=== PATIENT | male | born 1955 | race African-American/Black ===

== ENCOUNTER 2023-10-29 10:43 | Inpatient (IN) | payer OTHER ==
--- OUTSIDE RECORDS SUMMARY | 2023-10-29 11:10 | XMS REPORT | Continuity of Care Document ---
Author Name Unknown Address [address] [facility] [address]. [address] [place] [address] [facility] thconnect Address [address] [facility]. 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 Name Role Phone Serenity_Jason Attending Clinician Unavailable Criselda Gomez Attending Clinician [phone] MOMO Attending Clinician Unavailable Macy Storey Attending Clinician [phone] KARI VAZQUEZ Attending Clinician Mihir gonsalez Lab, Adc Fam Pob I Attending Clinician Unavailab Kari Sequeira MD Attending Clinician + [phone] Doctor Unassigned, Dierks Attending Clinician U QUINTIN Grande Attending Clinician Unavailable Quintin Chandra MD Attending Clinician 2, [facility] Attending Clinician Unavailable Lexi Martin MD Attending Clinician Mihir Stevens Admitting Clinician Unavailable MOMO Admitting Clinician Unavailable Payers Payer Name Policy Type Policy Number Effective Date Expirati on Date Source [employer] (POS) [id number] 2015 00:00:00 [employer] CHOICE POS II [id number] 2015 00:00:00 Problems Condition Name Condition Details Condition Category Status Onset Date Resolution Date Last Treatment Date Treating Clinician Comments Source Cellulitis of toe of left foot Cellulitis of Toe of Left Foot Problem Active 10-28 00:00: 00 [facility] Cataract Cataract Problem Active 3 00:00: 00 [facility] Hyperlipid emia Hyperlipid emia Problem Active 03-17 00:00: 00 [facility] History of cerebrovas cular accident History of Cerebrovas cular Accident Problem Active 3-16 00:00: 00 [facility] Fatigue Fatigue Problem Active 2-21 00:00: 00 [facility] Onychomyco sis of toenails Onychomyco sis of Toenails Problem Active 7 00:00: 00 [facility] Vitamin D deficiency Vitamin D Deficiency Problem Active 02-25 00:00: 00 [facility] Diabetes mellitus Diabetes Mellitus Problem Active 8 00:00: 00 [facility] Hypertensi ve disorder Hypertensi ve Disorder Problem Active 03-19 00:00: 00 [facility] Stage 1 chronic kidney disease Stage 1 chronic kidney disease Disease Active 08-18 00:00: 00 [facility] Neuropathy Neuropathy Disease Active 08-18 00:00: 00 [facility] Dyslipidem ia Dyslipidem ia Disease Active 08-18 00:00: 00 [facility] Type 2 diabetes mellitus with vascular disease Type 2 diabetes mellitus with vascular disease Disease Active 01-10 00:00: 00 [facility] Essential hypertensi on Essential hypertensi on Disease Active 01-10 00:00: 00 [facility] Encounter for screening colonoscop y Encounter for screening colonoscop y Disease Active 01-10 00:00: 00 [facility] Allergies, Adverse Reactions, Alerts Allergy Name Allergy Type Status Severity Reaction(s) Onset Date Inactive Date Treating Clinician Comments Source NO KNOWN ALLERGIE S Drug Class Active [facility] Social History Social Habit Start Date Stop Date Quantity Comments Source Exposure to SARS-CoV-2 (event) Not sure [facility] History of tobacco use Cigar Smoker [facility] Tobacco use and exposure 2019-02-08 00:00:00 2019-02-08 00:00:00 Never used [facility] Alcohol intake 2019-02-08 00:00:00 2019-02-08 00:00:00 Current drinker of alcohol (finding) [facility] Tobacco Comment 2016-01-11 00:00:00 2016-01-11 00:00:00 1-2 cigars daily; cigarettes: 20 years- 1 pack daily - quit 30 years ago [facility] Sex Ass[birth year] At [birth year] 00:00:00 [facility] Smoking Status Start Date Stop Date Source Light Tobacco Smoker [facility] Current some day smoker 2019-02-08 00:00:00 [facility] Medications Ordered Medication Name Filled Medication Name Start Date Stop Date Current Medication? Ordering Clinician Indication Dosage Frequency Signature (SIG) Comments Components Source carvediloL 25 mg tablet 2019-08 00:00: 00 Yes [id number] 25mg Take 1 tablet by mouth 2 (two) times daily with meals. [facility] carvediloL 25 mg tablet 2019-08 00:00: 00 Yes [id number] 25mg Take 1 tablet by mouth 2 (two) times daily with meals. [facility] carvediloL 25 mg tablet 2019-08 00:00: 00 Yes [id number] 25mg Take 1 tablet by mouth 2 (two) times daily with meals. [facility] carvediloL 25 mg tablet 2019-08 00:00: 00 Yes [id number] 25mg Take 1 tablet by mouth 2 (two) times daily with meals. [facility] carvediloL 25 mg tablet 2019-08 00:00: 00 Yes [id number] 25mg Take 1 tablet by mouth 2 (two) times daily with meals. [facility] carvediloL 25 mg tablet 2019-08 00:00: 00 Yes [id number] 25mg Take 1 tablet by mouth 2 (two) times daily with meals. [facility] carvediloL 25 mg tablet 2019-08 00:00: 00 Yes [id number] 25mg Take 1 tablet by mouth 2 (two) times daily with meals. [facility] carvediloL 25 mg tablet 2019-08 00:00: 00 Yes [id number] 25mg Take 1 tablet by mouth 2 (two) times daily with meals. [facility] carvediloL 25 mg tablet 2019- 030 00:00: 00 Yes [id number] 25mg Take 1 tablet by mouth 2 (two) times daily with meals. [facility] carvediloL 25 mg tablet 2019-08 030 00:00: 00 Yes [id number] 25mg Take 1 tablet by mouth 2 (two) times daily with meals. [facility] carvediloL 25 mg tablet 2019-08 0 00:00: 00 Yes [id number] 25mg Take 1 tablet by mouth 2 (two) times daily with meals. [facility] carvediloL 25 mg tablet 2019-08 0 00:00: 00 Yes [id number] 25mg Take 1 tablet by mouth 2 (two) times daily with meals. [facility] carvediloL 12.5 mg tablet 2019-0 9 00:00: 00 Yes [id number] 12.5mg Take 1 tablet by mouth 2 (two) times daily with meals. [facility] tadalafiL 20 mg tablet 2019-0 30 00:00: 00 Yes [id number] 20mg Take 1 tablet by mouth as needed for Erectile dysfunctio n. [facility] carvediloL 12.5 mg tablet 2019-0 05-09 00:00: 00 Yes [id number] 12.5mg Take 1 tablet by mouth 2 (two) times daily with meals. [facility] tadalafiL 20 mg tablet 2019-0 05-09 00:00: 00 Yes [id number] 9107 20mg Take 1 tablet by mouth as needed for Erectile dysfunctio n. [facility] carvediloL 12.5 mg tablet 2019-0 930 00:00: 00 Yes [id number] 12.5mg Take 1 tablet by mouth 2 (two) times daily with meals. [facility] tadalafiL 20 mg tablet 2019-0 930 00:00: 00 Yes [id number] [id number] 20mg Take 1 tablet by mouth as needed for Erectile dysfunctio n. [facility] tadalafiL 20 mg tablet 2019-0 05-09 00:00: 00 Yes [id number] 20mg Take 1 tablet by mouth as needed for Erectile dysfunctio n. [facility] tadalafiL 20 mg tablet 2019-0 05-09 00:00: 00 Yes [id number] 9107 20mg Take 1 tablet by mouth as needed for Erectile dysfunctio n. [facility] tadalafiL 20 mg tablet 2019-0 05-09 00:00: 00 Yes [id number] 9107 20mg Take 1 tablet by mouth as needed for Erectile dysfunctio n. [facility] tadalafiL 20 mg tablet 2019-0 05-09 00:00: 00 Yes [id number] 20mg Take 1 tablet by mouth as needed for Erectile dysfunctio n. [facility] tadalafiL 20 mg tablet 2019-0 05-09 00:00: 00 Yes [id number] [id number] 20mg Take 1 tablet by mouth as needed for Erectile dysfunctio n. [facility] tadalafiL 20 mg tablet 2019-0 05-09 00:00: 00 Yes [id number] 9107 20mg Take 1 tablet by mouth as needed for Erectile dysfunctio n. [facility] tadalafiL 20 mg tablet 2019-0 05-09 00:00: 00 Yes [id number] [id number] 20mg Take 1 tablet by mouth as needed for Erectile dysfunctio n. [facility] tadalafiL 20 mg tablet 2019-0 05-09 00:00: 00 Yes [id number] 9107 20mg Take 1 tablet by mouth as needed for Erectile dysfunctio n. [facility] tadalafiL 20 mg tablet 2019-0 30 00:00: 00 Yes [id number] [id number] 20mg Take 1 tablet by mouth as needed for Erectile dysfunctio n. [facility] tadalafiL 20 mg tablet 2019-0 05-09 00:00: 00 Yes [id number] 9107 20mg Take 1 tablet by mouth as needed for Erectile dysfunctio n. [facility] tadalafiL 20 mg tablet 2019-05-09 00:00: 00 Yes [id number] 9107 20mg Take 1 tablet by mouth as needed for Erectile dysfunctio n. [facility] tadalafiL 20 mg tablet 05-09 00:00: 00 Yes [id number] 20mg Take 1 tablet by mouth as needed for Erectile dysfunctio n. [facility] carvediloL 12.5 mg tablet 05-09 00:00: 06-08 00:00 :00 No [id number] 12.5mg Take 1 tablet by mouth 2 (two) times daily with meals. [facility] carvediloL 12.5 mg tablet 05-09 00:00: 06-08 00:00 :00 No [id number] 12.5mg Take 1 tablet by mouth 2 (two) times daily with meals. [facility] rosuvastati n 40 mg tablet 02-09 00:00: 00 Yes [id number] 40mg Take 1 tablet by mouth at bedtime. [facility] pregabalin (LYRICA) 75 mg capsule 02-09 00:00: 00 Yes [id number] 75mg Take 1 capsule by mouth at bedtime. [facility] pioglitazon e 30 mg tablet 02-09 00:00: 00 Yes [id number] 30mg Take 1 tablet by mouth daily. [facility] losartan-hy drochloroth iazide 100-25 mg per tablet 02-09 00:00: 00 Yes [id number] 1{tbl} Take 1 tablet by mouth daily. [facility] insulin glargine U-300 conc (TOUJEO MAX U-300 SOLOSTAR) 300 unit/mL (3 mL) InPn 02-09 00:00: 00 Yes [id number] 65U inject 65 Units under the skin every morning. [facility] empaglifloz in (JARDIANCE) 25 mg Tab 02-09 00:00: 00 Yes [id number] Take 1 TAB-CAP/M2 by mouth daily. [facility] dulaglutide (TRULICITY) 1.5 mg/0.5 mL PnIj 02-09 00:00: 00 Yes [id number] 1.5mg inject 1.5 mg under the skin weekly. [facility] amLODIPine 10 mg tablet 02-09 00:00: 00 Yes [id number] 10mg Take 1 tablet by mouth daily. [facility] rosuvastati n 40 mg tablet 02-09 00:00: 00 Yes [id number] 40mg Take 1 tablet by mouth at bedtime. [facility] pregabalin (LYRICA) 75 mg capsule 02-09 00:00: 00 Yes [id number] 75mg Take 1 capsule by mouth at bedtime. [facility] pioglitazon e 30 mg tablet 02-09 00:00: 00 Yes [id number] 30mg Take 1 tablet by mouth daily. [facility] losartan-hy drochloroth iazide 100-25 mg per tablet 02-09 00:00: 00 Yes [id number] 1{tbl} Take 1 tablet by mouth daily. [facility] insulin glargine U-300 conc (TOUJEO MAX U-300 SOLOSTAR) 300 unit/mL (3 mL) InPn 02-09 00:00: 00 Yes [id number] 65U inject 65 Units under the skin every morning. [facility] empaglifloz in (JARDIANCE) 25 mg Tab 02-09 00:00: 00 Yes [id number] Take 1 TAB-CAP/M2 by mouth daily. [facility] dulaglutide (TRULICITY) 1.5 mg/0.5 mL PnIj 02-09 00:00: 00 Yes [id number] 1.5mg inject 1.5 mg under the skin weekly. [facility] amLODIPine 10 mg tablet 02-09 00:00: 00 Yes [id number] 10mg Take 1 tablet by mouth daily. [facility] rosuvastati n 40 mg tablet 02-09 00:00: 00 Yes [id number] 40mg Take 1 tablet by mouth at bedtime. [facility] pregabalin (LYRICA) 75 mg capsule 02-09 00:00: 00 Yes [id number] 75mg Take 1 capsule by mouth at bedtime. [facility] pioglitazon e 30 mg tablet 02-09 00:00: 00 Yes [id number] 30mg Take 1 tablet by mouth daily. [facility] losartan-hy drochloroth iazide 100-25 mg per tablet 02-09 00:00: 00 Yes [id number] 1{tbl} Take 1 tablet by mouth daily. [facility] insulin glargine U-300 conc (TOUJEO MAX U-300 SOLOSTAR) 300 unit/mL (3 mL) InPn 02-09 00:00: 00 Yes [id number] 65U inject 65 Units under the skin every morning. [facility] empaglifloz in (JARDIANCE) 25 mg Tab 02-09 00:00: 00 Yes [id number] Take 1 TAB-CAP/M2 by mouth daily. [facility] dulaglutide (TRULICITY) 1.5 mg/0.5 mL PnIj 02-09 00:00: 00 Yes [id number] 1.5mg inject 1.5 mg under the skin weekly. [facility] amLODIPine 10 mg tablet 02-09 00:00: 00 Yes [id number] 10mg Take 1 tablet by mouth daily. [facility] rosuvastati n 40 mg tablet 02-09 00:00: 00 Yes [id number] 40mg Take 1 tablet by mouth at bedtime. [facility] pregabalin (LYRICA) 75 mg capsule 02-09 00:00: 00 Yes [id number] 75mg Take 1 capsule by mouth at bedtime. [facility] pioglitazon e 30 mg tablet 02-09 00:00: 00 Yes [id number] 30mg Take 1 tablet by mouth daily. [facility] losartan-hy drochloroth iazide 100-25 mg per tablet 02-09 00:00: 00 Yes [id number] 1{tbl} Take 1 tablet by mouth daily. [facility] insulin glargine U-300 conc (TOUJEO MAX U-300 SOLOSTAR) 300 unit/mL (3 mL) InPn 02-09 00:00: 00 Yes [id number] 65U inject 65 Units under the skin every morning. [facility] empaglifloz in (JARDIANCE) 25 mg Tab 02-09 00:00: 00 Yes [id number] Take 1 TAB-CAP/M2 by mouth daily. [facility] dulaglutide (TRULICITY) 1.5 mg/0.5 mL PnIj 02-09 00:00: 00 Yes [id number] 1.5mg inject 1.5 mg under the skin weekly. [facility] amLODIPine 10 mg tablet 02-09 00:00: 00 Yes [id number] 10mg Take 1 tablet by mouth daily. [facility] rosuvastati n 40 mg tablet 02-09 00:00: 00 Yes [id number] 40mg Take 1 tablet by mouth at bedtime. [facility] pregabalin (LYRICA) 75 mg capsule 02-09 00:00: 00 Yes [id number] 75mg Take 1 capsule by mouth at bedtime. [facility] pioglitazon e 30 mg tablet 02-09 00:00: 00 Yes [id number] 30mg Take 1 tablet by mouth daily. [facility] losartan-hy drochloroth iazide 100-25 mg per tablet 02-09 00:00: 00 Yes [id number] 1{tbl} Take 1 tablet by mouth daily. [facility] insulin glargine U-300 conc (TOUJEO MAX U-300 SOLOSTAR) 300 unit/mL (3 mL) InPn 02-09 00:00: 00 Yes [id number] 65U inject 65 Units under the skin every morning. [facility] empaglifloz in (JARDIANCE) 25 mg Tab 02-09 00:00: 00 Yes [id number] Take 1 TAB-CAP/M2 by mouth daily. [facility] dulaglutide (TRULICITY) 1.5 mg/0.5 mL PnIj 02-09 00:00: 00 Yes [id number] 1.5mg inject 1.5 mg under the skin weekly. [facility] amLODIPine 10 mg tablet 02-09 00:00: 00 Yes [id number] 10mg Take 1 tablet by mouth daily. [facility] rosuvastati n 40 mg tablet 02-09 00:00: 00 Yes [id number] 40mg Take 1 tablet by mouth at bedtime. [facility] pregabalin (LYRICA) 75 mg capsule 02-09 00:00: 00 Yes [id number] 75mg Take 1 capsule by mouth at bedtime. [facility] pioglitazon e 30 mg tablet 02-09 00:00: 00 Yes [id number] 30mg Take 1 tablet by mouth daily. [facility] losartan-hy drochloroth iazide 100-25 mg per tablet 02-09 00:00: 00 Yes [id number] 1{tbl} Take 1 tablet by mouth daily. [facility] insulin glargine U-300 conc (TOUJEO MAX U-300 SOLOSTAR) 300 unit/mL (3 mL) InPn 02-09 00:00: 00 Yes [id number] 65U inject 65 Units under the skin every morning. [facility] empaglifloz in (JARDIANCE) 25 mg Tab 02-09 00:00: 00 Yes [id number] Take 1 TAB-CAP/M2 by mouth daily. [facility] dulaglutide (TRULICITY) 1.5 mg/0.5 mL PnIj 02-09 00:00: 00 Yes [id number] 1.5mg inject 1.5 mg under the skin weekly. [facility] amLODIPine 10 mg tablet 02-09 00:00: 00 Yes [id number] 10mg Take 1 tablet by mouth daily. [facility] rosuvastati n 40 mg tablet 02-09 00:00: 00 Yes [id number] 40mg Take 1 tablet by mouth at bedtime. [facility] pregabalin (LYRICA) 75 mg capsule 02-09 00:00: 00 Yes [id number] 75mg Take 1 capsule by mouth at bedtime. [facility] pioglitazon e 30 mg tablet 02-09 00:00: 00 Yes [id number] 30mg Take 1 tablet by mouth daily. [facility] losartan-hy drochloroth iazide 100-25 mg per tablet 02-09 00:00: 00 Yes [id number] 1{tbl} Take 1 tablet by mouth daily. [facility] insulin glargine U-300 conc (TOUJEO MAX U-300 SOLOSTAR) 300 unit/mL (3 mL) InPn 02-09 00:00: 00 Yes [id number] 65U inject 65 Units under the skin every morning. [facility] empaglifloz in (JARDIANCE) 25 mg Tab 02-09 00:00: 00 Yes [id number] Take 1 TAB-CAP/M2 by mouth daily. [facility] dulaglutide (TRULICITY) 1.5 mg/0.5 mL PnIj 02-09 00:00: 00 Yes [id number] 1.5mg inject 1.5 mg under the skin weekly. [facility] amLODIPine 10 mg tablet 02-09 00:00: 00 Yes [id number] 10mg Take 1 tablet by mouth daily. [facility] rosuvastati n 40 mg tablet 02-09 00:00: 00 Yes [id number] 40mg Take 1 tablet by mouth at bedtime. [facility] pregabalin (LYRICA) 75 mg capsule 02-09 00:00: 00 Yes [id number] 75mg Take 1 capsule by mouth at bedtime. [facility] pioglitazon e 30 mg tablet 02-09 00:00: 00 Yes [id number] 30mg Take 1 tablet by mouth daily. [facility] losartan-hy drochloroth iazide 100-25 mg per tablet 02-09 00:00: 00 Yes [id number] 1{tbl} Take 1 tablet by mouth daily. [facility] insulin glargine U-300 conc (TOUJEO MAX U-300 SOLOSTAR) 300 unit/mL (3 mL) InPn 02-09 00:00: 00 Yes [id number] 65U inject 65 Units under the skin every morning. [facility] empaglifloz in (JARDIANCE) 25 mg Tab 02-09 00:00: 00 Yes [id number] Take 1 TAB-CAP/M2 by mouth daily. [facility] dulaglutide (TRULICITY) 1.5 mg/0.5 mL PnIj 02-09 00:00: 00 Yes [id number] 1.5mg inject 1.5 mg under the skin weekly. [facility] amLODIPine 10 mg tablet 02-09 00:00: 00 Yes [id number] 10mg Take 1 tablet by mouth daily. [facility] rosuvastati n 40 mg tablet 02-09 00:00: 00 Yes [id number] 40mg Take 1 tablet by mouth at bedtime. [facility] pregabalin (LYRICA) 75 mg capsule 02-09 00:00: 00 Yes [id number] 75mg Take 1 capsule by mouth at bedtime. [facility] pioglitazon e 30 mg tablet 02-09 00:00: 00 Yes [id number] 30mg Take 1 tablet by mouth daily. [facility] losartan-hy drochloroth iazide 100-25 mg per tablet 02-09 00:00: 00 Yes [id number] 1{tbl} Take 1 tablet by mouth daily. [facility] insulin glargine U-300 conc (TOUJEO MAX U-300 SOLOSTAR) 300 unit/mL (3 mL) InPn 02-09 00:00: 00 Yes [id number] 65U inject 65 Units under the skin every morning. [facility] empaglifloz in (JARDIANCE) 25 mg Tab 02-09 00:00: 00 Yes [id number] Take 1 TAB-CAP/M2 by mouth daily. [facility] dulaglutide (TRULICITY) 1.5 mg/0.5 mL PnIj 02-09 00:00: 00 Yes [id number] 1.5mg inject 1.5 mg under the skin weekly. [facility] amLODIPine 10 mg tablet 02-09 00:00: 00 Yes [id number] 10mg Take 1 tablet by mouth daily. [facility] rosuvastati n 40 mg tablet 02-09 00:00: 00 Yes [id number] 40mg Take 1 tablet by mouth at bedtime. [facility] pregabalin (LYRICA) 75 mg capsule 02-09 00:00: 00 Yes [id number] 75mg Take 1 capsule by mouth at bedtime. [facility] pioglitazon e 30 mg tablet 02-09 00:00: 00 Yes [id number] 30mg Take 1 tablet by mouth daily. [facility] losartan-hy drochloroth iazide 100-25 mg per tablet 02-09 00:00: 00 Yes [id number] 1{tbl} Take 1 tablet by mouth daily. [facility] insulin glargine U-300 conc (TOUJEO MAX U-300 SOLOSTAR) 300 unit/mL (3 mL) InPn 02-09 00:00: 00 Yes [id number] 65U inject 65 Units under the skin every morning. [facility] empaglifloz in (JARDIANCE) 25 mg Tab 02-09 00:00: 00 Yes [id number] Take 1 TAB-CAP/M2 by mouth daily. [facility] dulaglutide (TRULICITY) 1.5 mg/0.5 mL PnIj 02-09 00:00: 00 Yes [id number] 1.5mg inject 1.5 mg under the skin weekly. [facility] amLODIPine 10 mg tablet 02-09 00:00: 00 Yes [id number] 10mg Take 1 tablet by mouth daily. [facility] rosuvastati n 40 mg tablet 02-09 00:00: 00 Yes [id number] 40mg Take 1 tablet by mouth at bedtime. [facility] pregabalin (LYRICA) 75 mg capsule 02-09 00:00: 00 Yes [id number] 75mg Take 1 capsule by mouth at bedtime. [facility] pioglitazon e 30 mg tablet 02-09 00:00: 00 Yes [id number] 30mg Take 1 tablet by mouth daily. [facility] losartan-hy drochloroth iazide 100-25 mg per tablet 02-09 00:00: 00 Yes [id number] 1{tbl} Take 1 tablet by mouth daily. [facility] insulin glargine U-300 conc (TOUJEO MAX U-300 SOLOSTAR) 300 unit/mL (3 mL) InPn 02-09 00:00: 00 Yes [id number] 65U inject 65 Units under the skin every morning. [facility] empaglifloz in (JARDIANCE) 25 mg Tab 02-09 00:00: 00 Yes [id number] Take 1 TAB-CAP/M2 by mouth daily. [facility] dulaglutide (TRULICITY) 1.5 mg/0.5 mL PnIj 02-09 00:00: 00 Yes [id number] 1.5mg inject 1.5 mg under the skin weekly. [facility] amLODIPine 10 mg tablet 02-09 00:00: 00 Yes [id number] 10mg Take 1 tablet by mouth daily. [facility] rosuvastati n 40 mg tablet 02-09 00:00: 00 Yes [id number] 40mg Take 1 tablet by mouth at bedtime. [facility] pregabalin (LYRICA) 75 mg capsule 02-09 00:00: 00 Yes [id number] 75mg Take 1 capsule by mouth at bedtime. [facility] pioglitazon e 30 mg tablet 02-09 00:00: 00 Yes [id number] 30mg Take 1 tablet by mouth daily. [facility] losartan-hy drochloroth iazide 100-25 mg per tablet 02-09 00:00: 00 Yes [id number] 1{tbl} Take 1 tablet by mouth daily. [facility] insulin glargine U-300 conc (TOUJEO MAX U-300 SOLOSTAR) 300 unit/mL (3 mL) InPn 02-09 00:00: 00 Yes [id number] 65U inject 65 Units under the skin every morning. [facility] empaglifloz in (JARDIANCE) 25 mg Tab 02-09 00:00: 00 Yes [id number] Take 1 TAB-CAP/M2 by mouth daily. [facility] dulaglutide (TRULICITY) 1.5 mg/0.5 mL PnIj 02-09 00:00: 00 Yes [id number] 1.5mg inject 1.5 mg under the skin weekly. [facility] amLODIPine 10 mg tablet 02-09 00:00: 00 Yes [id number] 10mg Take 1 tablet by mouth daily. [facility] rosuvastati n 40 mg tablet 02-09 00:00: 00 Yes [id number] 40mg Take 1 tablet by mouth at bedtime. [facility] pregabalin (LYRICA) 75 mg capsule 02-09 00:00: 00 Yes [id number] 75mg Take 1 capsule by mouth at bedtime. [facility] pioglitazon e 30 mg tablet 02-09 00:00: 00 Yes [id number] 30mg Take 1 tablet by mouth daily. [facility] losartan-hy drochloroth iazide 100-25 mg per tablet 02-09 00:00: 00 Yes [id number] 1{tbl} Take 1 tablet by mouth daily. [facility] [facility] glargine U-300 conc (TOUJEO MAX U-300 SOLOSTAR) 300 unit/mL (3 mL) InPn 02-09 00:00: 00 Yes [id number] 65U inject 65 Units under the skin every morning. [facility] empaglifloz in (JARDIANCE) 25 mg Tab 02-09 00:00: 00 Yes [id number] Take 1 TAB-CAP/M2 by mouth daily. [facility] dulaglutide (TRULICITY) 1.5 mg/0.5 mL PnIj 02-09 00:00: 00 Yes [id number] 1.5mg inject 1.5 mg under the skin weekly. [facility] amLODIPine 10 mg tablet 02-09 00:00: 00 Yes [id number] 10mg Take 1 tablet by mouth daily. [facility] rosuvastati n 40 mg tablet 02-09 00:00: 00 Yes [id number] 40mg Take 1 tablet by mouth at bedtime. [facility] pregabalin (LYRICA) 75 mg capsule 02-09 00:00: 00 Yes [id number] 75mg Take 1 capsule by mouth at bedtime. [facility] pioglitazon e 30 mg tablet 02-09 00:00: 00 Yes [id number] 30mg Take 1 tablet by mouth daily. [facility] losartan-hy drochloroth iazide 100-25 mg per tablet 02-09 00:00: 00 Yes [id number] 1{tbl} Take 1 tablet by mouth daily. [facility] insulin glargine U-300 conc (TOUJEO MAX U-300 SOLOSTAR) 300 unit/mL (3 mL) InPn 02-09 00:00: 00 Yes [id number] 65U inject 65 Units under the skin every morning. [facility] empaglifloz in (JARDIANCE) 25 mg Tab 02-09 00:00: 00 Yes [id number] Take 1 TAB-CAP/M2 by mouth daily. [facility] dulaglutide (TRULICITY) 1.5 mg/0.5 mL PnIj 02-09 00:00: 00 Yes [id number] 1.5mg inject 1.5 mg under the skin weekly. [facility] amLODIPine 10 mg tablet 02-09 00:00: 00 Yes [id number] 10mg Take 1 tablet by mouth daily. [facility] rosuvastati n 40 mg tablet 02-09 00:00: 00 Yes [id number] 40mg Take 1 tablet by mouth at bedtime. [facility] pregabalin (LYRICA) 75 mg capsule 02-09 00:00: 00 Yes [id number] 75mg Take 1 capsule by mouth at bedtime. [facility] pioglitazon e 30 mg tablet 02-09 00:00: 00 Yes [id number] 30mg Take 1 tablet by mouth daily. [facility] losartan-hy drochloroth iazide 100-25 mg per tablet 02-09 00:00: 00 Yes [id number] 1{tbl} Take 1 tablet by mouth daily. [facility] insulin glargine U-300 conc (TOUJEO MAX U-300 SOLOSTAR) 300 unit/mL (3 mL) InPn 02-09 00:00: 00 Yes [id number] 65U inject 65 Units under the skin every morning. [facility] empaglifloz in (JARDIANCE) 25 mg Tab 02-09 00:00: 00 Yes [id number] Take 1 TAB-CAP/M2 by mouth daily. [facility] dulaglutide (TRULICITY) 1.5 mg/0.5 mL PnIj 02-09 00:00: 00 Yes [id number] 1.5mg inject 1.5 mg under the skin weekly. [facility] amLODIPine 10 mg tablet 02-09 00:00: 00 Yes [id number] 10mg Take 1 tablet by mouth daily. [facility] rosuvastati n 40 mg tablet 02-09 00:00: 00 Yes [id number] 40mg Take 1 tablet by mouth at bedtime. [facility] pregabalin (LYRICA) 75 mg capsule 02-09 00:00: 00 Yes [id number] 75mg Take 1 capsule by mouth at bedtime. [facility] pioglitazon e 30 mg tablet 02-09 00:00: 00 Yes [id number] 30mg Take 1 tablet by mouth daily. [facility] losartan-hy drochloroth iazide 100-25 mg per tablet 02-09 00:00: 00 Yes [id number] 1{tbl} Take 1 tablet by mouth daily. [facility] insulin glargine U-300 conc (TOUJEO MAX U-300 SOLOSTAR) 300 unit/mL (3 mL) InPn 02-09 00:00: 00 Yes [id number] 65U inject 65 Units under the skin every morning. [facility] empaglifloz in (JARDIANCE) 25 mg Tab 02-09 00:00: 00 Yes [id number] Take 1 TAB-CAP/M2 by mouth daily. [facility] dulaglutide (TRULICITY) 1.5 mg/0.5 mL PnIj 02-09 00:00: 00 Yes [id number] 1.5mg inject 1.5 mg under the skin weekly. [facility] amLODIPine 10 mg tablet 02-09 00:00: 00 Yes [id number] 10mg Take 1 tablet by mouth daily. [facility] rosuvastati n 40 mg tablet 02-09 00:00: 00 Yes [id number] 40mg Take 1 tablet by mouth at bedtime. [facility] pregabalin (LYRICA) 75 mg capsule 02-09 00:00: 00 Yes [id number] 75mg Take 1 capsule by mouth at bedtime. [facility] pioglitazon e 30 mg tablet 02-09 00:00: 00 Yes [id number] 30mg Take 1 tablet by mouth daily. [facility] losartan-hy drochloroth iazide 100-25 mg per tablet 02-09 00:00: 00 Yes [id number] 1{tbl} Take 1 tablet by mouth daily. [facility] insulin glargine U-300 conc (TOUJEO MAX U-300 SOLOSTAR) 300 unit/mL (3 mL) InPn 02-09 00:00: 00 Yes [id number] 65U inject 65 Units under the skin every morning. [facility] empaglifloz in (JARDIANCE) 25 mg Tab 02-09 00:00: 00 Yes [id number] Take 1 TAB-CAP/M2 by mouth daily. [facility] dulaglutide (TRULICITY) 1.5 mg/0.5 mL PnIj 02-09 00:00: 00 Yes [id number] 1.5mg inject 1.5 mg under the skin weekly. [facility] amLODIPine 10 mg tablet 02-09 00:00: 00 Yes [id number] 10mg Take 1 tablet by mouth daily. [facility] rosuvastati n 40 mg tablet 02-09 00:00: 00 Yes [id number] 40mg Take 1 tablet by mouth at bedtime. [facility] pregabalin (LYRICA) 75 mg capsule 02-09 00:00: 00 Yes [id number] 75mg Take 1 capsule by mouth at bedtime. [facility] pioglitazon e 30 mg tablet 02-09 00:00: 00 Yes [id number] 30mg Take 1 tablet by mouth daily. [facility] losartan-hy drochloroth iazide 100-25 mg per tablet 02-09 00:00: 00 Yes [id number] 1{tbl} Take 1 tablet by mouth daily. [facility] insulin glargine U-300 conc (TOUJEO MAX U-300 SOLOSTAR) 300 unit/mL (3 mL) InPn 02-09 00:00: 00 Yes [id number] 65U inject 65 Units under the skin every morning. [facility] empaglifloz in (JARDIANCE) 25 mg Tab 02-09 00:00: 00 Yes [id number] Take 1 TAB-CAP/M2 by mouth daily. [facility] dulaglutide (TRULICITY) 1.5 mg/0.5 mL PnIj 02-09 00:00: 00 Yes [id number] 1.5mg inject 1.5 mg under the skin weekly. [facility] amLODIPine 10 mg tablet 02-09 00:00: 00 Yes [id number] 10mg Take 1 tablet by mouth daily. [facility] insulin glargine U-300 conc (TOUJEO MAX U-300 SOLOSTAR) 300 unit/mL (3 mL) In 2 00:00: 00 Yes [id number] 66U inject 66-70 Units under the skin every morning. [facility] metFORMIN 1,000 mg tablet 225 00:00: 00 Yes [id number] 1000mg Take 1 tablet by mouth 2 (two) times daily with meals. [facility] insulin glargine U-300 conc (TOUJEO MAX U-300 SOLOSTAR) 300 unit/mL (3 mL) In 2 00:00: 00 Yes [id number] 66U inject 66-70 Units under the skin every morning. [facility] metFORMIN 1,000 mg tablet 10-04 00:00: 00 Yes [id number] 1000mg Take 1 tablet by mouth 2 (two) times daily with meals. [facility] insulin glargine U-300 conc (TOUJEO MAX U-300 SOLOSTAR) 300 unit/mL (3 mL) In 10-04 00:00: 00 Yes [id number] 66U inject 66-70 Units under the skin every morning. [facility] metFORMIN 1,000 mg tablet 0 2 00:00: 00 Yes [id number] 1000mg Take 1 tablet by mouth 2 (two) times daily with meals. [facility] metFORMIN 1,000 mg tablet 2 00:00: 00 Yes [id number] 1000mg Take 1 tablet by mouth 2 (two) times daily with meals. [facility] metFORMIN 1,000 mg tablet 0 225 00:00: 00 Yes [id number] 1000mg Take 1 tablet by mouth 2 (two) times daily with meals. [facility] metFORMIN 1,000 mg tablet 0 2-25 00:00: 00 Yes [id number] 1000mg Take 1 tablet by mouth 2 (two) times daily with meals. [facility] metFORMIN 1,000 mg tablet 2019-0 2-25 00:00: 00 Yes [id number] 1000mg Take 1 tablet by mouth 2 (two) times daily with meals. [facility] metFORMIN 1,000 mg tablet 2020-0 2-25 00:00: 00 Yes [id number] 1000mg Take 1 tablet by mouth 2 (two) times daily with meals. [facility] metFORMIN 1,000 mg tablet 2020-0 2-25 00:00: 00 Yes [id number] 1000mg Take 1 tablet by mouth 2 (two) times daily with meals. [facility] metFORMIN 1,000 mg tablet 2020-0 2-25 00:00: 00 Yes [id number] 1000mg Take 1 tablet by mouth 2 (two) times daily with meals. [facility] metFORMIN 1,000 mg tablet 2020-0 2-25 00:00: 00 Yes [id number] 1000mg Take 1 tablet by mouth 2 (two) times daily with meals. [facility] metFORMIN 1,000 mg tablet 2020-0 2-25 00:00: 00 Yes [id number] 1000mg Take 1 tablet by mouth 2 (two) times daily with meals. [facility] metFORMIN 1,000 mg tablet 2020-0 2-25 00:00: 00 Yes [id number] 1000mg Take 1 tablet by mouth 2 (two) times daily with meals. [facility] metFORMIN 1,000 mg tablet 2020-0 2-25 00:00: 00 Yes [id number] 1000mg Take 1 tablet by mouth 2 (two) times daily with meals. [facility] metFORMIN 1,000 mg tablet 2020-0 2-25 00:00: 00 Yes [id number] 1000mg Take 1 tablet by mouth 2 (two) times daily with meals. [facility] metFORMIN 1,000 mg tablet 2020-0 2-25 00:00: 00 Yes [id number] 1000mg Take 1 tablet by mouth 2 (two) times daily with meals. [facility] metFORMIN 1,000 mg tablet 2020-0 2-25 00:00: 00 Yes [id number] 1000mg Take 1 tablet by mouth 2 (two) times daily with meals. [facility] metFORMIN 1,000 mg tablet 2020-0 2-25 00:00: 00 Yes [id number] 1000mg Take 1 tablet by mouth 2 (two) times daily with meals. [facility] metFORMIN 1,000 mg tablet 2020-0 2-25 00:00: 00 Yes [id number] 1000mg Take 1 tablet by mouth 2 (two) times daily with meals. [facility] metFORMIN 1,000 mg tablet 10-04 00:00: 00 Yes [id number] 1000mg Take 1 tablet by mouth 2 (two) times daily with meals. [facility] metFORMIN 1,000 mg tablet 10-04 00:00: 00 Yes [id number] 1000mg Take 1 tablet by mouth 2 (two) times daily with meals. [facility] insulin glargine U-300 conc (TOUJEO MAX U-300 SOLOSTAR) 300 unit/mL (3 mL) In 10-04 00:00: 00 Yes [id number] 66U inject 66-70 Units under the skin every morning. [facility] metFORMIN 1,000 mg tablet 10-04 00:00: 00 Yes [id number] 1000mg Take 1 tablet by mouth 2 (two) times daily with meals. [facility] insulin glargine U-300 conc (TOUJEO MAX U-300 SOLOSTAR) 300 unit/mL (3 mL) In 10-04 00:00: 00 Yes [id number] 66U inject 66-70 Units under the skin every morning. [facility] metFORMIN 1,000 mg tablet 10-04 00:00: 00 Yes [id number] 1000mg Take 1 tablet by mouth 2 (two) times daily with meals. [facility] insulin glargine U-300 conc (TOUJEO MAX U-300 SOLOSTAR) 300 unit/mL (3 mL) [facility] 10-04 00:00: 00 02-09 00:00 :00 No [id number] 66U inject 66-70 Units under the skin every morning. [facility] insulin glargine U-300 conc (TOUJEO MAX U-300 SOLOSTAR) 300 unit/mL (3 mL) In 10-04 00:00: 00 02-09 00:00 :00 No [id number] 66U inject 66-70 Units under the skin every morning. [facility] METFORMIN 1,000 mg tablet 09-16 00:00: 00 Yes [id number] TAKE 1 TABLET BY MOUTH TWICE DAILY WITH MEALS [facility] METFORMIN 1,000 mg tablet 09-16 00:00: 00 10-04 00:00 :00 No [id number] TAKE 1 TABLET BY MOUTH TWICE DAILY WITH MEALS [facility] METFORMIN 1,000 mg tablet 09-16 00:00: 10-04 00:00 :00 No [id number] TAKE 1 TABLET BY MOUTH TWICE DAILY WITH MEALS [facility] rosuvastati n 40 mg tablet 2018-08 00:00: 00 Yes [id number] 40mg Take 1 tablet by mouth at bedtime. [facility] amLODIPine 10 mg tablet 2018-08 00:00: 00 Yes [id number] 10mg Take 1 tablet by mouth daily. [facility] dulaglutide (TRULICITY) 1.5 mg/0.5 mL PnIj 2018-08 00:00: 00 Yes [id number] 1.5mg inject 1.5 mg under the skin weekly. [facility] pregabalin (LYRICA) 75 mg capsule 2018-08 00:00: 00 Yes [id number] 75mg Take 1 capsule by mouth at bedtime. [facility] rosuvastati n 40 mg tablet 2018-08 00:00: 00 Yes [id number] 40mg Take 1 tablet by mouth at bedtime. [facility] amLODIPine 10 mg tablet 2018-08 00:00: 00 Yes [id number] 10mg Take 1 tablet by mouth daily. [facility] dulaglutide (TRULICITY) 1.5 mg/0.5 mL PnIj 2018-08 00:00: 00 Yes [id number] 1.5mg inject 1.5 mg under the skin weekly. [facility] pregabalin (LYRICA) 75 mg capsule 2018-08 00:00: 00 Yes [id number] 75mg Take 1 capsule by mouth at bedtime. [facility] rosuvastati n 40 mg tablet 2018-08 00:00: 00 Yes [id number] 40mg Take 1 tablet by mouth at bedtime. [facility] amLODIPine 10 mg tablet 2018-08 00:00: 00 Yes [id number] 10mg Take 1 tablet by mouth daily. [facility] dulaglutide (TRULICITY) 1.5 mg/0.5 mL PnIj 2018-08 00:00: 00 Yes [id number] 1.5mg inject 1.5 mg under the skin weekly. [facility] insulin glargine U-300 conc (TOUJEO MAX U-300 SOLOSTAR) 300 unit/mL (3 mL) InPn 2018-08 00:00: 00 Yes [id number] 66U inject 66-70 Units under the skin every morning. [facility] pregabalin (LYRICA) 75 mg capsule 2018-08 00:00: 00 Yes [id number] 75mg Take 1 capsule by mouth at bedtime. [facility] rosuvastati n 40 mg tablet 2018-08 00:00: 00 Yes [id number] 40mg Take 1 tablet by mouth at bedtime. [facility] amLODIPine 10 mg tablet 2018-08 00:00: 00 Yes [id number] 10mg Take 1 tablet by mouth daily. [facility] dulaglutide (TRULICITY) 1.5 mg/0.5 mL PnIj 2018-08 00:00: 00 Yes [id number] 1.5mg inject 1.5 mg under the skin weekly. [facility] pregabalin (LYRICA) 75 mg capsule 2018-08 00:00: 00 Yes [id number] 75mg Take 1 capsule by mouth at bedtime. [facility] rosuvastati n 40 mg tablet 2018-08 00:00: 00 Yes [id number] 40mg Take 1 tablet by mouth at bedtime. [facility] amLODIPine 10 mg tablet 2018-08 00:00: 00 Yes [id number] 10mg Take 1 tablet by mouth daily. [facility] dulaglutide (TRULICITY) 1.5 mg/0.5 mL PnIj 2018-08 00:00: 00 Yes [id number] 1.5mg inject 1.5 mg under the skin weekly. [facility] pregabalin (LYRICA) 75 mg capsule 2018-08 00:00: 00 Yes [id number] 75mg Take 1 capsule by mouth at bedtime. [facility] rosuvastati n 40 mg tablet 2018-08 00:00: 00 Yes [id number] 40mg Take 1 tablet by mouth at bedtime. [facility] amLODIPine 10 mg tablet 2018-08 00:00: 00 Yes [id number] 10mg Take 1 tablet by mouth daily. [facility] dulaglutide (TRULICITY) 1.5 mg/0.5 mL PnIj 2018-08 00:00: 00 Yes [id number] 1.5mg inject 1.5 mg under the skin weekly. [facility] pregabalin (LYRICA) 75 mg capsule 2018-08 00:00: 00 Yes [id number] 75mg Take 1 capsule by mouth at bedtime. [facility] pregabalin (LYRICA) 75 mg capsule 2018-08 00:00: 00 02-09 00:00 :00 No [id number] 75mg Take 1 capsule by mouth at bedtime. [facility] rosuvastati n 40 mg tablet 2018-08 00:00: 00 02-09 00:00 :00 No [id number] 40mg Take 1 tablet by mouth at bedtime. [facility] amLODIPine 10 mg tablet 2018-08 00:00: 00 02-09 00:00 :00 No [id number] 10mg Take 1 tablet by mouth daily. [facility] dulaglutide (TRULICITY) 1.5 mg/0.5 mL PnIj 2018-08 00:00: 00 02-09 00:00 :00 No [id number] 1.5mg inject 1.5 mg under the skin weekly. [facility] pregabalin (LYRICA) 75 mg capsule 2018-08 00:00: 00 02-09 00:00 :00 No [id number] 75mg Take 1 capsule by mouth at bedtime. [facility] rosuvastati n 40 mg tablet 2018-08 00:00: 00 02-09 00:00 :00 No [id number] 40mg Take 1 tablet by mouth at bedtime. [facility] amLODIPine 10 mg tablet 2018-08 00:00: 00 02-09 00:00 :00 No [id number] 10mg Take 1 tablet by mouth daily. [facility] dulaglutide (TRULICITY) 1.5 mg/0.5 mL PnIj 2018-08 00:00: 00 02-09 00:00 :00 No [id number] 1.5mg inject 1.5 mg under the skin weekly. [facility] insulin glargine U-300 conc (TOUJEO MAX U-300 SOLOSTAR) 300 unit/mL (3 mL) In 2018-08 00:00: 00 10-04 00:00 :00 No [id number] 66U inject 66-70 Units under the skin every morning. [facility] insulin glargine U-300 conc (TOUJEO MAX U-300 SOLOSTAR) 300 unit/mL (3 mL) In 2018-08 00:00: 00 10-04 00:00 :00 No [id number] 66U inject 66-70 Units under the skin every morning. [facility] empaglifloz in (JARDIANCE) 25 mg Tab 02-08 00:00: 00 Yes [id number] Take 1 TAB-CAP/M2 by mouth daily. [facility] losartan-hy drochloroth iazide 100-25 mg per tablet 02-08 00:00: 00 Yes [id number] 1{tbl} Take 1 tablet by mouth daily. [facility] pioglitazon e 30 mg tablet 02-08 00:00: 00 Yes [id number] 30mg Take 1 tablet by mouth daily. [facility] empaglifloz in (JARDIANCE) 25 mg Tab 02-08 00:00: 00 Yes [id number] Take 1 TAB-CAP/M2 by mouth daily. [facility] losartan-hy drochloroth iazide 100-25 mg per tablet 02-08 00:00: 00 Yes [id number] 1{tbl} Take 1 tablet by mouth daily. [facility] pioglitazon e 30 mg tablet 02-08 00:00: 00 Yes [id number] 30mg Take 1 tablet by mouth daily. [facility] empaglifloz in (JARDIANCE) 25 mg Tab 02-08 00:00: 00 Yes [id number] Take 1 TAB-CAP/M2 by mouth daily. [facility] losartan-hy drochloroth iazide 100-25 mg per tablet 02-08 00:00: 00 Yes [id number] 1{tbl} Take 1 tablet by mouth daily. [facility] pioglitazon e 30 mg tablet 02-08 00:00: 00 Yes [id number] 30mg Take 1 tablet by mouth daily. [facility] empaglifloz in (JARDIANCE) 25 mg Tab 02-08 00:00: 00 Yes [id number] Take 1 TAB-CAP/M2 by mouth daily. [facility] losartan-hy drochloroth iazide 100-25 mg per tablet 02-08 00:00: 00 Yes [id number] 1{tbl} Take 1 tablet by mouth daily. [facility] pioglitazon e 30 mg tablet 02-08 00:00: 00 Yes [id number] 30mg Take 1 tablet by mouth daily. [facility] empaglifloz in (JARDIANCE) 25 mg Tab 02-08 00:00: 00 Yes [id number] Take 1 TAB-CAP/M2 by mouth daily. [facility] losartan-hy drochloroth iazide 100-25 mg per tablet 02-08 00:00: 00 Yes [id number] 1{tbl} Take 1 tablet by mouth daily. [facility] pioglitazon e 30 mg tablet 02-08 00:00: 00 Yes [id number] 30mg Take 1 tablet by mouth daily. [facility] empaglifloz in (JARDIANCE) 25 mg Tab 02-08 00:00: 00 Yes [id number] Take 1 TAB-CAP/M2 by mouth daily. [facility] losartan-hy drochloroth iazide 100-25 mg per tablet 02-08 00:00: 00 Yes [id number] 1{tbl} Take 1 tablet by mouth daily. [facility] pioglitazon e 30 mg tablet 02-08 00:00: 00 Yes [id number] 30mg Take 1 tablet by mouth daily. [facility] empaglifloz in (JARDIANCE) 25 mg Tab 02-08 00:00: 00 02-09 00:00 :00 No [id number] Take 1 TAB-CAP/M2 by mouth daily. [facility] losartan-hy drochloroth iazide 100-25 mg per tablet 02-08 00:00: 00 02-09 00:00 :00 No [id number] 1{tbl} Take 1 tablet by mouth daily. [facility] pioglitazon e 30 mg tablet 02-08 00:00: 00 02-09 00:00 :00 No [id number] 30mg Take 1 tablet by mouth daily. [facility] empaglifloz in (JARDIANCE) 25 mg Tab 02-08 00:00: 00 02-09 00:00 :00 No [id number] Take 1 TAB-CAP/M2 by mouth daily. [facility] losartan-hy drochloroth iazide 100-25 mg per tablet 02-08 00:00: 00 02-09 00:00 :00 No [id number] 1{tbl} Take 1 tablet by mouth daily. [facility] pioglitazon e 30 mg tablet 02-08 00:00: 00 02-09 00:00 :00 No [id number] 30mg Take 1 tablet by mouth daily. [facility] Insulin Caldwell, Disposable, (BD ULTRA-FINE MICRO PEN NEEDLE) 32 gauge x 1/4" Ndle 08-18 00:00: 00 Yes [id number] Use as directed. 5 times daily. E 11.59 [facility] Insulin Caldwell, Disposable, (BD ULTRA-FINE MICRO PEN NEEDLE) 32 gauge x 1/4" Nd 08-18 00:00: 00 Yes [id number] Use as directed. 5 times daily. E 11.59 [facility] Insulin Caldwell, Disposable, (BD ULTRA-FINE MICRO PEN NEEDLE) 32 gauge x 1/4" [facility] 08-18 00:00: 00 Yes [id number] Use as directed. 5 times daily. E 11.59 [facility] Insulin Caldwell, Disposable, (BD ULTRA-FINE MICRO PEN NEEDLE) 32 gauge x 1/4" [facility] 08-18 00:00: 00 Yes [id number] Use as directed. 5 times daily. E 11.59 [facility] Insulin Caldwell, Disposable, (BD ULTRA-FINE MICRO PEN NEEDLE) 32 gauge x 1/4" [facility] 08-18 00:00: 00 Yes [id number] Use as directed. 5 times daily. E 11.59 [facility] Insulin Caldwell, Disposable, (BD ULTRA-FINE MICRO PEN NEEDLE) 32 gauge x 1/4" Nd 08-18 00:00: 00 Yes [id number] Use as directed. 5 times daily. E 11.59 [facility] Insulin Caldwell, Disposable, (BD ULTRA-FINE MICRO PEN NEEDLE) 32 gauge x 1/4" Nd 08-18 00:00: 00 Yes [id number] Use as directed. 5 times daily. E 11.59 [facility] Insulin Caldwell, Disposable, (BD ULTRA-FINE MICRO PEN NEEDLE) 32 gauge x 1/4" Nd 08-18 00:00: 00 Yes [id number] Use as directed. 5 times daily. E 11.59 [facility] Insulin Caldwell, Disposable, (BD ULTRA-FINE MICRO PEN NEEDLE) 32 gauge x 1/4" Nd 08-18 00:00: 00 Yes [id number] Use as directed. 5 times daily. E 11.59 [facility] Insulin Caldwell, Disposable, (BD ULTRA-FINE MICRO PEN NEEDLE) 32 gauge x 1/4" Ndle 08-18 00:00: 00 Yes [id number] Use as directed. 5 times daily. E 11.59 [facility] Insulin Caldwell, Disposable, (BD ULTRA-FINE MICRO PEN NEEDLE) 32 gauge x 1/4" Ndle 08-18 00:00: 00 Yes [id number] Use as directed. 5 times daily. E 11.59 [facility] Insulin Caldwell, Disposable, (BD ULTRA-FINE MICRO PEN NEEDLE) 32 gauge x 1/4" Nd 08-18 00:00: 00 Yes [id number] Use as directed. 5 times daily. E 11.59 [facility] Insulin Caldwell, Disposable, (BD ULTRA-FINE MICRO PEN NEEDLE) 32 gauge x 1/4" Nd 08-18 00:00: 00 Yes [id number] Use as directed. 5 times daily. E 11.59 [facility] Insulin Caldwell, Disposable, (BD ULTRA-FINE MICRO PEN NEEDLE) 32 gauge x 1/4" Nd 08-18 00:00: 00 Yes [id number] Use as directed. 5 times daily. E 11.59 [facility] Insulin Caldwell, Disposable, (BD ULTRA-FINE MICRO PEN NEEDLE) 32 gauge x 1/4" Nd 08-18 00:00: 00 Yes [id number] Use as directed. 5 times daily. E 11.59 [facility] Insulin Caldwell, Disposable, (BD ULTRA-FINE MICRO PEN NEEDLE) 32 gauge x 1/4" Nd 08-18 00:00: 00 Yes [id number] Use as directed. 5 times daily. E 11.59 [facility] Insulin Caldwell, Disposable, (BD ULTRA-FINE MICRO PEN NEEDLE) 32 gauge x 1/4" Nd 08-18 00:00: 00 Yes [id number] Use as directed. 5 times daily. E 11.59 [facility] Insulin Caldwell, Disposable, (BD ULTRA-FINE MICRO PEN NEEDLE) 32 gauge x 1/4" Ndle 08-18 00:00: 00 Yes [id number] Use as directed. 5 times daily. E 11.59 [facility] Insulin Caldwell, Disposable, (BD ULTRA-FINE MICRO PEN NEEDLE) 32 gauge x 1/4" Nd 08-18 00:00: 00 Yes [id number] Use as directed. 5 times daily. E 11.59 [facility], Disposable, (BD ULTRA-FINE MICRO PEN NEEDLE) 32 gauge x 1/4" Nd 08-18 00:00: 00 Yes [id number] Use as directed. 5 times daily. E 11.59 [facility] [place], Disposable, (BD ULTRA-FINE MICRO PEN NEEDLE) 32 gauge x 1/4" Nd 08-18 00:00: 00 Yes [id number] Use as directed. 5 times daily. E 11.59 [facility] Insulin Caldwell, Disposable, (BD ULTRA-FINE MICRO PEN NEEDLE) 32 gauge x 1/4" [facility] 08-18 00:00: 00 Yes [id number] Use as directed. 5 times daily. E 11.59 [facility] Insulin Caldwell, Disposable, (BD ULTRA-FINE MICRO PEN NEEDLE) 32 gauge x 1/4" [facility] 08-18 00:00: 00 Yes [id number] Use as directed. 5 times daily. E 11.59 [facility] Insulin Caldwell, Disposable, (BD ULTRA-FINE MICRO PEN NEEDLE) 32 gauge x 1/4" [facility] 08-18 00:00: 00 Yes [id number] Use as directed. 5 times daily. E 11.59 [facility] metFORMIN 1,000 mg tablet 08-18 00:00: 00 09-16 00:00 :00 No [id number] 1000mg Take 1 tablet by mouth 2 (two) times daily with meals. [facility] vitamin E vitamin E No vitamin E [facility] amlodipine 10 mg tablet TAKE 1 TABLET BY MOUTH EVERY DAY amlodipine 10 mg tablet TAKE 1 TABLET BY MOUTH EVERY DAY No amlodipine 10 mg tablet TAKE 1 TABLET BY MOUTH EVERY DAY [facility] aspirin aspirin No aspirin S [facility] atenolol 50 mg-chlortha lidone 25 mg tablet TAKE 1 TABLET BY MOUTH EVERY DAY atenolol 50 mg-chlortha lidone 25 mg tablet TAKE 1 TABLET BY MOUTH EVERY DAY No atenolol 50 mg-chlorth alidone 25 mg tablet TAKE 1 TABLET BY MOUTH EVERY DAY [facility] cholecalcif pietro (vitamin D3) 1,250 mcg (50,000 unit) capsule TAKE 1 CAPSULE EVERY WEEK BY ORAL ROUTE. cholecalcif pietro (vitamin D3) 1,250 mcg (50,000 unit) capsule TAKE 1 CAPSULE EVERY WEEK BY ORAL ROUTE. No cholecalci ferol (vitamin D3) 1,250 mcg (50,000 unit) capsule TAKE 1 CAPSULE EVERY WEEK BY ORAL ROUTE. [facility] fenofibrate micronized 134 mg capsule TAKE 1 CAPSULE BY MOUTH EVERY DAY FOR 90 DAYS fenofibrate micronized 134 mg capsule TAKE 1 CAPSULE BY MOUTH EVERY DAY FOR 90 DAYS No fenofibrat e micronized 134 mg capsule TAKE 1 CAPSULE BY MOUTH EVERY DAY FOR 90 DAYS [facility] Jardiance 25 mg tablet TAKE 1 TABLET BY MOUTH EVERY DAY Jardiance 25 mg tablet TAKE 1 TABLET BY MOUTH EVERY DAY No Jardiance 25 mg tablet TAKE 1 TABLET BY MOUTH EVERY DAY [facility] losartan 100 mg tablet TAKE 1 TABLET BY MOUTH EVERY DAY losartan 100 mg tablet TAKE 1 TABLET BY MOUTH EVERY DAY No losartan 100 mg tablet TAKE 1 TABLET BY MOUTH EVERY DAY [facility] One-A-Day Men's 50 Plus One-A-Day Men's 50 Plus No One-A-Day Men's 50 Plus [facility] pioglitazon e 30 mg tablet TAKE 1 TABLET BY MOUTH EVERY DAY pioglitazon e 30 mg tablet TAKE 1 TABLET BY MOUTH EVERY DAY No pioglitazo ne 30 mg tablet TAKE 1 TABLET BY MOUTH EVERY DAY [facility] spironolact one 25 mg tablet TAKE 1 TABLET BY MOUTH 1 TIME EACH DAY. spironolact one 25 mg tablet TAKE 1 TABLET BY MOUTH 1 TIME EACH DAY. No spironolac tone 25 mg tablet TAKE 1 TABLET BY MOUTH 1 TIME EACH DAY. [facility] tamsulosin 0.4 mg capsule TAKE 1 CAPSULE BY MOUTH EVERY NIGHT. tamsulosin 0.4 mg capsule TAKE 1 CAPSULE BY MOUTH EVERY NIGHT. No tamsulosin 0.4 mg capsule TAKE 1 CAPSULE BY MOUTH EVERY NIGHT. [facility] [employer] SoloStar U-300 Insulin 65 units sub Q qam [employer] SoloStar U-300 Insulin 65 units sub Q qam No [employer] SoloStar U-300 Insulin 65 units sub Q qam [facility] [employer] SoloStar U-300 Insulin 300 unit/mL (1.5 mL) subcutaneou s pen INJECT 65 UNITS EVERY DAY BY SUBCUTANEOU S ROUTE IN THE MORNING [employer]Star U-300 Insulin 300 unit/mL (1.5 mL) subcutaneou s pen INJECT 65 UNITS EVERY DAY BY SUBCUTANEOU S ROUTE IN THE MORNING No [employer] SoloStar U-300 Insulin 300 unit/mL (1.5 mL) subcutaneo us pen INJECT 65 UNITS EVERY DAY BY SUBCUTANEO US ROUTE IN THE MORNING [facility] Trulicity 1.5 mg/0.5 mL subcutaneou s pen injector INJECT 0.5 ML EVERY WEEK BY SUBCUTANEOU S ROUTE DIRECTED. Trulicity 1.5 mg/0.5 mL subcutaneou s pen injector INJECT 0.5 ML EVERY WEEK BY SUBCUTANEOU S ROUTE DIRECTED. No Trulicity 1.5 mg/0.5 mL subcutaneo us pen injector INJECT 0.5 ML EVERY WEEK BY SUBCUTANEO US ROUTE DIRECTED. [facility] vitamin E vitamin E No vitamin E [facility] amlodipine 10 mg tablet TAKE 1 TABLET BY MOUTH EVERY DAY amlodipine 10 mg tablet TAKE 1 TABLET BY MOUTH EVERY DAY No amlodipine 10 mg tablet TAKE 1 TABLET BY MOUTH EVERY DAY [facility] aspirin aspirin No aspirin S [facility] atenolol 50 mg-chlortha lidone 25 mg tablet TAKE 1 TABLET BY MOUTH EVERY DAY atenolol 50 mg-chlortha lidone 25 mg tablet TAKE 1 TABLET BY MOUTH EVERY DAY No atenolol 50 mg-chlorth alidone 25 mg tablet TAKE 1 TABLET BY MOUTH EVERY DAY [facility] fenofibrate micronized 134 mg capsule TAKE 1 CAPSULE BY MOUTH EVERY DAY FOR 90 DAYS fenofibrate micronized 134 mg capsule TAKE 1 CAPSULE BY MOUTH EVERY DAY FOR 90 DAYS No fenofibrat e micronized 134 mg capsule TAKE 1 CAPSULE BY MOUTH EVERY DAY FOR 90 DAYS [facility] Jardiance 25 mg tablet TAKE 1 TABLET BY MOUTH EVERY DAY Jardiance 25 mg tablet TAKE 1 TABLET BY MOUTH EVERY DAY No Jardiance 25 mg tablet TAKE 1 TABLET BY MOUTH EVERY DAY [facility] losartan 100 mg tablet TAKE 1 TABLET BY MOUTH EVERY DAY losartan 100 mg tablet TAKE 1 TABLET BY MOUTH EVERY DAY No losartan 100 mg tablet TAKE 1 TABLET BY MOUTH EVERY DAY [facility] One-A-Day Men's 50 Plus One-A-Day Men's 50 Plus No One-A-Day Men's 50 Plus [facility] OneTouch Delica Plus Lancet 33 gauge Test Twice per Day OneTouch Delica Plus Lancet 33 gauge Test Twice per Day No OneTouch Delica Plus Lancet 33 gauge Test Twice per Day [facility] OneTouch Ultra Test strips USE TO TEST BLOOD SUGAR TWICE DAILY OneTouch Ultra Test strips USE TO TEST BLOOD SUGAR TWICE DAILY No OneTouch Ultra Test strips USE TO TEST BLOOD SUGAR TWICE DAILY [facility] pioglitazon e 30 mg tablet TAKE 1 TABLET BY MOUTH EVERY DAY pioglitazon e 30 mg tablet TAKE 1 TABLET BY MOUTH EVERY DAY No pioglitazo ne 30 mg tablet TAKE 1 TABLET BY MOUTH EVERY DAY [facility] spironolact one 25 mg tablet TAKE 1 TABLET BY MOUTH 1 TIME EACH DAY. spironolact one 25 mg tablet TAKE 1 TABLET BY MOUTH 1 TIME EACH DAY. No spironolac tone 25 mg tablet TAKE 1 TABLET BY MOUTH 1 TIME EACH DAY. [facility] tamsulosin 0.4 mg capsule TAKE 1 CAPSULE BY MOUTH EVERY NIGHT. tamsulosin 0.4 mg capsule TAKE 1 CAPSULE BY MOUTH EVERY NIGHT. No tamsulosin 0.4 mg capsule TAKE 1 CAPSULE BY MOUTH EVERY NIGHT. [facility] [employer] SoloStar U-300 Insulin 300 unit/mL (1.5 mL) subcutaneou s pen INJECT 65 UNITS EVERY DAY BY SUBCUTANEOU S ROUTE IN THE MORNING [employer]Star U-300 Insulin 300 unit/mL (1.5 mL) subcutaneou s pen INJECT 65 UNITS EVERY DAY BY SUBCUTANEOU S ROUTE IN THE MORNING No [employer] SoloStar U-300 Insulin 300 unit/mL (1.5 mL) subcutaneo us pen INJECT 65 UNITS EVERY DAY BY SUBCUTANEO US ROUTE IN THE MORNING [facility] Trulicity 1.5 mg/0.5 mL subcutaneou s pen injector Inject 0.5 mL every week by subcutaneou s route as directed. Trulicity 1.5 mg/0.5 mL subcutaneou s pen injector Inject 0.5 mL every week by subcutaneou s route as directed. No .5mL Q1W Trulicity 1.5 mg/0.5 mL subcutaneo us pen injector Inject 0.5 mL every week by subcutaneo us route as directed. [facility] vitamin E vitamin E No vitamin E [facility] amlodipine 10 mg tablet TAKE 1 TABLET BY MOUTH EVERY DAY amlodipine 10 mg tablet TAKE 1 TABLET BY MOUTH EVERY DAY No amlodipine 10 mg tablet TAKE 1 TABLET BY MOUTH EVERY DAY [facility] aspirin aspirin No aspirin S [facility] atenolol 50 mg-chlortha lidone 25 mg tablet TAKE 1 TABLET BY MOUTH EVERY DAY atenolol 50 mg-chlortha lidone 25 mg tablet TAKE 1 TABLET BY MOUTH EVERY DAY No atenolol 50 mg-chlorth alidone 25 mg tablet TAKE 1 TABLET BY MOUTH EVERY DAY [facility] fenofibrate micronized 134 mg capsule TAKE 1 CAPSULE BY MOUTH EVERY DAY FOR 90 DAYS fenofibrate micronized 134 mg capsule TAKE 1 CAPSULE BY MOUTH EVERY DAY FOR 90 DAYS No fenofibrat e micronized 134 mg capsule TAKE 1 CAPSULE BY MOUTH EVERY DAY FOR 90 DAYS [facility] Jardiance 25 mg tablet TAKE 1 TABLET BY MOUTH EVERY DAY Jardiance 25 mg tablet TAKE 1 TABLET BY MOUTH EVERY DAY No Jardiance 25 mg tablet TAKE 1 TABLET BY MOUTH EVERY DAY [facility] losartan 100 mg tablet TAKE 1 TABLET BY MOUTH EVERY DAY losartan 100 mg tablet TAKE 1 TABLET BY MOUTH EVERY DAY No losartan 100 mg tablet TAKE 1 TABLET BY MOUTH EVERY DAY [facility] One-A-Day Men's 50 Plus One-A-Day Men's 50 Plus No One-A-Day Men's 50 Plus [facility] OneTouch Delica Plus Lancet 33 gauge Test Twice per Day OneTouch Delica Plus Lancet 33 gauge Test Twice per Day No OneTouch Delica Plus Lancet 33 gauge Test Twice per Day [facility] OneTouch Ultra Test strips USE TO TEST BLOOD SUGAR TWICE DAILY OneTouch Ultra Test strips USE TO TEST BLOOD SUGAR TWICE DAILY No OneTouch Ultra Test strips USE TO TEST BLOOD SUGAR TWICE DAILY [facility] pioglitazon e 30 mg tablet TAKE 1 TABLET BY MOUTH EVERY DAY pioglitazon e 30 mg tablet TAKE 1 TABLET BY MOUTH EVERY DAY No pioglitazo ne 30 mg tablet TAKE 1 TABLET BY MOUTH EVERY DAY [facility] spironolact one 25 mg tablet TAKE 1 TABLET BY MOUTH 1 TIME EACH DAY. spironolact one 25 mg tablet TAKE 1 TABLET BY MOUTH 1 TIME EACH DAY. No spironolac tone 25 mg tablet TAKE 1 TABLET BY MOUTH 1 TIME EACH DAY. [facility] tamsulosin 0.4 mg capsule TAKE 1 CAPSULE BY MOUTH EVERY NIGHT. tamsulosin 0.4 mg capsule TAKE 1 CAPSULE BY MOUTH EVERY NIGHT. No tamsulosin 0.4 mg capsule TAKE 1 CAPSULE BY MOUTH EVERY NIGHT. [facility] [employer] SoloStar U-300 Insulin 300 unit/mL (1.5 mL) subcutaneou s pen INJECT 65 UNITS EVERY DAY BY SUBCUTANEOU S ROUTE IN THE MORNING [employer] SoloStar U-300 Insulin 300 unit/mL (1.5 mL) subcutaneou s pen INJECT 65 UNITS EVERY DAY BY SUBCUTANEOU S ROUTE IN THE MORNING No [employer] SoloStar U-300 Insulin 300 unit/mL (1.5 mL) subcutaneo us pen INJECT 65 UNITS EVERY DAY BY SUBCUTANEO US ROUTE IN THE MORNING [facility] Trulicity 1.5 mg/0.5 mL subcutaneou s pen injector Inject 0.5 mL every week by subcutaneou s route as directed. Trulicity 1.5 mg/0.5 mL subcutaneou s pen injector Inject 0.5 mL every week by subcutaneou s route as directed. No .5mL Q1W Trulicity 1.5 mg/0.5 mL subcutaneo us pen injector Inject 0.5 mL every week by subcutaneo us route as directed. [facility] vitamin E vitamin E No vitamin E [facility] amlodipine 10 mg tablet TAKE 1 TABLET BY MOUTH EVERY DAY amlodipine 10 mg tablet TAKE 1 TABLET BY MOUTH EVERY DAY No amlodipine 10 mg tablet TAKE 1 TABLET BY MOUTH EVERY DAY [facility] aspirin aspirin No aspirin S [facility] atenolol 50 mg-chlortha lidone 25 mg tablet TAKE 1 TABLET BY MOUTH EVERY DAY atenolol 50 mg-chlortha lidone 25 mg tablet TAKE 1 TABLET BY MOUTH EVERY DAY No atenolol 50 mg-chlorth alidone 25 mg tablet TAKE 1 TABLET BY MOUTH EVERY DAY [facility] fenofibrate micronized 134 mg capsule TAKE 1 CAPSULE BY MOUTH EVERY DAY FOR 90 DAYS fenofibrate micronized 134 mg capsule TAKE 1 CAPSULE BY MOUTH EVERY DAY FOR 90 DAYS No fenofibrat e micronized 134 mg capsule TAKE 1 CAPSULE BY MOUTH EVERY DAY FOR 90 DAYS [facility] Jardiance 25 mg tablet TAKE 1 TABLET BY MOUTH EVERY DAY Jardiance 25 mg tablet TAKE 1 TABLET BY MOUTH EVERY DAY No Jardiance 25 mg tablet TAKE 1 TABLET BY MOUTH EVERY DAY [facility] losartan 100 mg tablet TAKE 1 TABLET BY MOUTH EVERY DAY losartan 100 mg tablet TAKE 1 TABLET BY MOUTH EVERY DAY No losartan 100 mg tablet TAKE 1 TABLET BY MOUTH EVERY DAY [facility] One-A-Day Men's 50 Plus One-A-Day Men's 50 Plus No One-A-Day Men's 50 Plus [facility] OneTouch Delica Plus Lancet 33 gauge Test Twice per Day OneTouch Delica Plus Lancet 33 gauge Test Twice per Day No OneTouch Delica Plus Lancet 33 gauge Test Twice per Day [facility] OneTouch Ultra Test strips Use Twice per Day OneTouch Ultra Test strips Use Twice per Day No OneTouch Ultra Test strips Use Twice per Day [facility] pioglitazon e 30 mg tablet TAKE 1 TABLET BY MOUTH EVERY DAY pioglitazon e 30 mg tablet TAKE 1 TABLET BY MOUTH EVERY DAY No pioglitazo ne 30 mg tablet TAKE 1 TABLET BY MOUTH EVERY DAY [facility] pioglitazon e 45 mg tablet Take 1 tablet every day by oral route. pioglitazon e 45 mg tablet Take 1 tablet every day by oral route. No 1 Q1D pioglitazo ne 45 mg tablet Take 1 tablet every day by oral route. [facility] rosuvastati n 40 mg tablet Take 1 tablet every day by oral route in the evening. rosuvastati n 40 mg tablet Take 1 tablet every day by oral route in the evening. No 1 Q1D rosuvastat in 40 mg tablet Take 1 tablet every day by oral route in the evening. [facility] spironolact one 25 mg tablet TAKE 1 TABLET BY MOUTH 1 TIME EACH DAY. spironolact one 25 mg tablet TAKE 1 TABLET BY MOUTH 1 TIME EACH DAY. No spironolac tone 25 mg tablet TAKE 1 TABLET BY MOUTH 1 TIME EACH DAY. [facility] tamsulosin 0.4 mg capsule TAKE 1 CAPSULE BY MOUTH EVERY NIGHT. tamsulosin 0.4 mg capsule TAKE 1 CAPSULE BY MOUTH EVERY NIGHT. No tamsulosin 0.4 mg capsule TAKE 1 CAPSULE BY MOUTH EVERY NIGHT. [facility] [employer] SoloStar U-300 Insulin 300 unit/mL (1.5 mL) subcutaneou s pen INJECT 65 UNITS EVERY DAY BY SUBCUTANEOU S ROUTE IN THE [facility]ING [facility] 300 unit/mL (1.5 mL) subcutaneou s pen INJECT 65 UNITS EVERY DAY BY SUBCUTANEOU S ROUTE IN THE MORNING No Jermaine Al U-300 Insulin 300 unit/mL (1.5 mL) subcutaneo us pen INJECT 65 UNITS EVERY DAY BY SUBCUTANEO US ROUTE IN THE MORNING [facility] Trulicity 1.5 mg/0.5 mL subcutaneou s pen injector Inject 0.5 mL every week by subcutaneou s route as directed. Trulicity 1.5 mg/0.5 mL subcutaneou s pen injector Inject 0.5 mL every week by subcutaneou s route as directed. No Trulicity 1.5 mg/0.5 mL subcutaneo us pen injector Inject 0.5 mL every week by subcutaneo us route as directed. [facility] Trulicity 3 mg/0.5 mL subcutaneou s pen injector Inject 3 mg every week by subcutaneou s route as directed for 30 days. Trulicity 3 mg/0.5 mL subcutaneou s pen injector Inject 3 mg every week by subcutaneou s route as directed for 30 days. No 3mg Q1W Trulicity 3 mg/0.5 mL subcutaneo us pen injector Inject 3 mg every week by subcutaneo us route as directed for 30 days. [facility] vitamin E vitamin E No vitamin E [facility] amlodipine 10 mg tablet TAKE 1 TABLET BY MOUTH EVERY DAY amlodipine 10 mg tablet TAKE 1 TABLET BY MOUTH EVERY DAY No amlodipine 10 mg tablet TAKE 1 TABLET BY MOUTH EVERY DAY [facility] aspirin aspirin No aspirin S [facility] atenolol 50 mg-chlortha lidone 25 mg tablet TAKE 1 TABLET BY MOUTH EVERY DAY atenolol 50 mg-chlortha lidone 25 mg tablet TAKE 1 TABLET BY MOUTH EVERY DAY No atenolol 50 mg-chlorth alidone 25 mg tablet TAKE 1 TABLET BY MOUTH EVERY DAY [facility] fenofibrate micronized 134 mg capsule TAKE 1 CAPSULE BY MOUTH EVERY DAY FOR 90 DAYS fenofibrate micronized 134 mg capsule TAKE 1 CAPSULE BY MOUTH EVERY DAY FOR 90 DAYS No fenofibrat e micronized 134 mg capsule TAKE 1 CAPSULE BY MOUTH EVERY DAY FOR 90 DAYS [facility] Jardiance 25 mg tablet TAKE 1 TABLET BY MOUTH EVERY DAY Jardiance 25 mg tablet TAKE 1 TABLET BY MOUTH EVERY DAY No Jardiance 25 mg tablet TAKE 1 TABLET BY MOUTH EVERY DAY [facility] losartan 100 mg tablet TAKE 1 TABLET BY MOUTH EVERY DAY losartan 100 mg tablet TAKE 1 TABLET BY MOUTH EVERY DAY No losartan 100 mg tablet TAKE 1 TABLET BY MOUTH EVERY DAY [facility] One-A-Day Men's 50 Plus(vit K) One-A-Day Men's 50 Plus(vit K) No One-A-Day Men's 50 Plus(vit K) [facility] OneTouch Delica Plus Lancet 33 gauge USE TO TEST BLOOD SUGAR TWICE PER DAY OneTouch Delica Plus Lancet 33 gauge USE TO TEST BLOOD SUGAR TWICE PER DAY No OneTouch Delica Plus Lancet 33 gauge USE TO TEST BLOOD SUGAR TWICE PER DAY [facility] OneTouch Ultra Test strips USE TO TEST BLOOD SUGAR TWICE A DAY OneTouch Ultra Test strips USE TO TEST BLOOD SUGAR TWICE A DAY No OneTouch Ultra Test strips USE TO TEST BLOOD SUGAR TWICE A DAY [facility] OneTouch Verio Flex Meter USE DIRECTED. OneTouch Verio Flex Meter USE DIRECTED. No OneTouch Verio Flex Meter USE DIRECTED. [facility] pioglitazon e 30 mg tablet TAKE 1 TABLET BY MOUTH EVERY DAY pioglitazon e 30 mg tablet TAKE 1 TABLET BY MOUTH EVERY DAY No pioglitazo ne 30 mg tablet TAKE 1 TABLET BY MOUTH EVERY DAY [facility] pioglitazon e 45 mg tablet TAKE 1 TABLET BY MOUTH EVERY DAY pioglitazon e 45 mg tablet TAKE 1 TABLET BY MOUTH EVERY DAY No pioglitazo ne 45 mg tablet TAKE 1 TABLET BY MOUTH EVERY DAY [facility] rosuvastati n 40 mg tablet TAKE 1 TABLET BY MOUTH EVERY DAY IN THE EVENING rosuvastati n 40 mg tablet TAKE 1 TABLET BY MOUTH EVERY DAY IN THE EVENING No rosuvastat in 40 mg tablet TAKE 1 TABLET BY MOUTH EVERY DAY IN THE EVENING [facility] spironolact one 25 mg tablet TAKE 1 TABLET BY MOUTH 1 TIME EACH DAY. spironolact one 25 mg tablet TAKE 1 TABLET BY MOUTH 1 TIME EACH DAY. No spironolac tone 25 mg tablet TAKE 1 TABLET BY MOUTH 1 TIME EACH DAY. [facility] tamsulosin 0.4 mg capsule TAKE 1 CAPSULE BY MOUTH EVERY NIGHT. tamsulosin 0.4 mg capsule TAKE 1 CAPSULE BY MOUTH EVERY NIGHT. No tamsulosin 0.4 mg capsule TAKE 1 CAPSULE BY MOUTH EVERY NIGHT. [facility] [employer]Star U-300 Insulin 300 unit/mL (1.5 mL) subcutaneou s pen INJECT 65 UNITS EVERY DAY BY SUBCUTANEOU S ROUTE IN THE MORNING [employer] U-300 Insulin 300 unit/mL (1.5 mL) subcutaneou s pen INJECT 65 UNITS EVERY DAY BY SUBCUTANEOU S ROUTE IN THE MORNING No [employer]Star U-300 Insulin 300 unit/mL (1.5 mL) subcutaneo us pen INJECT 65 UNITS EVERY DAY BY SUBCUTANEO US ROUTE IN THE MORNING [facility] Trulicity 1.5 mg/0.5 mL subcutaneou s pen injector Inject 0.5 mL every week by subcutaneou s route as directed. Trulicity 1.5 mg/0.5 mL subcutaneou s pen injector Inject 0.5 mL every week by subcutaneou s route as directed. No Trulicity 1.5 mg/0.5 mL subcutaneo us pen injector Inject 0.5 mL every week by subcutaneo us route as directed. [facility] Trulicity 3 mg/0.5 mL subcutaneou s pen injector INJECT 3 MG EVERY WEEK BY SUBCUTANEOU S ROUTE DIRECTED FOR 30 DAYS. Trulicity 3 mg/0.5 mL subcutaneou s pen injector INJECT 3 MG EVERY WEEK BY SUBCUTANEOU S ROUTE DIRECTED FOR 30 DAYS. No Trulicity 3 mg/0.5 mL subcutaneo us pen injector INJECT 3 MG EVERY WEEK BY SUBCUTANEO US ROUTE DIRECTED FOR 30 DAYS. [facility] vitamin E vitamin E No vitamin E [facility] amlodipine 10 mg tablet TAKE 1 TABLET BY MOUTH EVERY DAY amlodipine 10 mg tablet TAKE 1 TABLET BY MOUTH EVERY DAY No amlodipine 10 mg tablet TAKE 1 TABLET BY MOUTH EVERY DAY [facility] aspirin aspirin No aspirin S [facility] atenolol 50 mg-chlortha lidone 25 mg tablet TAKE 1 TABLET BY MOUTH EVERY DAY atenolol 50 mg-chlortha lidone 25 mg tablet TAKE 1 TABLET BY MOUTH EVERY DAY No atenolol 50 mg-chlorth alidone 25 mg tablet TAKE 1 TABLET BY MOUTH EVERY DAY [facility] fenofibrate micronized 134 mg capsule TAKE 1 CAPSULE BY MOUTH EVERY DAY FOR 30 DAYS fenofibrate micronized 134 mg capsule TAKE 1 CAPSULE BY MOUTH EVERY DAY FOR 30 DAYS No fenofibrat e micronized 134 mg capsule TAKE 1 CAPSULE BY MOUTH EVERY DAY FOR 30 DAYS [facility] Jardiance 25 mg tablet TAKE 1 TABLET BY MOUTH EVERY DAY Jardiance 25 mg tablet TAKE 1 TABLET BY MOUTH EVERY DAY No Jardiance 25 mg tablet TAKE 1 TABLET BY MOUTH EVERY DAY [facility] losartan 100 mg tablet TAKE 1 TABLET BY MOUTH EVERY DAY losartan 100 mg tablet TAKE 1 TABLET BY MOUTH EVERY DAY No losartan 100 mg tablet TAKE 1 TABLET BY MOUTH EVERY DAY [facility] One-A-Day Men's 50 Plus(vit K) One-A-Day Men's 50 Plus(vit K) No One-A-Day Men's 50 Plus(vit K) [facility] OneTouch Delica Plus Lancet 33 gauge USE TO TEST BLOOD SUGAR TWICE PER DAY OneTouch Delica Plus Lancet 33 gauge USE TO TEST BLOOD SUGAR TWICE PER DAY No OneTouch Delica Plus Lancet 33 gauge USE TO TEST BLOOD SUGAR TWICE PER DAY [facility] OneTouch Ultra Test strips USE TO TEST BLOOD SUGAR TWICE A DAY OneTouch Ultra Test strips USE TO TEST BLOOD SUGAR TWICE A DAY No OneTouch Ultra Test strips USE TO TEST BLOOD SUGAR TWICE A DAY [facility] OneTouch Verio Flex Meter USE DIRECTED. OneTouch Verio Flex Meter USE DIRECTED. No OneTouch Verio Flex Meter USE DIRECTED. [facility] pioglitazon e 30 mg tablet TAKE 1 TABLET BY MOUTH EVERY DAY pioglitazon e 30 mg tablet TAKE 1 TABLET BY MOUTH EVERY DAY No pioglitazo ne 30 mg tablet TAKE 1 TABLET BY MOUTH EVERY DAY [facility] pioglitazon e 45 mg tablet TAKE 1 TABLET BY MOUTH EVERY DAY pioglitazon e 45 mg tablet TAKE 1 TABLET BY MOUTH EVERY DAY No pioglitazo ne 45 mg tablet TAKE 1 TABLET BY MOUTH EVERY DAY [facility] rosuvastati n 40 mg tablet TAKE 1 TABLET BY MOUTH EVERY DAY IN THE EVENING rosuvastati n 40 mg tablet TAKE 1 TABLET BY MOUTH EVERY DAY IN THE EVENING No rosuvastat in 40 mg tablet TAKE 1 TABLET BY MOUTH EVERY DAY IN THE EVENING [facility] spironolact one 25 mg tablet TAKE 1 TABLET BY MOUTH 1 TIME EACH DAY. spironolact one 25 mg tablet TAKE 1 TABLET BY MOUTH 1 TIME EACH DAY. No spironolac tone 25 mg tablet TAKE 1 TABLET BY MOUTH 1 TIME EACH DAY. [facility] tamsulosin 0.4 mg capsule TAKE 1 CAPSULE BY MOUTH EVERY DAY AT NIGHT tamsulosin 0.4 mg capsule TAKE 1 CAPSULE BY MOUTH EVERY DAY AT NIGHT No tamsulosin 0.4 mg capsule TAKE 1 CAPSULE BY MOUTH EVERY DAY AT NIGHT [facility] Toujeo SoloStar U-300 Insulin 300 unit/mL (1.5 mL) subcutaneou s pen INJECT 65 UNITS EVERY DAY BY SUBCUTANEOU S ROUTE IN THE MORNING [employer] SoloStar U-300 Insulin 300 unit/mL (1.5 mL) subcutaneou s pen INJECT 65 UNITS EVERY DAY BY SUBCUTANEOU S ROUTE IN THE MORNING No [employer] SoloStar U-300 Insulin 300 unit/mL (1.5 mL) subcutaneo us pen INJECT 65 UNITS EVERY DAY BY SUBCUTANEO US ROUTE IN THE MORNING [facility] Trulicity 3 mg/0.5 mL subcutaneou s pen injector Inject 3 mg every week by subcutaneou s route as directed for 30 days. Trulicity 3 mg/0.5 mL subcutaneou s pen injector Inject 3 mg every week by subcutaneou s route as directed for 30 days. No 3mg Q1W Trulicity 3 mg/0.5 mL subcutaneo us pen injector Inject 3 mg every week by subcutaneo us route as directed for 30 days. [facility] vitamin E vitamin E No vitamin E [facility] amlodipine 10 mg tablet Take 1 tablet every day by oral route for 90 days. amlodipine 10 mg tablet Take 1 tablet every day by oral route for 90 days. No 1 Q1D amlodipine 10 mg tablet Take 1 tablet every day by oral route for 90 days. [facility] amlodipine 10 mg tablet Take 1 tablet every day by oral route in the evening for 90 days. amlodipine 10 mg tablet Take 1 tablet every day by oral route in the evening for 90 days. No 1 Q1D amlodipine 10 mg tablet Take 1 tablet every day by oral route in the evening for 90 days. [facility] aspirin aspirin No aspirin S [facility] atenolol 50 mg-chlortha lidone 25 mg tablet TAKE 1 TABLET BY MOUTH EVERY DAY atenolol 50 mg-chlortha lidone 25 mg tablet TAKE 1 TABLET BY MOUTH EVERY DAY No atenolol 50 mg-chlorth alidone 25 mg tablet TAKE 1 TABLET BY MOUTH EVERY DAY [facility] fenofibrate micronized 134 mg capsule Take 1 capsule every day by oral route for 90 days. fenofibrate micronized 134 mg capsule Take 1 capsule every day by oral route for 90 days. No 1capsul e(s) Q1D fenofibrat e micronized 134 mg capsule Take 1 capsule every day by oral route for 90 days. [facility] Jardiance 25 mg tablet TAKE 1 TABLET BY MOUTH EVERY DAY Jardiance 25 mg tablet TAKE 1 TABLET BY MOUTH EVERY DAY No Jardiance 25 mg tablet TAKE 1 TABLET BY MOUTH EVERY DAY [facility] losartan 100 mg tablet Take 1 tablet every day by oral route for 90 days. losartan 100 mg tablet Take 1 tablet every day by oral route for 90 days. No 1 Q1D losartan 100 mg tablet Take 1 tablet every day by oral route for 90 days. [facility] aspirin aspirin No aspirin S [facility] One-A-Day Men's 50 Plus(vit K) One-A-Day Men's 50 Plus(vit K) No One-A-Day Men's 50 Plus(vit K) [facility] OneTouch Delica Plus Lancet 33 gauge USE TO TEST BLOOD SUGAR TWICE PER DAY OneTouch Delica Plus Lancet 33 gauge USE TO TEST BLOOD SUGAR TWICE PER DAY No OneTouch Delica Plus Lancet 33 gauge USE TO TEST BLOOD SUGAR TWICE PER DAY [facility] OneTouch Ultra Test strips USE TO TEST BLOOD SUGAR TWICE A DAY OneTouch Ultra Test strips USE TO TEST BLOOD SUGAR TWICE A DAY No OneTouch Ultra Test strips USE TO TEST BLOOD SUGAR TWICE A DAY [facility] OneTouch Verio Flex Meter USE DIRECTED. OneTouch Verio Flex Meter USE DIRECTED. No OneTouch Verio Flex Meter USE DIRECTED. [facility] pioglitazon e 30 mg tablet Take 1 tablet every day by oral route in the morning. pioglitazon e 30 mg tablet Take 1 tablet every day by oral route in the morning. No 1 Q1D pioglitazo ne 30 mg tablet Take 1 tablet every day by oral route in the morning. [facility] rosuvastati n 40 mg tablet Take 1 tablet every day by oral route in the evening. rosuvastati n 40 mg tablet Take 1 tablet every day by oral route in the evening. No 1 Q1D rosuvastat in 40 mg tablet Take 1 tablet every day by oral route in the evening. [facility] spironolact one 25 mg tablet TAKE 1 TABLET BY MOUTH 1 TIME EACH DAY. spironolact one 25 mg tablet TAKE 1 TABLET BY MOUTH 1 TIME EACH DAY. No spironolac tone 25 mg tablet TAKE 1 TABLET BY MOUTH 1 TIME EACH DAY. [facility] tamsulosin 0.4 mg capsule TAKE 1 CAPSULE BY MOUTH EVERY DAY AT NIGHT tamsulosin 0.4 mg capsule TAKE 1 CAPSULE BY MOUTH EVERY DAY AT NIGHT No tamsulosin 0.4 mg capsule TAKE 1 CAPSULE BY MOUTH EVERY DAY AT NIGHT [facility] Touo SoloStar U-300 Insulin 300 unit/mL (1.5 mL) subcutaneou s pen INJECT 70 UNITS EVERY DAY BY SUBCUTANEOU S ROUTE IN THE MORNING [facility] SoloStar U-300 Insulin 300 unit/mL (1.5 mL) subcutaneou s pen INJECT 70 UNITS EVERY DAY BY SUBCUTANEOU S ROUTE IN THE MORNING No [employer] SoloStar U-300 Insulin 300 unit/mL (1.5 mL) subcutaneo us pen INJECT 70 UNITS EVERY DAY BY SUBCUTANEO US ROUTE IN THE MORNING [facility] Trulicity 4.5 mg/0.5 mL subcutaneou s pen injector Inject 4.5 mg every week by subcutaneou s route for 28 days. Trulicity 4.5 mg/0.5 mL subcutaneou s pen injector Inject 4.5 mg every week by subcutaneou s route for 28 days. No 4.5mg Q1W Trulicity 4.5 mg/0.5 mL subcutaneo us pen injector Inject 4.5 mg every week by subcutaneo us route for 28 days. [facility] carvedilol 25 mg tablet Take 1 tablet twice a day by oral route for 90 days. carvedilol 25 mg tablet Take 1 tablet twice a day by oral route for 90 days. No 1 BID carvedilol 25 mg tablet Take 1 tablet twice a day by oral route for 90 days. [facility] vitamin E vitamin E No vitamin E [facility] Jardiance 25 mg tablet Take 1 tablet every day by oral route for 90 days. Jardiance 25 mg tablet Take 1 tablet every day by oral route for 90 days. No 1 Q1D Jardiance 25 mg tablet Take 1 tablet every day by oral route for 90 days. [facility] amlodipine 10 mg tablet TAKE 1 TABLET BY MOUTH EVERY DAY amlodipine 10 mg tablet TAKE 1 TABLET BY MOUTH EVERY DAY No amlodipine 10 mg tablet TAKE 1 TABLET BY MOUTH EVERY DAY [facility] losartan 100 mg-hydrochl orothiazide 25 mg tablet Take 1 tablet every day by oral route for 90 days. losartan 100 mg-hydrochl orothiazide 25 mg tablet Take 1 tablet every day by oral route for 90 days. No 1 Q1D losartan 100 mg-hydroch lorothiazi de 25 mg tablet Take 1 tablet every day by oral route for 90 days. [facility] aspirin aspirin No aspirin S [facility] atenolol 50 mg-chlortha lidone 25 mg tablet TAKE 1 TABLET BY MOUTH EVERY DAY atenolol 50 mg-chlortha lidone 25 mg tablet TAKE 1 TABLET BY MOUTH EVERY DAY No atenolol 50 mg-chlorth alidone 25 mg tablet TAKE 1 TABLET BY MOUTH EVERY DAY [facility] fenofibrate micronized 134 mg capsule TAKE 1 CAPSULE BY MOUTH EVERY DAY FOR 90 DAYS fenofibrate micronized 134 mg capsule TAKE 1 CAPSULE BY MOUTH EVERY DAY FOR 90 DAYS No fenofibrat e micronized 134 mg capsule TAKE 1 CAPSULE BY MOUTH EVERY DAY FOR 90 DAYS [facility] Jardiance 25 mg tablet TAKE 1 TABLET BY MOUTH EVERY DAY Jardiance 25 mg tablet TAKE 1 TABLET BY MOUTH EVERY DAY No Jardiance 25 mg tablet TAKE 1 TABLET BY MOUTH EVERY DAY [facility] losartan 100 mg tablet TAKE 1 TABLET BY MOUTH EVERY DAY losartan 100 mg tablet TAKE 1 TABLET BY MOUTH EVERY DAY No losartan 100 mg tablet TAKE 1 TABLET BY MOUTH EVERY DAY [facility] One-A-Day Men's 50 Plus(vit K) One-A-Day Men's 50 Plus(vit K) No One-A-Day Men's 50 Plus(vit K) [facility] OneTouch Delica Plus Lancet 33 gauge USE TO TEST BLOOD SUGAR TWICE PER DAY OneTouch Delica Plus Lancet 33 gauge USE TO TEST BLOOD SUGAR TWICE PER DAY No OneTouch Delica Plus Lancet 33 gauge USE TO TEST BLOOD SUGAR TWICE PER DAY [facility] OneTouch Ultra Test strips USE TO TEST BLOOD SUGAR TWICE A DAY OneTouch Ultra Test strips USE TO TEST BLOOD SUGAR TWICE A DAY No OneTouch Ultra Test strips USE TO TEST BLOOD SUGAR TWICE A DAY [facility] OneTouch Verio Flex Meter USE DIRECTED. OneTouch Verio Flex Meter USE DIRECTED. No OneTouch Verio Flex Meter USE DIRECTED. [facility] pioglitazon e 30 mg tablet TAKE 1 TABLET EVERY DAY BY ORAL ROUTE IN THE MORNING. pioglitazon e 30 mg tablet TAKE 1 TABLET EVERY DAY BY ORAL ROUTE IN THE MORNING. No pioglitazo ne 30 mg tablet TAKE 1 TABLET EVERY DAY BY ORAL ROUTE IN THE MORNING. [facility] One-A-Day Men's 50 Plus One-A-Day Men's 50 Plus No One-A-Day Men's 50 Plus [facility] pioglitazon e 45 mg tablet TAKE 1 TABLET BY MOUTH EVERY DAY pioglitazon e 45 mg tablet TAKE 1 TABLET BY MOUTH EVERY DAY No pioglitazo ne 45 mg tablet TAKE 1 TABLET BY MOUTH EVERY DAY [facility] rosuvastati n 40 mg tablet TAKE 1 TABLET BY MOUTH EVERY DAY IN THE EVENING rosuvastati n 40 mg tablet TAKE 1 TABLET BY MOUTH EVERY DAY IN THE EVENING No rosuvastat in 40 mg tablet TAKE 1 TABLET BY MOUTH EVERY DAY IN THE EVENING [facility] spironolact one 25 mg tablet TAKE 1 TABLET BY MOUTH 1 TIME EACH DAY. spironolact one 25 mg tablet TAKE 1 TABLET BY MOUTH 1 TIME EACH DAY. No spironolac tone 25 mg tablet TAKE 1 TABLET BY MOUTH 1 TIME EACH DAY. [facility] tamsulosin 0.4 mg capsule TAKE 1 CAPSULE BY MOUTH EVERY DAY AT NIGHT tamsulosin 0.4 mg capsule TAKE 1 CAPSULE BY MOUTH EVERY DAY AT NIGHT No tamsulosin 0.4 mg capsule TAKE 1 CAPSULE BY MOUTH EVERY DAY AT NIGHT [facility] Jermaine Al U-300 Insulin 300 unit/mL (1.5 mL) subcutaneou s pen INJECT 70 UNITS EVERY DAY BY SUBCUTANEOU S ROUTE IN THE MORNING [employer] SoloStar U-300 Insulin 300 unit/mL (1.5 mL) subcutaneou s pen INJECT 70 UNITS EVERY DAY BY SUBCUTANEOU S ROUTE IN THE MORNING No [employer] SoloStar U-300 Insulin 300 unit/mL (1.5 mL) subcutaneo us pen INJECT 70 UNITS EVERY DAY BY SUBCUTANEO US ROUTE IN THE MORNING [facility] Trulicity 4.5 mg/0.5 mL subcutaneou s pen injector Inject 4.5 mg every week by subcutaneou s route for 28 days. Trulicity 4.5 mg/0.5 mL subcutaneou s pen injector Inject 4.5 mg every week by subcutaneou s route for 28 days. No 4.5mg Q1W Trulicity 4.5 mg/0.5 mL subcutaneo us pen injector Inject 4.5 mg every week by subcutaneo us route for 28 days. [facility] vitamin E vitamin E No vitamin E [facility] pioglitazon e 30 mg tablet Take 1 tablet every day by oral route for 90 days. pioglitazon e 30 mg tablet Take 1 tablet every day by oral route for 90 days. No 1 Q1D pioglitazo ne 30 mg tablet Take 1 tablet every day by oral route for 90 days. [facility] amlodipine 10 mg tablet TAKE 1 TABLET BY MOUTH EVERY DAY amlodipine 10 mg tablet TAKE 1 TABLET BY MOUTH EVERY DAY No amlodipine 10 mg tablet TAKE 1 TABLET BY MOUTH EVERY DAY [facility] aspirin aspirin No aspirin S [facility] atenolol 50 mg-chlortha lidone 25 mg tablet TAKE 1 TABLET BY MOUTH EVERY DAY atenolol 50 mg-chlortha lidone 25 mg tablet TAKE 1 TABLET BY MOUTH EVERY DAY No atenolol 50 mg-chlorth alidone 25 mg tablet TAKE 1 TABLET BY MOUTH EVERY DAY [facility] fenofibrate micronized 134 mg capsule TAKE 1 CAPSULE BY MOUTH EVERY DAY FOR 90 DAYS fenofibrate micronized 134 mg capsule TAKE 1 CAPSULE BY MOUTH EVERY DAY FOR 90 DAYS No fenofibrat e micronized 134 mg capsule TAKE 1 CAPSULE BY MOUTH EVERY DAY FOR 90 DAYS [facility] rosuvastati n 40 mg tablet Take 1 tablet every day by oral route in the evening for 90 days. rosuvastati n 40 mg tablet Take 1 tablet every day by oral route in the evening for 90 days. No 1 Q1D rosuvastat in 40 mg tablet Take 1 tablet every day by oral route in the evening for 90 days. [facility] Jardiance 25 mg tablet TAKE 1 TABLET BY MOUTH EVERY DAY Jardiance 25 mg tablet TAKE 1 TABLET BY MOUTH EVERY DAY No Jardiance 25 mg tablet TAKE 1 TABLET BY MOUTH EVERY DAY [facility] losartan 100 mg tablet TAKE 1 TABLET BY MOUTH EVERY DAY losartan 100 mg tablet TAKE 1 TABLET BY MOUTH EVERY DAY No losartan 100 mg tablet TAKE 1 TABLET BY MOUTH EVERY DAY [facility] One-A-Day Men's 50 Plus(vit K) One-A-Day Men's 50 Plus(vit K) No One-A-Day Men's 50 Plus(vit K) [facility] OneTouch Delica Plus Lancet 33 gauge USE TO TEST BLOOD SUGAR TWICE PER DAY OneTouch Delica Plus Lancet 33 gauge USE TO TEST BLOOD SUGAR TWICE PER DAY No OneTouch Delica Plus Lancet 33 gauge USE TO TEST BLOOD SUGAR TWICE PER DAY [facility] OneTouch Ultra Test strips USE TO TEST BLOOD SUGAR TWICE A DAY OneTouch Ultra Test strips USE TO TEST BLOOD SUGAR TWICE A DAY No OneTouch Ultra Test strips USE TO TEST BLOOD SUGAR TWICE A DAY [facility] OneTouch Verio Flex Meter USE DIRECTED. OneTouch Verio Flex Meter USE DIRECTED. No OneTouch Verio Flex Meter USE DIRECTED. [facility] pioglitazon e 30 mg tablet TAKE 1 TABLET EVERY DAY BY ORAL ROUTE IN THE MORNING. pioglitazon e 30 mg tablet TAKE 1 TABLET EVERY DAY BY ORAL ROUTE IN THE MORNING. No pioglitazo ne 30 mg tablet TAKE 1 TABLET EVERY DAY BY ORAL ROUTE IN THE MORNING. [facility] pioglitazon e 45 mg tablet TAKE 1 TABLET BY MOUTH EVERY DAY pioglitazon e 45 mg tablet TAKE 1 TABLET BY MOUTH EVERY DAY No pioglitazo ne 45 mg tablet TAKE 1 TABLET BY MOUTH EVERY DAY [facility] rosuvastati n 40 mg tablet TAKE 1 TABLET BY MOUTH EVERY DAY IN THE EVENING rosuvastati n 40 mg tablet TAKE 1 TABLET BY MOUTH EVERY DAY IN THE EVENING No rosuvastat in 40 mg tablet TAKE 1 TABLET BY MOUTH EVERY DAY IN THE EVENING [facility] spironolact one 25 mg tablet TAKE 1 TABLET BY MOUTH 1 TIME EACH DAY. spironolact one 25 mg tablet TAKE 1 TABLET BY MOUTH 1 TIME EACH DAY. No spironolac tone 25 mg tablet TAKE 1 TABLET BY MOUTH 1 TIME EACH DAY. [facility] [employer] SoloStar U-300 Insulin 65 units sub Q qam [employer] SoloStar U-300 Insulin 65 units sub Q qam No [employer] SoloStar U-300 Insulin 65 units sub Q qam [facility] tamsulosin 0.4 mg capsule TAKE 1 CAPSULE BY MOUTH EVERY DAY AT NIGHT tamsulosin 0.4 mg capsule TAKE 1 CAPSULE BY MOUTH EVERY DAY AT NIGHT No tamsulosin 0.4 mg capsule TAKE 1 CAPSULE BY MOUTH EVERY DAY AT NIGHT [facility] [employer] SoloStar U-300 Insulin 300 unit/mL (1.5 mL) subcutaneou s pen INJECT 70 UNITS EVERY DAY BY SUBCUTANEOU S ROUTE IN THE MORNING [employer] SoloStar U-300 Insulin 300 unit/mL (1.5 mL) subcutaneou s pen INJECT 70 UNITS EVERY DAY BY SUBCUTANEOU S ROUTE IN THE MORNING No [employer] SoloStar U-300 Insulin 300 unit/mL (1.5 mL) subcutaneo us pen INJECT 70 UNITS EVERY DAY BY SUBCUTANEO US ROUTE IN THE MORNING [facility] Trulicity 4.5 mg/0.5 mL subcutaneou s pen injector Inject 4.5 mg every week by subcutaneou s route for 28 days. Trulicity 4.5 mg/0.5 mL subcutaneou s pen injector Inject 4.5 mg every week by subcutaneou s route for 28 days. No 4.5mg Q1W Trulicity 4.5 mg/0.5 mL subcutaneo us pen injector Inject 4.5 mg every week by subcutaneo us route for 28 days. [facility] vitamin E vitamin E No vitamin E [facility] [employer] SoloStar U-300 Insulin 300 unit/mL (1.5 mL) subcutaneou s pen Inject 65 units every day by subcutaneou s route in the morning for 90 days. [employer] SoloStar U-300 Insulin 300 unit/mL (1.5 mL) subcutaneou s pen Inject 65 units every day by subcutaneou s route in the morning for 90 days. No 65unit( s) Q1D [employer] SoloStar U-300 Insulin 300 unit/mL (1.5 mL) subcutaneo us pen Inject 65 units every day by subcutaneo us route in the morning for 90 days. [facility] Trulicity 1.5 mg/0.5 mL subcutaneou s pen injector Inject 0.5 mL every week by subcutaneou s route as directed. Trulicity 1.5 mg/0.5 mL subcutaneou s pen injector Inject 0.5 mL every week by subcutaneou s route as directed. No .5mL Q1W Trulicity 1.5 mg/0.5 mL subcutaneo us pen injector Inject 0.5 mL every week by subcutaneo us route as directed. [facility] vitamin E vitamin E No vitamin E [facility] amlodipine 10 mg tablet TAKE 1 TABLET BY MOUTH EVERY DAY amlodipine 10 mg tablet TAKE 1 TABLET BY MOUTH EVERY DAY No amlodipine 10 mg tablet TAKE 1 TABLET BY MOUTH EVERY DAY [facility] aspirin aspirin No aspirin S [facility] atenolol 50 mg-chlortha lidone 25 mg tablet Take 1 tablet every day by oral route for 90 days. atenolol 50 mg-chlortha lidone 25 mg tablet Take 1 tablet every day by oral route for 90 days. No 1 Q1D atenolol 50 mg-chlorth alidone 25 mg tablet Take 1 tablet every day by oral route for 90 days. [facility] fenofibrate micronized 134 mg capsule Take 1 capsule every day by oral route for 90 days. fenofibrate micronized 134 mg capsule Take 1 capsule every day by oral route for 90 days. No 1capsul e(s) Q1D fenofibrat e micronized 134 mg capsule Take 1 capsule every day by oral route for 90 days. [facility] Jardiance 25 mg tablet TAKE 1 TABLET BY MOUTH EVERY DAY Jardiance 25 mg tablet TAKE 1 TABLET BY MOUTH EVERY DAY No Jardiance 25 mg tablet TAKE 1 TABLET BY MOUTH EVERY DAY [facility] losartan 100 mg tablet Take 1 tablet every day by oral route for 90 days. losartan 100 mg tablet Take 1 tablet every day by oral route for 90 days. No 1 Q1D losartan 100 mg tablet Take 1 tablet every day by oral route for 90 days. [facility] One-A-Day Men's 50 Plus One-A-Day Men's 50 Plus No One-A-Day Men's 50 Plus [facility] pioglitazon e 30 mg tablet TAKE 1 TABLET BY MOUTH EVERY DAY pioglitazon e 30 mg tablet TAKE 1 TABLET BY MOUTH EVERY DAY No pioglitazo ne 30 mg tablet TAKE 1 TABLET BY MOUTH EVERY DAY [facility] [employer] SoloStar U-300 Insulin 65 units sub Q qam [employer] SoloStar U-300 Insulin 65 units sub Q qam No [employer] SoloStar U-300 Insulin 65 units sub Q qam [facility] [employer] SoloStar U-300 Insulin 300 unit/mL (1.5 mL) subcutaneou s pen INJECT 65 UNITS EVERY DAY BY SUBCUTANEOU S ROUTE IN THE MORNING [employer] SoloStar U-300 Insulin 300 unit/mL (1.5 mL) subcutaneou s pen INJECT 65 UNITS EVERY DAY BY SUBCUTANEOU S ROUTE IN THE MORNING No [facility] U-300 Insulin 300 unit/mL (1.5 mL) subcutaneo us pen INJECT 65 UNITS EVERY DAY BY SUBCUTANEO US ROUTE IN THE MORNING [facility] vitamin E vitamin E No vitamin E [facility] amlodipine 10 mg tablet TAKE 1 TABLET BY MOUTH EVERY DAY amlodipine 10 mg tablet TAKE 1 TABLET BY MOUTH EVERY DAY No amlodipine 10 mg tablet TAKE 1 TABLET BY MOUTH EVERY DAY [facility] aspirin aspirin No aspirin S [facility] atenolol 50 mg-chlortha lidone 25 mg tablet Take 1 tablet every day by oral route for 90 days. atenolol 50 mg-chlortha lidone 25 mg tablet Take 1 tablet every day by oral route for 90 days. No 1 Q1D atenolol 50 mg-chlorth alidone 25 mg tablet Take 1 tablet every day by oral route for 90 days. [facility] fenofibrate micronized 134 mg capsule Take 1 capsule every day by oral route for 90 days. fenofibrate micronized 134 mg capsule Take 1 capsule every day by oral route for 90 days. No 1capsul e(s) Q1D fenofibrat e micronized 134 mg capsule Take 1 capsule every day by oral route for 90 days. [facility] Jardiance 25 mg tablet TAKE 1 TABLET BY MOUTH EVERY DAY Jardiance 25 mg tablet TAKE 1 TABLET BY MOUTH EVERY DAY No Jardiance 25 mg tablet TAKE 1 TABLET BY MOUTH EVERY DAY [facility] losartan 100 mg tablet Take 1 tablet every day by oral route for 90 days. losartan 100 mg tablet Take 1 tablet every day by oral route for 90 days. No 1 Q1D losartan 100 mg tablet Take 1 tablet every day by oral route for 90 days. [facility] One-A-Day Men's 50 Plus One-A-Day Men's 50 Plus No One-A-Day Men's 50 Plus [facility] pioglitazon e 30 mg tablet TAKE 1 TABLET BY MOUTH EVERY DAY pioglitazon e 30 mg tablet TAKE 1 TABLET BY MOUTH EVERY DAY No pioglitazo ne 30 mg tablet TAKE 1 TABLET BY MOUTH EVERY DAY [facility] [employer] SoloStar U-300 Insulin 65 units sub Q qam [employer] SoloStar U-300 Insulin 65 units sub Q qam No [employer] SoloStar U-300 Insulin 65 units sub Q qam [facility] [employer] SoloStar U-300 Insulin 300 unit/mL (1.5 mL) subcutaneou s pen INJECT 65 UNITS EVERY DAY BY SUBCUTANEOU S ROUTE IN THE MORNING [employer] SoloStar U-300 Insulin 300 unit/mL (1.5 mL) subcutaneou s pen INJECT 65 UNITS EVERY DAY BY SUBCUTANEOU S ROUTE IN THE MORNING No [employer] SoloStar U-300 Insulin 300 unit/mL (1.5 mL) subcutaneo us pen INJECT 65 UNITS EVERY DAY BY SUBCUTANEO US ROUTE IN THE MORNING [facility] Immunizations Ordered Immunization Name Filled Immunization Name Date Status Comments Source pneumococcal conjugate PCV 20 pneumococcal conjugate PCV 20 2022-04-20 00:00:00 [facility] pneumococcal conjugate PCV 20 pneumococcal conjugate PCV 20 2022-04-20 00:00:00 [facility] pneumococcal conjugate PCV 20 pneumococcal conjugate PCV 20 2022-04-20 00:00:00 [facility] Pneumococcal conjugate PCV20, polysaccharide [id number] conjugate, adjuvant, PF Pneumococcal conjugate PCV20, polysaccharide [id number] conjugate, adjuvant, PF 2022-04-20 00:00:00 [facility] COVID-19, mRNA, LNP-S, PF, 100 mcg/0.5 mL dose (Moderna) COVID-19, mRNA, LNP-S, PF, 100 mcg/0.5 mL dose (Moderna) 2020-12-15 00:00:00 [facility] COVID-19, mRNA, LNP-S, PF, 100 mcg/0.5 mL dose (Moderna) COVID-19, mRNA, LNP-S, PF, 100 mcg/0.5 mL dose (Moderna) 2020-12-15 00:00:00 [facility] COVID-19, mRNA, LNP-S, PF, 100 mcg/0.5 mL dose (Moderna) COVID-19, mRNA, LNP-S, PF, 100 mcg/0.5 mL dose (Moderna) 2020-12-15 00:00:00 Completed [facility] COVID-19, mRNA, LNP-S, PF, 100 mcg/0.5 mL dose (Moderna) COVID-19, mRNA, LNP-S, PF, 100 mcg/0.5 mL dose (Moderna) 2020-12-15 00:00:00 Completed [facility] COVID-19, mRNA, LNP-S, PF, 100 mcg/0.5 mL dose (Moderna) COVID-19, mRNA, LNP-S, PF, 100 mcg/0.5 mL dose (Moderna) 2020-12-15 00:00:00 Completed [facility] COVID-19, mRNA, LNP-S, PF, 100 mcg/0.5 mL dose (Moderna) COVID-19, mRNA, LNP-S, PF, 100 mcg/0.5 mL dose (Moderna) 2020-12-15 00:00:00 Completed [facility] COVID-19, mRNA, LNP-S, PF, 100 mcg/0.5 mL dose COVID-19, mRNA, LNP-S, PF, 100 mcg/0.5 mL dose 2020-12-15 00:00:00 Completed [facility] COVID-19, mRNA, LNP-S, PF, 100 mcg/0.5 mL dose (Moderna) COVID-19, mRNA, LNP-S, PF, 100 mcg/0.5 mL dose (Moderna) 2020-12-15 00:00:00 Completed [facility] SARS-COV-2 COVID-19 MODERNA VACCINE 2020-12-15 00:00:00 Completed [facility] SARS-COV-2 COVID-19 MODERNA VACCINE 2020-12-15 00:00:00 Completed [facility] SARS-COV-2 COVID-19 MODERNA VACCINE 2020-12-15 00:00:00 Completed [facility] SARS-COV-2 COVID-19 MODERNA VACCINE 2020-12-15 00:00:00 Completed [facility] SARS-COV-2 COVID-19 MODERNA VACCINE 2020-12-15 00:00:00 Completed [facility] SARS-COV-2 COVID-19 MODERNA VACCINE 2020-12-15 00:00:00 Completed [facility] COVID-19, mRNA, LNP-S, PF, 100 mcg/0.5 mL dose (Moderna) COVID-19, mRNA, LNP-S, PF, 100 mcg/0.5 mL dose (Moderna) 2020-11-17 00:00:00 Completed [facility] COVID-19, mRNA, LNP-S, PF, 100 mcg/0.5 mL dose (Moderna) COVID-19, mRNA, LNP-S, PF, 100 mcg/0.5 mL dose (Moderna) 2020-11-17 00:00:00 Completed [facility] COVID-19, mRNA, LNP-S, PF, 100 mcg/0.5 mL dose (Moderna) COVID-19, mRNA, LNP-S, PF, 100 mcg/0.5 mL dose (Moderna) 2020-11-17 00:00:00 Completed [facility] COVID-19, mRNA, LNP-S, PF, 100 mcg/0.5 mL dose (Moderna) COVID-19, mRNA, LNP-S, PF, 100 mcg/0.5 mL dose (Moderna) 2020-11-17 00:00:00 Completed [facility] COVID-19, mRNA, LNP-S, PF, 100 mcg/0.5 mL dose (Moderna) COVID-19, mRNA, LNP-S, PF, 100 mcg/0.5 mL dose (Moderna) 2020-11-17 00:00:00 Completed [facility] COVID-19, mRNA, LNP-S, PF, 100 mcg/0.5 mL dose (Moderna) COVID-19, mRNA, LNP-S, PF, 100 mcg/0.5 mL dose (Moderna) 2020-11-17 00:00:00 Completed [facility] COVID-19, mRNA, LNP-S, PF, 100 mcg/0.5 mL dose COVID-19, mRNA, LNP-S, PF, 100 mcg/0.5 mL dose 2020-11-17 00:00:00 Completed [facility] COVID-19, mRNA, LNP-S, PF, 100 mcg/0.5 mL dose (Moderna) COVID-19, mRNA, LNP-S, PF, 100 mcg/0.5 mL dose (Moderna) 2020-11-17 00:00:00 Completed [facility] SARS-COV-2 COVID-19 MODERNA VACCINE 2020-11-17 00:00:00 Completed [facility] SARS-COV-2 COVID-19 MODERNA VACCINE 2020-11-17 00:00:00 Completed [facility] SARS-COV-2 COVID-19 MODERNA VACCINE 2020-11-17 00:00:00 Completed [facility] SARS-COV-2 COVID-19 MODERNA VACCINE 2020-11-17 00:00:00 Completed [facility] SARS-COV-2 COVID-19 MODERNA VACCINE 2020-11-17 00:00:00 Completed [facility] SARS-COV-2 COVID-19 MODERNA VACCINE 2020-11-17 00:00:00 Completed [facility] SARS-COV-2 COVID-19 MODERNA VACCINE 2020-11-17 00:00:00 Completed [facility] Influenza Virus Vaccine Quad .5 mL IM 6+ MO 2019-08-11 00:00:00 Completed [facility] Influenza Virus Vaccine Quad .5 mL IM 6+ MO 2019-08-11 00:00:00 Completed [facility] Influenza Virus Vaccine Quad .5 mL IM 6+ MO 2019-08-11 00:00:00 Completed [facility] Influenza Virus Vaccine Quad .5 mL IM 6+ MO 2019-08-11 00:00:00 Completed [facility] Influenza Virus Vaccine Quad .5 mL IM 6+ MO 2019-08-11 00:00:00 Completed [facility] Influenza Virus Vaccine Quad .5 mL IM 6+ MO 2019-08-11 00:00:00 Completed [facility] Influenza Virus Vaccine Quad .5 mL IM 6+ MO 2019-08-11 00:00:00 Completed [facility] Influenza Virus Vaccine Quad .5 mL IM 6+ MO 2019-08-11 00:00:00 Completed [facility] Influenza Virus Vaccine Quad .5 mL IM 6+ MO 2019-08-11 00:00:00 Completed [facility] Influenza Virus Vaccine Quad .5 mL IM 6+ MO 2019-08-11 00:00:00 Completed [facility] Influenza Virus Vaccine Quad .5 mL IM 6+ MO 2019-08-11 00:00:00 Completed [facility] Influenza Virus Vaccine Quad .5 mL IM 6+ MO 2019-08-11 00:00:00 Completed [facility] Influenza Virus Vaccine Quad .5 mL IM 6+ MO 2019-08-11 00:00:00 Completed [facility] Influenza Virus Vaccine Quad .5 mL IM 6+ MO 2019-08-11 00:00:00 Completed [facility] Influenza Virus Vaccine Quad .5 mL IM 6+ MO 2019-08-11 00:00:00 Completed [facility] Influenza Virus Vaccine Quad .5 mL IM 6+ MO 2019-08-11 00:00:00 Completed [facility] Influenza Virus Vaccine Quad .5 mL IM 6+ MO 2019-08-11 00:00:00 Completed [facility] Influenza Virus Vaccine Quad .5 mL IM 6+ MO 2019-08-11 00:00:00 Completed [facility] Influenza Virus Vaccine Quad .5 mL IM 6+ MO 2019-08-11 00:00:00 Completed [facility] Influenza Virus Vaccine Quad .5 mL IM 6+ MO 2019-08-11 00:00:00 Completed [facility] Influenza Virus Vaccine Quad .5 mL IM 6+ MO 2019-08-11 00:00:00 Completed [facility] Influenza Virus Vaccine Quad .5 mL IM 6+ MO 2019-08-11 00:00:00 Completed [facility] Influenza Virus Vaccine Quad .5 mL IM 6+ MO 2019-08-11 00:00:00 Completed [facility] Influenza Virus Vaccine Quad .5 mL IM 6+ MO 2019-08-11 00:00:00 Completed [facility] Zoster Vaccine Recombinant 2018-04-26 00:00:00 Completed [facility] Zoster Vaccine Recombinant 2018-04-26 00:00:00 Completed [facility] Zoster Vaccine Recombinant 2018-04-26 00:00:00 Completed [facility] Zoster Vaccine Recombinant 2018-04-26 00:00:00 Completed [facility] Zoster Vaccine Recombinant 2018-04-26 00:00:00 Completed [facility] Zoster Vaccine Recombinant 2018-04-26 00:00:00 Completed [facility] Zoster Vaccine Recombinant 2018-04-26 00:00:00 Completed [facility] Zoster Vaccine Recombinant 2018-04-26 00:00:00 Completed [facility] Zoster Vaccine Recombinant 2018-04-26 00:00:00 Completed [facility] Zoster Vaccine Recombinant 2018-04-26 00:00:00 Completed [facility] Zoster Vaccine Recombinant 2018-04-26 00:00:00 Completed [facility] Zoster Vaccine Recombinant 2018-04-26 00:00:00 Completed [facility] Zoster Vaccine Recombinant 2018-04-26 00:00:00 Completed [facility] Zoster Vaccine Recombinant 2018-04-26 00:00:00 Completed [facility] Zoster Vaccine Recombinant 2018-04-26 00:00:00 Completed [facility] Zoster Vaccine Recombinant 2018-04-26 00:00:00 Completed [facility] Zoster Vaccine Recombinant 2018-04-26 00:00:00 Completed [facility] Zoster Vaccine Recombinant 2018-04-26 00:00:00 Completed [facility] Zoster Vaccine Recombinant 2018-04-26 00:00:00 Completed [facility] Zoster Vaccine Recombinant 2018-04-26 00:00:00 Completed [facility] Zoster Vaccine Recombinant 2018-04-26 00:00:00 Completed [facility] Zoster Vaccine Recombinant 2018-04-26 00:00:00 Completed [facility] Zoster Vaccine Recombinant 2018-04-26 00:00:00 Completed [facility] Zoster Vaccine Recombinant 2018-04-26 00:00:00 Completed [facility] Zoster Vaccine Recombinant 2018-03-26 00:00:00 Completed [facility] Zoster Vaccine Recombinant 2018-03-26 00:00:00 Completed [facility] Zoster Vaccine Recombinant 2018-03-26 00:00:00 Completed [facility] Zoster Vaccine Recombinant 2018-03-26 00:00:00 Completed [facility] Zoster Vaccine Recombinant 2018-03-26 00:00:00 Completed [facility] Zoster Vaccine Recombinant 2018-03-26 00:00:00 Completed [facility] Zoster Vaccine Recombinant 2018-03-26 00:00:00 Completed [facility] Zoster Vaccine Recombinant 2018-03-26 00:00:00 Completed [facility] Zoster Vaccine Recombinant 2018-03-26 00:00:00 Completed [facility] Zoster Vaccine Recombinant 2018-03-26 00:00:00 Completed [facility] Zoster Vaccine Recombinant 2018-03-26 00:00:00 Completed [facility] Zoster Vaccine Recombinant 2018-03-26 00:00:00 Completed [facility] Zoster Vaccine Recombinant 2018-03-26 00:00:00 Completed [facility] Zoster Vaccine Recombinant 2018-03-26 00:00:00 Completed [facility] Zoster Vaccine Recombinant 2018-03-26 00:00:00 Completed [facility] Zoster Vaccine Recombinant 2018-03-26 00:00:00 Completed [facility] Zoster Vaccine Recombinant 2018-03-26 00:00:00 Completed [facility] Zoster Vaccine Recombinant 2018-03-26 00:00:00 Completed [facility] Zoster Vaccine Recombinant 2018-03-26 00:00:00 Completed [facility] Zoster Vaccine Recombinant 2018-03-26 00:00:00 Completed [facility] Zoster Vaccine Recombinant 2018-03-26 00:00:00 Completed [facility] Zoster Vaccine Recombinant 2018-03-26 00:00:00 Completed [facility] Zoster Vaccine Recombinant 2018-03-26 00:00:00 Completed [facility] Zoster Vaccine Recombinant 2018-03-26 00:00:00 Completed [facility] influenza, unspecified formulation influenza, unspecified formulation Unknown Completed [facility] Pneumococcal conjugate PCV20, polysaccharide [id number] conjugate, adjuvant, PF Pneumococcal conjugate PCV20, polysaccharide [id number] conjugate, adjuvant, PF Unknown Completed [facility] COVID-19, mRNA, LNP-S, PF, 100 mcg/0.5 mL dose (Moderna) COVID-19, mRNA, LNP-S, PF, 100 mcg/0.5 mL dose (Moderna) Unknown Completed [facility] COVID-19, mRNA, LNP-S, PF, 100 mcg/0.5 mL dose (Moderna) COVID-19, mRNA, LNP-S, PF, 100 mcg/0.5 mL dose (Moderna) Unknown Completed [facility] influenza, unspecified formulation influenza, unspecified formulation Unknown Completed [facility] Pneumococcal conjugate PCV20, polysaccharide [id number] conjugate, adjuvant, PF Pneumococcal conjugate PCV20, polysaccharide [id number] conjugate, adjuvant, PF Unknown Completed [facility] COVID-19, mRNA, LNP-S, PF, 100 mcg/0.5 mL dose (Moderna) COVID-19, mRNA, LNP-S, PF, 100 mcg/0.5 mL dose (Moderna) Unknown Completed [facility] COVID-19, mRNA, LNP-S, PF, 100 mcg/0.5 mL dose (Moderna) COVID-19, mRNA, LNP-S, PF, 100 mcg/0.5 mL dose (Moderna) Unknown Completed [facility] influenza, unspecified formulation influenza, unspecified formulation Unknown Completed [facility] Pneumococcal conjugate PCV20, polysaccharide [id number] conjugate, adjuvant, PF Pneumococcal conjugate PCV20, polysaccharide [id number] conjugate, adjuvant, PF Unknown Completed [facility] COVID-19, mRNA, LNP-S, PF, 100 mcg/0.5 mL dose (Moderna) COVID-19, mRNA, LNP-S, PF, 100 mcg/0.5 mL dose (Moderna) Unknown Completed [facility] COVID-19, mRNA, LNP-S, PF, 100 mcg/0.5 mL dose (Moderna) COVID-19, mRNA, LNP-S, PF, 100 mcg/0.5 mL dose (Moderna) Unknown Completed [facility] influenza, unspecified formulation influenza, unspecified formulation Unknown Completed [facility] Pneumococcal conjugate PCV20, polysaccharide [id number] conjugate, adjuvant, PF Pneumococcal conjugate PCV20, polysaccharide [id number] conjugate, adjuvant, PF Unknown Completed [facility] COVID-19, mRNA, LNP-S, PF, 100 mcg/0.5 mL dose (Moderna) COVID-19, mRNA, LNP-S, PF, 100 mcg/0.5 mL dose (Moderna) Unknown Completed [facility] COVID-19, mRNA, LNP-S, PF, 100 mcg/0.5 mL dose (Moderna) COVID-19, mRNA, LNP-S, PF, 100 mcg/0.5 mL dose (Moderna) Unknown Completed [facility] Vital Signs Vital Name Observation Time Observation Value Comments S ource BP Systolic 2023-10-22 00:00:00 160 mm[Hg] [facility] Height 2023-10-22 00:00:00 71 [in_i] [facility] Body Weight 2023-10-22 00:00:00 4112 [oz_av] [facility] BMI (Body Mass Index) 2023-10-22 00:00:00 35.8 kg/m2 [facility] BP Diastolic 2023-10-22 00:00:00 67 mm[Hg] [facility] BP Diastolic 2023-10-15 00:00:00 70 mm[Hg] [facility] BP Systolic 2023-10-15 00:00:00 162 mm[Hg] [facility] Body Weight 2023-10-15 00:00:00 4086.4 [oz_av] [facility] BMI (Body Mass Index) 2023-10-15 00:00:00 35.6 kg/m2 [facility] Height 2023-10-15 00:00:00 71 [in_i] [facility] BP Diastolic 2022-12-17 00:00:00 78 mm[Hg] [facility] Height 2022-12-17 00:00:00 71 [in_i] [facility] BMI (Body Mass Index) 2022-12-17 00:00:00 39.1 kg/m2 [facility] BP Systolic 2022-12-17 00:00:00 147 mm[Hg] [facility] Body Weight 2022-12-17 00:00:00 4480 [oz_av] [facility] BP Diastolic 2022-10-23 00:00:00 70 mm[Hg] [facility] Height 2022-10-23 00:00:00 71 [in_i] [facility] BP Systolic 2022-10-23 00:00:00 160 mm[Hg] [facility] Body Weight 2022-10-23 00:00:00 4425.6 [oz_av] [facility] BP Diastolic 2022-10-06 00:00:00 65 mm[Hg] [facility] Height 2022-10-06 00:00:00 71 [in_i] [facility] BMI (Body Mass Index) 2022-10-06 00:00:00 37.8 kg/m2 [facility] BP Systolic 2022-10-06 00:00:00 114 mm[Hg] [facility] Body Weight 2022-10-06 00:00:00 4332.8 [oz_av] [facility] BP Diastolic 2022-09-30 00:00:00 65 mm[Hg] [facility] Height 2022-09-30 00:00:00 71 [in_i] [facility] BMI (Body Mass Index) 2022-09-30 00:00:00 37.9 kg/m2 [facility] BP Systolic 2022-09-30 00:00:00 112 mm[Hg] [facility] Body Weight 2022-09-30 00:00:00 4345.6 [oz_av] [facility] BP Diastolic 2022-02-25 00:00:00 77 mm[Hg] [facility] Height 2022-02-25 00:00:00 71 [in_i] [facility] BMI (Body Mass Index) 2022-02-25 00:00:00 39.2 kg/m2 [facility] BP Systolic 2022-02-25 00:00:00 155 mm[Hg] [facility] Body Weight 2022-02-25 00:00:00 4496 [oz_av] [facility] BP Diastolic 2021-10-09 00:00:00 78 mm[Hg] [facility] Height 2021-10-09 00:00:00 71 [in_i] [facility] BMI (Body Mass Index) 2021-10-09 00:00:00 40.4 kg/m2 [facility] BP Systolic 2021-10-09 00:00:00 174 mm[Hg] [facility] Body Weight 2021-10-09 00:00:00 4630.4 [oz_av] [facility] BP Diastolic 2021-03-19 00:00:00 88 mm[Hg] [facility] Height 2021-03-19 00:00:00 71 [in_i] [facility] BMI (Body Mass Index) 2021-03-19 00:00:00 38.8 kg/m2 [facility] BP Systolic 2021-03-19 00:00:00 199 mm[Hg] [facility] Body Weight 2021-03-19 00:00:00 4454.4 [oz_av] [facility] Systolic blood pressure 2021-01-08 18:17:00 140 mm[Hg] [facility] Diastolic blood pressure 2021-01-08 18:17:00 66 mm[Hg] [facility] Heart rate 2021-01-08 18:17:00 75 /min [facility] Body weight 2021-01-08 18:17:00 129.729 kg [facility] BMI 2021-01-08 18:17:00 39.89 kg/m2 [facility] Systolic blood pressure 2020-07-09 19:20:00 159 mm[Hg] [facility] Diastolic blood pressure 2020-07-09 19:20:00 81 mm[Hg] [facility] Heart rate 2020-07-09 19:19:00 68 /min [facility] Body weight 2020-07-09 19:19:00 123.378 kg [facility] BMI 2020-07-09 19:19:00 37.94 kg/m2 [facility] Systolic blood pressure 2020-06-08 19:15:00 161 mm[Hg] [facility] Diastolic blood pressure 2020-06-08 19:15:00 77 mm[Hg] [facility] Heart rate 2020-06-08 19:14:00 68 /min [facility] Body height 2020-06-08 19:14:00 180.3 cm [facility] Body weight 2020-06-08 19:14:00 122.925 kg [facility] BMI 2020-06-08 19:14:00 37.80 kg/m2 [facility] Systolic blood pressure 2020-05-09 18:53:00 170 mm[Hg] [facility] Diastolic blood pressure 2020-05-09 18:53:00 84 mm[Hg] [facility] Heart rate 2020-05-09 18:52:00 76 /min [facility] Body weight 2020-05-09 18:52:00 120.657 kg [facility] BMI 2020-05-09 18:52:00 37.10 kg/m2 [facility] Systolic blood pressure 2020-02-10 18:01:00 186 mm[Hg] [facility] Diastolic blood pressure 2020-02-10 18:01:00 88 mm[Hg] [facility] Heart rate 2020-02-10 18:01:00 79 /min [facility] Body height 2020-02-10 18:01:00 180.3 cm [facility] Body weight 2020-02-10 18:01:00 121.564 kg [facility] BMI 2020-02-10 18:01:00 37.38 kg/m2 [facility] Systolic blood pressure 2019-10-04 19:33:00 154 mm[Hg] Pt states bp is always elevated [facility] Diastolic blood pressure 2019-10-04 19:33:00 67 mm[Hg] Pt states bp is always elevated [facility] Heart rate 2019-10-04 19:33:00 86 /min [facility] Respiratory rate 2019-10-04 19:32:00 16 /min [facility] Body height 2019-10-04 19:32:00 180.3 cm [facility] Body weight 2019-10-04 19:32:00 122.471 kg [facility] BMI 2019-10-04 19:32:00 37.66 kg/m2 [facility] Procedures Procedure Date / Time Performed Performing Clinician Source electrocardiogram, routine ECG, 12 leads min 2023-10-16 00:00:00 [facility] ASSIGNMENT OF BENEFITS 2021-01-08 18:01:40 Paola paz Unassigned, [facility] POCT HEMOGLOBIN A1C TEST 2021-01-08 00:00:00 Kari Mora [facility] POCT HEMOGLOBIN A1C TEST 2020-02-10 00:00:00 Kari Mora [facility] AGREEMENTS AUTHORIZATIONS AND IRREVOCABLE ASSIGNMENTS (FORM 2001) 2019-10-04 06:01:00 Doctor Unassigned, [facility] Plan of Care Planned Activity Planned Date Details Comments Source Diagnostic Test Pending 2023-10-15 00:00:00 HbA1c (hemoglobin A1c), blood [code = HbA1c (hemoglobin A1c), blood] [facility] Diagnostic Test Pending 2023-10-15 00:00:00 CMP, serum or plasma [code = CMP, serum or plasma] [facility] Diagnostic Test Pending 2023-10-15 00:00:00 CBC w/ auto diff [code = CBC w/ auto diff] [facility] Diagnostic Test Pending 2023-10-15 00:00:00 lipid panel, serum [code = lipid panel, serum] [facility] Diagnostic Test Pending 2023-10-15 00:00:00 vitamin D, 25-hydroxy, total, serum [code = vitamin D, 25-hydroxy, total, serum] [facility] Diagnostic Test Pending 2023-10-15 00:00:00 PSA, serum or plasma [code = PSA, serum or plasma] [facility] Diagnostic Test Pending 2023-10-15 00:00:00 TSH + free T4, serum [code = TSH + free T4, serum] [facility] Future Appointment 2024-01-22 00:00:00 Criselda Gomez, [address] [place] [address], [address]; , [place] [address] [facility] Future Appointment 2023-11-05 00:00:00 Criselda Gomez [address] [place] [address], [address]; , [place] [address] [facility] Future Appointment 2023-11-02 14:00:00 Criselda Gomez, [address] [facility], [address]; , [place] [address] [facility] Encounters Start Date/Time End Date/Time Encounter Type Admission Type Attending [facility] Care Facility Care Department Encounter ID Source 2023-10-29 00:00:00 2023-10-29 00:00:00 Missy Middleton APRN-BAGGAGE SMASHER-B C: [address], [address], [place] [address] , Ph. [facility] [id number] [facility] 2023-10-22 00:00:00 2023-10-22 00:00:00 Outpatient [facility] [id number] [facility] 2023-10-22 00:00:00 2023-10-22 00:00:00 Criselda Gomez APRN, MSN, BAGGAGE SMASHER-BC: [address] [facility] [facility], [address], [place] [address] , Ph. [facility] [id number] [facility] 2023-10-15 00:00:00 2023-10-15 00:00:00 Outpatient [facility] [id number] [facility] 2023-10-15 00:00:00 2023-10-15 00:00:00 Criselda Gomez APRN, MSN, [employer]-BC: [address] [facility] [facility] [facility], [address], [place] [address] , Ph. [facility] [id number] [facility] 2022-12-17 00:00:00 2022-12-17 00:00:00 Outpatient [facility] [id number] [facility] 2022-12-17 00:00:00 2022-12-17 00:00:00 Criselda Gomez APRN, MSN, [facility]: [address] [place] [address], [address] [address] , Ph. [facility] [id number] [facility] 2022-10-23 00:00:00 2022-10-23 00:00:00 Outpatient [facility] [id number] [facility] 2022-10-23 00:00:00 2022-10-23 00:00:00 Criselda Gomez APRN, MSN, [facility]: [address] [place] [address], [address] [address] , Ph. [facility] [id number] [facility] 2022-10-06 00:00:00 2022-10-06 00:00:00 Criselda Gomez APRN, MSN, [facility]: [address] [place] [address], [address] [address] , Ph. [facility] [id number] [facility] 2022-10-01 00:00:00 2022-10-01 00:00:00 Outpatient [facility] [id number] [facility] 2022-10-01 00:00:00 2022-10-01 00:00:00 Outpatient [facility] [id number] [facility] 2022-10-01 00:00:00 2022-10-01 00:00:00 Outpatient [facility] [id number] [facility] 2022-09-30 00:00:00 2022-09-30 00:00:00 Outpatient [facility] [id number] [facility] 2022-09-30 00:00:00 2022-09-30 00:00:00 Criselda Gomez APRN, MSN, [facility]: [address] [place] [address], [address] [address] , Ph. [facility] [id number] [facility] 2022-04-12 00:00:00 2022-04-12 00:00:00 Outpatient [facility] [id number] [facility] 2022-02-25 11:02:00 2022-02-25 11:02:00 Outpatient [facility] [id number] [facility] 2022-02-25 00:00:00 2022-02-25 00:00:00 Criselda Gomez APRN, MSN, [facility]: [address] [place] [address], [address] [address] , Ph. [facility] [id number] [facility] 2022-02-25 00:00:00 2022-02-25 00:00:00 Outpatient [facility]a [facility] [id number] 2022-02-24 12:26:00 2022-02-24 12:26:00 Outpatient [facility] [id number] [facility] 2021-10-09 11:18:00 2021-10-09 11:18:00 Outpatient [facility] [id number] [facility] 2021-10-09 00:00:00 2021-10-09 00:00:00 Outpatient Macy Storey [facility] [id number] 2021-10-09 00:00:00 2021-10-09 00:00:00 Outpatient Macy Storey [facility] [id number] 2021-10-09 00:00:00 2021-10-09 00:00:00 Macy 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 [facility] [id number] [facility] 2021-05-08 12:43:00 2021-05-08 12:43:00 Outpatient [facility] [id number] [facility] 2021-04-20 03:04:00 2021-04-20 03:04:00 Outpatient [facility] [id number] [facility] 2021-03-20 12:21:00 2021-03-20 12:21:00 Outpatient [facility] [id number] [facility] 2021-03-19 10:36:00 2021-03-19 10:36:00 Outpatient [facility] [id number] [facility] 2021-03-19 00:00:00 2021-03-19 00:00:00 Outpatient Macy Storey [facility] [id number] 2021-03-19 00:00:00 2021-03-19 00:00:00 Macy StoreyGRACE-C: [address] [place] [address], [address] [address] , Ph. [facility] [id number] [facility] 2021-02-18 02:32:00 2021-02-18 02:32:00 Outpatient [facility] [id number] [facility] 2021-01-22 08:00:00 2021-01-22 08:00:00 Outpatient R [facility] [id number] [facility] 2021-01-21 08:40:00 2021-01-21 08:40:00 Outpatient R KARI VAZQUEZ [facility] [id number] [facility] 2021-01-21 07:59:06 2021-01-21 08:19:06 Instructor [employer] Visit Lab, [facility] Grace Vazquez [facility] [address] .114 [id number] [facility] 2021-01-08 13:40:00 2021-01-08 14:00:00 Instructor [employer] Visit Lab, [facility] Grace Vazquez [facility] [address] [id number] [facility] 2021-01-08 13:02:21 2021-01-08 13:31:45 Office Visit [facility] Office Building One .114 350.1.13.10 4.2.7.2.686 [id number] [facility] 2021-01-08 13:00:00 2021-01-08 13:00:00 Outpatient R KARI VAZQUEZ [facility] [id number] [facility] 2021-01-08 00:00:00 2021-01-08 00:00:00 Orders Only Doctor Unassigned, Dierks [facility] 1..114 350.1.13.10 4.2.7.2.686 [id number] [facility] 2020-12-11 00:00:00 2020-12-11 00:00:00 Telephone Kari Vazquez [facility] Office Building One 1.114 350.1.13.10 4.2.7.2.686 [id number] [facility] 2020-11-19 00:00:00 2020-11-19 00:00:00 Telephone Kari Vazquez [facility] Office Building One 1..114 350.1.13.10 4.2.7.2.686 [id number] [facility] 2020-07-09 13:11:15 2020-07-09 13:26:15 Office Visit Kari Vazquez [facility] Office Building One 1.114 350.1.13.10 4.2.7.2.686 [id number] [facility] 2020-07-09 13:15:00 2020-07-09 13:15:00 Outpatient KARI STOKES [facility] [id number] [facility] 2020-06-08 14:00:10 2020-06-08 14:15:10 Office Visit Kari Vazquez [facility] Office Building One 1.114 350.1.13.10 4.2.7.2.686 [id number] [facility] 2020-06-08 14:00:00 2020-06-08 14:00:00 Outpatient KARI STOKES [facility] [id number] [facility] 2020-05-15 00:00:00 2020-05-15 00:00:00 Telephone Kari Vazquez [facility] Office Building One 1.114 350.1.13.10 4.2.7.2.686 [id number] [facility] 2020-05-09 13:28:33 2020-05-09 13:43:33 Office Visit Kari Vazquez [facility] Office Building One 1.2.840.114 350.1.13.10 4.2.7.2.686 [id number] [facility] 2020-05-09 13:30:00 2020-05-09 13:30:00 Outpatient R TAYLOR KARI [facility] [id number] [facility] 2020-03-27 00:00:00 2020-03-27 00:00:00 Telephone Kari Vazquez [facility] Building 1.2.840.114 350.1.13.10 4.2.7.2.686 [id number] [facility] 2020-03-21 13:30:00 2020-03-21 13:30:00 Outpatient Dominguez [facility] [id number] [facility] 2020-02-10 12:56:44 2020-02-10 13:32:41 Office Visit Kari Vazquez [facility] Building 1.2.840.114 350.1.13.10 4.2.7.2.686 [id number] [facility] 2020-02-10 13:15:00 2020-02-10 13:15:00 Outpatient R KARI VAZQUEZ [facility] [id number] [facility] 2020-02-09 09:00:00 2020-02-09 09:00:00 Outpatient KARI STOKES [facility] [id number] [facility] 2020-02-07 13:30:00 2020-02-07 13:30:00 Outpatient Dominguez [facility] [id number] [facility] 2019-10-30 00:00:00 2019-10-30 00:00:00 Telephone Prateek [facility] 1.2.840.114 350.1.13.10 4.2.7.2.686 [id number] [facility] 2019-10-04 13:59:34 2019-10-04 14:14:34 [employer] Visit 2, Adc Lab Prateek [facility] 1.2.840.114 350.1.13.10 4.2.7.2.686 [id number] [facility] 2019-10-04 13:15:31 2019-10-04 13:54:41 Office Visit Prateek [facility] 1.2.840.114 350.1.13.10 4.2.7.2.686 [id number] [facility] 2019-10-04 13:30:00 2019-10-04 13:30:00 Outpatient R PRATEEK [facility] [id number] [facility] 2019-10-04 00:00:00 2019-10-04 00:00:00 Orders Only Doctor Unassigned, Dierks [facility] 1.2.840.114 350.1.13.10 4.2.7.2.686 [id number] [facility] 2019-09-11 00:00:00 2019-09-11 00:00:00 RefLexi Luna [facility] 1.2.840.114 350.1.13.10 4.2.7.2.686 [id number] [facility] 2019-05-31 10:00:00 2019-05-31 10:26:35 Outpatient R PRATEEK [facility] [id number] [facility] Results Test Description Test Time Test Comments Results Result Co mments [facility] [id number] 18:37:00* Test Item Value Reference Range Interpretation Comme nts POCT HBA1C (test code = 4548-4) 9.6 % 4-6 A Lab Interpretation (test cod e = 33098-3) Abnormal [facility] [id number] 18:37:00* Test Item Value Reference Range Interpretation Comme [facility] POCT HBA1C (test code = 4548-4) 9.6 % 4-6 A Lab Interpretation (test cod e = 79954-4) Abnormal [facility]
[2023-10-29 11:34] LABS: Absolute Basophils 0.1 K/uL (0-0.5); Absolute Eosinophils 0.2 K/uL (0-0.5); Absolute Lymphocytes (CBC) 1.6 K/uL (0.7-4.9); Absolute Monocytes 0.7 K/uL (0.1-1.3); Basophils % 1.1 % (0-1.3); Eosinophils % 2.2 % (0-4.4); Hematocrit 39.9 % (39.6-49.0); Hemoglobin 13.3 g/dL (13.6-17.9); Lymphocytes % 18.5 % (15.3-44.8); MCH 29.7 pg (27.0-35.0); MCHC 33.3 g/dL (32.0-36.0); MCV 89.1 fL (80-100); MPV 8.8 fL (7.6-11.3); Monocytes % 8.2 % (3.3-12.3); Platelets 306 thou/uL (152-406); RBC Red Blood Cell Count 4.47 M/uL (4.33-5.43); Red Cell Distribution Width 14.4 % (12.1-15.2)
--- NOTE | 2023-10-29 11:57 | RAD REPORT ---
EXAM DESCRIPTION: RAD - Foot Left 3 View - 10/29/2023 11:51 am CLINICAL HISTORY: diabetic toe COMPARISON: No comparisons FINDINGS/IMPRESSION: No acute fracture. No malalignment. Calcaneal spurring. Cortical loss at the fo urth and fifth metatarsal heads, more pronounced at the fourth metatarsal head. This could be seconda ry to either an erosive arthropathy or possibly osteomyelitis in the appropriate clinical setting. MR I could further evaluate..
--- NOTE | 2023-10-29 12:19 | ER ---
Nurse's Notes [facility] Name: Brandon Yap Age: 68 yrs Sex: Male : 1955 Arrival Date: 10/29/2023 Time: 10:43 Bed 20 Private MD: Diagnosis: Diabetic foot infection, osteomyelitis Presentation: 10/28 10:59 Chief complaint: Patient states: "I noticed a wound to my left toe yesterday after my mb9 nail fell off. It hurts, swollen, and has a hole in it.". Coronavirus screen: Vaccine status: Patient reports receiving the 2nd dose of the covid vaccine. Ebola Screen: No symptoms or risks identified at this time. Initial Sepsis Screen: Does the patient meet any 2 criteria? No. Patient's initial sepsis screen is negative. Does the patient have a suspected source of infection? No. Patient's initial sepsis screen is negative. Risk Assessment: Do you want to hurt yourself or someone else? Patient reports no desire to harm self or others. Onset of symptoms was October 29, 2023. 10:59 Acuity: NICANOR 2 mb9 10:59 Method Of Arrival: Ambulatory mb9 Triage Assessment: 11:01 General: Appears in no apparent distress. Behavior is calm, cooperative. Pain: mb9 Complains of pain in left foot. Derm: Wound noted left toe Wound is erythema, swelling, and purulent drainage noted. Historical: - Allergies: 11:00 No Known Allergies; mb9 - PMHx: 11:00 Hypertensive disorder; Diabetes mellitus; mb9 - PSHx: 11:00 None; mb9 - Immunization history:: Adult Immunizations up to date. - Social history:: Smoking status: Patient reports the use of cigarette tobacco products, denies chronic smoking, but will smoke occasionally. Screenin:00 [facility] ED Fall Risk Assessment (Adult) History of falling in the last 3 months, bp including since admission No falls in past 3 months (0 pts). Abuse screen: Denies threats or abuse. Denies injuries from another. Nutritional screening: No deficits noted. Tuberculosis screening: No symptoms or risk factors identified. Assessment: 11:00 General: SEE TRIAGE NOTE. bp 14:00 Reassessment: No changes from previously documented assessment. Patient is alert, bp oriented x 3, equal unlabored respirations, skin warm/dry/pink. Derm: Wound noted left foot. 15:00 Reassessment: No changes from previously documented assessment. Patient is alert, bp oriented x 3, equal unlabored respirations, skin warm/dry/pink. Vital Signs: 10:59 BP 154 / 76; Pulse 78; Resp 18; Temp 97.7; Pulse Ox 100% ; Weight 121.11 kg; Height 5 mb9 ft. 11 in. ; Pain 7/10; 12:00 BP 149 / 72; Pulse 67; Resp 16; Pulse Ox 99% ; bp 13:00 BP 124 / 70; Pulse 65; Resp 16; Pulse Ox 96% ; bp 14:00 BP 140 / 66; Pulse 60; Resp 16; Pulse Ox 96% ; bp 15:00 BP 136 / 97; Pulse 71; Resp 15; Pulse Ox 100% ; bp 10:59 Body Mass Index 37.24 (121.11 kg, 180.34 cm) mb9 10:59 Pain Scale: Adult mb9 ED Course: 10:46 Patient arrived in ED. im 10:52 Melvin Koehler MD is Attending Physician. sp3 10:55 Matthew Monterroso, THERESA is Primary Nurse. bp 11:00 Triage completed. mb9 11:00 Patient has correct armband on for positive identification. Bed in low position. Call bp light in reach. 11:01 Arm band placed on. mb9 11:14 Lactate w/ 2H reflex if indic. Sent. bp 11:14 CMP Sent. bp 11:14 CBC with Diff Sent. bp 11:14 Blood Culture Adult (2) Sent. bp 11:15 Inserted saline lock: 22 gauge in right antecubital area, using aseptic technique. bp Blood collected. 11:52 Foot Left 3 View XRAY In Process Unspecified. EDMS 12:18 Leonidas Merida is Hospitalizing Provider. sp3 Administered Medications: 12:40 Drug: vancoMYCIN IVPB 1 grams IVPB once over 2 hrs Route: IVPB; Infused Over: 2 hrs; bp Site: right antecubital; 15:45 Follow up: IV Status: Completed infusion; IV Intake: 250ml bp 12:40 Drug: Piperacillin-Tazobactam IVPB 3.375 grams IVPB once over 60 mins; (mix in NS 100 bp mL) Route: IVPB; Infused Over: 60 mins; Site: right antecubital; 15:45 Follow up: IV Status: Completed infusion; IV Intake: 100ml bp Intake: 15:45 IV: 100ml; Total: 100ml. bp 15:45 IV: 250ml; Total: 350ml. bp Outcome: 12:19 Decision to Hospitalize by Provider. sp3 16:21 Patient left the ED. ds4 Signatures: Dispatcher [employer] EDMS Jed Ledezma ds4 Matthew Monterroso RN RN bp Melvin Koehler MD MD sp3 Nakia Carlos RN RN mb9 Josefina Snyder
--- NOTE | 2023-10-29 12:19 | EDPHYS ---
Physician Documentation [facility] Name: Brandon Yap Age: 68 yrs Sex: Male : 1955 Arrival Date: 10/29/2023 Time: 10:43 Bed 20 Private MD: ED Physician Melvin Koehler HPI: 10/28 12:16 This 68 yrs old Black Male presents to ER via Ambulatory with complaints of Wound sp3 Infection - left foot. 12:16 68-year-old male with history of hypertension and diabetes presents with left second sp3 toe pain, discoloration and wound. Patient first noticed the wound 2 days ago. No prior history of similar symptoms or osteomyelitis. He denies headache, fever, URI symptoms, chest pain, shortness of breath, abdominal pain, back pain, or any other extremity symptoms. Review of systems otherwise negative.. Historical: - Allergies: 11:00 No Known Allergies; mb9 - PMHx: 11:00 Hypertensive disorder; Diabetes mellitus; mb9 - PSHx: 11:00 None; mb9 - Immunization history:: Adult Immunizations up to date. - Social history:: Smoking status: Patient reports the use of cigarette tobacco products, denies chronic smoking, but will smoke occasionally. ROS: 12:17 Constitutional: Negative for fever, chills, and weight loss, Eyes: Negative for injury, sp3 pain, redness, and discharge, ENT: Negative for injury, pain, and discharge, Neck: Negative for injury, pain, and swelling, Cardiovascular: Negative for chest pain, palpitations, and edema, Respiratory: Negative for shortness of breath, cough, wheezing, and pleuritic chest pain, Abdomen/GI: Negative for abdominal pain, nausea, vomiting, diarrhea, and constipation, Back: Negative for injury and pain, Skin: Negative for injury, rash, and discoloration, Neuro: Negative for headache, weakness, numbness, tingling, and seizure, Psych: Negative for depression, anxiety, suicide ideation, homicidal ideation, and hallucinations, 12:17 All other systems are negative, Exam: 12:17 Constitutional: This is a well developed, well nourished patient who is awake, alert, sp3 and in no acute distress. Head/Face: Normocephalic, atraumatic. Neck: Trachea midline, no thyromegaly or masses palpated, and no cervical lymphadenopathy. Supple, full range of motion without nuchal rigidity, or vertebral point tenderness. No Meningismus. Chest/axilla: Normal chest wall appearance and motion. Nontender with no deformity. No lesions are appreciated. Cardiovascular: Regular rate and rhythm with a normal S1 and S2. No gallops, murmurs, or rubs. Normal PMI, no JVD. No pulse deficits. Respiratory: Lungs have equal breath sounds bilaterally, clear to auscultation and percussion. No rales, rhonchi or wheezes noted. No increased work of breathing, no retractions or nasal flaring. Abdomen/GI: Soft, non-tender, with normal bowel sounds. No distension or tympany. No guarding or rebound. No evidence of tenderness throughout. 12:17 Skin: Left second toe significant wound with probable osteomyelitis, erythema and drainage. Vital Signs: 10:59 BP 154 / 76; Pulse 78; Resp 18; Temp 97.7; Pulse Ox 100% ; Weight 121.11 kg; Height 5 mb9 ft. 11 in. ; Pain 7/10; 12:00 BP 149 / 72; Pulse 67; Resp 16; Pulse Ox 99% ; bp 13:00 BP 124 / 70; Pulse 65; Resp 16; Pulse Ox 96% ; bp 14:00 BP 140 / 66; Pulse 60; Resp 16; Pulse Ox 96% ; bp 15:00 BP 136 / 97; Pulse 71; Resp 15; Pulse Ox 100% ; bp 10:59 Body Mass Index 37.24 (121.11 kg, 180.34 cm) mb9 10:59 Pain Scale: Adult mb9 MDM: 10:57 Patient medically screened. sp3 12:18 Data reviewed: vital signs, nurses notes, lab test result(s), radiologic studies. ED sp3 course: 68-year-old male with left foot cellulitis versus osteomyelitis and diabetic wound infection. Patient will need to be admitted to the hospital and antibiotic started. Vancomycin and Zosyn ordered. Discussed with hospitalist team for admission.. 10/28 10:59 Order name: Blood Culture Adult (2) sp3 10/28 10:59 Order name: CBC with Diff; Complete Time: 12:12 sp3 10/28 10:59 Order name: CMP; Complete Time: 12:52 sp3 10/28 10:59 Order name: Lactate w/ 2H reflex if indic.; Complete Time: 12:12 sp3 10/28 13:40 Order name: Urinalysis w/ reflexes EDMS 10/28 13:40 Order name: Vancomycin Level Trough EDMS 10/28 13:40 Order name: Basic Metabolic Panel EDMS 10/28 13:40 Order name: Basic Metabolic Panel EDMS 10/28 13:40 Order name: Basic Metabolic Panel EDMS 10/28 13:40 Order name: Basic Metabolic Panel EDMS 10/28 13:40 Order name: Basic Metabolic Panel EDMS 10/28 13:40 Order name: Basic Metabolic Panel EDMS 10/28 13:40 Order name: CBC with Automated Diff EDMS 10/28 13:40 Order name: CBC with Automated Diff EDMS 10/28 13:40 Order name: CBC with Automated Diff EDMS 10/28 13:40 Order name: CBC with Automated Diff EDMS 10/28 13:40 Order name: CBC with Automated Diff EDMS 10/28 13:40 Order name: CBC with Automated Diff EDMS 10/28 13:40 Order name: Magnesium EDMS 10/28 13:40 Order name: Magnesium EDMS 10/28 13:40 Order name: Magnesium EDMS 10/28 13:40 Order name: Magnesium EDMS 10/28 13:40 Order name: Magnesium EDMS 10/28 13:40 Order name: Magnesium EDMS 10/28 13:40 Order name: Phosphorus EDMS 10/28 13:40 Order name: Phosphorus EDMS 10/28 13:40 Order name: Phosphorus EDMS 10/28 13:40 Order name: Phosphorus EDMS 10/28 13:40 Order name: Phosphorus EDMS 10/28 13:40 Order name: Phosphorus EDMS 10/28 10:59 Order name: Foot Left 3 View XRAY; Complete Time: 12:12 sp3 10/28 13:49 Order name: Foot Left Wo Cont EDMS 10/28 13:40 Order name: CONS Physician Consult EDMS 10/28 10:59 Order name: IV Saline Lock - Large Bore; Complete Time: 11:14 sp3 10/28 10:59 Order name: Labs collected and sent; Complete Time: 11:14 sp3 10/28 10:59 Order name: Vital Signs; Complete Time: 11:14 sp3 10/28 11:43 Order name: Labs - recollect needed: green top; Complete Time: 12:32 ds4 Administered Medications: 12:40 Drug: vancoMYCIN IVPB 1 grams IVPB once over 2 hrs Route: IVPB; Infused Over: 2 hrs; bp Site: right antecubital; 15:45 Follow up: IV Status: Completed infusion; IV Intake: 250ml bp 12:40 Drug: Piperacillin-Tazobactam IVPB 3.375 grams IVPB once over 60 mins; (mix in NS 100 bp mL) Route: IVPB; Infused Over: 60 mins; Site: right antecubital; 15:45 Follow up: IV Status: Completed infusion; IV Intake: 100ml bp Disposition Summary: 10/29/23 12:19 Hospitalization Ordered Notes: Hospitalization Status: Inpatient Admission sp3 Provider: Leonidas Merida Location: Telemetry/MedSurg (Inpatient) sp3 Condition: Stable sp3 Problem: new sp3 Symptoms: have worsened sp3 Bed/Room Type: Standard sp3 Room Assignment: 214(10/29/23 14:26) aa5 Diagnosis - Diabetic foot infection, osteomyelitis sp3 Forms: - Medication Reconciliation Form sp3 - SBAR form sp3 - Leadership Thank You Letter sp3 Signatures: Dispatcher [employer] EDMinnie Harrington RN RN aa5 Jed Ledezma ds4 Matthew Monterroso RN RN bp Melvin Koehler MD MD sp3 Nakia Carlos RN RN mb9 Corrections: (The following items were deleted from the chart) 14:26 12:19 sp3 aa5
[2023-10-29] MEDS ORDERED: VANCOMYCIN 1 GM/VIAL ONE (12:34)
[2023-10-29] MEDS ORDERED: NA CHLORIDE 0.9% 250 ML ONE (12:35)
[2023-10-29] MEDS ORDERED: PIPERACIL/TAZO 3.375 GM VIAL IV ONE (12:35)
[2023-10-29] MEDS ORDERED: NA CHLORIDE 0.9% 100 ML ONE (12:35)
[2023-10-29 12:49] LABS: Albumin 2.7 g/dL (3.4-5.0); Albumin/Globulin Ratio 0.6 (1.1-1.8); Anion Gap 8.9 mEq/L (5.0-15.0); Bilirubin Total 0.3 mg/dL (0.2-1.0); Globulin 4.6 g/dL (2.3-3.5); Potassium 3.9 mEq/L (3.5-5.1); Protein, Total 7.3 g/dL (6.4-8.2)
--- NOTE | 2023-10-29 12:51 | P.HP ---
Certification for Inpatient Patient admitted to: Observation With expected LOS: >2 Midnights Practitioner: I am a practitioner with admitting privileges, knowledge of patient current condition, hospital course, and medical plan of care. Services: Services provided to patient in accordance with Admission requirements found in Title 42 Section 412.3 of the Code of Federal Regulations Patient History Date of Service: 10/29/23 Reason for admission: Left second toe infection History of Present Illness: Brandon Yap is a 68-year-old male with past medical history of diabetes-IDDM and hypertension who presents to the ED with complaints of his left second toe being painful, discoloration, and wound present. He reports not having a wound like this in the past. No other symptoms associated. He reports being treated for a nail fungus on that toe using cream. The nail has fallen off and swelling to the toe started last night. Initial vitals BP 154 / 76; Pulse 78; Resp 18; Temp 97.7; Pulse Ox 100%. Laboratory evaluation white blood cells 8.6, lactic acid 0.9, BUN/creatinine 29/1.51, GFR 51, serum glucose 243. Left foot x-ray reports "No acute fracture. No malignant. Calcaneal spurring. Cortical loss at the fourth and fifth metatarsal heads, more pronounced at the fourth metatarsal head. This could be secondary to either an erosive arthropathy or possibly osteomyelitis in the appropriate clinical setting. MRI could further evaluate. MRI reports "Abnormal signal involves the mid and distal of second middle phalanx as well as the proximal aspect of second distal phalanx compatible with osteomyelitis. Diffuse edema within dorsal subcutaneous tissues. No fracture or dislocation. IMPRESSION: Osteomyelitis second middle and distal phalanx." Brandon will be admitted to hospitalist service for further evaluation and treatment of left second toe infection, Dr. Oates consulted. Allergies No Known Allergies Allergy (Unverified 07/07/13 11:38) Home Medications: Pioglitazone HCl 30 mg PO DAILY 07/07/13 Amlodipine [Norvasc] 10 mg PO DAILY 10/29/23 Aspirin [Aspirin EC 81 MG] 81 tab PO DAILY 10/29/23 Atenolol/Chlorthalidone [Atenolol-Chlorthal 50-25 Tb] 1 each PO DAILY 10/29/23 Dulaglutide [Trulicity] 4.5 mg SQ SEECOM 10/29/23 Empagliflozin [Jardiance] 25 mg PO DAILY 10/29/23 Fenofibrate,Micronized [Fenofibrate] 134 mg PO DAILY 10/29/23 Insulin Glargine,Hum.rec.anlog [Jermaine Hintonostar] 70 unit SQ DAILY 10/29/23 Losartan Potassium 100 mg PO DAILY 10/29/23 Pioglitazone HCl 45 mg PO DAILY 10/29/23 Rosuvastatin Calcium 40 tab PO BEDTIME 10/29/23 Spironolactone 25 tab PO DAILY 10/29/23 Tamsulosin [Flomax*] 0.4 cap PO DAILY 10/29/23 - Past Medical/Surgical History Diabetic: Yes -: DM-IDDM -: HTN Past Surgical History: Reviewed- Non-Contributory - Family History Family History: Reviewed- Non-Contributory - Social History Smoking Status: Current every day smoker (2 cigars daily) Alcohol use: Yes CD- Drugs: No Caffeine use: Yes Review of Systems Musculoskeletal: Other (pain and swelling to second left toe) Physical Examination - Physical Exam General: Alert, In no apparent distress, Oriented x3 HEENT: Atraumatic, Normocephalic Neck: Supple, 2+ carotid pulse no bruit, JVD not distended Respiratory: Clear to auscultation bilaterally, Normal air movement Cardiovascular: No edema, Normal pulses, Regular rate/rhythm, Normal S1 S2 Capillary refill: <2 Seconds Gastrointestinal: Normal bowel sounds, Soft and benign, Distended (obeses) Musculoskeletal: Other (second left toe swelling, erythema, tenderness, warmth) Integumentary: Skin breakdown (second left toe) Neurological: Normal speech, Normal strength at 5/5 x4 extr, Normal tone - Studies Laboratory Data (last 24 hrs) 10/29/23 11:15 WBC 8.60 Hgb 13.3 L Hct 39.9 Plt Count 306 Assessment and Plan - Plan Assessment and plan Left second toe infection -Zosyn and vanc given in the ED, tolerated well -Left foot x-ray reports "No acute fracture. No malalignment. Calcaneal spurring. Cortical loss at the fourth and fifth metatarsal heads, more pronounced at the fourth metatarsal head. This could be secondary to either an erosive arthropathy or possibly osteomyelitis in the appropriate clinical setting. MRI could further evaluate. -MRI reports "Abnormal signal involves the mid and distal of second middle phalanx as well as the proximal aspect of second distal phalanx compatible with osteomyelitis. Diffuse edema within dorsal subcutaneous tissues. No fracture or dislocation. IMPRESSION: Osteomyelitis second middle and distal phalanx." -vancomycin daily -pain management -consult Dr. Oates- surgery in the AM -NPO at midnight DUANE -BUN/creatinine 29/1.51, GFR 51 -Gentle IVF Diabetes mellitus-IDDM -Accu-Chek with sliding scale insulin -serum glucose 243 History of hypertension -Restart home medications if appropriate DVT PPx Full code LOS 2 to 3 days Discharge Plan: Home Plan to discharge in: 48 Hours - Advance Directives Does patient have a Living Will: No Does patient have a Durable POA for Healthcare: No Time Spent Managing Pts Care (In Minutes): 50
[2023-10-29] MEDS ORDERED: ACETAMINOPHEN 500 MG TAB PO PRN (13:32)
[2023-10-29] MEDS ORDERED: MORPHINE 2 MG/ML SYR IV PRN (13:39)
[2023-10-29] MEDS ORDERED: HYDROCODONE/APAP 7.5/325 MG TAB PO PRN (13:39)
[2023-10-29 16:29] VITALS: BMI 37.2
[2023-10-29] MEDS: INSULIN REGULAR (HUMAN) 100 UNIT/ML SQ SCH (16:30)
--- NOTE | 2023-10-29 16:43 | RAD REPORT ---
EXAM DESCRIPTION: MRI - Foot Left Wo Cont - 10/29/2023 4:10 pm CLINICAL HISTORY: Foot pain and swelling. Infection second toe COMPARISON: October 29 2023 foot x-ray TECHNIQUE: Axial, sagittal and coronal magnetic resonance imaging left foot FINDINGS: Abnormal signal involves the mid and distal of second middle phalanx as well as the proxim al aspect of second distal phalanx compatible with osteomyelitis. Diffuse edema within dorsal subcutaneous tissues. No fracture or dislocation IMPRESSION: Osteomyelitis second middle and distal phalanx
[2023-10-29] MEDS: VANCOMYCIN 1 GM in NA CHLORIDE 0.9% 250 ML IVPB ONE (17:58)
[2023-10-29] MEDS: NA CHLORIDE 0.9% 1,000 ML IV SCH (17:59)
[2023-10-29 19:25] LABS: Specific Gravity 1.024 (1.005-1.030); Sqamous Epithelial <5 /HPF (None Seen); Urine Bacteria None Seen /HPF (<20); Urine Bilirubin NEGATIVE (Negative); Urine Blood Negative (Negative); Urine Clarity Clear (Clear); Urine Color Light-Yellow (Yellow); Urine Culture Reflex Order NOT NEEDED; Urine Glucose 4+ (Over) (Negative); Urine Ketones NEGATIVE (Negative); Urine Microscopic Reflex YN ORDER UMIC; Urine Nitrite NEGATIVE (Negative); Urine Protein 1+ (Negative); Urine RBC <5 /HPF (None Seen); Urine Urobilinogen Normal (Normal); Urine WBC <5 /HPF (<5); Urine pH 6.5 (5.0-7.0)
[2023-10-29] MEDS: ROSUVASTATIN 10 MG TAB PO SCH (21:19)
[2023-10-30 04:04] LABS: Absolute Basophils 0.1 K/uL (0-0.5); Absolute Eosinophils 0.3 K/uL (0-0.5); Absolute Lymphocytes (CBC) 1.8 K/uL (0.7-4.9); Absolute Monocytes 0.6 K/uL (0.1-1.3); Basophils % 0.9 % (0-1.3); Eosinophils % 5.1 % (0-4.4); Hematocrit 36.5 % (39.6-49.0); Lymphocytes % 26.6 % (15.3-44.8); MCH 29.4 pg (27.0-35.0); MPV 8.7 fL (7.6-11.3); Monocytes % 8.8 % (3.3-12.3); Neutrophils % 58.6 % (41.7-73.7); Nucleated Red Blood Cells % 0.1 % (0-0); Platelets 285 thou/uL (152-406); Red Cell Distribution Width 14.1 % (12.1-15.2)
[2023-10-30 04:26] LABS: Anion Gap 9.5 mEq/L (5.0-15.0); Magnesium 2.3 mg/dL (1.6-2.4); Phosphorus 2.6 mg/dL (2.5-4.9); Potassium 3.5 mEq/L (3.5-5.1)
--- NOTE | 2023-10-30 07:36 | P.PN ---
Date of Service: 10/30/23 Subjective Surgery this morning, Dr. Oates recommends toe amputation. Brandon will need further explanation and understanding before agreeing. ROS 10 point ROS as noted above, otherwise negative Physical Exam General: AAOx3, NAD, conversing well HEENT: Atraumatic, Normocephalic Neck: Supple, 2+ carotid pulse no bruit, JVD not distended Respiratory: Clear to auscultation bilaterally, Normal air movement Cardiovascular: R RRR, Normal S1 S2 present, no murmur noted Capillary refill: <2 Seconds Gastrointestinal: bowel sounds present, Soft and benign on palpation, Distended (obeses) Musculoskeletal: Other (second left toe swelling, erythema, tenderness, warmth) Integumentary: Skin breakdown (second left toe) Neurological: Normal speech, Normal strength at 5/5 x4 extr, Normal tone Vitals Reviewed Problem list Left second toe osteomylitis DUANE Diabetes mellitus-IDDM History of hypertension Assessment and Plan Left second toe Osteomylitis -Zosyn and vanc given in the ED, tolerated well -Left foot x-ray reports "No acute fracture. No malalignment. Calcaneal spurring. Cortical loss at the fourth and fifth metatarsal heads, more pronounced at the fourth metatarsal head. This could be secondary to either an erosive arthropathy or possibly osteomyelitis in the appropriate clinical setting. MRI could further evaluate. -MRI reports "Abnormal signal involves the mid and distal of second middle phalanx as well as the proximal aspect of second distal phalanx compatible with osteomyelitis. Diffuse edema within dorsal subcutaneous tissues. No fracture or dislocation. IMPRESSION: Osteomyelitis second middle and distal phalanx." -vancomycin and cefepime daily -pain management -consult Dr. Oates- surgery in the AM, recommends amputation but patient did not agree, performed incision and drainage. -may require six weeks of IV antibiotics, 14 days of antibiotics if toe is amputated -ID consulted- recommends Cefepime and vancomycin, midline in place DUANE -BUN/creatinine 21/1.16, GFR 69-improved -Gentle IVF Diabetes mellitus-IDDM -Accu-Chek with sliding scale insulin -serum glucose 107 History of hypertension -Restart home medications if appropriate DVT PPx Full code LOS 2 to 3 days Discharge Plan: Home Plan to discharge in: 48 Hours <Denisha Mariscal - Last Filed: 10/30/23 19:56> Chart has been reviewed. Events of the last 24 hours have been noted. Case discussed with ANNA. I performed a substantial part of the MDM during this patient's care today. I personally made or approved the documented management plan and acknowledge its risk of complications. I agree with the findings and documentation provided in the ANNA's notesPatient requesting to speak to surgery regarding amputation. Surgery consultation to be done at once again in the morning. <Amy Martin - Last Filed: 11/02/23 04:29>
[2023-10-30] MEDS ORDERED: FENOFIBRATE MICRONIZED 134 MG PO SCH (09:00)
[2023-10-30] MEDS: ASPIRIN EC 81 MG TAB PO SCH (09:00)
[2023-10-30] MEDS: CEFEPIME 2 GM in NA CHLORIDE 0.9% 100 ML IV SCH (09:10)
--- NOTE | 2023-10-30 11:29 | P.CNS ---
Date of Consult: 10/30/23 Reason for Consult: osteomyelitis Chief Complaint: Left second toe infection History of Present Illness: Patient is a 68 yo male with a medical history of insulin-dependent diabetes, hypertension, hyperlipidemia and obesity who presented to the ED with complaints of left second toe pain, swelling, erythema. MRI left foot revealing Osteomyelitis second middle and distal phalanx. Infectious disease was consulted. Allergies No Known Allergies Allergy (Unverified 07/07/13 11:38) Home medications list reviewed: Yes Home Medications: Pioglitazone HCl 30 mg PO DAILY 07/07/13 Amlodipine [Norvasc] 10 mg PO DAILY 10/29/23 Aspirin [Aspirin EC 81 MG] 81 tab PO DAILY 10/29/23 Atenolol/Chlorthalidone [Atenolol-Chlorthal 50-25 Tb] 1 each PO DAILY 10/29/23 Dulaglutide [Trulicity] 4.5 mg SQ SEECOM 10/29/23 Empagliflozin [Jardiance] 25 mg PO DAILY 10/29/23 Fenofibrate,Micronized [Fenofibrate] 134 mg PO DAILY 10/29/23 Insulin Glargine,Hum.rec.anlog [Toujeo Solostar] 70 unit SQ DAILY 10/29/23 Losartan Potassium 100 mg PO DAILY 10/29/23 Pioglitazone HCl 45 mg PO DAILY 10/29/23 Rosuvastatin Calcium 40 tab PO BEDTIME 10/29/23 Spironolactone 25 tab PO DAILY 10/29/23 Tamsulosin [Flomax*] 0.4 cap PO DAILY 10/29/23 - Past Medical/Surgical History Diabetic: Yes -: DM-IDDM -: HTN -: left knee surgery 42 yrs ago - Social History Smoking Status: Current some day smoker Alcohol use: Yes CD- Drugs: No Caffeine use: Yes Place of Residence: Home Review of Systems 10-point ROS is otherwise unremarkable Integumentary: As per HPI Physical Examination Temp Pulse Resp BP Pulse Ox 97.3 F 80 16 139/59 L 96 10/30/23 08:00 10/30/23 08:00 10/30/23 08:00 10/30/23 08:00 10/30/23 08:00 Laboratory Data - Reviewed Microbiology Data - Reviewed Imagings Data: - Reviewed Conclusions/Impression: Problem List Osteomyelitis Insulin-dependent diabetes mellitus Hyperlipidemia Hypertension Osteomyelitis left second toe - MRI left foot 10/28: "Osteomyelitis second middle and distal phalanx" - Patient reports being treated for nail fungus with a topical ointment prior to arrival. -Currently on Cefepime and Vancomycin (started 10/29) No leukocytosis Afebrile Recommendations - Continue cefepime and vancomycin for now. Patient scheduled for surgery - debridement vs amputation - if amputation and all infected bone removed, continue antibiotic therapy for 10 days. - if no amputation, recommend continuing antibiotic therapy for 6 weeks duration. - monitor for worsening s/s of infection - CBC, BMP and vanco troughs - strict blood glucose control Case discussed with Sonny Arreguin
[2023-10-30] MEDS: VANCOMYCIN 1.5 GM in NA CHLORIDE 0.9% 500 ML IVPB SCH (13:53)
[2023-10-30] MEDS: NA CHLORIDE 0.9% 1,000 ML ONE (14:08)
[2023-10-30] MEDS ORDERED: MIDAZOLAM HCL 2 MG/2 ML INJ ONE (14:28)
[2023-10-30] MEDS ORDERED: propofoL 200 MG/20 ML VIAL IV ONE (14:28)
[2023-10-30] MEDS: BUPIVACAINE 0.5% PF 10 ML VIAL ONE (15:45)
--- NOTE | 2023-10-30 15:46 | P.BOP ---
Preoperative diagnosis: infected left second toe with necrotic tissue and osteomyelitis Postoperative diagnosis: same Primary procedure: Debridement down to bone infected left second toe necrotic tissue Secondary procedure: 4x5cm Estimated blood loss: <1cc Specimen: necrotic tissue Findings: culture Anesthesia: MAC Complications: None Transferred to: Recovery Room Condition: Good
[2023-10-30] MEDS: SILVER SULFADIAZINE 1% 25 GM TOP ONE (15:47)
[2023-10-30] MEDS: DEXTROSE 10%-WATER 500 ML IV ONE (16:08)
[2023-10-30] MEDS: AMLODIPINE 10 MG TAB PO SCH (16:35)
[2023-10-30] MEDS: CHLORTHALIDONE 25 MG TAB PO SCH (16:35)
[2023-10-30] MEDS: FENOFIBRATE 160 MG TAB PO SCH (16:35)
[2023-10-30] MEDS: SPIRONOLACTONE 25 MG TABLET PO SCH (16:35)
[2023-10-30] MEDS: TAMSULOSIN 0.4 MG SR CAP PO SCH (16:35)
[2023-10-30] MEDS: atenoloL 50 MG TAB PO SCH (16:35)
[2023-10-30] MEDS: LOSARTAN POTASSIUM 50 MG TABLET PO SCH (16:36)
--- NOTE | 2023-10-30 17:37 | CON ---
Date of Consultation: 10/30/2023 Reason For Service: Cellulitis of the left foot with necrotic diabetic wound of the left second toe. History Of Present Illness: This is the case of a 68-year-old patient with history of diabetes and h istory of hypertension, comes to us with blister and necrotic tissue on the left second toe with oste omyelitis of the foot. The patient was consulted for me for debridement of that area. He denies any trauma. He does not recall, he has some sensation in that region, but he is not really paying much attention to it. Allergies: NONE. Medical Problems: As above. Surgical History: None that he remembers. Social History: He does not smoke. He does not drink alcohol. Family History: Noncontributory. Review of Systems: Just foul-smelling ulcer on the left foot. 10 points otherwise unremarkable. Physical Examination: General: The patient is awake, alert. HEENT: Pupils are equal and reactive. Anicteric. Neck: Supple. Chest: Clear. Heart: S1, S2. Abdomen: Soft and depressible. Extremities: There are neuropathies bilateral lower extremities. Over the left second toe, the mary ent has area of necrotic wound with blisters present. Erythema that involves not only that toe but a lso the one adjacent to it. There is drainage present. Cannot rule out osteomyelitis. Laboratory Data: Blood work shows WBC count of 8.6, hemoglobin of 13. Potassium 3.9. X-ray and MRI of the foot reviewed, showing osteomyelitis of the second middle and distal phalanx. Assessment: This is 68-year-old patient with necrotic left second toe. The patient is not ready to have it removed yet, so we are going to do debridement of that area with removal of the necrotic tiss ue. He understands the benefits, alternatives, and risks include, but not limited to infection, blee ding, damage to adjacent structures, anesthesia complication, recurrence, [place], even . He also un derstands if in the next few days he does not get better, he may need amputation of that toe. We rec ommend him to see vascular surgeon for evaluation even if he does not have the toe removed and follow recommendations from ID on IV antibiotics. HM/MODL Voice ID: [id number] Report ID: [id number]
--- NOTE | 2023-10-30 18:52 | OP ---
Date of Procedure: 10/30/2023 Surgeon: Sergo Oates MD Preoperative Diagnoses: Necrotic infected wound, left second toe, with osteomyelitis. Postoperative Diagnoses: Necrotic infected wound, left second toe, with osteomyelitis. Procedure: Debridement down to bone infected left second toe necrotic tissue. It is about an area o f 4 x 5 cm. Estimated Blood Loss: Less than 1 cc. Specimen: Necrotic tissue. Findings: Patient had disarticulation of the joint. There was bone sticking out consistent with ost eomyelitis, clinical and also by imaging. I believe when the patient see it, he eventually will conv ayush himself that he will need an amputation of that toe. In the meantime, we are trying to remove t he necrotic tissue, diminish and minimize the chance of sepsis. Complications: None. Indications For Procedure: This is a case of a 68-year-old patient who came to us with a toe, foul-s melling, necrotic. He does not much sensation in that area, he had some, so he did not pay attention until it became all blister out with foul-smelling necrotic tissue, admitted to the hospital, [facility] sed with osteomyelitis and a surgical consult was obtained for debridement. We explained to him that sometimes he may need amputation, he is not ready mentally toward at the amputation, so we are going to clean the area with benefits, alternatives, and risks including, but not limited to, infection, b leeding, damage to adjacent structures, anesthesia complication, [place], and even . He also underst ands this may not relieve any symptoms. He might need more than one surgical intervention. He under stood, signed a consent. Description Of Procedure: The patient was brought to the operating room, placed in supine position. Anesthesia was done without complication. A time-out was called. Left foot was prepped and draped in sterile fashion. Local anesthesia was applied followed by sharp debridement with a knife and we n oticed that the area showed all foul smelling. There was visualization of the middle to distal phala nx joint with callus exposed, bone exposed. I believe even though we did debridement and cleaned all that area until the culture, all the debridement was all the way down to bone. I believe this patie nt will need an amputation whenever he is ready for it. Area was irrigated, covered with Silvadene a nd covered with dressing changes. Patient tolerated the procedure well. Patient on his way to [facility]en in stable condition. GAB/MODL Voice ID: [id number] Report ID: [id number]
[2023-10-30] MEDS: Mupirocin NASAL 2 APPL/1 GM TUBE NAS SCH (21:00)
[2023-10-31 04:28] LABS: Absolute Basophils 0.1 K/uL (0-0.5); Absolute Eosinophils 0.4 K/uL (0-0.5); Absolute Lymphocytes (CBC) 1.6 K/uL (0.7-4.9); Absolute Monocytes 0.7 K/uL (0.1-1.3); Absolute Neutrophil 4.4 K/uL (1.8-8.0); Basophils % 1.4 % (0-1.3); Eosinophils % 4.8 % (0-4.4); Hematocrit 35.5 % (39.6-49.0); Hemoglobin 11.7 g/dL (13.6-17.9); Lymphocytes % 22.2 % (15.3-44.8); MCH 29.1 pg (27.0-35.0); MCHC 32.8 g/dL (32.0-36.0); MCV 88.7 fL (80-100); MPV 8.2 fL (7.6-11.3); Monocytes % 10.2 % (3.3-12.3); Neutrophils % 61.4 % (41.7-73.7); Nucleated Red Blood Cells % 0.1 % (0-0); Platelets 294 thou/uL (152-406); RBC Red Blood Cell Count 4.01 M/uL (4.33-5.43); Red Cell Distribution Width 13.8 % (12.1-15.2)
[2023-10-31 04:43] LABS: Anion Gap 7.8 mEq/L (5.0-15.0); Phosphorus 2.3 mg/dL (2.5-4.9); Potassium 3.8 mEq/L (3.5-5.1)
[2023-10-31] MEDS: NA CHLORIDE 0.9% 250 ML ONE (05:03)
[2023-10-31] MEDS: POTASSIUM PHOS IN 0.9 % NACL 15 MMOL/250 ML BAG IV ONE (05:08)
--- NOTE | 2023-10-31 07:25 | P.PN ---
Date of Service: 10/31/23 Subjective Doing well this morning, disappointed that he may need an amputation for that toe. Pain controlled ROS 10 point ROS as noted above, otherwise negative Physical Exam General: NAD, alert and oriented x 3, comfortable HEENT: Atraumatic, Normocephalic Neck: Supple, 2+ carotid pulse no bruit, JVD not distended Respiratory: Clear to auscultation bilaterally, Normal air movement Cardiovascular: Regular rate and rhythm present, S1 S2 present, no murmur noted Capillary refill: <2 Seconds Gastrointestinal: Soft and benign on palpation, Distended (obeses), nontender, bowel sounds active Musculoskeletal: Other (second left toe swelling, erythema, tenderness, warmth), dressing C/D/I Integumentary: Skin breakdown (second left toe) Neurological: Normal speech, Normal strength at 5/5 x4 extr, Normal tone Vitals Reviewed Problem list Left second toe osteomylitis DUANE Diabetes mellitus-IDDM History of hypertension Assessment and Plan Left second toe Osteomylitis -Zosyn and vanc given in the ED, tolerated well -Left foot x-ray reports "No acute fracture. No malalignment. Calcaneal spurring. Cortical loss at the fourth and fifth metatarsal heads, more pronounced at the fourth metatarsal head. This could be secondary to either an erosive arthropathy or possibly osteomyelitis in the appropriate clinical setting. MRI could further evaluate. -MRI reports "Abnormal signal involves the mid and distal of second middle phalanx as well as the proximal aspect of second distal phalanx compatible with osteomyelitis. Diffuse edema within dorsal subcutaneous tissues. No fracture or dislocation. IMPRESSION: Osteomyelitis second middle and distal phalanx." -continue vancomycin and cefepime daily -pain management -consult Dr. Oates- Incision and drainage (10/29), recommends amputation but patient did not agree. -may require six weeks of IV antibiotics, 14 days of antibiotics if toe is amputated -ID consulted- recommends Cefepime and vancomycin, midline in place -wound culture positive for WBC, G pos cocci in PRS and CHS -Blood culture- one bottle resulted with gram POS rods DUANE -BUN/creatinine , GFR 65-improved -Gentle IVF Diabetes mellitus-IDDM -Accu-Chek with sliding scale insulin -serum glucose 147 History of hypertension -Restart home medications if appropriate DVT PPx Full code LOS 2 to 3 days Discharge Plan: Home Plan to discharge in: 48 Hours <Denisha Mariscal - Last Filed: 10/31/23 13:40> Chart has been reviewed. Events of the last 24 hours have been noted.Case discussed with ANNA. I performed a substantial part of the MDM during this patient's care today. I personally made or approved the documented management plan and acknowledge its risk of complications. I agree with the findings and documentation provided in the ANNA's notes. Patient is a 68-year-old gentleman who is here for osteomyelitis of the second toe. Plan to proceed with amputation versus I&D pending surgery evaluation. Continue with antibiotic therapy. <Amy Martin - Last Filed: 11/02/23 04:28>
[2023-11-01 05:30] LABS: Absolute Basophils 0.1 K/uL (0-0.5); Absolute Eosinophils 0.4 K/uL (0-0.5); Absolute Lymphocytes (CBC) 1.3 K/uL (0.7-4.9); Absolute Monocytes 0.7 K/uL (0.1-1.3); Absolute Neutrophil 3.1 K/uL (1.8-8.0); Basophils % 2.6 % (0-1.3); Eosinophils % 7.8 % (0-4.4); Hematocrit 36.1 % (39.6-49.0); Lymphocytes % 22.8 % (15.3-44.8); MCH 29.5 pg (27.0-35.0); MCHC 33.3 g/dL (32.0-36.0); MCV 88.6 fL (80-100); MPV 8.1 fL (7.6-11.3); Monocytes % 11.9 % (3.3-12.3); Neutrophils % 54.9 % (41.7-73.7); Nucleated Red Blood Cells % 0.1 % (0-0); Platelets 304 thou/uL (152-406); RBC Red Blood Cell Count 4.07 M/uL (4.33-5.43)
[2023-11-01 05:39] LABS: Anion Gap 6.8 mEq/L (5.0-15.0); Magnesium 2.1 mg/dL (1.6-2.4); Phosphorus 2.1 mg/dL (2.5-4.9); Potassium 3.8 mEq/L (3.5-5.1)
[2023-11-01] MEDS: POTASSIUM PHOS IN 0.9 % NACL 15 MMOL/250 ML BAG IV ONE (09:25)
--- NOTE | 2023-11-01 13:39 | P.PN ---
Date of Service: 11/01/23 Subjective Doing well this morning, disappointed that he may need an amputation for that toe. Pain some controlled ROS 10 point ROS as noted above, otherwise negative Physical Exam General: NAD, AAOx3, comfortable HEENT: Atraumatic, Normocephalic Neck: Supple, 2+ carotid pulse no bruit, JVD not distended Respiratory: Clear to auscultation bilaterally, symmetrical chest wall movement Cardiovascular: RRR, normal S1 S2, no murmur noted Capillary refill: <2 Seconds Gastrointestinal: Soft and benign on palpation, Distended (obese), nontender Musculoskeletal: Other (second left toe swelling, erythema, tenderness, warmth), dressing C/D/I Integumentary: Skin breakdown (second left toe) Neurological: Normal speech, Normal strength at 5/5 x4 extr, Normal tone Vitals Reviewed Problem list Left second toe osteomylitis DUANE Diabetes mellitus-IDDM History of hypertension Assessment and Plan Left second toe Osteomylitis -zosyn and vanc given in the ED, tolerated well -Left foot x-ray reports "No acute fracture. No malalignment. Calcaneal spurring. Cortical loss at the fourth and fifth metatarsal heads, more pronounced at the fourth metatarsal head. This could be secondary to either an erosive arthropathy or possibly osteomyelitis in the appropriate clinical setting. MRI could further evaluate. -MRI reports "Abnormal signal involves the mid and distal of second middle phalanx as well as the proximal aspect of second distal phalanx compatible with osteomyelitis. Diffuse edema within dorsal subcutaneous tissues. No fracture or dislocation. IMPRESSION: Osteomyelitis second middle and distal phalanx." -continue vancomycin and cefepime daily -pain management -consult Dr. Oates- Incision and drainage (10/29), recommends amputation but patient will discuss with Dr. Oates Thursday -may require six weeks of IV antibiotics, 14 days of antibiotics if toe is amputated -ID consulted- recommends Cefepime and vancomycin, midline in place -wound culture positive for WBC, G pos cocci in PRS and CHS -Blood culture- one bottle resulted with gram POS rods -Mupirocin to nares BID -Silverdene to left second toe -NPO for probable surgery in the AM DUANE -BUN/creatinine 16/1.13 GFR 72-improved -Gentle IVF Diabetes mellitus-IDDM -Accu-Chek with sliding scale insulin- increased to medium protocol -serum glucose 262 History of hypertension -Restart home medications if appropriate DVT PPx Full code LOS 2 to 3 days Discharge Plan: Home Plan to discharge in: 48 Hours <Denisha Mariscal - Last Filed: 11/01/23 13:12> Chart has been reviewed. Events of the last 24 hours have been noted. Case discussed with ANNA. I performed a substantial part of the MDM during this patient's care today. I personally made or approved the documented management plan and acknowledge its risk of complications. I agree with the findings and documentation provided in the ANNA's notes.Patient is wanting complete amputation of the second toe. If there is a metatarsal involvement and patient to get closure of the second toe then maybe we can avoid IV antibiotic therapy per patient's wishes.Awaiting general surgery input in AM. <Amy Martin - Last Filed: 11/02/23 04:32>
[2023-11-01] MEDS ORDERED: GLUCAGON 1 MG/VIAL IM PRN (14:00)
[2023-11-01] MEDS ORDERED: D50W 25 GM/50 ML SYRINGE IV PRN (14:00)
--- NOTE | 2023-11-01 14:43 | P.PN ---
Date of Service: 11/01/23 Patient requesting second toe amputation as he thinks infection is pretty significant. Will speak to general surgery. As long as patient can get that toe amputated there is no extensive osteomyelitis at the metatarsal region. Patient could possibly go home without IV antibiotics if we can proceed with amputation.
[2023-11-01] MEDS: INSULIN REGULAR (HUMAN) 100 UNIT/ML SQ SCH (17:39)
[2023-11-02 05:22] LABS: Absolute Basophils 0.1 K/uL (0-0.5); Absolute Eosinophils 0.4 K/uL (0-0.5); Absolute Lymphocytes (CBC) 1.5 K/uL (0.7-4.9); Absolute Monocytes 0.6 K/uL (0.1-1.3); Absolute Neutrophil 2.9 K/uL (1.8-8.0); Basophils % 2.1 % (0-1.3); Eosinophils % 7.1 % (0-4.4); Hematocrit 36.7 % (39.6-49.0); Hemoglobin 12.2 g/dL (13.6-17.9); Lymphocytes % 26.7 % (15.3-44.8); MCH 29.6 pg (27.0-35.0); MCHC 33.2 g/dL (32.0-36.0); MPV 8.9 fL (7.6-11.3); Monocytes % 11.4 % (3.3-12.3); Neutrophils % 52.7 % (41.7-73.7); Nucleated Red Blood Cells % 0.1 % (0-0); Platelets 291 thou/uL (152-406); RBC Red Blood Cell Count 4.12 M/uL (4.33-5.43); Red Cell Distribution Width 13.5 % (12.1-15.2)
[2023-11-02 05:33] LABS: Anion Gap 7.8 mEq/L (5.0-15.0); Magnesium 1.9 mg/dL (1.6-2.4); Phosphorus 1.8 mg/dL (2.5-4.9); Potassium 3.8 mEq/L (3.5-5.1)
--- NOTE | 2023-11-02 09:02 | P.PN ---
Date of Service: 11/02/23 Chief Complaint: Left second toe infection Subjective: Patient seen and examined at bedside. No acute events overnight. In no apparent distress. Denies any new or worsening complaints. Pending surgery today for left 2nd toe amputation. Physical Examination Temp Pulse Resp BP Pulse Ox 97.2 F 62 16 151/68 H 95 11/02/23 04:00 11/02/23 04:00 11/02/23 04:00 11/02/23 04:00 11/02/23 04:00 General: In no apparent distress. Oriented x3. HEENT: Nomocephalic, atraumatic. Resp: Clear to auscultation bilaterally. Unlabored respirations on room air. CV: Regular rate/rhythm. Left foot edema. Abdomen: Normoactive bowel sounds. Abdomen soft, nontender, nondistended. Integumentary: Left foot wound dressing clean dry and intact. Laboratory Data - Reviewed Microbiology Data - Reviewed Imagings Data: - Reviewed Medications List: Reviewed Assessment and Plan Problem List Osteomyelitis Insulin-dependent diabetes mellitus Hyperlipidemia Hypertension Osteomyelitis left second toe - MRI left foot 10/28: "Osteomyelitis second middle and distal phalanx" -Currently on Cefepime and Vancomycin (started 10/29) - s/p debridement 10/[address] Oates - Wound culture: gram positive cocci No leukocytosis Afebrile Recommendations - Continue cefepime and vancomycin for now. - Patient may require amputation of left 2nd toe. If amputation/all infected bone removed, patient can be discharged on oral antibiotics pending final wound culture results. - Follow up with final wound culture results, currently growing gram positive cocci. Will adjust antibiotics as appropriate. - wound care per Dr. Oates - strict blood glucose control - CBC, BMP and vanco troughs Case discussed with Sonny Arreguin
[2023-11-02] MEDS: POTASSIUM PHOS IN 0.9 % NACL 15 MMOL/250 ML BAG IV ONE (09:32)
[2023-11-02] MEDS: NA CHLORIDE 0.9% 1,000 ML ONE (11:30)
[2023-11-02] MEDS ORDERED: MIDAZOLAM HCL 2 MG/2 ML INJ ONE (12:08)
[2023-11-02] MEDS ORDERED: propofoL 200 MG/20 ML VIAL IV ONE (12:08)
[2023-11-02] MEDS ORDERED: LIDOCAINE 1% MPF 5 ML VIAL ONE (12:08)
[2023-11-02] MEDS ORDERED: GLYCOPYRROLATE 0.2 MG/ML SYR ONE (12:34)
[2023-11-02] MEDS: MUPIROCIN 2% OINT 22GM TUBE TOP ONE (12:49)
--- NOTE | 2023-11-02 12:54 | P.PN ---
Date of Service: 11/02/23 Subjective Awake and alert SUrgical intervention today with Dr. Oates no new complaints ROS 10 point ROS as noted above, otherwise negative Physical Exam General: Alert and oriented x 3, NAD, calm HEENT: Atraumatic, Normocephalic Neck: Supple, 2+ carotid pulse no bruit, JVD not distended Respiratory: Clear to auscultation bilaterally, symmetrical chest wall movement Cardiovascular: RRR, normal S1 S2, no murmur noted Capillary refill: <2 Seconds Gastrointestinal: Soft and benign on palpation, Distended (obese), nontender Musculoskeletal: Surgical amputation to Left second toe Integumentary: Surgical amputation of left second toe, dressing in place CDI Neurological: Normal speech, Normal strength at 5/5 x4 extr, Normal tone Vitals Reviewed Problem list Left second toe osteomylitis DUANE Diabetes mellitus-IDDM History of hypertension Assessment and Plan Left second toe Osteomylitis -zosyn and vanc given in the ED, tolerated well -Left foot x-ray reports "No acute fracture. No malalignment. Calcaneal spurring. Cortical loss at the fourth and fifth metatarsal heads, more pronounced at the fourth metatarsal head. This could be secondary to either an erosive arthropathy or possibly osteomyelitis in the appropriate clinical setting. MRI could further evaluate. -MRI reports "Abnormal signal involves the mid and distal of second middle phalanx as well as the proximal aspect of second distal phalanx compatible with osteomyelitis. Diffuse edema within dorsal subcutaneous tissues. No fracture or dislocation. IMPRESSION: Osteomyelitis second middle and distal phalanx." -continue vancomycin and cefepime daily -pain management -may require six weeks of IV antibiotics, 14 days of antibiotics if toe is amputated -ID consulted- recommends Cefepime and vancomycin, midline in place -wound culture positive for WBC, G pos cocci in PRS and CHS -Blood culture- one bottle resulted with gram POS rods -Mupirocin to nares BID -Silverdene to left second toe -consult Dr. Oates- Incision and drainage (10/29), recommends amputation today -NPO for probable surgery in the AM DUANE -BUN/creatinine 19/1.13 GFR 72-improved -Gentle IVF Diabetes mellitus-IDDM -Accu-Chek with sliding scale insulin- increased to medium protocol -serum glucose 252 History of hypertension -Restart home medications if appropriate DVT PPx SCD Full code LOS 2 to 3 days Discharge Plan: Home Plan to discharge in: 48 Hours <Denisha Mariscal - Last Filed: 11/02/23 12:47> Patient was seen and examined. Events of the last 24 hours have been noted. Spoke with with ANNA regarding patient's clinical picture after evaluating and examining the patient independently. I performed a substantial part of the MDM during this patient's care today. I personally made or approved the documented management plan and acknowledge its risk of complications. I agree with the findings and documentation provided in the ANNA's notes. Plan to proceed with discharge home in a.m.. Bone infection removed. Status post amputation by General surgery. Wound has been closed. Continue with outpatient follow-up with surgery. May try to get home health to assist with patient's wound care and physical therapy so patient can offload on the foot for the time being as his wound heals up. patient will need to monitor blood sugars closely at discharge. Patient has dealt with a lot over the last year as his son and he is having a hard time dealing with this emotionally. Continue with close outpatient follow-up. <Amy Martin - Last Filed: 11/03/23 03:42>
--- NOTE | 2023-11-02 12:55 | P.BOP ---
Preoperative diagnosis: destructive osteomyelitis left second toe Postoperative diagnosis: same Primary procedure: Left second toe amputation Estimated blood loss: <1cc Specimen: toe Findings: destructive osteomyelitis left second toe Anesthesia: MAC Complications: None Transferred to: Recovery Room Condition: Good
[2023-11-02] MEDS: SILVER SULFADIAZINE 1% 25 GM TOP SCH (13:00)
[2023-11-02 13:45] VITALS: O2SAT 99
[2023-11-02] MEDS ORDERED: D10W 125 ML IV PRN (14:15)
--- NOTE | 2023-11-02 22:39 | OP ---
Date of Procedure: 11/02/2023 Surgeon: Sergo Oates MD Preoperative Diagnosis: Destructive osteomyelitis, left second toe. Postoperative Diagnosis: Destructive osteomyelitis, left second toe. Procedure: Left second toe amputation. Estimated Blood Loss: Less than 1 cc. Specimen: Toe. Finding: Destructive osteomyelitis, left second toe. Anesthesia: MAC plus local. Complications: None. Indication: This is a case of a 68-year-old patient who comes to us with infection of the left secon d toe, foul smelling area. He was taken few days ago for debridement and found to have destructive o steomyelitis. At that moment, he was not ready to make a commitment for amputation yet. Over the we ekend, we allowed him to talk to Infectious Disease and see the pros and cons of treatment for a toe that we believe is past the recovery, and I believe he needs the amputation, so today he made his dec ision he wants to amputate the second toe since he has seen the bone sticking out every time with his dressing changes. The benefits, alternatives, and risks of amputation were fully explained, which i nclude, but not limited to, infection, bleeding, damage to adjacent structures, anesthesia complicati on, nonhealing wound, MO, and even . He also understands this may not relieve symptoms. He yuridia ht need more than one surgical intervention. He understood and signed the consent. Procedure In Detail: Time-out was called. The area of concern was previously marked by me and the p atient. The patient was brought to the operating room, placed in supine position. Anesthesia was do ne without complication. The left foot was prepped and draped in sterile fashion. Local anesthesia was applied, followed by sharp incision of the skin. Once again, we have bone sticking out in multip le places and multiple joints, but we were able to take this to the base of the metatarsophalangeal j oint, amputated the toe from that region, then excoriated the head of the metatarsal head. We irriga ailyn the area profusely, approximated loosely with a nylon, and allowed the skin to heal by secondary intention. The area was irrigated. Covered with Bactroban and sterile gauze over that area. The pa tient tolerated the procedure well. The patient is on his way to recovery in stable condition. HM/MODL Voice ID: [id number] Report ID: [id number]
[2023-11-03 05:26] LABS: Absolute Basophils 0.1 K/uL (0-0.5); Absolute Eosinophils 0.4 K/uL (0-0.5); Absolute Lymphocytes (CBC) 1.3 K/uL (0.7-4.9); Absolute Monocytes 0.8 K/uL (0.1-1.3); Absolute Neutrophil 4.3 K/uL (1.8-8.0); Basophils % 1.7 % (0-1.3); Eosinophils % 5.8 % (0-4.4); Hematocrit 36.8 % (39.6-49.0); Hemoglobin 12.3 g/dL (13.6-17.9); Lymphocytes % 18.8 % (15.3-44.8); MCH 29.3 pg (27.0-35.0); MCHC 33.3 g/dL (32.0-36.0); MPV 7.8 fL (7.6-11.3); Monocytes % 10.9 % (3.3-12.3); Neutrophils % 62.8 % (41.7-73.7); Platelets 324 thou/uL (152-406); RBC Red Blood Cell Count 4.19 M/uL (4.33-5.43); Red Cell Distribution Width 13.7 % (12.1-15.2)
[2023-11-03 05:27] LABS: Anion Gap 9.7 mEq/L (5.0-15.0); Magnesium 1.8 mg/dL (1.6-2.4); Potassium 3.7 mEq/L (3.5-5.1)
[2023-11-03 05:35] LABS: Phosphorus 1.5 mg/dL (2.5-4.9)
--- NOTE | 2023-11-03 06:55 | P.DS ---
Discharge Date: 11/03/23 Disposition: ROUTINE DISCHARGE Discharge Condition: GOOD Reason for Admission: Left second toe infection Brief History of Present Illness: Brandon Yap is a 68-year-old male with past medical history of diabetes-IDDM and hypertension who presents to the ED with complaints of his left second toe being painful, discoloration, and wound present. He reports not having a wound like this in the past. No other symptoms associated. He reports being treated for a nail fungus on that toe using cream. The nail has fallen off and swelling to the toe started last night. Initial vitals BP 154 / 76; Pulse 78; Resp 18; Temp 97.7; Pulse Ox 100%. Laboratory evaluation white blood cells 8.6, lactic acid 0.9, BUN/creatinine 29/1.51, GFR 51, serum glucose 243. Left foot x-ray reports "No acute fracture. No malignant. Calcaneal spurring. Cortical loss at the fourth and fifth metatarsal heads, more pronounced at the fourth metatarsal head. This could be secondary to either an erosive arthropathy or possibly osteomyelitis in the appropriate clinical setting. MRI could further evaluate. MRI reports "Abnormal signal involves the mid and distal of second middle phalanx as well as the proximal aspect of second distal phalanx compatible with osteomyelitis. Diffuse edema within dorsal subcutaneous tissues. No fracture or dislocation. IMPRESSION: Osteomyelitis second middle and distal phalanx." Brandon will be admitted to hospitalist service for further evaluation and treatment of left second toe infection, Dr. Oates consulted. Hospital Course: Patient's treated in the hospital with amputation of the second toe. Patient continue with antibiotics. Prior to discharge we will get physical therapy to work with the patient and make sure he is ambulating without difficulty. Patient will need home health at discharge. Since the infection has been removed patient does not really need any further antibiotic therapy. Will cover him for a couple of days with Bactrim DS 1 p.o. twice daily for 3 days. At this time, patient is clinically doing well and patient is stable for discharge with home health and physical therapy. I have also adjusted patient's medications and I have DC'd the chlorthalidone from his atenolol combination. He will need to continue taking atenolol. However, I want to give him Lasix Thursday and Fridays. He is on Aldactone as well. He will need to monitor his electrolytes at discharge. Continue with nutritional support with Glucerna which have called in. I have decreased his Lantus dosing as his blood sugars have been fairly stable. At this time, patient is clinically doing well and he should be able to go home after antibiotics and physical therapy is completed. Vital Signs/Physical Exam: Temp Pulse Resp BP Pulse Ox 99.9 F 71 16 147/78 H 96 11/03/23 04:00 11/03/23 04:00 11/03/23 04:00 11/03/23 04:00 11/03/23 04:00 General: Alert, In no apparent distress, Oriented x3 Laboratory Data at Discharge: WBC 6.90 thou/uL (4.3-10.9) 11/03/23 04:29 Hgb 12.3 g/dL (13.6-17.9) L 11/03/23 04:29 Hct 36.8 % (39.6-49.0) L 11/03/23 04:29 Plt Count 324 thou/uL (152-406) 11/03/23 04:29 Sodium 138 mEq/L (136-145) 11/03/23 04:29 Potassium 3.7 mEq/L (3.5-5.1) 11/03/23 04:29 BUN 16 mg/dL (7-18) 11/03/23 04:29 Creatinine 0.90 mg/dL (0.70-1.30) 11/03/23 04:29 Glucose 193 mg/dL (74-106) H 11/03/23 04:29 Phosphorus 1.5 mg/dL (2.5-4.9) L* 11/03/23 04:29 Magnesium 1.8 mg/dL (1.6-2.4) 11/03/23 04:29 Total Bilirubin 0.3 mg/dL (0.2-1.0) 10/29/23 12:10 AST 10 U/L (15-37) L 10/29/23 12:10 ALT 13 U/L (16-61) L 10/29/23 12:10 Alkaline Phosphatase 91 U/L (45-117) 10/29/23 12:10 Home Medications: Pioglitazone HCl 30 mg PO DAILY 07/07/13 Amlodipine [Norvasc*] 10 mg PO DAILY 10/29/23 Aspirin [Aspirin EC 81 MG] 81 tab PO DAILY 10/29/23 Dulaglutide [Trulicity] 4.5 mg SQ SEECOM 10/29/23 Empagliflozin [Jardiance] 25 mg PO DAILY 10/29/23 Fenofibrate,Micronized [Fenofibrate] 134 mg PO DAILY 10/29/23 Losartan Potassium 100 mg PO DAILY 10/29/23 Rosuvastatin Calcium 40 tab PO BEDTIME 10/29/23 Spironolactone 25 tab PO DAILY 10/29/23 Tamsulosin [Flomax*] 0.4 cap PO DAILY 10/29/23 Furosemide [Lasix] 20 mg PO M,W,F #15 tab 11/03/23 Hydrocodone 7.5/APAP 325 [Rufus 7.5/325 mg*] 1 tab PO Q6H PRN #20 tab 11/03/23 Insulin Glargine,Hum.rec.anlog [Toujeo Solostar] 30 unit SQ DAILY #2 syr 11/03/23 Mupirocin Calcium [Bactroban Nasal*] 1 appl MENDOZA BID #1 tube 11/03/23 Naph,Mb-Db/K pH,Mbdb [Neutra-Phos Packet] 1 each PO BID #6 packet 11/03/23 Nut.tx.gluc Intol,Lf,Soy/Fiber [Glucerna 1.5 Mariusz Liquid] 237 ml PO BIDAC #60 can 11/03/23 Potassium Chloride 10 meq PO M,W,F #15 tab 11/03/23 Silver Sulfadiazine [Silvadene 1% Cream] 1 appl TOP DAILY #1 tube 11/03/23 atenoloL [Tenormin*] 50 mg PO DAILY #30 tab 11/03/23 New Medications: Mupirocin Calcium [Bactroban Nasal*] 1 appl MENDOZA BID #1 tube Nut.tx.gluc Intol,Lf,Soy/Fiber [Glucerna 1.5 Mariusz Liquid] 237 ml PO BIDAC #60 can Furosemide [Lasix] 20 mg PO M,W,F #15 tab Naph,Mb-Db/K pH,Mbdb [Neutra-Phos Packet] 1 each PO BID #6 packet Hydrocodone 7.5/APAP 325 [Rufus 7.5/325 mg*] 1 tab PO Q6H PRN #20 tab PRN Reason: Pain Scale 5-7 (Moderate) Potassium Chloride 10 meq PO M,W,F #15 tab Silver Sulfadiazine [Silvadene 1% Cream] 1 appl TOP DAILY #1 tube atenoloL [Tenormin*] 50 mg PO DAILY #30 tab Insulin Glargine,Hum.rec.anlog [Touvanio Solostar] 30 unit SQ DAILY #2 syr Physician Discharge Instructions: OK TO DC IV AND DC HOME once IV vancomycin completed and HH arranged-PT to a ssist in teaching patient to ambulate s/p 2nd toe amputation FOLLOW-UP WITH PRIMARY CARE PROVIDER IN 1-2 WEEKS FOLLOW-UP WITH SURGERY, Dr. Oates IN 1 WEEK RETURN TO THE ER IF symptoms worsen CALL DR. LEMUS AT [phone] IF ANY QUESTIONS REGARDING HOSPITAL STAY. PLEASE CALL THE FLOOR AT [phone] IF ANY MEDICATION OR NURSING QUESTIONS. Notify patient to decrease Lantus to 30 units subQ daily. If blood sugars are under 200 then decrease to 10 units daily. Patient will need outpatient follow-up with home health for physical therapy and nursing care. Patient will need assistance in offloading on his amputated foot as well as monitoring his blood sugars over the next few weeks. Diet: ADA Activity: Fall precautions Followup: NONE,NONE [Primary Care Provider] - Time spent managing pt's care (in minutes): 35
[2023-11-03] MEDS: INSULIN GLARGINE 100 UNIT/ML SQ SCH (08:34)
[2023-11-03] MEDS: POTASSIUM PHOS IN 0.9 % NACL 15 MMOL/250 ML BAG IV ONE (08:35)
[2023-11-03] MEDS: VANCOMYCIN 1.75 GM in NA CHLORIDE 0.9% 500 ML IVPB SCH (08:35)
[2023-11-03] MEDS: POTASS/SODIUM PHOSPHATE 1 PKT POWD.PACK PO ONE (08:36)
[2023-11-03] MEDS: MAGNESIUM SULFATE 1 gm IVPB 1 GM/100 ML BAG IV ONE (08:36)
[2023-11-03] MEDS ORDERED: POTASSIUM PHOS IN 0.9 % NACL 15 MMOL/250 ML BAG IV ONE (09:00)
--- NOTE | 2023-11-03 09:32 | P.PN ---
Date of Service: 11/03/23 Chief Complaint: Left second toe infection Subjective: s/p left second toe amputation yesterday by Dr. Oates. In no apparent distress. No acute events overnight. Denies any new or worsening complaints. Physical Examination Temp Pulse Resp BP Pulse Ox 99.9 F 71 16 147/78 H 96 11/03/23 04:00 11/03/23 04:00 11/03/23 04:00 11/03/23 04:00 11/03/23 04:00 General: In no apparent distress. Oriented x3. HEENT: Nomocephalic, atraumatic. Resp: Clear to auscultation bilaterally. Unlabored respirations on room air. CV: Regular rate/rhythm. Left foot edema. Abdomen: Normoactive bowel sounds. Abdomen soft, nontender, nondistended. Integumentary: Left toe amputation site dressing is clean dry and intact. Laboratory Data - Reviewed Microbiology Data - Reviewed Imagings Data: - Reviewed Medications List: Reviewed Assessment and Plan Problem List Osteomyelitis Insulin-dependent diabetes mellitus Hyperlipidemia Hypertension Osteomyelitis left second toe - MRI left foot 10/28: "Osteomyelitis second middle and distal phalanx" -Currently on Cefepime and Vancomycin (started 10/29) - s/p debridement 10/[address] Oates - Wound culture: coagulase positive staph and non-beta hemolytic strep - s/p amputation left 2nd toe on 11/[address] Oates. No leukocytosis Afebrile Recommendations - Continue cefepime and vancomycin for now. - s/p amputation of left 2nd toe on 11/01. Preliminary wound culture growing coagulase positive staph and non-beta hemolytic strep. Depending on final culture/sensitivity results, consider Augmentin PO and/or Bactrim PO x 7-10 days upon discharge. - wound care per Dr. Oates - strict blood glucose control - CBC, BMP and vanco troughs Case discussed with Sonny Arreguin
[2023-11-03] MEDS ORDERED: VANCOMYCIN 1.75 GM in NA CHLORIDE 0.9% 500 ML IVPB SCH (12:00)
[2023-11-03 13:03] VITALS: BP 192/89; TEMP 98
== END 2023-11-03 13:15 | disposition home health service (06) | DRG 617 ==
LOC: ER 10:43 → ERHOLD 13:32 → 2ND 14:48
PROVIDERS: ADMIT Internal Medicine; ATTEND Hospitalist
PROC: 0QBR0ZZ Excision of Left Toe Phalanx, Open Approach (ICD-10-PCS; 2023-10-30)
PROC: 02HV33Z Insertion of Infusion Device into Superior Vena Cava, Percutaneous Approach (ICD-10-PCS; 2023-10-30)
PROC: 0Y6S0Z0 Detachment at Left 2nd Toe, Complete, Open Approach (ICD-10-PCS; principal; 2023-11-02 13:15)
DX: E11.69 Type 2 diabetes mellitus with other specified complication (principal); E11.52 Type 2 diabetes mellitus with diabetic peripheral angiopathy with gangrene; M86.172 Other acute osteomyelitis, left ankle and foot; N17.9 Acute kidney failure, unspecified; E11.621 Type 2 diabetes mellitus with foot ulcer; L97.529 Non-pressure chronic ulcer of other part of left foot with unspecified severity; I10 Essential (primary) hypertension; E78.5 Hyperlipidemia, unspecified; F17.210 Nicotine dependence, cigarettes, uncomplicated; Z79.4 Long term (current) use of insulin; Z79.82 Long term (current) use of aspirin; Z79.899 Other long term (current) drug therapy
CPT/HCPCS: 36415; 80048; 80053; 80202; 81001; 82947; 83605; 83735; 84100; 85025; 87040; 87070; 87075; 87077; 87186; 87205; 88304; 88305; 88311; 96365; 96366; 96368; 97161; 99284; J0692; J1815; J2001; J2250; J2543; J2704; J3475; J7030; J7040; J7050

== ENCOUNTER 2023-12-28 15:30 | Inpatient (IN) | payer OTHER ==
[2023-12-28 17:21] LABS: Absolute Monocytes 1.3 K/uL (0.1-1.3); Absolute Neutrophil 14.7 K/uL (1.8-8.0); Basophils % 0.2 % (0-1.3); Eosinophils % 0.1 % (0-4.4); Hematocrit 30.9 % (39.6-49.0); Lymphocytes % 5.9 % (15.3-44.8); MCH 28.2 pg (27.0-35.0); MCHC 32.3 g/dL (32.0-36.0); MCV 87.2 fL (80-100); MPV 8.5 fL (7.6-11.3); Monocytes % 7.6 % (3.3-12.3); Neutrophils % 86.2 % (41.7-73.7); Platelets 433 thou/uL (152-406); RBC Red Blood Cell Count 3.55 M/uL (4.33-5.43)
--- NOTE | 2023-12-28 17:49 | RAD REPORT ---
EXAM DESCRIPTION: Tony Single View12/28/2023 5:34 pm CLINICAL HISTORY: Chest pain COMPARISON: none FINDINGS: The lungs appear clear of acute infiltrate. The heart is mildly to moderately enlarged IMPRESSION: No acute abnormalities displayed
--- NOTE | 2023-12-28 17:50 | RAD REPORT ---
EXAM DESCRIPTION: RAD - Knee Right 3 View - 12/28/2023 5:35 pm CLINICAL HISTORY: Right knee pain status post injury FINDINGS: No fracture or dislocation is seen.
--- NOTE | 2023-12-28 17:50 | RAD REPORT ---
EXAM DESCRIPTION: RAD - Knee Left 3 View - 12/28/2023 5:37 pm CLINICAL HISTORY: Left knee pain FINDINGS: No fracture or dislocation is seen. 14 millimeter lucency with septations is present within the medial tibial plateau. It most likely is benign. A followup x-ray in 3 months recommended to assess stability
--- NOTE | 2023-12-28 17:50 | RAD REPORT ---
EXAM DESCRIPTION: RAD - Pelvis - 12/28/2023 5:34 pm CLINICAL HISTORY: Pelvic pain status post injury FINDINGS: No fracture or dislocation is seen. If the patient continues to have symptoms to suggest an occult fracture then MRI would be recommended
[2023-12-28 17:54] LABS: Anion Gap 27.5 mEq/L (5.0-15.0)
[2023-12-28 17:56] LABS: Potassium 4.5 mEq/L (3.5-5.1)
[2023-12-28 17:57] LABS: Albumin 1.9 g/dL (3.4-5.0); Albumin/Globulin Ratio 0.3 (1.1-1.8); Bilirubin Total 0.8 mg/dL (0.2-1.0); Globulin 5.9 g/dL (2.3-3.5); Protein, Total 7.8 g/dL (6.4-8.2)
[2023-12-28] MEDS ORDERED: PIPERACIL/TAZO 3.375 GM VIAL IV ONE (18:17)
[2023-12-28] MEDS ORDERED: NA CHLORIDE 0.9% 2,000 ML ONE (18:17)
[2023-12-28] MEDS ORDERED: NA CHLORIDE 0.9% 100 ML ONE (18:17)
[2023-12-28 18:54] LABS: Arterial Blood Carboxyhemoglob 1.8 % (0-1.5); Blood Gas Oxyhemoglobin 52.5 % (94-97); Blood Gas THB 10.2 g/dl (12-18); Blood O2 Saturation 54.6 % (92-98.5)
[2023-12-28] MEDS ORDERED: D10W 250 ML BAG IV PRN (19:07)
[2023-12-28] MEDS ORDERED: GLUCAGON 1 MG/VIAL IM PRN ×2 (19:07→22:41)
--- NOTE | 2023-12-28 19:14 | EDPHYS ---
Physician Documentation [facility] Name: Brandon Yap Age: 68 yrs Sex: Male : 1955 Arrival Date: 12/28/2023 Time: 15:30 Bed 15 Private MD: ED Physician Josh Rubio HPI: 12/27 17:00 This 68 yrs old Black Male presents to ER via Wheelchair with complaints of Weakness, ec2 Fall Injury. 17:00 Patient arrives today for evaluation of generalized weakness as well as of recent fall ec2 2 days ago. Patient plaint of bilateral knee pain as well as right hip pain. Patient reports no LOC, reports he is having pain with ambulation. Patient is chronically ill, has a wound VAC on the left foot, denies any fevers or chills.. Historical: - Allergies: 15:52 No Known Allergies; aa5 - PMHx: 15:51 diabetes mellitus; Hypertensive disorder; aa5 15:52 CVA; Poor circulation to legs; aa5 - PSHx: 15:54 Left toe amputation; aa5 - Immunization history:: Adult Immunizations unknown. - Infectious Disease History:: Denies. - Social history:: Smoking status: Patient reports the use of cigarette tobacco products, cigars. ROS: 17:00 Constitutional: as per hpi ec2 Exam: 17:00 Constitutional: GEN: NAD Head: atraumatic Eyes: EOMI Ears: External ears are ec2 normal. CV: regular rate LUNGS: no respiratory distress ABD: non-distended, soft, nontender, no guarding, not rigid MSK: no evidence of trauma, no C/T/L-spine TTP or deformities appreciated. Bilateral knees without significant deformity or trauma evident. NEURO: moves all extremities equally Vital Signs: 15:50 BP 118 / 70; Pulse 70; Resp 19 S; Temp 97.8(TE); Pulse Ox 100% on R/A; Weight 115.67 kg aa5 (R); Height 5 ft. 11 in. (R); 18:40 BP 138 / 65; Pulse 98; Resp 18; Pulse Ox 100% on R/A; mb9 20:50 BP 156 / 68; Pulse 72; Resp 17; Temp 97.8; Pulse Ox 100% on R/A; Pain 0/10; bm8 15:50 Body Mass Index 35.56 (115.67 kg, 180.34 cm) aa5 20:50 Pain Scale: Adult bm8 Eduar Coma Score: 20:50 Eye Response: spontaneous(4). Motor Response: obeys commands(6). Verbal Response: bm8 oriented(5). Total: 15. MDM: 16:18 Patient medically screened. ec2 17:00 ED course: EKG independently reviewed and interpreted by me, shows normal sinus rhythm, ec2 rate of 75, no acute ST segment elevations, intervals are nonconcerning.. 17:00 Data reviewed: vital signs. ED course: Patient arrives today for evaluation of weakness ec2 and bilateral knee pain. Examination remarkable for well-appearing nontoxic and appears otherwise in no acute distress with reassuring vital signs. Will obtain lab work, radiographs. Differential diagnosis considered include bony fractures, electrolyte disturbances, anemia, dehydration.. 18:13 ED course: CBC shows leukocytosis at 17. Metabolic profile shows slight hyponatremia at ec2 127, hyperglycemia at 525, I suspect patient's hyponatremia is pseudohyponatremia given the potassium after correction is 134. Patient with renal dysfunction with a creatinine of 2.08 and GFR 34. Patient with lesion noted in the left tibial plateau, right knee negative for bony pathology, chest x-ray shows no acute thoracic pathology, pelvis x-ray shows no acute traumatic pathology. Patient does have white blood cell count at 17, likely secondary to the patient's diabetic foot wound which has a wound VAC placed on it. Patient otherwise does not meet any other sirs criteria. 19:00 ED course: Venous blood gas shows slight acidosis at 7.33. Patient with hyperglycemia ec2 and anion gap, suspect patient with diabetic wound causing DKA. Will start the patient on insulin drip. Additionally patient otherwise shows good evidence of organ perfusion with reassuring vital signs, blood pressure, heart rate.. 20:09 ED course: Urine shows ketones urea as well as glucose, consistent with patient DKA.. ec2 12/27 16:39 Order name: CBC with Diff; Complete Time: 18:08 ec2 12/27 16:39 Order name: CMP; Complete Time: 18:08 ec2 12/27 18:12 Order name: ABG: VBG okay; Complete Time: 18:58 ec2 12/27 18:12 Order name: BHB; Complete Time: 19:24 ec2 12/27 18:12 Order name: UAM; Complete Time: 20:09 ec2 12/27 18:12 Order name: Magnesium; Complete Time: 19:24 ec2 12/27 18:13 Order name: Blood Culture Adult (2) ec2 12/27 19:13 Order name: Lactate w/ 2H reflex if indic. ec2 12/27 22:14 Order name: Glucose, Ancillary Testing EDMS 12/27 23:56 Order name: Glucose, Ancillary Testing EDMS 12/28 00:09 Order name: Basic Metabolic Panel EDNM 12/28 00:30 Order name: Glucose, Ancillary Testing EDMS 12/28 04:36 Order name: Glucose, Ancillary Testing EDMS 12/28 04:36 Order name: Glucose, Ancillary Testing EDMS 12/28 04:36 Order name: Glucose, Ancillary Testing EDMS 12/28 04:36 Order name: Glucose, Ancillary Testing EDMS 12/28 04:40 Order name: Basic Metabolic Panel EDNM 12/28 05:31 Order name: Glucose, Ancillary Testing EDMS 12/28 06:18 Order name: Glucose, Ancillary Testing EDMS 12/28 07:29 Order name: Glucose, Ancillary Testing EDMS 12/28 08:27 Order name: Glucose, Ancillary Testing EDMS 12/28 09:28 Order name: CBC with Automated Diff EDMS 12/28 09:29 Order name: Glucose, Ancillary Testing EDMS 12/28 09:32 Order name: Calcium Level EDMS 12/28 09:32 Order name: Phosphorus EDMS 12/28 09:32 Order name: Lipid Profile EDMS 12/28 09:32 Order name: Magnesium EDMS 12/28 09:45 Order name: Osmolality, Serum EDMS 12/28 09:47 Order name: Basic Metabolic Panel EDMS 12/28 10:03 Order name: Hemoglobin A1c EDMS 12/28 10:29 Order name: Glucose, Ancillary Testing EDMS 12/28 11:14 Order name: Glucose, Ancillary Testing EDMS 12/28 12:46 Order name: Glucose, Ancillary Testing EDMS 12/28 13:38 Order name: Glucose, Ancillary Testing EDMS 12/28 14:30 Order name: Glucose, Ancillary Testing EDMS 12/28 14:32 Order name: Basic Metabolic Panel EDMS 12/28 15:25 Order name: Glucose, Ancillary Testing EDMS 12/28 16:43 Order name: Glucose, Ancillary Testing EDMS 12/28 17:42 Order name: Basic Metabolic Panel EDMS 12/28 17:59 Order name: Glucose, Ancillary Testing EDMS 12/28 18:34 Order name: Glucose, Ancillary Testing EDMS 12/28 19:22 Order name: Glucose, Ancillary Testing EDMS 12/28 21:43 Order name: Glucose, Ancillary Testing EDMS 12/28 23:18 Order name: Glucose, Ancillary Testing EDMS 12/29 01:09 Order name: Glucose, Ancillary Testing EDMS 12/29 02:05 Order name: Glucose, Ancillary Testing EDMS 12/29 02:38 Order name: Glucose, Ancillary Testing EDMS 12/29 04:36 Order name: Glucose, Ancillary Testing EDMS 12/29 04:38 Order name: CBC with Automated Diff EDNM 12/29 04:47 Order name: Comprehensive Metabolic Panel EDNM 12/29 04:47 Order name: Uric Acid EDNM 12/29 04:47 Order name: Phosphorus EDMS 12/29 04:47 Order name: Magnesium EDNM 12/29 05:35 Order name: Glucose, Ancillary Testing EDNM 12/29 06:33 Order name: Glucose, Ancillary Testing EDNM 12/29 07:37 Order name: Glucose, Ancillary Testing EDNM 12/29 08:29 Order name: Wound Culture EDNM 12/29 09:23 Order name: Glucose, Ancillary Testing EDNM 12/29 09:48 Order name: Glucose, Ancillary Testing EDNM 12/29 09:50 Order name: Osmolality, Serum EDNM 12/29 10:41 Order name: Glucose, Ancillary Testing EDNM 12/29 11:27 Order name: Glucose, Ancillary Testing EDNM 12/27 16:39 Order name: Knee Left 3 View XRAY; Complete Time: 18:08 ec2 12/27 16:39 Order name: Knee Right 3 View XRAY; Complete Time: 18:08 ec2 12/27 16:39 Order name: CXR XRAY; Complete Time: 18:08 ec2 12/27 16:39 Order name: Pelvis XRAY; Complete Time: 18:08 ec2 12/28 21:56 Order name: MRI EDNM 12/27 16:39 Order name: EKG - Nurse/Tech; Complete Time: 16:51 ec2 Administered Medications: 18:39 Drug: NS 0.9% IV 2000 ml IV at 1000 ml once Route: IV; Rate: 1000 ml; Site: right mb9 antecubital; 20:54 Follow up: Response: No adverse reaction; IV Status: Completed infusion; IV Intake: bm8 2000ml 18:39 Drug: Piperacillin-Tazobactam IVPB 3.375 grams IVPB once over 60 mins; (mix in NS 100 mb9 mL) Route: IVPB; Infused Over: 60 mins; Site: right antecubital; 19:26 Follow up: Response: No adverse reaction; IV Status: Completed infusion bm8 19:42 Drug: Insulin Drip - (Insulin Regular Human IVP 100 units, NS 0.9% IV 100 ml) IV at bm8 calculated rate continuous; Standard concentration 1unit/ml; Dose for DKA is 0.1 units/kg/hr {Co-Signature: dinah (Donna David RN).} Route: IV; Rate: calculated rate; Site: left antecubital; 20:49 Follow up: Response: No adverse reaction; IV Status: Infusion continued bm8 19:42 Drug: vancoMYCIN IVPB 1 grams IVPB once over 2 hrs Route: IVPB; Infused Over: 2 hrs; bm8 Site: right forearm; 20:49 Follow up: IV Status: Infusion continued bm8 Disposition Summary: 12/28/23 19:14 Hospitalization Ordered Notes: Hospitalization Status: Inpatient Admission ec2 Provider: Ting Rdz ec2 Condition: Stable ec2 Problem: new ec2 Symptoms: have improved ec2 Bed/Room Type: Standard ec2 Location: Intensive Care Unit(12/30/23 12:21) [facility] [place] Room Assignment: 4-(12/30/23 12:21) [facility] [place] Diagnosis - Diabetes mellitus due to underlying condition with ketoacidosis ec2 Forms: - Medication Reconciliation Form ec2 - SBAR form ec2 - Leadership Thank You Letter ec2 Critical care time excluding procedures: 19:13 Critical care time: Bedside Care: 30 minutes, Consultation: 5 minutes. Total time: 35 ec2 minutes Signatures: Dispatcher [employer] EDMS Asha Arredondo Audri, RN RN aa5 Kodi Cowan RN RN ja1 Tabatha Clarke RN RN 1 Nakia Carlos RN RN mb9 Marbella Johnson, UNIVERSITY PROFESSOR UNIVERSITY PROFESSOR [id number] Josh Rubio MD MD ec2 Osman Hudson RN RN bm8 Donna David RN ha1 Corrections: (The following items were deleted from the chart) 16:39 16:39 Pelvis+RAD.RAD.BRZ ordered. EDMS EDMS 18:13 18:13 BETA HYDROXYBUTYRATE+C.LAB.BRZ ordered. EDMS EDMS 18:13 18:13 Urinalysis W/Microscopic+U.LAB.BRZ ordered. EDMS EDMS 18:13 18:13 MAGNESIUM+C.LAB.BRZ ordered. EDMS EDMS 20:39 19:14 Intensive Care Unit ec2 vc1 20:39 19:14 ec2 vc1 12/28 18:03 12/27 20:39 [facility] ER HOLD vc1 bd 12/28 18:03 12/27 20:39 ERHOLD- vc1 bd 12/28 18:09 18:03 Intensive Care Unit bd bd 18:09 18:03 5- bd bd 12/29 12:21 12/28 18:09 [facility] ER HOLD bd ja1 12/29 12:21 12/28 18:09 ERHOLD- bd ja1
--- NOTE | 2023-12-28 19:14 | ER ---
Nurse's Notes [facility] Name: Brandon Yap Age: 68 yrs Sex: Male : 1955 Arrival Date: 12/28/2023 Time: 15:30 Bed 15 Private MD: Diagnosis: Diabetes mellitus due to underlying condition with ketoacidosis Presentation: 12/27 15:50 Chief complaint: Patient states: "I missed the chair and fell on Thursday and I was on aa5 the floor for about an hour and a half because I couldn't get up". Pt c/o pain to knees and lower back. 15:50 Method Of Arrival: Wheelchair aa5 15:50 Coronavirus screen: At this time, the client does not indicate any symptoms associated aa5 with coronavirus-19. Ebola Screen: Patient denies travel to an Ebola-affected area in the 21 days before illness onset. Initial Sepsis Screen: Does the patient meet any 2 criteria? No. Patient's initial sepsis screen is negative. Does the patient have a suspected source of infection? No. Patient's initial sepsis screen is negative. Risk Assessment: Do you want to hurt yourself or someone else? Patient reports no desire to harm self or others. 15:50 Acuity: NICANOR 3 aa5 15:50 Onset of symptoms was December 2023. aa5 Historical: - Allergies: 15:52 No Known Allergies; aa5 - PMHx: 15:51 diabetes mellitus; Hypertensive disorder; aa5 15:52 CVA; Poor circulation to legs; aa5 - PSHx: 15:54 Left toe amputation; aa5 - Immunization history:: Adult Immunizations unknown. - Infectious Disease History:: Denies. - Social history:: Smoking status: Patient reports the use of cigarette tobacco products, cigars. Screenin:26 [facility] ED Fall Risk Assessment (Adult) History of falling in the last 3 months, mb9 including since admission Yes- single mechanical fall (1 pt) Confusion or Disorientation No (0 pts) Intoxicated or Sedated No (0 pts) Impaired Gait Yes (1 pt) Mobility Assist Device Used Yes (1 pt) Altered Elimination No (0 pt) Score/Fall Risk Level 3 or more points = High Risk Oriented to surroundings, Maintained a safe environment, Educated pt \\T\\ family on fall prevention, incl call for assistance when getting out of bed, Assessed \\T\\ reinforced patient's understanding of fall precautions. Abuse screen: Denies threats or abuse. Nutritional screening: No deficits noted. Tuberculosis screening: No symptoms or risk factors identified. Assessment: 16:25 General: Appears in no apparent distress. Behavior is calm, cooperative, appropriate mb9 for age. Pain: Complains of pain in back and bilateral knee Pain does not radiate. Pain currently is 8 out of 10 on a pain scale. Quality of pain is described as throbbing, Pain began suddenly. Neuro: Kimball Agitation-Sedation Scale (RASS): 0 - Alert and Calm Level of Consciousness is awake, alert, obeys commands, Oriented to person, place, time, situation, Appropriate for age. Cardiovascular: Patient's skin is warm and dry. Respiratory: Airway is patent Respiratory effort is even, unlabored, Respiratory pattern is regular, symmetrical. GI: No signs and/or symptoms were reported involving the gastrointestinal system. : No signs and/or symptoms were reported regarding the genitourinary system. EENT: No signs and/or symptoms were reported regarding the EENT system. Derm: Skin is pink, warm \\T\\ dry. wound vac noted to left foot. Musculoskeletal: Reports pain in back and bilateral knees. 18:00 Reassessment: No changes from previously documented assessment. Patient and/or family mb9 updated on plan of care and expected duration. Pain level reassessed. Patient is alert, oriented x 3, equal unlabored respirations, skin warm/dry/pink. Vital Signs: 15:50 BP 118 / 70; Pulse 70; Resp 19 S; Temp 97.8(TE); Pulse Ox 100% on R/A; Weight 115.67 kg aa5 (R); Height 5 ft. 11 in. (R); 18:40 BP 138 / 65; Pulse 98; Resp 18; Pulse Ox 100% on R/A; mb9 20:50 BP 156 / 68; Pulse 72; Resp 17; Temp 97.8; Pulse Ox 100% on R/A; Pain 0/10; bm8 15:50 Body Mass Index 35.56 (115.67 kg, 180.34 cm) aa5 20:50 Pain Scale: Adult bm8 [place] Coma Score: 20:50 Eye Response: spontaneous(4). Motor Response: obeys commands(6). Verbal Response: bm8 oriented(5). Total: 15. ED Course: 15:37 Patient arrived in ED. ec2 15:50 Arm band placed on. aa5 15:51 Triage completed. aa5 16:16 Josh Rubio MD is Attending Physician. ec2 16:25 Nakia Carlos RN is Primary Nurse. mb9 16:26 Placed in gown. Bed in low position. Call light in reach. Side rails up X 1. Provided mbRm Education on: press call light if needing anything. Client placed on continuous cardiac and pulse oximetry monitoring. NIBP monitoring applied. Door closed. Noise minimized. Warm blanket given. 16:51 No provider procedures requiring assistance completed. Initial lab(s) drawn, by melody trevizo sent to lab. EKG done, by ED staff, reviewed by Josh Rubio MD. Inserted saline lock: 20 gauge in right antecubital area, using aseptic technique. 17:36 Knee Left 3 View XRAY In Process Unspecified. EDMS 17:36 Knee Right 3 View XRAY In Process Unspecified. EDMS 17:36 CXR XRAY In Process Unspecified. EDMS 17:36 Pelvis XRAY In Process Unspecified. EDMS 19:03 Report given to Report given to THERESA Brewer. mb9 19:14 Ting Rdz MD is Hospitalizing Provider. ec2 20:50 Inserted saline lock: 20 gauge in left antecubital area, using aseptic technique. bm8 20:53 Patient admitted, IV remains in place. bm8 Administered Medications: 18:39 Drug: NS 0.9% IV 2000 ml IV at 1000 ml once Route: IV; Rate: 1000 ml; Site: right mb9 antecubital; 20:54 Follow up: Response: No adverse reaction; IV Status: Completed infusion; IV Intake: bm8 2000ml 18:39 Drug: Piperacillin-Tazobactam IVPB 3.375 grams IVPB once over 60 mins; (mix in NS 100 mb9 mL) Route: IVPB; Infused Over: 60 mins; Site: right antecubital; 19:26 Follow up: Response: No adverse reaction; IV Status: Completed infusion bm8 19:42 Drug: Insulin Drip - (Insulin Regular Human IVP 100 units, NS 0.9% IV 100 ml) IV at bm8 calculated rate continuous; Standard concentration 1unit/ml; Dose for DKA is 0.1 units/kg/hr {Co-Signature: ha1 (Donna David RN).} Route: IV; Rate: calculated rate; Site: left antecubital; 20:49 Follow up: Response: No adverse reaction; IV Status: Infusion continued bm8 19:42 Drug: vancoMYCIN IVPB 1 grams IVPB once over 2 hrs Route: IVPB; Infused Over: 2 hrs; bm8 Site: right forearm; 20:49 Follow up: IV Status: Infusion continued bm8 Medication: 16:27 VIS not applicable for this client. mb9 Intake: 20:54 IV: 2000ml; Total: 2000ml. bm8 Outcome: 19:14 Decision to Hospitalize by Provider. ec2 20:50 Admitted to ER Hold. [facility] bm8 20:50 Condition: stable 20:50 Instructed on the need for admit, Demonstrated understanding of follow-up care, 12/29 12:25 Patient left the ED. db Signatures: Dispatcher [employer] Minnie Maurer, RN RN aa5 Holly Quinones, RN RN Nakia Muñoz RN RN mb9 Josh Rubio MD MD ec2 Osman Hudson, RN RN 8 Donna David RN ha1 Corrections: (The following items were deleted from the chart) 12/27 19:02 18:40 BP 138 / 65; Pulse 98bpm; Resp 74bpm; Pulse Ox 100% RA; mb9 mb9
[2023-12-28 19:15] LABS: Magnesium 3.1 mg/dL (1.6-2.4)
[2023-12-28 19:22] LABS: BETA HYDROXYBUTYRATE > 4.50 mmol/L (0.02-0.27)
--- NOTE | 2023-12-28 19:26 | P.HP ---
Certification for Inpatient Patient admitted to: Inpatient Patient will require the following post-hospital care: Home Health Services Practitioner: I am a practitioner with admitting privileges, knowledge of patient current condition, hospital course, and medical plan of care. Services: Services provided to patient in accordance with Admission requirements found in Title 42 Section 412.3 of the Code of Federal Regulations Patient History Date of Service: 12/28/23 Reason for admission: Fall, DKA History of Present Illness: 68-year-old -[place] man with a past medical history diabetes, hypertension, osteomyelitis of the left lower extremity, recent toe amputation presents to the emergency room with moderate generalized weakness, fall. He reports hitting his head, he denies loss of consciousness, he reports right hip pain, bilateral knee pain, left lower extremity foot pain with recent amputation. He denies fever, chills, nausea vomiting, chest pain, shortness of breath. He has a VAC pack on the left lower extremity that is being followed by home health, family is at bedside reports home health has not been out to see patient. Sister reports patient recently lost his son, is experiencing moderate depression, exacerbated by being unable to work, recent toe amputation. ER evaluation BP 118 / 70; Pulse 70; Resp 19 S; Temp 97.8(TE); Pulse Ox 100% on R /A; Weight 115.67 kg (R); Height 5 ft. 11 in laboratory evaluation has leukocytosis CBCs at 17, likely secondary to left lower extremity recent toe amputation, noted malodorous odor. Will consult Dr. Oates to eval left lower extremity wound, with wound care consult to to eval and treat. Hyponatremia, likely pseudo hyponatremia, hyperglycemia at 525, abnormal renal function, acute kidney injury unknown baseline creatinine of 2.08 and GFR 34, nephrology consulted, x-ray left tibial plateau, right knee negative for bony pathology, chest x-ray shows no acute thoracic pathology, pelvis x-ray shows no acute traumatic pathology, ABG acidosis at 7.33. Patient with hyperglycemia and anion gap, suspect patient with diabetic wound causing DKA. Will admit to ICU on insulin drip for DKA, leukocytosis left lower extremity toe wound, recent amputation, Dr. Oates to consult, with wound care eval and consult. Pseudohyponatremia, fall, moderate generalized weakness Allergies No Known Allergies Allergy (Unverified 07/07/13 11:38) Home Medications: Pioglitazone HCl 30 mg PO DAILY 07/07/13 Amlodipine [Norvasc*] 10 mg PO DAILY 10/29/23 Aspirin [Aspirin EC 81 MG] 81 tab PO DAILY 10/29/23 Dulaglutide [Trulicity] 4.5 mg SQ SEECOM 10/29/23 Empagliflozin [Jardiance] 25 mg PO DAILY 10/29/23 Fenofibrate,Micronized [Fenofibrate] 134 mg PO DAILY 10/29/23 Losartan Potassium 100 mg PO DAILY 10/29/23 Rosuvastatin Calcium 40 tab PO BEDTIME 10/29/23 Spironolactone 25 tab PO DAILY 10/29/23 Tamsulosin [Flomax*] 0.4 cap PO DAILY 10/29/23 Furosemide [Lasix] 20 mg PO M,W,F #15 tab 11/03/23 Hydrocodone 7.5/APAP 325 [[place] 7.5/325 mg*] 1 tab PO Q6H PRN #20 tab 11/03/23 Insulin Glargine,Hum.rec.anlog [Toujeo Solostar] 30 unit SQ DAILY #2 syr 11/03/23 Mupirocin Calcium [Bactroban Nasal*] 1 appl MENDOZA BID #1 tube 11/03/23 Naph,Mb-Db/K pH,Mbdb [Neutra-Phos Packet] 1 each PO BID #6 packet 11/03/23 Nut.tx.gluc Intol,Lf,Soy/Fiber [Glucerna 1.5 Mariusz Liquid] 237 ml PO BIDAC #60 can 11/03/23 Potassium Chloride 10 meq PO M,W,F #15 tab 11/03/23 atenoloL [Tenormin*] 50 mg PO DAILY #30 tab 11/03/23 levoFLOXacin [Levaquin] 500 mg PO DAILY #3 tab 11/03/23 - Past Medical/Surgical History Diabetic: Yes -: DM-IDDM -: HTN -: Osteomyelitis left foot -: Left second toe amputation -: Fall -: left knee surgery 42 yrs ago - Social History Alcohol use: Yes CD- Drugs: No Caffeine use: Yes Review of Systems Per Physical Examination - Physical Exam General: Alert, In no apparent distress, Oriented x3, Other HEENT: Atraumatic, Normocephalic Neck: Supple, 2+ carotid pulse no bruit Respiratory: Normal air movement Cardiovascular: Normal pulses, Regular rate/rhythm Capillary refill: <2 Seconds Gastrointestinal: Normal bowel sounds, Other (Obese abdomen) Musculoskeletal: Other (Bilateral knee pain, no deformity,) Integumentary: Other (Left lower extremity wound VAC, malodorous) Neurological: Normal speech, Abnormal gait, Abnormal strength - Studies Laboratory Data (last 24 hrs) 12/28/23 12/28/23 12/28/23 18:29 16:50 16:50 WBC 17.00 H Hgb 10.0 L Hct 30.9 L Plt Count 433 H Sodium 127 L Potassium 4.5 BUN 57 H Creatinine 2.08 H Glucose 525 H* Magnesium 3.1 H Total Bilirubin 0.8 AST 17 ALT 21 Alkaline Phosphatase 118 H Assessment and Plan - Plan Assessment plan DKA Insulin-dependent diabetes uncontrolled Admit to ICU, insulin drip, Every 4 hours BMPs hyperglycemia at 525,, every hour Accu-Chek ABG acidosis at 7.33. Patient with hyperglycemia and anion gap, suspect patient with diabetic wound causing DKA. W Extremity foot infection with leukocytosis Left lower extremity toe amputation Dr. Oates History of left lower extremity osteomyelitis Consult Dr. Oates, IV fluids, IV antibiotics vancomycin, Zosyn, Cultures, trend lactic As needed analgesics, Home with home health for VAC pack change wound care dressing changes VAC pack on the left lower extremity that is being followed by home health, family is at bedside reports home health has not been out to see patient. Does not meet sepsis criteria ER evaluation BP 118 / 70; Pulse 70; Resp 19 S; Temp 97.8(TE); Pulse Ox 100% on R/A; Weight 115.67 kg (R); Height 5 ft. 11 in laboratory evaluation has leukocytosis CBCs at 17, likely secondary to left lower extremity recent toe amputation, noted malodorous odor. Will consult Dr. Oates to eval left lower extremity wound, with wound care consult to to eval and treat. x-ray left tibial plateau, right knee negative for bony pathology, chest x-ray shows no acute thoracic pathology, pelvis x-ray shows no acute traumatic pathology, moderate generalized weakness acute fall acute Right hip acute Bilateral knee pain acute PT eval, Will need PT with home health Depression Cymbalta started at bedtime Will need to follow-up with his PCP for, counseling, grief management, toe amputation, exacerbated by being unable to work, pseudo hyponatremia abnormal renal function acute kidney injury unknown baseline creatinine of 2.08 and GFR 34, nephrology consulted, Full code Clear diet DVT heparin Disposition Home with home health with PT, wound care to manage left lower extremity 1 Discharge Plan: Home - Advance Directives Does patient have a Living Will: Yes Does patient have a Durable POA for Healthcare: No - Code Status/Comfort Care Code Status: Full Code Critical Care: Yes Time Spent Managing Pts Care (In Minutes): 65
[2023-12-28] MEDS ORDERED: NA CHLORIDE 0.9% 250 ML ONE (19:28)
[2023-12-28] MEDS ORDERED: VANCOMYCIN 1 GM/VIAL ONE (19:28)
[2023-12-28 19:32] LABS: Specific Gravity 1.024 (1.005-1.030); Sqamous Epithelial None Seen /HPF (None Seen); Urine Bacteria None Seen /HPF (<20); Urine Bilirubin NEGATIVE (Negative); Urine Blood Negative (Negative); Urine Clarity Clear (Clear); Urine Color Colorless (Yellow); Urine Culture Reflex Order NOT NEEDED; Urine Glucose 4+ (Over) (Negative); Urine Ketones 1+ (Negative); Urine Micro Reflex YN NO BILL MICROSCOPIC; Urine Nitrite NEGATIVE (Negative); Urine Protein NEGATIVE (Negative); Urine RBC <5 /HPF (None Seen); Urine Urobilinogen Normal (Normal); Urine WBC <5 /HPF (<5); Urine Yeast (Budding) Trace /HPF (None Seen)
[2023-12-28] MEDS: INSULIN -REGULAR HUMAN 100 UNIT in NA CHLORIDE 0.9% 100 ML IV SCH (19:42)
[2023-12-28] MEDS ORDERED: INSULIN REGULAR, HUMAN 100 UNIT in NA CHLORIDE 0.9% 100 ML IV SCH (20:00)
[2023-12-28] MEDS: DULOXETINE 30 MG CAP PO SCH (21:00)
[2023-12-28] MEDS ORDERED: DULOXETINE 30 MG CAP PO ONE (22:10)
[2023-12-28] MEDS ORDERED: ONDANSETRON 4 MG/2 ML VIAL IV PRN (22:41)
[2023-12-28] MEDS ORDERED: D50W 25 GM/50 ML SYRINGE IV PRN (22:41)
[2023-12-28] MEDS ORDERED: MORPHINE 2 MG/ML SYR IV PRN (22:41)
[2023-12-28] MEDS: D5 0.45 NS 1,000 ML IV SCH (23:00)
[2023-12-28] MEDS: HEPARIN 5000 UNIT/ML 1 ML VIAL SQ SCH (23:00)
[2023-12-28] MEDS ORDERED: D10W 125 ML IV PRN (23:01)
[2023-12-28 23:55] LABS: Anion Gap 16.5 mEq/L (5.0-15.0); Potassium 3.5 mEq/L (3.5-5.1)
[2023-12-29] MEDS ORDERED: HEPARIN 5000 UNIT/ML 1 ML VIAL ONE ×3 (00:38→21:58)
[2023-12-29] MEDS: D5 0.9 NS 1,000 ML IV ONE (00:38)
[2023-12-29] MEDS ORDERED: NA CHLORIDE 0.9% 100 ML ONE ×4 (00:38→18:49)
[2023-12-29] MEDS ORDERED: PIPERACIL/TAZO 3.375 GM VIAL IV ONE ×3 (00:39→18:49)
[2023-12-29] MEDS: PIPER TAZO 3.375 GM in NA CHLORIDE 0.9% 100 ML IV SCH (01:00)
[2023-12-29] MEDS ORDERED: INSULIN REGULAR (HUMAN) 100 UNIT/ML ONE (04:07)
[2023-12-29 04:40] LABS: Anion Gap 16.4 mEq/L (5.0-15.0); Potassium 3.4 mEq/L (3.5-5.1)
[2023-12-29] MEDS: POTASSIUM 25 MEQ EFFERV TAB PO ONE (05:12)
[2023-12-29] MEDS ORDERED: POTASSIUM 25 MEQ EFFERV TAB ONE (05:17)
--- NOTE | 2023-12-29 07:49 | P.PN ---
Date of Service: 12/29/23 Subjective: no significant change since admission foul odor in room noted upon entering pt states dressing unchanged since ~3-4 days ago wound vac not fully plugged in / not working ROS: 10 point ROS as noted above, otherwise negative Physical Exam: GEN: Alert, oriented, NAD HEENT: Normal conjunctiva, sclera anicteric CV: Regular rate and rhythm, 1+ b/l edema in lower extremities Pulm: Nonlabored respirations on room air, clear bilaterally ABD: Soft, nontender, nondistended Integumentary: wound vac in place to lower left extremity wound, wound with purulent drainage noted between 3rd-4th digit. Desquamated skin on lateral/dorsal aspect with some purulent drainage as well Neuro: Normal speech, normal affect vitals reviewed Problem List: DKA IDDM2 recent history of lower left extremity osteomyelitis s/p left second toe amputation (11/02/23) DUANE Bilateral knee pain / right hip pain post fall Depression DKA IDDM2 continue insulin drip anion gap improving PRN dextrose / glucagon serial BMP until anion gap closed continue ICU level of care a1c: 11.0 recent history of lower left extremity osteomyelitis s/p left second toe amputation (11/02/23) with infection of wound Patient with recent history of osteomyelitis of left foot - second middle and distal phalanx. Had I&D (10/29) and amputation of left second toe (11/01) with Dr. Oates. Wound cultures at the time grew Enterococcus gallinarum and Staphylococcus lugdunensis - treated with cefepime / vanc while hospitalized and discharged with PO levaquin x3 days MRI left foot ordered to [facility] lower extremity for osteomyelitis General surgery - Dr. Oates consulted to evtx wound NPO at midnight for tentative surgical intervention tomorrow local wound care per surgery has wound VAC to lower left extremity continue empiric vanc / zosyn (12/28-) afebrile, +leukocytosis improving 17 -> 15.2 (12/28) suspect secondary to infection vs DKA Follow blood and wound cultures ID consulted reportedly with recent outpatient PAD workup and saw Dr. Vegas - consulted 12/28, to see pt in next 24-48hrs, possibly angio while inpatient DUANE Nephrology consulted creatinine improving 1.55 -> 1.41 continue to monitor renal function continue IV fluids on insulin drip Bilateral knee pain / right hip pain post fall xray knee/pelvis negative for any acute fractures or dislocations. Did note 14mm lucency with septations within left medial tibial plateau - likely benign. f/u xray in 3 months recommended to reeval PRN analgesics PT eval Depression duloxetine at bedtime VTE: heparin sq Code: Full Dispo: Home with HH Pending surgical eval / recs, glc stable
[2023-12-29] MEDS ORDERED: D5 0.45 NS 1,000 ML IV ONE ×2 (08:30→16:21)
[2023-12-29] MEDS: PNEUMOCOCCAL VACCINE 0.5 ML IMVAC ONE (08:48)
[2023-12-29 09:14] LABS: Absolute Basophils 0.1 K/uL (0-0.5); Absolute Eosinophils 0.2 K/uL (0-0.5); Absolute Lymphocytes (CBC) 0.8 K/uL (0.7-4.9); Absolute Monocytes 1.7 K/uL (0.1-1.3); Absolute Neutrophil 12.5 K/uL (1.8-8.0); Basophils % 0.4 % (0-1.3); Eosinophils % 1.1 % (0-4.4); Hematocrit 28.6 % (39.6-49.0); Hemoglobin 9.6 g/dL (13.6-17.9); Lymphocytes % 5.1 % (15.3-44.8); MCH 28.3 pg (27.0-35.0); MCHC 33.4 g/dL (32.0-36.0); MCV 84.7 fL (80-100); MPV 8.2 fL (7.6-11.3); Neutrophils % 82.4 % (41.7-73.7); Platelets 428 thou/uL (152-406); RBC Red Blood Cell Count 3.38 M/uL (4.33-5.43)
--- NOTE | 2023-12-29 09:27 | P.CNS ---
Date of Consult: 12/29/23 Reason for Consult: L foot wound/infection Chief Complaint: Fall, DKA History of Present Illness: 68-year-old -[place] man with a past medical history diabetes, hypertension, osteomyelitis of the left lower extremity, recent toe amputation presents to the emergency room with moderate generalized weakness, fall. He reports hitting his head, he denies loss of consciousness, he reports right hip pain, bilateral knee pain, left lower extremity foot pain with recent amputation. He denies fever, chills, nausea vomiting, chest pain, shortness of breath. He has a VAC pack on the left lower extremity that is being followed by home health, family is at bedside reports home health has not been out to see patient. Sister reports patient recently lost his son, is experiencing moderate depression, exacerbated by being unable to work, recent toe amputation. Allergies No Known Allergies Allergy (Unverified 07/07/13 11:38) Home medications list reviewed: Yes Home Medications: Pioglitazone HCl 30 mg PO DAILY 07/07/13 Amlodipine [Norvasc*] 10 mg PO DAILY 10/29/23 Aspirin [Aspirin EC 81 MG] 81 tab PO DAILY 10/29/23 Dulaglutide [Trulicity] 4.5 mg SQ SEECOM 10/29/23 Empagliflozin [Jardiance] 25 mg PO DAILY 10/29/23 Fenofibrate,Micronized [Fenofibrate] 134 mg PO DAILY 10/29/23 Losartan Potassium 100 mg PO DAILY 10/29/23 Rosuvastatin Calcium 40 tab PO BEDTIME 10/29/23 Spironolactone 25 tab PO DAILY 10/29/23 Tamsulosin [Flomax*] 0.4 cap PO DAILY 10/29/23 Furosemide [Lasix] 20 mg PO M,W,F #15 tab 11/03/23 Hydrocodone 7.5/APAP 325 [[place] 7.5/325 mg*] 1 tab PO Q6H PRN #20 tab 11/03/23 Insulin Glargine,Hum.rec.anlog [Toujeo Solostar] 30 unit SQ DAILY #2 syr 11/03/23 Mupirocin Calcium [Bactroban Nasal*] 1 appl MENDOZA BID #1 tube 11/03/23 Naph,Mb-Db/K pH,Mbdb [Neutra-Phos Packet] 1 each PO BID #6 packet 11/03/23 Nut.tx.gluc Intol,Lf,Soy/Fiber [Glucerna 1.5 Mariusz Liquid] 237 ml PO BIDAC #60 can 11/03/23 Potassium Chloride 10 meq PO M,W,F #15 tab 11/03/23 atenoloL [Tenormin*] 50 mg PO DAILY #30 tab 11/03/23 levoFLOXacin [Levaquin] 500 mg PO DAILY #3 tab 11/03/23 - Past Medical/Surgical History Diabetic: Yes -: DM-IDDM -: HTN -: Osteomyelitis left foot -: Left second toe amputation -: Fall -: left knee surgery 42 yrs ago - Social History Smoking Status: Current some day smoker Alcohol use: Yes CD- Drugs: No Caffeine use: Yes Review of Systems General: Weakness Musculoskeletal: Foot Pain Physical Examination Temp Pulse Resp BP Pulse Ox 97.9 F 78 20 140/57 L 97 12/29/23 09:00 12/29/23 09:00 12/29/23 09:00 12/29/23 09:00 12/29/23 09:00 General: In no apparent distress, Oriented x3 HEENT: Atraumatic, Normocephalic Respiratory: Clear to auscultation bilaterally, Normal air movement Cardiovascular: Regular rate/rhythm, Edema Gastrointestinal: Normal bowel sounds, No tenderness Integumentary: Other (diabetic/arterial/surgical wound infection left foot) Laboratory, Microbiology and Imaging Data reviewed Conclusions/Impression: Problem List Osteomyelitis left foot DKA, improved Diabetes Mellitus type II, insulin dependent DUANE Depression Hypertension Osteomyelitis left foot - recent osteomyelitis s/p left second toe amputation (11/02/23) by Dr. Иван Benton foot wound culture 12/28: pending - blood cultures 12/27: NGTD - MRI left foot 12/28: "Findings suggestive of osteomyelitis involving the second metatarsal, third metatarsal as well as the third digit with destructive changes of the third digit proximal phalanx, as well as the fourth digit proximal phalanx. Extensive areas of soft tissue gas are suspected as above, correlation with radiographs recommended." - leukocytosis (WBC 17). afebrile - currently on vancomycin and zosyn Recommendations - continue vancomycin and zosyn for now. pending wound culture results - monitor cbc, bmp, vanco troughs - strict blood glucose control - pending possible debridement left foot Dr. Oates - continue supportive care case discussed with Sonny Arreguin
[2023-12-29 09:32] LABS: Magnesium 2.7 mg/dL (1.6-2.4); Phosphorus 2.3 mg/dL (2.5-4.9)
[2023-12-29] MEDS: VANCOMYCIN 1.5 GM in NA CHLORIDE 0.9% 500 ML IVPB SCH (10:00)
[2023-12-29 14:32] LABS: Anion Gap 8.7 mEq/L (5.0-15.0); Potassium 3.7 mEq/L (3.5-5.1)
--- NOTE | 2023-12-29 17:09 | CON ---
Date of Consultation: 12/29/2023 Reason For Service: Infected left foot. History Of Present Illness: This is the case of a male, known by us due to history of gangrene sever al months ago for what he had received a toe amputation. He has been dealing with the open wound sin ce then since it was left to close by secondary intention. Recently, he noticed some changes in that area including foul smell and also cellulitis and came to the ER, diagnosed with that and surgical c filippo was obtained for evaluation. He is in the process of getting a vascular workup. He already w ent to the vascular doctor in his area, although I do not have the details of their discussion. Past Medical History: Diabetes, hypertension. Past Surgical History: Include left second toe amputation, left knee surgery. Social History: He does not smoke. Drinks alcohol occasionally. Medications: Reviewed, include Norvasc, Lasix, Tenormin, aspirin, pioglitazone, Jardiance, Flomax, N orco, insulin. Family History: Diabetes. Review of Systems: No shortness of breath. No chest pain. No GI bleed. Wounds, see HPI. Physical Examination: General: The patient is awake, alert. HEENT: Pupils are equal and reactive. Anicteric. Neck: Supple. Chest: Clear. Heart: S1, S2. Abdomen: Soft and depressible. Extremities: Diminished pulses bilaterally. On the left second toe, the patient has a diabetic ulce r in the plantar region, it is tracking down into his midfoot region, evidence of cellulitis present. Laboratory Data: Blood work shows WBC count of 17 with hemoglobin of 10. Creatinine is 1.41. Assessment: A 68-year-old patient with diabetic ulcer, circulation there is minimal. Even after the gangrene and surgery, circulation was minimal. It took several weeks and month just to get him to s ee his vascular surgeon. I am glad he just did, although once again, we do not have the results. We are going to try to get Dr. Vegas to see if he can give us some light on the treatment and the future for him. In the meantime that foot needs to be cleaned. There is an abscess present, so I and D of abscess with debridement of an infected diabetic ulcer discussed with the patient with benefits, alt ernatives, and risks to include, but not limited to infection, bleeding, damage to adjacent structure s, anesthesia complication, nonhealing wound, MO, even . He also understands this may not relie ve symptoms. He might need more than one surgical intervention. He also might need an MRI to rule o ut osteomyelitis. GAB/MODL Voice ID: [id number] Report ID: [id number]
[2023-12-29 17:42] LABS: Anion Gap 12.8 mEq/L (5.0-15.0); Potassium 3.8 mEq/L (3.5-5.1)
--- NOTE | 2023-12-29 20:07 | P.CNS ---
Date of Consult: 12/29/23 Reason for Consult: DUANE Requesting Physician: Wicho Traore Chief Complaint: Fall, DKA History of Present Illness: 68-year-old -[place] man with a past medical history diabetes, hypertension, osteomyelitis of the left lower extremity, recent toe amputation presents to the emergency room with moderate generalized weakness, fall. He reports hitting his head, he denies loss of consciousness, he reports right hip pain, bilateral knee pain, left lower extremity foot pain with recent amputation. He denies fever, chills, nausea vomiting, chest pain, shortness of breath. He has a VAC pack on the left lower extremity that is being followed by home health, family is at bedside reports home health has not been out to see patient. Sister reports patient recently lost his son, is experiencing moderate depression, exacerbated by being unable to work, recent toe amputation. ER evaluation BP 118 / 70; Pulse 70; Resp 19 S; Temp 97.8(TE); Pulse Ox 100% on R/A; Weight 115.67 kg (R); Height 5 ft. 11 in laboratory evaluation has leukocytosis CBCs at 17, likely secondary to left lower extremity recent toe amputation, noted malodorous odor. Will consult Dr. Oates to eval left lower extremity wound, with wound care consult to to eval and treat. Hyponatremia, likely pseudo hyponatremia, hyperglycemia at 525, abnormal renal function, acute kidney injury unknown baseline creatinine of 2.08 and GFR 34, nephrology consu lted, x-ray left tibial plateau, right knee negative for bony pathology, chest x-ray shows no acute thoracic pathology, pelvis x-ray shows no acute traumatic pathology, ABG acidosis at 7.33. Patient with hyperglycemia and anion gap, suspect patient with diabetic wound causing DKA. Will admit to ICU on insulin drip for DKA, leukocytosis left lower extremity toe wound, recent amputation, Dr. Oates to consult, with wound care eval and consult. Pseudohyponatremia, fall, moderate generalized weakness. [id number] 17:00 This 68 yrs old Black Male presents to ER via Wheelchair with complaints of Weakness, ec2 Fall Injury. 17:00 Patient arrives today for evaluation of generalized weakness as well as of recent fall ec2 2 days ago. Patient plaint of bilateral knee pain as well as right hip pain. Patient reports no LOC, reports he is having pain with ambulation. Patient is chronically ill, has a wound VAC on the left foot, denies any fevers or chills.. Allergies No Known Allergies Allergy (Unverified 07/07/13 11:38) Home medications list reviewed: Yes Home Medications: Pioglitazone HCl 30 mg PO DAILY 07/07/13 Amlodipine [Norvasc*] 10 mg PO DAILY 10/29/23 Aspirin [Aspirin EC 81 MG] 81 tab PO DAILY 10/29/23 Dulaglutide [Trulicity] 4.5 mg SQ SEECOM 10/29/23 Empagliflozin [Jardiance] 25 mg PO DAILY 10/29/23 Fenofibrate,Micronized [Fenofibrate] 134 mg PO DAILY 10/29/23 Losartan Potassium 100 mg PO DAILY 10/29/23 Rosuvastatin Calcium 40 tab PO BEDTIME 10/29/23 Spironolactone 25 tab PO DAILY 10/29/23 Tamsulosin [Flomax*] 0.4 cap PO DAILY 10/29/23 Furosemide [Lasix] 20 mg PO M,W,F #15 tab 11/03/23 Hydrocodone 7.5/APAP 325 [Davison 7.5/325 mg*] 1 tab PO Q6H PRN #20 tab 11/03/23 Insulin Glargine,Hum.rec.anlog [Toujeo Solostar] 30 unit SQ DAILY #2 syr 11/03/23 Mupirocin Calcium [Bactroban Nasal*] 1 appl MENDOZA BID #1 tube 11/03/23 Naph,Mb-Db/K pH,Mbdb [Neutra-Phos Packet] 1 each PO BID #6 packet 11/03/23 Nut.tx.gluc Intol,Lf,Soy/Fiber [Glucerna 1.5 Mariusz Liquid] 237 ml PO BIDAC #60 can 11/03/23 Potassium Chloride 10 meq PO M,W,F #15 tab 11/03/23 atenoloL [Tenormin*] 50 mg PO DAILY #30 tab 11/03/23 levoFLOXacin [Levaquin] 500 mg PO DAILY #3 tab 11/03/23 - Past Medical/Surgical History Diabetic: Yes -: DM-IDDM -: HTN -: Osteomyelitis left foot -: Left second toe amputation -: Fall -: left knee surgery 42 yrs ago - Social History Smoking Status: Current some day smoker Alcohol use: Yes CD- Drugs: No Caffeine use: Yes Review of Systems 10-point ROS is otherwise unremarkable General: Weakness, Malaise Physical Examination Temp Pulse Resp BP Pulse Ox 98.3 F 96 H 19 159/76 H 95 12/29/23 19:00 12/29/23 19:00 12/29/23 19:00 12/29/23 19:00 12/29/23 19:00 General: In no apparent distress, Oriented x3, Cooperative HEENT: Atraumatic Neck: Supple Respiratory: Normal air movement Cardiovascular: No edema, Regular rate/rhythm Gastrointestinal: Soft and benign, Non-distended Musculoskeletal: No clubbing, No contractures Integumentary: No rashes, No cyanosis, Diabetic ulcer Neurological: Normal speech Blood work reviewed in the chart. Imagings Data: [id number] EXAM DESCRIPTION: [facility] Single View12/28/2023 5:34 pm CLINICAL HISTORY: Chest pain COMPARISON: none FINDINGS: The lungs appear clear of acute infiltrate. The heart is mildly to moderately enlarged IMPRESSION: No acute abnormalities displayed Conclusions/Impression: Stage II DUANE in the setting of hypovolemia -No NSAIDs -Continue IVF Hyponatremia -Correct hyperglycemia Hypokalemia -Replete prn Hypophosphatemia -Replete prn HTN -Start Atenolol qhs DM II with Hyperglycemia & Peripheral Angiopathy -Insulin gtt DM II with Left Foot Ulcer -Continue abx -Wound culture as ordered Hypoalbuminemia -Recommend protein supplementation Anemia in chronic illness -Monitor H&H -PRBC prn Cigarette Smoker -Recommend cessation Hospitalist and ER notes reviewed Thank you kindly for the consultation
[2023-12-29] MEDS: atenoloL 25 MG TAB PO SCH (21:00)
[2023-12-29] MEDS: Ringers Lactate 1,000 ML IV SCH (21:00)
--- NOTE | 2023-12-29 21:55 | RAD REPORT ---
EXAM DESCRIPTION: MRI - Foot Left Wo Cont - 12/29/2023 8:55 pm CLINICAL HISTORY: worsening wound, s/p amputation, eval for osteo COMPARISON: Foot Left Wo Cont dated 10/29/2023; Foot Left 3 View dated 10/29/2023 TECHNIQUE: Multiplanar multisequence MRI of the left foot, obtained without IV contrast. FINDINGS: Soft tissue defect along the medial aspect of the hindfoot. Susceptibility artifact sugges ting gas is present underneath the presumed wound, and extending along the sole of the foot anteriorl y. Heterogeneous areas of low signal along the forefoot sign on the level of the second and third met atarsal heads, may also relate to soft tissue gas. Sequelae of second digit amputation. Soft tissue swelling and defect with supplying the defect presen t at the amputation stump. There is extensive signal abnormality with low T1 and increased T2 signal along the entirety of the s econd metatarsal reaching the base, with irregularity and possible destructive changes in the region of the head of the second metatarsal, and third metatarsal head as well as the third digit proximal p halanx. Similar signal abnormalities are seen along the third metatarsal, although a segment of prese rved signal is seen most distally. Similar signal abnormalities are also noted along the fourth digit proximal phalanx. Joint alignment along the midfoot and hindfoot isthmic pain. No appreciable fluid collections within limits of noncontrast evaluation. Swelling along the interosseous and deep muscles of the foot. IMPRESSION: Findings suggestive of osteomyelitis involving the second metatarsal, third metatarsal a s well as the third digit with destructive changes of the third digit proximal phalanx, as well as th e fourth digit proximal phalanx. Extensive areas of soft tissue gas are suspected as above, correlati on with radiographs recommended.
[2023-12-29] MEDS ORDERED: DULOXETINE 30 MG CAP PO ONE (21:57)
[2023-12-29] MEDS ORDERED: ACETAMINOPHEN 325 MG TABLET ONE (21:57)
[2023-12-29] MEDS ORDERED: atenoloL 50 MG TAB ONE (21:58)
[2023-12-29] MEDS ORDERED: Ringers Lactate 1,000 ML IV ONE (21:58)
[2023-12-29] MEDS: ACETAMINOPHEN 325 MG TABLET PO PRN (22:00)
[2023-12-30] MEDS ORDERED: NA CHLORIDE 0.9% 100 ML ONE ×2 (01:47→09:20)
[2023-12-30] MEDS ORDERED: PIPERACIL/TAZO 3.375 GM VIAL IV ONE ×2 (01:48→09:21)
[2023-12-30 04:37] LABS: Absolute Basophils 0.2 K/uL (0-0.5); Absolute Eosinophils 0.1 K/uL (0-0.5); Absolute Lymphocytes (CBC) 1.1 K/uL (0.7-4.9); Absolute Monocytes 1.4 K/uL (0.1-1.3); Absolute Neutrophil 14.6 K/uL (1.8-8.0); Basophils % 1.2 % (0-1.3); Eosinophils % 0.6 % (0-4.4); Hematocrit 30.1 % (39.6-49.0); Lymphocytes % 6.5 % (15.3-44.8); MCH 28.4 pg (27.0-35.0); MCHC 33.1 g/dL (32.0-36.0); MCV 85.7 fL (80-100); MPV 8.2 fL (7.6-11.3); Monocytes % 7.9 % (3.3-12.3); Neutrophils % 83.8 % (41.7-73.7); Platelets 423 thou/uL (152-406); RBC Red Blood Cell Count 3.51 M/uL (4.33-5.43); Red Cell Distribution Width 15.5 % (12.1-15.2)
[2023-12-30 04:45] LABS: Albumin 1.6 g/dL (3.4-5.0); Albumin/Globulin Ratio 0.3 (1.1-1.8); Anion Gap 11.7 mEq/L (5.0-15.0); Bilirubin Total 0.6 mg/dL (0.2-1.0); Globulin 5.6 g/dL (2.3-3.5); Magnesium 2.4 mg/dL (1.6-2.4); Phosphorus 2.3 mg/dL (2.5-4.9); Potassium 3.7 mEq/L (3.5-5.1); Protein, Total 7.2 g/dL (6.4-8.2); Uric Acid 4.5 mg/dL (3.5-7.2)
--- NOTE | 2023-12-30 07:53 | P.PN ---
Date of Service: 12/30/23 Subjective: tentative plan for I&D today vs vascular no significant changes overnight afebrile ROS: 10 point ROS as noted above, otherwise negative Physical Exam: GEN: Alert, oriented, NAD HEENT: Normal conjunctiva, sclera anicteric CV: Regular rate and rhythm, 1+ b/l edema in lower extremities Pulm: Nonlabored respirations on room air, clear bilaterally ABD: Soft, nontender, nondistended Integumentary: wound at amputation site left 2nd toe, and purulent drainage noted between 3rd-4th digit. Desquamated skin on lateral/dorsal aspect Neuro: Normal speech, normal affect vitals reviewed Problem List: DKA, improved IDDM2 Osteomyelitis left foot with presumed abscess recent history of lower left extremity osteomyelitis s/p left second toe amputation (11/02/23) DUANE, resolved Bilateral knee pain / right hip pain post fall Depression DKA, improved IDDM2 continue insulin drip with palns to transition to subq insulin after surgery confirm home dose insulin PRN dextrose / glucagon anion gap closed 12/28 continue ICU level of care until off drip a1c: 11.0 Osteomyelitis left foot with presumed abscess recent history of lower left extremity osteomyelitis s/p left second toe amputation (11/02/23) Patient with recent history of osteomyelitis of left foot - second middle and distal phalanx. Had I&D (10/29) and amputation of left second toe (11/01) with Dr. Oates. Wound cultures at the time grew Enterococcus gallinarum and Staphylococcus lugdunensis - treated with cefepime / vanc while hospitalized and discharged with PO levaquin x3 days MRI left foot (12/28): osteomyelitis involving the second metatarsal, third metatarsal as well as the third digit with destructive changes of the third digit proximal phalanx, as well as the fourth digit proximal phalanx. Extensive areas of soft tissue gas underneath the presumed wound, extending along the sole of the foot anteriorly General surgery - Dr. Oates consulted NPO for tentative I&D of wound/abscess suspect will likely need amputation Wound cx (12/28): 3+ mixed skin bethany prelim Blood cx (12/27): NGTD ID following continue empiric vanc / zosyn (12/28-) Clindamycin added (12/29-) afebrile, +leukocytosis 15.2 -> 17.5 (12/29) suspect secondary to infection vs DKA reportedly with recent outpatient PAD workup and saw Dr. Vegas - consulted 12/28, to see pt in next 24-48hrs, possibly angio while inpatient DUANE, resolved Nephrology consulted continue to monitor renal function continue IV fluids improved Bilateral knee pain / right hip pain post fall xray knee/pelvis negative for any acute fractures or dislocations. Did note 14mm lucency with septations within left medial tibial plateau - likely benign. f/u xray in 3 months recommended to reeval PRN analgesics PT eval Depression duloxetine at bedtime VTE: heparin sq Code: Full Dispo: Home with HH Pending surgical eval / recs, glc stable
[2023-12-30] MEDS ORDERED: KCL 20 MEQ/100 mL IVPB 100 ML IV ONE (09:20)
[2023-12-30] MEDS: KCL 20 MEQ/100 mL IVPB 20 MEQ/100 ML BAG IV SCH (09:37)
[2023-12-30] MEDS: PNEUMOCOCCAL VACCINE 0.5 ML IMVAC ONE (10:00)
[2023-12-30] MEDS ORDERED: CLINDAMYCIN INJ 900 MG in NA CHLORIDE 0.9% 50 ML IV SCH (10:00)
[2023-12-30] MEDS: CLINDAMYCIN 900MG/D5W 900 MG/50 ML IVPB IV SCH ×3 (10:00→17:04)
--- NOTE | 2023-12-30 10:13 | P.PN ---
Date of Service: 12/30/23 INFECTIOUS DISEASE PROGRESS NOTE Subjective: NAD. No new/worsening complaints. Pending debridement of wound. Physical Examination Temp Pulse Resp BP Pulse Ox 98.4 F 85 17 171/75 H 96 12/30/23 08:00 12/30/23 08:00 12/30/23 08:00 12/30/23 08:00 12/30/23 08:00 General: In no apparent distress, Oriented x3 HEENT: Atraumatic, Normocephalic Respiratory: Clear to auscultation bilaterally, Normal air movement Cardiovascular: Regular rate/rhythm, Edema. nonpalpable pedal pulses. Gastrointestinal: Normal bowel sounds, No tenderness. Integumentary: diabetic/arterial/surgical wound infection left foot Laboratory, Microbiology and Imaging Data reviewed Assessment and Plan Problem List Osteomyelitis left foot DKA, improved Diabetes Mellitus type II, insulin dependent DUANE Depression Hypertension Osteomyelitis left foot with abscess - recent osteomyelitis s/p left second toe amputation (11/02/23) by Dr. Иван Benton foot wound culture 12/28: pending - blood cultures 12/27: NGTD - MRI left foot 12/28: "Findings suggestive of osteomyelitis involving the second metatarsal, third metatarsal as well as the third digit with destructive changes of the third digit proximal phalanx, as well as the fourth digit proximal phalanx. Extensive areas of soft tissue gas are suspected as above, correlation with radiographs recommended." - leukocytosis (WBC 17.5). afebrile - currently on vancomycin and zosyn patient reportedly had seen a vascular surgeon recently, pending medical records for information. Recommendations - continue vancomycin and zosyn for now. pending wound culture results - pending arterial doppler - monitor cbc, bmp, vanco troughs - strict blood glucose control - pending debridement left foot Dr. Oates. continue wound care per Dr Oates. - continue supportive care case discussed with Sonny Arreguin
[2023-12-30] MEDS ORDERED: HEPARIN 5000 UNIT/ML 1 ML VIAL ONE (11:01)
[2023-12-30] MEDS ORDERED: HEPA 1000U/500MLS 2,000 UNIT/1,000 ML BAG IV ONE (12:21)
[2023-12-30] MEDS ORDERED: MIDAZOLAM HCL 2 MG/2 ML INJ ONE (12:22)
[2023-12-30] MEDS ORDERED: ATROPINE SULF 1 MG/10 ML SYR IV ONE (12:22)
[2023-12-30] MEDS ORDERED: FENTANYL CITR 100 MCG/2 ML ONE (12:22)
[2023-12-30] MEDS ORDERED: LIDOCAINE 1% 20 ML MDV ONE (12:22)
[2023-12-30] MEDS ORDERED: HEPARIN 10,000 UNIT/10 ML VIAL IV ONE (12:23)
[2023-12-30] MEDS ORDERED: NA CHLORIDE 0.9% 500 ML ONE (12:29)
[2023-12-30] MEDS ORDERED: MORPHINE 4 MG/ML SYR IV PRN (12:58)
[2023-12-30] MEDS ORDERED: LABETALOL 20 MG/4ML SYRINGE IV ONE (13:11)
[2023-12-30] MEDS: INSULIN REGULAR (HUMAN) 100 UNIT/ML SQ SCH (16:30)
[2023-12-30] MEDS: INSULIN GLARGINE 100 UNIT/ML SQ SCH (17:28)
[2023-12-30] MEDS: HYDROCODONE/APAP 5/325 MG TAB PO PRN (19:06)
[2023-12-30] MEDS: INSULIN REGULAR (HUMAN) 100 UNIT/ML ONE (20:54)
--- NOTE | 2023-12-30 21:31 | P.PN ---
Date of Service: 12/30/23 Vital Signs Temp Pulse Resp BP Pulse Ox 98 F 85 19 132/83 100 12/30/23 20:00 12/30/23 21:00 12/30/23 21:00 12/30/23 21:00 12/30/23 21:00 Medications Acetaminophen (Acetaminophen 325 Mg Tablet) 650 mg PO Q6H PRN PRN Reason: fever Last Admin: 12/29/23 22:00 Dose: 650 mg Hydrocodone Bitart/Acetaminophen (Hydrocodone/Apap 5/325 Mg Tab) 1 tab PO Q4H PRN PRN Reason: Pain scale 5-7 (Moderate) Last Admin: 12/30/23 19:06 Dose: 1 tab Atenolol (Atenolol 25 Mg Tab) 25 mg PO BEDTIME [facility] Last Admin: 12/30/23 20:51 Dose: 25 mg Dextrose (D10w 250 Ml Bag) 125 ml IV PRN PRN; Protocol PRN Reason: HYPOGLYCEMIA Duloxetine HCl (Duloxetine 30 Mg Cap) 30 mg PO BEDTIME [facility] Last Admin: 12/30/23 20:51 Dose: 30 mg Glucagon (Glucagon 1 Mg/Vial) 1 mg IM 1X PRN; Protocol PRN Reason: HYPOGLYCEMIA Heparin Sodium (Porcine) (Heparin 5000 Unit/Ml 1 Ml Vial) 5,000 unit SQ Q12HR [facility] Last Admin: 12/30/23 20:52 Dose: 5,000 unit Piperacillin Sod/Tazobactam (Sod 3.375 gm/ Sodium Chloride) 100 mls @ 25 mls/hr IV Q8HR [facility]; Protocol Last Admin: 12/30/23 17:01 Dose: 100 mls Vancomycin HCl 1.5 gm/ Sodium (Chloride) 500 mls @ 250 mls/hr IVPB Q24H [facility]; Protocol Last Admin: 12/30/23 11:05 Dose: 500 mls Dextrose (Dextrose 10% Water Iv Soln.) 125 mls @ 0 mls/hr IV PRN PRN; Protocol PRN Reason: HYPOGLYCEMIA Lactated Ringer's (Lactated Ringers) 1,000 mls @ 100 mls/hr IV .Q10H [facility] Last Admin: 12/30/23 17:05 Dose: 1,000 mls Clindamycin HCl/Dextrose (Cleocin 900 Mg/D5w 50 Ml Iv) 900 mg in 50 mls @ 100 mls/hr IV Q8H [facility] Last Admin: 12/30/23 17:04 Dose: 50 mls Insulin Glargine (Insulin Glargine 100 Unit/Ml) 20 unit SQ DAILY AT SUPPER [facility] Last Admin: 12/30/23 17:28 Dose: 20 unit Insulin Human Regular (Insulin Regular (Human) 100 Unit/Ml) 0 unit SQ ACHS [facility]; Protocol Last Admin: 12/30/23 21:00 Dose: 2 unit Morphine Sulfate (Morphine 4 Mg/Ml Syr) 2 mg IV Q4H PRN PRN Reason: Pain scale 8-10 (Severe) Ondansetron HCl (Ondansetron 4 Mg/2 Ml Vial) 4 mg IV Q6H PRN PRN Reason: NAUSEA / VOMITING Microbiology Results 12/28/23 18:29 Blood - Blood Aerobic Blood Culture - Preliminary No growth in 24 hours. 12/28/23 18:29 Blood - Blood Anaerobic Blood Culture - Preliminary No growth in 24 hours. 12/28/23 18:20 Blood - Blood Aerobic Blood Culture - Preliminary No growth in 24 hours. 12/28/23 18:20 Blood - Blood Anaerobic Blood Culture - Preliminary No growth in 24 hours. Assessment/ Plan: Nephrology No dyspnea No chest pain No acute events overnight Vitals, medications, blood work and imaging reviewed in the chart General: In no apparent distress, Oriented x3, Cooperative HEENT: Atraumatic Neck: Supple Respiratory: Normal air movement Cardiovascular: No edema, Regular rate/rhythm Gastrointestinal: Soft and benign, Non-distended Musculoskeletal: No clubbing, No contractures Integumentary: No rashes, No cyanosis, Diabetic ulcer Neurological: Normal speech Blood work reviewed in the chart. Imagings Data: [id number] EXAM DESCRIPTION: [facility] Single View12/28/2023 5:34 pm CLINICAL HISTORY: Chest pain COMPARISON: none FINDINGS: The lungs appear clear of acute infiltrate. 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 Traore
[2023-12-31 05:11] LABS: Absolute Basophils 0.2 K/uL (0-0.5); Absolute Eosinophils 0.4 K/uL (0-0.5); Absolute Lymphocytes (CBC) 1.2 K/uL (0.7-4.9); Absolute Monocytes 1.3 K/uL (0.1-1.3); Absolute Neutrophil 12.7 K/uL (1.8-8.0); Eosinophils % 2.5 % (0-4.4); Hematocrit 28.5 % (39.6-49.0); Hemoglobin 9.2 g/dL (13.6-17.9); Lymphocytes % 7.9 % (15.3-44.8); MCH 27.6 pg (27.0-35.0); MCHC 32.2 g/dL (32.0-36.0); MCV 85.6 fL (80-100); MPV 8.7 fL (7.6-11.3); Monocytes % 8.3 % (3.3-12.3); Neutrophils % 80.3 % (41.7-73.7); Platelets 382 thou/uL (152-406); RBC Red Blood Cell Count 3.32 M/uL (4.33-5.43); Red Cell Distribution Width 15.5 % (12.1-15.2)
[2023-12-31 05:15] LABS: Anion Gap 13.8 mEq/L (5.0-15.0); Magnesium 2.1 mg/dL (1.6-2.4); Phosphorus 2.8 mg/dL (2.5-4.9); Potassium 3.8 mEq/L (3.5-5.1)
[2023-12-31] MEDS: KCL 20 MEQ/100 mL IVPB 20 MEQ/100 ML BAG IV SCH (06:10)
[2023-12-31] MEDS ORDERED: ONDANSETRON 4 MG/2 ML VIAL ONE (07:02)
[2023-12-31] MEDS ORDERED: LIDOCAINE 2% MPF 5 ML VIAL ONE (07:02)
[2023-12-31] MEDS ORDERED: FENTANYL CITR 100 MCG/2 ML ONE (07:02)
[2023-12-31] MEDS ORDERED: propofoL 200 MG/20 ML VIAL IV ONE (07:02)
[2023-12-31] MEDS ORDERED: MIDAZOLAM HCL 2 MG/2 ML INJ ONE (07:02)
[2023-12-31] MEDS: NA CHLORIDE 0.9% 1,000 ML ONE (07:32)
[2023-12-31] MEDS: Ringers Lactate 1,000 ML IV ONE (07:40)
[2023-12-31] MEDS ORDERED: EPHEDRINE SULF 50 MG/ML VIAL ONE (08:01)
--- NOTE | 2023-12-31 08:11 | P.PN ---
Date of Service: 12/31/23 Subjective: s/p angioplasty and stenting of left SFA yesterday with Dr. Vegas had extensive debridement down to the bone of the left foot wound today with Dr. Oates no significant changes overnight afebrile ROS: 10 point ROS as noted above, otherwise negative Physical Exam: GEN: Alert, oriented, NAD HEENT: Normal conjunctiva, sclera anicteric CV: Regular rate and rhythm, 1+ b/l edema in lower extremities Pulm: Nonlabored respirations on room air, diminished bilaterally ABD: Soft, nontender, nondistended Integumentary: surgical dressing in place Neuro: Normal speech, normal affect vitals reviewed Problem List: Osteomyelitis / gangrenous left foot wound s/p extensive I&D (12/30) Severe PAD s/p angioplasty and stenting of left SFA (12/29) recent history of lower left extremity osteomyelitis s/p left second toe amputa tion (11/02/23) DKA, improved IDDM2 DUANE, resolved Bilateral knee pain / right hip pain post fall Depression Osteomyelitis / gangrenous left foot wound s/p extensive I&D (12/30) Severe PAD s/p angioplasty and stenting of left SFA (12/29) recent history of lower left extremity osteomyelitis s/p left second toe amputation (11/02/23) Patient with recent history of osteomyelitis of left foot - second middle and distal phalanx. Had I&D (10/29) and amputation of left second toe (11/01) with Dr. Oates. Wound cultures at the time grew Enterococcus gallinarum and Staphylococcus lugdunensis - treated with cefepime / vanc while hospitalized and discharged with PO levaquin x3 days MRI left foot (12/28): osteomyelitis involving the second metatarsal, third metatarsal as well as the third digit with destructive changes of the third digit proximal phalanx, as well as the fourth digit proximal phalanx. Extensive areas of soft tissue gas underneath the presumed wound, extending along the sole of the foot anteriorly Dr. Vegas - consulted 12/28 s/p angiogram - found to have critical stenosis of the left proximal superficial femoral artery (~90%) s/p angioplasty and stenting of left SFA (12/29) plavix to start post-op General surgery - Dr. Oates consulted s/p extensive I&D of left gangrenous necrotic wound (12/30). Found to have necrotic tissue and multiple bone fracture fragments of 2/3rd metatarsal head during surgery local wound care per surgery follow surgical wound cultures Wound cx (12/28): 3+ mixed skin bethany prelim Blood cx (12/27): NGTD ID following continue empiric vanc / zosyn (12/28-) Clindamycin added (12/29-) afebrile, +leukocytosis 17.5 -> 15.8 (12/30) may need further debridement/amputation DKA, improved IDDM2 insulin drip transitioned to subq insulin 12/29 post surgery continue semglee 20units. Adjust as needed accu-checks with sliding scale anion gap closed 12/28 confirm home dose insulin PRN dextrose / glucagon a1c: 11.0 DUANE, resolved Nephrology consulted continue to monitor renal function dc IVF 12/30 Bilateral knee pain / right hip pain post fall xray knee/pelvis negative for any acute fractures or dislocations. Did note 14mm lucency with septations within left medial tibial plateau - likely benign. f/u xray in 3 months recommended to re-eval PRN analgesics PT eval Depression duloxetine at bedtime VTE: heparin sq Code: Full Dispo: Home with HH Pending surgery/recovery, glc stable, culture results
[2023-12-31] MEDS: BUPIVACAINE 0.5% PF 10 ML VIAL ONE (08:30)
[2023-12-31] MEDS: SILVER SULFADIAZINE 1% 25 GM TOP ONE (09:00)
--- NOTE | 2023-12-31 09:05 | P.BOP ---
Preoperative diagnosis: left foot gangrenous foot , large necrotic wound Postoperative diagnosis: same, osteomyelitis Primary procedure: Excisional debridement down to bone of left foot gangrenous foot Secondary procedure: with extensive debridement down to bone 80 [id number] Other procedure(s): Pulse lavage 6 liters Estimated blood loss: <10cc Specimen: necrotic tissue, pieces of broken bones, culture Findings: multiple bone fracture fragments 2 and 3rd metatarsal head Complications: None Drain(s): Other Transferred to: ICU Condition: Fair
--- NOTE | 2023-12-31 09:32 | P.PN ---
Date of Service: 12/31/23 INFECTIOUS DISEASE PROGRESS NOTE Subjective: - s/p debridement of left foot necrotic wound this morning by Dr. Oates patient seen and examined in ICU He denies any new or worsening complaints at this time. Physical Examination Temp Pulse Resp BP Pulse Ox 98.0 F 79 18 154/64 H 96 12/31/23 09:10 12/31/23 09:20 12/31/23 09:20 12/31/23 09:20 12/31/23 06:00 General: In no apparent distress, Oriented x3 HEENT: Atraumatic, Normocephalic Respiratory: Clear to auscultation bilaterally, Normal air movement. Unlabored respirations on room air. Cardiovascular: Regular rate/rhythm, Edema. Gastrointestinal: Normal bowel sounds, No tenderness. Integumentary: left foot dressing clean dry and intact. Laboratory, Microbiology and Imaging Data reviewed - L foot wound culture 12/28: skin bethany - blood cultures 12/27: NGTD Assessment and Plan Problem List Osteomyelitis left foot Peripheral arterial disease Diabetes Mellitus type II, insulin dependent DUANE - resolved DKA- resolved Depression Hypertension Osteomyelitis left foot Gangrene left foot - recent osteomyelitis s/p left second toe amputation (11/02/23) by Dr. Oates - MRI left foot 12/28: "Findings suggestive of osteomyelitis involving the second metatarsal, third metatarsal as well as the third digit with destructive changes of the third digit proximal phalanx, as well as the fourth digit proximal phalanx. Extensive areas of soft tissue gas are suspected as above, correlation with radiographs recommended." - currently on vancomycin, zosyn (12/27-) and clindamycin (12/29-) - s/p debridement on 12/[address] Oates --> tissue culture 12/30: pending - leukocytosis slightly improving (WBC 17.5 -> 15.8). afebrile patient reportedly had seen a vascular surgeon recently, pending medical records for information. Recommendations - continue vancomycin, zosyn and clindamycin given soft tissue gas seen on MRI. - osteomyelitis left 2nd, 3rd and 4th digit: continue antibiotic therapy for 6 weeks duration (12/27-02/07) -- will follow up with tissue/bone culture results from debridement 12/30 and adjust antibiotics as appropriate. - monitor CBC, BMP vanco troughs - strict blood glucose control; goal <180 - Continue wound care per Dr. Oates. - supportive care - PAD: Recommend following up with vascular surgery. case discussed with Sonny Arreguin
[2023-12-31] MEDS: VANCOMYCIN 1.5 GM in NA CHLORIDE 0.9% 500 ML IVPB SCH (11:58)
[2023-12-31] MEDS: INSULIN REGULAR (HUMAN) 100 UNIT/ML SQ SCH (13:20)
--- NOTE | 2023-12-31 14:32 | OP ---
Date of Procedure: 12/31/2023 Surgeon: Sergo Oates MD Preoperative Diagnoses: Left foot gangrene, large necrotic wound, abscess, osteomyelitis, diabetes. Postoperative Diagnoses: Left foot gangrene, large necrotic wound, abscess, osteomyelitis, diabetes. Procedure: Excisional debridement down to bone of left foot gangrenous foot with an extensive debrid ement down to bone about 80 x 20 x 2 cm and pulse lavage about 6 L. Estimated Blood Loss: Less than 10 cc. Specimen: Necrotic tissue, pieces of broken bone cultures. Findings: Severe inflammation and infection down to bone and fascia. Interesting enough, we have 2 broken bones, third and second metatarsal bones, just pieces of it comes out. The third toe is float ing, still not necrotic yet. We believe he might need an amputation in the future of that and at thi s moment, if it does not improve, he might need amputation of the foot, below-knee amputation, althou gh I understand he is not ready for that decision yet. Complications: None. Packing: A wet-to-dry Silvadene. Disposition: Transferred to ICU. Indications: This is the case of a 68-year-old patient with diabetes. He came with gangrene of the left foot and had an amputation of the left foot several months ago. He has been trying to go to the vascular doctors since we know and he understand he has to improve the circulation in that area. He has not been able to make that appointment until about last week, where he was diagnosed with severe disease. Once he noticed that he has an appointment with his Vascular, but before that he noticed t he foot was getting worse, so he came to the ER, diagnosed with severe inflammation and infection of the left foot down to the calcaneus region. At that moment, the patient got emergent revascularizati on by Dr. Sparrow yesterday last night and then scheduled surgery for debridement. He is not ready for an amputation yet, even though he was advised to do so, so he is going to be admitted to debride that area. He understands that this may be a just temporary measure, but we understand his concern. The benefits, alternatives, and risks of debridement fully explained, which include, but not limited to infection, bleeding, damage to adjacent structures, anesthesia complication, more gangrene of the arron t, ID, and even . He also understands this may not relieve any symptoms. He might need more th an one surgical intervention. Definitely, he is going to require further debridements. What I belie ve make this worse is that about 2 days ago, apparently he fell and I believe that contribute most li kevyn to this broken bones and deterioration of his foot to the point that he is about to lose it. Procedure In Detail: The patient was brought to the operating room and placed in supine position. A nesthesia was done without complication. Left leg was prepped and draped in sterile fashion. A time -out was called. Local anesthetic was applied enough so that we proceed to do debridement. This nec rotic tissue comes toes, foot, region, plantar area with fascia involved. Two piece of me tatarsal heads coming from the foot area and those I believe the long to second and third based on vi sualization of this area. This bones were sent for bone biopsy. They are just broke in. Then, I guy ve to make a large incision from the front of the foot to the back of the foot on the plantar aspect, multiple counter incisions go underneath the fascia, debride some of the fascia, debride the necroti c tissue, leaving an open area at least 80 cm in length and 20 cm wide. We did pulse lavage that reg ion including the metatarsal region of about 6 L of fluid. Then, after that, we proceeded to clean t he area and packed the area with Silvadene and wet-to-dry gauze. The patient tolerated the procedure well. Hemostasis was obtained, although there is not much of a blood to talk about. From the surgi severiano standpoint, we are going to continue dressing changes. May need further debridements. Follow wi th the Vascular, he came yesterday, was kind enough to stand him yesterday, but apparently the rest of other procedures need to be done. Continue with that. Continue the antibiotics. HM/MODL Voice ID: [id number] Report ID: [id number]
--- NOTE | 2023-12-31 15:13 | EKG ---
Test Date: 2023-12-28 Test Time: 17:38:00 Brake Machine Operator: MB MEASUREMENT RESULTS: Intervals: Rate: 140 [place]: QRSD: 134 QT: 300 QTc: 458 [place]: P: LA: QRS: -63 T: 67 INTERPRETIVE STATEMENTS: Atrial fibrillation with rapid ventricular response with premature ventricular or aberrantly conducted complexes Right bundle branch block Left anterior fascicular block Bifascicular block Abnormal ECG Compared to ECG 12/28/2023 16:48:50 Ventricular premature complex(es) now present Right bundle-branch block now present Left anterior fascicular block now present Bifascicular block now present Sinus rhythm no longer present Sinus arrhythmia no longer present Electronically Signed On 12-31-23 15:02:17 CDT by Rivera Kwon
--- NOTE | 2023-12-31 15:14 | EKG ---
Test Date: 2023-12-28 Test Time: 16:48:50 Casino Banker: MB MEASUREMENT RESULTS: Intervals: Rate: 75 [place]: 126 QRSD: 92 QT: 428 QTc: 477 [place]: P: 51 [place]: 126 QRS: 23 T: 59 INTERPRETIVE STATEMENTS: Normal sinus rhythm with sinus arrhythmia Normal ECG No previous ECG available for comparison Electronically Signed On 12-31-23 15:02:19 CDT by Rivera Kwon
[2023-12-31] MEDS ORDERED: INSULIN REGULAR (HUMAN) 100 UNIT/ML SQ SCH ×2 (16:30)
[2023-12-31] MEDS: AMINO ACIDS/PROTEIN HYDROLYS 30 ML LIQUID.PKT PO SCH (20:19)
--- NOTE | 2023-12-31 21:45 | P.PN ---
Date of Service: 12/31/23 Vital Signs Temp Pulse Resp BP Pulse Ox 98.2 F 80 21 H 134/53 L 100 12/31/23 20:00 12/31/23 21:00 12/31/23 21:00 12/31/23 21:00 12/31/23 21:00 Medications Acetaminophen (Acetaminophen 325 Mg Tablet) 650 mg PO Q6H PRN PRN Reason: fever Last Admin: 12/29/23 22:00 Dose: 650 mg Hydrocodone Bitart/Acetaminophen (Hydrocodone/Apap 5/325 Mg Tab) 1 tab PO Q4H PRN PRN Reason: Pain scale 5-7 (Moderate) Last Admin: 12/30/23 19:06 Dose: 1 tab Amino Acids (Amino Acids/Protein Hydrolys 30 Ml Liquid.Pkt) 30 ml PO BID [facility] Last Admin: 12/31/23 20:19 Dose: 30 ml Atenolol (Atenolol 25 Mg Tab) 25 mg PO BEDTIME [facility] Last Admin: 12/31/23 20:19 Dose: 25 mg Clopidogrel Bisulfate (Clopidogrel 75 Mg Tablet) 75 mg PO DAILY [facility] Dextrose (D10w 250 Ml Bag) 125 ml IV PRN PRN; Protocol PRN Reason: HYPOGLYCEMIA Duloxetine HCl (Duloxetine 30 Mg Cap) 30 mg PO BEDTIME [facility] Last Admin: 12/31/23 20:19 Dose: 30 mg Glucagon (Glucagon 1 Mg/Vial) 1 mg IM 1X PRN; Protocol PRN Reason: HYPOGLYCEMIA Heparin Sodium (Porcine) (Heparin 5000 Unit/Ml 1 Ml Vial) 5,000 unit SQ Q12HR [facility] Last Admin: 12/31/23 20:19 Dose: 5,000 unit Piperacillin Sod/Tazobactam (Sod 3.375 gm/ Sodium Chloride) 100 mls @ 25 mls/hr IV Q8HR [facility]; Protocol Last Admin: 12/31/23 17:09 Dose: 100 mls Dextrose (Dextrose 10% Water Iv Soln.) 125 mls @ 0 mls/hr IV PRN PRN; Protocol PRN Reason: HYPOGLYCEMIA Clindamycin HCl/Dextrose (Cleocin 900 Mg/D5w 50 Ml Iv) 900 mg in 50 mls @ 100 m ls/hr IV Q8H [facility] Last Admin: 12/31/23 17:09 Dose: 50 mls Vancomycin HCl 1.5 gm/ Sodium (Chloride) 500 mls @ 250 mls/hr IVPB Q18H [facility]; Protocol Last Admin: 12/31/23 11:58 Dose: 500 mls Insulin Glargine (Insulin Glargine 100 Unit/Ml) 20 unit SQ DAILY AT SUPPER [facility] Last Admin: 12/31/23 17:24 Dose: 20 unit Insulin Human Regular (Insulin Regular (Human) 100 Unit/Ml) 0 unit SQ ACHS [facility]; Protocol Last Admin: 12/31/23 20:19 Dose: 2 unit Morphine Sulfate (Morphine 4 Mg/Ml Syr) 2 mg IV Q4H PRN PRN Reason: Pain scale 8-10 (Severe) Ondansetron HCl (Ondansetron 4 Mg/2 Ml Vial) 4 mg IV Q6H PRN PRN Reason: NAUSEA / VOMITING Microbiology Results 12/28/23 18:29 Blood - Blood Aerobic Blood Culture - Preliminary No growth in 24 hours. 12/28/23 18:29 Blood - Blood Anaerobic Blood Culture - Preliminary No growth in 24 hours. 12/28/23 18:20 Blood - Blood Aerobic Blood Culture - Preliminary No growth in 24 hours. 12/28/23 18:20 Blood - Blood Anaerobic Blood Culture - Preliminary No growth in 24 hours. Assessment/ Plan: Nephrology No dyspnea No chest pain No acute events overnight Vitals, medications, blood work and imaging reviewed in the chart General: In no apparent distress, Oriented x3, Cooperative HEENT: Atraumatic Neck: Supple Respiratory: Normal air movement Cardiovascular: No edema, Regular rate/rhythm Gastrointestinal: Soft and benign, Non-distended Musculoskeletal: No clubbing, No contractures Integumentary: No rashes, No cyanosis, Diabetic ulcer Neurological: Normal speech Blood work reviewed in the chart. Imagings Data: [id number] EXAM DESCRIPTION: [facility] Single View12/28/2023 5:34 pm CLINICAL HISTORY: Chest pain COMPARISON: none FINDINGS: The lungs appear clear of acute infiltrate. The heart is mildly to moderately enlarged IMPRESSION: No acute abnormalities displayed Conclusions/Impression: Stage II DUANE in the setting of hypovolemia -No NSAIDs -Continue IVF Hyponatremia -Correct hyperglycemia Hypokalemia -Replete prn Hypophosphatemia -Replete prn HTN -Continue Atenolol qhs; titrate as needed DM II with Hyperglycemia & Peripheral Angiopathy -Continue Lantus -RISS DM II with Left Foot Ulcer -Continue abx -Wound care as ordered Hypoalbuminemia -Recommend protein supplementation Anemia in chronic illness -Monitor H&H -PRBC prn Cigarette Smoker -Recommend cessation Hospitalist and ID notes reviewed
[2024-01-01 04:50] LABS: Absolute Basophils 0.1 K/uL (0-0.5); Absolute Eosinophils 0.5 K/uL (0-0.5); Absolute Lymphocytes (CBC) 1.1 K/uL (0.7-4.9); Absolute Monocytes 1.4 K/uL (0.1-1.3); Basophils % 0.7 % (0-1.3); Eosinophils % 3.3 % (0-4.4); Hematocrit 26.6 % (39.6-49.0); Hemoglobin 8.6 g/dL (13.6-17.9); MCH 27.8 pg (27.0-35.0); MCHC 32.2 g/dL (32.0-36.0); MCV 86.3 fL (80-100); MPV 9.6 fL (7.6-11.3); Monocytes % 9.2 % (3.3-12.3); Neutrophils % 79.8 % (41.7-73.7); Nucleated Red Blood Cells % 0.1 % (0-0); Platelets 245 thou/uL (152-406); RBC Red Blood Cell Count 3.08 M/uL (4.33-5.43); Red Cell Distribution Width 15.9 % (12.1-15.2)
[2024-01-01 05:10] LABS: Anion Gap 12.8 mEq/L (5.0-15.0); Magnesium 2.1 mg/dL (1.6-2.4); Phosphorus 2.8 mg/dL (2.5-4.9); Potassium 3.8 mEq/L (3.5-5.1)
[2024-01-01] MEDS: CLOPIDOGREL 75 MG TABLET PO SCH (08:34)
--- NOTE | 2024-01-01 08:46 | P.PN ---
Date of Service: 01/01/24 Subjective: stable no worsening no acute events overnight ROS: 10 point ROS as noted above, otherwise negative Physical Exam: GEN: Alert, oriented, NAD HEENT: Normal conjunctiva, sclera anicteric CV: Regular rate and rhythm, 1+ b/l edema in lower extremities Pulm: Nonlabored respirations on room air, diminished bilaterally ABD: Soft, nontender, nondistended Integumentary: dressing in place Neuro: Normal speech, normal affect vitals reviewed Problem List: Osteomyelitis / gangrenous left foot wound s/p extensive I&D (12/30) Severe PAD s/p angioplasty and stenting of left SFA (12/29) recent history of lower left extremity osteomyelitis s/p left second toe amputation (11/02/23) DKA, resolved IDDM2 DUANE, resolved Bilateral knee pain / right hip pain post fall Depression Osteomyelitis / gangrenous left foot wound s/p extensive I&D (12/30) Severe PAD s/p angioplasty and stenting of left SFA (12/29) recent history of lower left extremity osteomyelitis s/p left second toe amputation (11/02/23) Patient with recent history of osteomyelitis of left foot - second middle and distal phalanx. Had I&D (10/29) and amputation of left second toe (11/01) with Dr. Oates. Wound cultures at the time grew Enterococcus gallinarum and Staphylococcus lugdunensis - treated with cefepime / vanc while hospitalized and discharged with PO levaquin x3 days MRI left foot (12/28): osteomyelitis involving the second metatarsal, third metatarsal as well as the third digit with destructive changes of the third digit proximal phalanx, as well as the fourth digit proximal phalanx. Extensive areas of soft tissue gas underneath the presumed wound, extending along the sole of the foot anteriorly Dr. Vegas - consulted 12/28 s/p angiogram - found to have critical stenosis of the left proximal superficial femoral artery (~90%) s/p angioplasty and stenting of left SFA (12/29) continue plavix; started post-operatively General surgery - Dr. Oates consulted s/p extensive I&D of left gangrenous necrotic wound (12/30). Found to have necrotic tissue and multiple bone fracture fragments of 2/3rd metatarsal head during surgery may need further debridement/amputation early next week local wound care per surgery follow surgical wound cultures Wound cx (12/28): Enterococcus Faecalis Blood cx (12/27): NGTD ID following continue empiric vanc / zosyn (12/28-) Clindamycin added (12/29-) Daptomycin added (12/31-) afebrile, +leukocytosis 15.8 -> 15.1 (12/31) Will need 6 weeks total of antibiotics (12/27-02/07) DKA, resolved IDDM2 insulin drip transitioned to subq insulin 12/29 post surgery continue semglee 20units. Adjust as needed accu-checks with sliding scale anion gap closed 12/28 confirm home dose insulin glc stable a1c: 11.0 DUANE, resolved Nephrology consulted continue to monitor renal function IVF dc'd 12/30 Bilateral knee pain / right hip pain post fall xray knee/pelvis negative for any acute fractures or dislocations. Did note 14mm lucency with septations within left medial tibial plateau - likely benign. f/u xray in 3 months recommended to re-eval PRN analgesics Depression duloxetine at bedtime VTE: heparin sq Code: Full Dispo: re-eval for further I&D vs amputation early next week
--- NOTE | 2024-01-01 09:08 | P.PN ---
Date of Service: 01/01/24 INFECTIOUS DISEASE PROGRESS NOTE Subjective: NAD. No acute events overnight. Pt denies any new or worsening complaints at this time. Physical Examination Temp Pulse Resp BP Pulse Ox 98 F 82 22 H 177/68 H 98 01/01/24 04:00 01/01/24 06:00 01/01/24 06:00 01/01/24 06:00 01/01/24 06:00 General: In no apparent distress, Oriented x3 HEENT: Atraumatic, Normocephalic Respiratory: Clear to auscultation bilaterally, Normal air movement. Unlabored respirations. Cardiovascular: Regular rate/rhythm, Edema. Gastrointestinal: Normal bowel sounds, No tenderness. Integumentary: left foot dressing clean dry and intact. Laboratory, Microbiology and Imaging Data reviewed - L foot wound culture 12/28: skin bethany - blood cultures 12/27: NGTD Assessment and Plan Problem List Osteomyelitis left foot Peripheral arterial disease Diabetes Mellitus type II, insulin dependent DUANE - resolved DKA- resolved Depression Hypertension Osteomyelitis left foot Gangrene left foot - recent osteomyelitis s/p left second toe amputation (11/02/23) by Dr. Oates - MRI left foot 12/28: "Findings suggestive of osteomyelitis involving the second metatarsal, third metatarsal as well as the third digit with destructive changes of the third digit proximal phalanx, as well as the fourth digit proximal phalanx. Extensive areas of soft tissue gas are suspected as above, correlation with radiographs recommended." - wound cutlure 12/28: 3+ non-beta hemolytic strep * recent history of Enterococcus gallinarum resistant to Vancomycin on 10/30/23* - currently on vancomycin, zosyn (12/27-) and clindamycin (12/29-) - s/p debridement on 12/[address] aOtes --> tissue culture 12/30: pending - leukocytosis improving. afebrile patient reportedly had seen a vascular surgeon recently, pending medical records for information. Recommendations - Recommend switching vanco to daptomycin at this time due to prior wound culture from 10/30/23 growing enterococcus resistant to vancomycin. -- will follow up with tissue/bone culture results from debridement 12/30 and adjust antibiotics as appropriate. - osteomyelitis left 2nd, 3rd and 4th digit: continue antibiotic therapy for 6 weeks duration (12/27-02/07) - strict blood glucose control; goal <180 - Continue wound care per Dr. Oates. - supportive care case discussed with Sonny Arreguin
--- NOTE | 2024-01-01 12:15 | P.PN ---
Nephrology Remains in the ICU, no acute complaints Vitals, medications, blood work and imaging reviewed in the chart General: In no apparent distress, Oriented x3, Cooperative HEENT: Atraumatic, NC present Neck: Supple Respiratory: Normal air movement Cardiovascular: No edema, Regular rate/rhythm Gastrointestinal: Soft and benign, Non-distended Musculoskeletal: No contractures Integumentary: Lt foot dressed extensively Neurological: Normal speech Blood work reviewed in the chart. Imagings Data: [id number] EXAM DESCRIPTION: [facility] Single View12/28/2023 5:34 pm CLINICAL HISTORY: Chest pain COMPARISON: none FINDINGS: The lungs appear clear of acute infiltrate. The heart is mildly to moderately enlarged IMPRESSION: No acute abnormalities displayed Conclusions/Impression: Stage II DUANE in the setting of hypovolemia -Resolved, Cr level has normalized Hypokalemia -Replete prn HTN -Continue Atenolol qhs; start CCB, if not tolerated or sig peripheral edema develops, add or replace with ACEi or ARB if renal function remains stable. UA did not suggest sig proteinuria though DM II with Hyperglycemia & Peripheral Angiopathy -Management per IM DM II with Left Foot Ulcer -Continue abx and wound care per IM
[2024-01-01] MEDS: DAPTOmycin 700 MG in NA CHLORIDE 0.9% 100 ML IVPB SCH (12:27)
[2024-01-01] MEDS: AMLODIPINE 5 MG TAB PO SCH (12:30)
--- NOTE | 2024-01-01 18:57 | PN ---
Date of Progress Note: 01/01/2024 Diagnosis: Gangrenous changes of the foot. DKA. History of fall. The patient is awake and alert. I talked to him this morning about the findings about the need for f urther debridement and even him to consider the amputation options since the blood supply there is mi nimal and the disease is severe. He is not ready for that decision yet. So we are going to continue with dressing changes. There is less smell and normal purulent discharge. From the surgical standp oint, we are going to continue with dressing changes and antibiotics. HM/MODL Voice ID: [id number] Report ID: [id number]
[2024-01-02] MEDS ORDERED: VANCOMYCIN 500 MG/VIAL ONE (00:55)
[2024-01-02] MEDS ORDERED: NA CHLORIDE 0.9% 250 ML ONE (00:56)
[2024-01-02] MEDS: VANCOMYCIN IVPB ONE (01:30)
[2024-01-02] MEDS: NA CHLORIDE 0.9% IVPB ONE (01:30)
--- NOTE | 2024-01-02 01:48 | OP ---
Date of Procedure: 01/01/2024 Surgeon: Sergo Oates MD Preoperative Diagnosis: Left foot gangrenous changes with large necrotic wound. Postoperative Diagnosis: Left foot gangrenous changes with large necrotic wound, destructive osteomy elitis. Procedure: Excisional debridement of down to bone of left foot gangrenous wound with extensive debri sharmila down to bone about 80 x 20 x 2 cm with pulse lavage about 6 L. Estimated Blood Loss: Less than 10 mL. Specimen: Necrotic tissue, pieces of bone of metatarsal region of second and third area. Cultures w ere obtained. Findings: just basically necrotic wounds all over areas, mainly in the mid side on textile screen maker ior foot. Interestingly enough, when we explored the wounds, we noticed that the metatarsal head and midshaft of the second and third toes were completely free and broken, does not have the appearance of osteomyelitis at that base, so I cannot rule out this patient having a traumatic event or a hit th at broke these 2 bones and they are just floating, they are coming out imbedded into this infection t oo. Bone #3 was not amputated, but right now, it may need to be amputated in the future once the pat ient give us consent. Indications: This is the case of a 68-year-old patient who comes to us with gangrenous toe, which re moved several months ago, he is still working on his vascular surgeon, trying to get revascularizatio n of that area, has not been able to do so. The foot got worse and it became more proximal. The pat ient was admitted for debridement of left foot region, it is entire foot, that has gangrenous changes , foul smelling. There is even documentation of maggots. This happened, he says in last few days. He was doing well before that. He was admitted to the hospital and fully explained the need for debr idement. He signed a consent. We explained to him options of amputation now and in the past and he is still refusing that. Recently, he got a revascularization by Dr. Vegas of that process. Procedure In Detail: The patient was brought to the operating room, placed in supine position. Anes thesia was done without complication. Left foot was prepped and draped in usual sterile fashion. Af ter that we debridement of that area. Pieces of the bone coming out of the fascia was als o debrided subcutaneous tissue. The entire area was about 80 x 20 x 2 cm. Once again, as I mentione d before, 2 metatarsal bones comes out of it and the mid shaft broken area traumatic event than any osteomyelitis. Both areas seems to be sharp. There are some other areas also exposed with bone consistent with osteomyelitis too. Area was irrigated. Profuse irrigation of this done with p ulse lavage at least 6 L. Hemostasis was obtained and then the area was packed with Silvadene wet-to -dry. Patient tolerated the procedure well. GAB/JAMES Voice ID: [id number] Report ID: [id number]
[2024-01-02 03:12] LABS: Absolute Basophils 0.1 K/uL (0-0.5); Absolute Eosinophils 0.4 K/uL (0-0.5); Absolute Lymphocytes (CBC) 1.5 K/uL (0.7-4.9); Absolute Monocytes 1.4 K/uL (0.1-1.3); Absolute Neutrophil 11.3 K/uL (1.8-8.0); Basophils % 0.6 % (0-1.3); Eosinophils % 2.9 % (0-4.4); Hematocrit 27.2 % (39.6-49.0); Hemoglobin 8.5 g/dL (13.6-17.9); Lymphocytes % 10.4 % (15.3-44.8); MCH 26.8 pg (27.0-35.0); MCHC 31.2 g/dL (32.0-36.0); MCV 85.7 fL (80-100); MPV 8.4 fL (7.6-11.3); Monocytes % 9.4 % (3.3-12.3); Neutrophils % 76.7 % (41.7-73.7); Platelets 358 thou/uL (152-406); RBC Red Blood Cell Count 3.17 M/uL (4.33-5.43)
[2024-01-02 03:41] LABS: Anion Gap 10.5 mEq/L (5.0-15.0); Magnesium 2.1 mg/dL (1.6-2.4); Potassium 3.5 mEq/L (3.5-5.1)
--- NOTE | 2024-01-02 11:57 | P.PN ---
Date of Service: 01/02/24 Subjective: doing okay. Stable no issues overnight afebrile ROS: 10 point ROS as noted above, otherwise negative Physical Exam: GEN: Alert, oriented, NAD HEENT: Normal conjunctiva, sclera anicteric CV: Regular rate and rhythm, 1+ b/l edema in lower extremities Pulm: Nonlabored respirations on room air, diminished bilaterally ABD: Soft, nontender, nondistended Integumentary: dressing in place Neuro: Normal speech, normal affect vitals reviewed Problem List: Osteomyelitis / gangrenous left foot wound s/p extensive I&D (12/30) Severe PAD s/p angioplasty and stenting of left SFA (12/29) recent history of lower left extremity osteomyelitis s/p left second toe amputation (11/02/23) DKA, resolved IDDM2 DUANE, resolved Bilateral knee pain / right hip pain post fall Depression Osteomyelitis / gangrenous left foot wound s/p extensive I&D (12/30) Severe PAD s/p angioplasty and stenting of left SFA (12/29) recent history of lower left extremity osteomyelitis s/p left second toe amputation (11/02/23) Patient with recent history of osteomyelitis of left foot - second middle and distal phalanx. Had I&D (10/29) and amputation of left second toe (11/01) with Dr. Oates. Wound cultures at the time grew Enterococcus gallinarum and Staphylococcus lugdunensis - treated with cefepime / vanc while hospitalized and discharged with PO levaquin x3 days MRI left foot (12/28): osteomyelitis involving the second metatarsal, third metatarsal as well as the third digit with destructive changes of the third digit proximal phalanx, as well as the fourth digit proximal phalanx. Extensive areas of soft tissue gas underneath the presumed wound, extending along the sole of the foot anteriorly Dr. Vegas - consulted 12/28 s/p angiogram - found to have critical stenosis of the left proximal superficial femoral artery (~90%) s/p angioplasty and stenting of left SFA (12/29) continue plavix; started post-operatively (12/31) General surgery - Dr. Oates consulted s/p extensive I&D of left gangrenous necrotic wound (12/30). Found to have necrotic tissue and multiple bone fracture fragments of 2/3rd metatarsal head during surgery may need further debridement/amputation early next week follow surgical wound cultures Wound cx (12/28): Enterococcus Faecalis Blood cx (12/27): NGTD ID following continue empiric Vanc / Zosyn (12/28-) continue Clindamycin (12/29-) and Daptomycin (12/31-) afebrile, +leukocytosis 15.1 -> 14.7 (01/01) Will need 6 weeks total of antibiotics (12/27-02/07) DKA, resolved IDDM2 insulin drip transitioned to subq insulin 12/29 post surgery continue semglee 20units. Adjust as needed accu-checks with sliding scale anion gap closed 12/28 confirm home dose insulin glc stable a1c: 11.0 DUANE, resolved Nephrology consulted continue to monitor renal function IVF dc'd 12/30 Bilateral knee pain / right hip pain post fall xray knee/pelvis negative for any acute fractures or dislocations. Did note 14mm lucency with septations within left medial tibial plateau - likely benign. f/u xray in 3 months recommended to re-eval PRN analgesics Depression duloxetine at bedtime VTE: heparin sq Code: Full Dispo: re-eval for further I&D vs amputation early next week
[2024-01-02] MEDS: SILVER SULFADIAZINE 1% 50 GM TOP SCH (14:27)
[2024-01-02] MEDS: VANCOMYCIN 1.5 GM in NA CHLORIDE 0.9% 500 ML IVPB SCH (17:19)
[2024-01-03 03:27] LABS: Absolute Basophils 0.1 K/uL (0-0.5); Absolute Eosinophils 0.4 K/uL (0-0.5); Absolute Lymphocytes (CBC) 1.5 K/uL (0.7-4.9); Absolute Neutrophil 8.6 K/uL (1.8-8.0); Basophils % 0.7 % (0-1.3); Eosinophils % 3.5 % (0-4.4); Hematocrit 27.7 % (39.6-49.0); Hemoglobin 8.9 g/dL (13.6-17.9); Lymphocytes % 12.7 % (15.3-44.8); MCH 27.4 pg (27.0-35.0); MCV 85.5 fL (80-100); MPV 8.5 fL (7.6-11.3); Neutrophils % 74.1 % (41.7-73.7); Platelets 347 thou/uL (152-406); RBC Red Blood Cell Count 3.23 M/uL (4.33-5.43)
[2024-01-03 03:38] LABS: Anion Gap 8.6 mEq/L (5.0-15.0); Magnesium 2.2 mg/dL (1.6-2.4); Potassium 3.6 mEq/L (3.5-5.1)
[2024-01-03] MEDS: HYDRALAZINE HCL 20 MG/ML VIAL IV PRN (04:00)
[2024-01-03] MEDS: AMLODIPINE 5 MG TAB PO SCH (09:05)
[2024-01-03] MEDS: LOSARTAN POTASSIUM 50 MG TABLET PO SCH (09:05)
--- NOTE | 2024-01-03 09:21 | P.PN ---
Date of Service: 01/03/24 Subjective: Denies any new / worsening problems breathing okay on 2L NC sat up at the edge of the bed yesterday 1 BM this morning afebrile ROS: 10 point ROS as noted above, otherwise negative Physical Exam: GEN: Alert, oriented, NAD HEENT: Normal conjunctiva, sclera anicteric CV: Regular rate and rhythm, 1+ b/l edema in lower extremities Pulm: Nonlabored respirations on 2L NC, diminished bilaterally ABD: Soft, nontender, nondistended Integumentary: dressing in place Neuro: Normal speech, normal affect vitals reviewed Problem List: Osteomyelitis / gangrenous left foot wound s/p extensive I&D (12/30) Severe PAD s/p angioplasty and stenting of left SFA (12/29) recent history of lower left extremity osteomyelitis s/p left second toe amputation (11/02/23) DKA, resolved IDDM2 Hypertension DUANE, resolved Bilateral knee pain / right hip pain post fall Depression Osteomyelitis / gangrenous left foot wound s/p extensive I&D (12/30) Severe PAD s/p angioplasty and stenting of left SFA (12/29) recent history of lower left extremity osteomyelitis s/p left second toe amputation (11/02/23) MRI left foot (12/28): osteomyelitis: 2nd, 3rd metatarsal, 3rd and 4th digit with destructive changes of proximal phalanx Extensive areas of soft tissue gas underneath the presumed wound, extending along the sole of the foot anteriorly Dr. Vegas - consulted 12/28 s/p angiogram - found to have critical stenosis of the left proximal superficial femoral artery (~90%) s/p angioplasty and stenting of left SFA (12/29) continue plavix; started post-operatively (12/31) General surgery - Dr. Oates consulted s/p extensive I&D of left gangrenous necrotic wound (12/30). Found to have necrotic tissue and multiple bone fracture fragments of 2/3rd metatarsal head during surgery may need further debridement/amputation early this coming week surgical wound cultures(12/30): Enterococcus Faecalis - similar sensitivities to wound cx 12/28 Wound cx (12/28): Enterococcus Faecalis Blood cx (12/27): No growth ID following continue empiric Vanc / Zosyn (12/28-) and Daptomycin (12/31-) Clindamycin dc'd (12/29-01/01) afebrile, leukocytosis improving Will need 6 weeks total of antibiotics (12/27-02/07) DKA, resolved IDDM2 insulin drip transitioned to subq insulin 12/29 post surgery continue semglee 20units. Adjust as needed accu-checks with sliding scale anion gap closed 12/28 confirm home dose insulin glc stable a1c: 11.0 Hypertension continue home atenolol home losartan restarted (01/02) amlodipine increased to 10 mg (01/02) - home dose PRN IV hydralazine DUANE, resolved Nephrology consulted continue to monitor renal function IVF dc'd 12/30 Bilateral knee pain / right hip pain post fall xray knee/pelvis negative for any acute fractures or dislocations. Did note 14mm lucency with septations within left medial tibial plateau - likely benign. f/u xray in 3 months recommended to re-eval PRN analgesics Depression duloxetine at bedtime VTE: heparin sq Code: Full Dispo: pending further I&D / amputation
[2024-01-03] MEDS: POTASSIUM CL SA 10 MEQ TAB PO ONE (12:10)
[2024-01-03] MEDS: VANCOMYCIN 1.75 GM in NA CHLORIDE 0.9% 500 ML IVPB SCH (13:35)
[2024-01-04 04:04] LABS: Anion Gap 8.6 mEq/L (5.0-15.0); Magnesium 2.2 mg/dL (1.6-2.4); Potassium 3.6 mEq/L (3.5-5.1)
[2024-01-04 04:06] LABS: Absolute Basophils 0.1 K/uL (0-0.5); Absolute Eosinophils 0.4 K/uL (0-0.5); Absolute Lymphocytes (CBC) 1.2 K/uL (0.7-4.9); Absolute Monocytes 1.1 K/uL (0.1-1.3); Basophils % 0.8 % (0-1.3); Eosinophils % 3.4 % (0-4.4); Hemoglobin 8.6 g/dL (13.6-17.9); Lymphocytes % 10.8 % (15.3-44.8); MCH 27.5 pg (27.0-35.0); MPV 8.8 fL (7.6-11.3); Monocytes % 10.2 % (3.3-12.3); Neutrophils % 74.8 % (41.7-73.7); Platelets 330 thou/uL (152-406); RBC Red Blood Cell Count 3.13 M/uL (4.33-5.43); Red Cell Distribution Width 16.3 % (12.1-15.2)
--- NOTE | 2024-01-04 09:29 | P.PN ---
Date of Service: 01/04/24 Subjective: foot dressing last changed yesterday per patient patient agreeable to amputation of toes if needed no issues overnight afebrile ROS: 10 point ROS as noted above, otherwise negative Physical Exam: GEN: Alert, oriented, NAD HEENT: Normal conjunctiva, sclera anicteric CV: Regular rate and rhythm, trace b/l edema in lower extremities Pulm: Nonlabored respirations on 2L NC, diminished bilaterally ABD: Soft, nontender, nondistended Integumentary: dressing in place, wound between 3rd/4th toes as well Neuro: Normal speech, normal affect vitals reviewed Problem List: Osteomyelitis / gangrenous left foot wound s/p extensive I&D (12/30) Severe PAD s/p angioplasty and stenting of left SFA (12/29) recent history of lower left extremity osteomyelitis s/p left second toe amputation (11/02/23) DKA, resolved IDDM2 Hypertension DUANE, resolved Bilateral knee pain / right hip pain post fall Depression Osteomyelitis / gangrenous left foot wound s/p extensive I&D (12/30) Severe PAD s/p angioplasty and stenting of left SFA (12/29) recent history of lower left extremity osteomyelitis s/p left second toe amputation (11/02/23) MRI left foot (12/28): osteomyelitis: 2nd, 3rd metatarsal, 3rd and 4th digit with destructive changes of proximal phalanx Extensive areas of soft tissue gas underneath the presumed wound, extending along the sole of the foot anteriorly Dr. Vegas - consulted 12/28 s/p angiogram - found to have critical stenosis of the left proximal superficial femoral artery (~90%) s/p angioplasty and stenting of left SFA (12/29) continue plavix; started post-operatively (12/31) General surgery - Dr. Oates consulted s/p extensive I&D of left gangrenous necrotic wound (12/30). Found to have necrotic tissue and multiple bone fracture fragments of 2/3rd metatarsal head during surgery may need further debridement/amputation early this coming week. Patient agreeable to amputation if needed Dr Oates to reeval this week - unsure on timing surgical wound cultures(12/30): Enterococcus Faecalis - similar sensitivities to wound cx 12/28 Wound cx (12/28): Enterococcus Faecalis Blood cx (12/27): No growth ID following continue empiric Vanc / Zosyn (12/28-) and Daptomycin (12/31-) Clindamycin dc'd (12/29-01/01) afebrile, leukocytosis resolved (01/03) Will need 6 weeks total of antibiotics (12/27-02/07) DKA, resolved IDDM2 insulin drip transitioned to subq insulin 12/29 post surgery continue semglee 20units. Adjust as needed accu-checks with sliding scale anion gap closed 12/28 confirm home dose insulin glc stable a1c: 11.0 Hypertension continue home atenolol home losartan restarted (01/02) amlodipine increased to 10 mg (01/02) - home dose PRN IV hydralazine DUANE, resolved Nephrology consulted continue to monitor renal function IVF dc'd 12/30 Bilateral knee pain / right hip pain post fall xray knee/pelvis negative for any acute fractures or dislocations. Did note 14mm lucency with septations within left medial tibial plateau - likely benign. f/u xray in 3 months recommended to re-eval PRN analgesics Depression duloxetine at bedtime VTE: heparin sq Code: Full Dispo: pending further I&D / amputation
[2024-01-04] MEDS: POTASSIUM CL SA 10 MEQ TAB PO ONE (10:14)
[2024-01-05 03:46] LABS: Anion Gap 5.9 mEq/L (5.0-15.0); Magnesium 2.3 mg/dL (1.6-2.4); Potassium 3.9 mEq/L (3.5-5.1)
[2024-01-05] MEDS ORDERED: VANCOMYCIN 1.75 GM in NA CHLORIDE 0.9% 500 ML IVPB SCH ×2 (06:00→08:00)
[2024-01-05] MEDS: POTASSIUM CL SA 10 MEQ TAB PO ONE (07:52)
--- NOTE | 2024-01-05 12:17 | P.PN ---
Subjective Date of Service: 01/05/24 Chief Complaint: Osteomyelitis Subjective: Improving (Patient is doing well no new complaints) Review of Systems Unremarkable Physical Examination - Vital Signs Temperature: 97.0 F Blood Pressure: 166/80 Pulse: 68 Respirations: 18 Pulse Ox (%): 96 - Physical Exam General: Alert, In no apparent distress, Oriented x3 Respiratory: Clear to auscultation bilaterally Cardiovascular: No edema, Regular rate/rhythm Assessment And Plan - Current Problems (Diagnosis) (1) Osteomyelitis Current Visit: Yes Status: Acute Plan: Findings suggestive of osteomyelitis involving the second metatarsal, third metatarsal as well as the third digit with destructive changes of the third digit proximal phalanx, as well as the fourth digit proximal phalanx. Extensive areas of soft tissue gas are suspected as above, correlation with radiographs recommended. Patient is s/p angioplasty discussed with Dr. Oates amputation of his toe tomorrow patient's renal function is abnormal white count is now normal Enterococcus isolated from the wound patient was treated with daptomycin we will change back to vancomycin Enterococcus is sensitive also added p.o. amoxicillin Qualifiers: Laterality: left (2) Hypertension Current Visit: Yes Status: Acute Plan: Blood pressure continues to remain mildly elevated patient is on losartan beta- hoang and amlodipine Qualifiers: Hypertension type: primary hypertension Qualified Code(s): I10 - Essential (primary) hypertension
[2024-01-05] MEDS: DAPTOmycin 700 MG in NA CHLORIDE 0.9% 100 ML IVPB ONE (13:06)
[2024-01-05] MEDS: AMOXICILLIN TRIHYDR 250 MG CAP PO SCH (13:06)
--- NOTE | 2024-01-05 16:30 | PN ---
Date of Progress Note: 01/05/2024 Subjective: Patient lying in bed. No new acute event. Chart reviewed. Objective: Vital Signs: Temperature 97, pulse 68, respiration 18, blood pressure 166/80. Lungs: Basal crackles. Heart: S1, S2. Regular. Abdomen: Soft, nontender. Bowel sounds present. Extremity: Wound VAC in place on the left foot. Laboratory Data: Shows WBC 10.7, down from 11.6, hemoglobin 8.6, platelets are 330. Chemistry shows BUN of 23, creatinine of 0.4. Current Medications: Include daptomycin. See MARS for other medications. Allergies: REVIEWED MICRO DATA SHOWS ENTEROCOCCUS FAECALIS ON WOUND CULTURE FROM 12/30. Assessment And Plan: 68-year-old male with osteomyelitis of left foot. Continue daptomycin for 6 we eks. Consider long-term acute care. Monitor on signs of infection. Continue wound VAC and supporti ve care. Consider hyperbaric treatment. Renal insufficiency. Leukocytosis, improving. Anemia of chronic disease. Gangrenous changes to the left foot, status pos t I and D, and insulin-dependent diabetes mellitus, diabetic neuropathy, DKA, improved. Depression. Hypertension. Continue supportive care and wound care. We will follow. Continue to monitor patient's CRP levels and follow the patient closely and kidney function. NF/MODL Voice ID: [id number] Report ID: [id number]
--- NOTE | 2024-01-05 17:53 | PN ---
Date of Progress Note: 01/05/2024 Mr. Yap is a 68-year-old patient dealing with the necrotic wound on the left foot, very poor blo od supply, developed gangrene initially, removed 1 toe, then developed gangrenous changes on other pa rt of the foot and did require extensive debridement. At that moment, he was not ready for below-kne e amputation, although it was suggested. During the debridement, also the left toe was becoming nonv iable, but I did not have consent at that moment, so we did debridement of the necrotic tissue, clean ed all that area and then we explained to him that tomorrow we are going to take him to surgery to [facility] and do debridement once again and he might take that opportunity to remove the left third toe, if not, the entire foot. He is not ready for below-knee amputation, although he might need it eventual ly but he want to give a fight to this foot first. At least, the third toe may need to be removed. He is going to tell me by tomorrow morning if he is ready for that. He is booked for tomorrow [facility] for surgery. The benefits, alternatives, and risks fully explained once again which include, but n ot limited to, infection, bleeding, damage to adjacent structures, anesthesia complication, AK, and e jo . HM/MODL Voice ID: [id number] Report ID: [id number]
[2024-01-06 04:20] LABS: Anion Gap 5.7 mEq/L (5.0-15.0); Potassium 3.7 mEq/L (3.5-5.1)
[2024-01-06] MEDS: MORPHINE 2 MG/ML SYR IV PRN (05:34)
[2024-01-06] MEDS: POTASSIUM CL SA 10 MEQ TAB PO ONE (09:00)
[2024-01-06] MEDS: VANCOMYCIN 1.25 GM in NA CHLORIDE 0.9% 250 ML IVPB SCH (09:00)
--- NOTE | 2024-01-06 09:50 | P.PN ---
Subjective Date of Service: 01/06/24 Chief Complaint: Osteomyelitis Subjective: Improving (Patient has no new complaints no for the pain) Review of Systems Unremarkable Physical Examination - Vital Signs Temperature: 98.0 F Blood Pressure: 183/83 Pulse: 83 Respirations: 14 Pulse Ox (%): 95 - Physical Exam General: Alert, Oriented x3 Respiratory: Clear to auscultation bilaterally Cardiovascular: No edema Assessment And Plan - Current Problems (Diagnosis) (1) Osteomyelitis Current Visit: Yes Status: Acute Plan: Patient has osteomyelitis myelitis scheduled for amputation of his toes labs reviewed white count is down to normal patient is being changed to vancomycin and amoxicillin Aerococcus is sensitive Qualifiers: Osteomyelitis type: other acute Osteomyelitis location: foot Laterality: left Qualified Code(s): M86.172 - Other acute osteomyelitis, left ankle and foot (2) Hypertension Current Visit: Yes Status: Acute Plan: Patient's blood pressure is elevated have added clonidine patch for his hypertension mild impairment of renal function Qualifiers: Hypertension type: primary hypertension Qualified Code(s): I10 - Essential (primary) hypertension
[2024-01-06] MEDS: CLONIDINE 0.1 MG/PATCH TD SCH (10:00)
[2024-01-06] MEDS ORDERED: propofoL 200 MG/20 ML VIAL IV ONE (12:02)
[2024-01-06] MEDS ORDERED: FENTANYL CITR 100 MCG/2 ML ONE (12:02)
[2024-01-06] MEDS ORDERED: MIDAZOLAM HCL 2 MG/2 ML INJ ONE (12:02)
[2024-01-06] MEDS ORDERED: LIDOCAINE 1% MPF 5 ML VIAL ONE (12:02)
[2024-01-06] MEDS: NA CHLORIDE 0.9% 1,000 ML ONE (12:12)
--- NOTE | 2024-01-06 13:09 | P.BOP ---
Preoperative diagnosis: left foot large necrotic wound with destructive osteomyelitis Postoperative diagnosis: same, osteomyelitis Primary procedure: 1. Amputation left third toe Secondary procedure: 2. Excisional debridement down to bone 20 x15 x2cm Other procedure(s): 3. Pulse lavage Estimated blood loss: <10cc Specimen: necrotic tissue, bone pieces Anesthesia: General Complications: None Drain(s): Other (silvadene wet to dry) Transferred to: Recovery Room Condition: Fair
[2024-01-06] MEDS: SILVER SULFADIAZINE 1% 25 GM TOP ONE (13:28)
[2024-01-06 13:51] VITALS: O2SAT 97
[2024-01-07 04:21] LABS: Anion Gap 2.8 mEq/L (5.0-15.0); Potassium 3.8 mEq/L (3.5-5.1)
[2024-01-07] MEDS: MORPHINE 4 MG/ML SYR IV PRN (05:35)
[2024-01-07] MEDS: POTASSIUM CL SA 10 MEQ TAB PO ONE (09:12)
--- NOTE | 2024-01-07 09:29 | P.PN ---
Subjective Date of Service: 01/07/24 Chief Complaint: Osteomyelitis Subjective: Improving (Patient is is a s/p amputation of the left third toe currently doing well no new complaint) Review of Systems General: Weakness Musculoskeletal: Foot Pain Physical Examination - Vital Signs Temperature: 97.0 F Blood Pressure: 139/66 Pulse: 65 Respirations: 18 Pulse Ox (%): 97 - Physical Exam General: Alert, Oriented x3 Neck: Supple Respiratory: Clear to auscultation bilaterally Cardiovascular: No edema, Regular rate/rhythm Assessment And Plan - Current Problems (Diagnosis) (1) Osteomyelitis Current Visit: Yes Status: Acute Plan: Patient has osteomyelitis of the left foot he is assessed s/p amputation of the left third toe on 01/05 continue with IV antibiotics p.o. amoxicillin will evaluate for further placement today white count is now normal Qualifiers: Osteomyelitis type: other acute Osteomyelitis location: foot Laterality: left Qualified Code(s): M86.172 - Other acute osteomyelitis, left ankle and foot (2) Hypertension Current Visit: Yes Status: Acute Plan: Patient's blood pressure is much better controlled Qualifiers: Hypertension type: primary hypertension Qualified Code(s): I10 - Essential (primary) hypertension
--- NOTE | 2024-01-07 10:46 | P.PN ---
Nephrology S/p surgery and amputation of 3rd digit, seen sitting up in bed, reports some difficulty with urination Vitals, medications, blood work and imaging reviewed in the chart General: In no apparent distress, Oriented x3, Cooperative HEENT: Atraumatic, NC present Neck: Supple Respiratory: Normal air movement, b/l air entry Cardiovascular: No edema, Regular rate/rhythm Gastrointestinal: Soft and benign, Non-distended Musculoskeletal: No contractures Integumentary: Lt foot dressed extensively, 3rd toe ampuation Neurological: Normal speech, awake, alert Blood work reviewed in the chart. Imagings Data: [id number] [facility] CLINICAL HISTORY: Chest pain COMPARISON: none FINDINGS: The lungs appear clear of acute infiltrate. The heart is mildly to moderately enlarged IMPRESSION: No acute abnormalities displayed Conclusions/Impression: Stage II DUANE in the setting of hypovolemia had resolved but recurrent Stage 1 DUANE with Cr level rising > 0.3 mg/dl -Cr level upward rise may related to BP lowering, resumption of ARB or other. R/o retention of urine, check bladder scan/PVR HTN -Labile, accelerated, now on several agents, BP better this AM DM II with Hyperglycemia & Peripheral Angiopathy -Management per IM DM II with Left Foot Ulcer -s/p surgery, debridement, amputation, f/u cultures, monitor Vanc levels
--- NOTE | 2024-01-07 15:25 | PN ---
Subjective: Patient lying in bed. No new acute event. Objective: Vital Signs: Reviewed. Lungs: Basal crackles. Heart: S1, S2. Regular. Abdomen: Soft, nontender. Bowel sounds present. Extremities: Trace edema. Left foot, status post amputation of the toes. Doing well. Continue current antibiotic and wound ca re. Consider long-term acute care. We will follow the patient as needed. NF/MODL Voice ID: [id number] Report ID: [id number]
--- NOTE | 2024-01-07 21:07 | PN ---
Date of Progress Note: 01/07/2024 Reason For Service: Necrotic wound and gangrenous changes on the foot. Subjective: The patient has a second surgery tomorrow, amputation of the third toe, debridement of t he necrotic tissue at present, improvement compared with last week. Vascular has been doing the work up and trying to increase the circulation in that foot and letting that delineate. Today, he has no shortness of breath, no chest pain, no fever. Objective: Chest: Clear. Abdomen: Soft and depressible. Extremities: Good capillary refill and obviously has the open wounds on the foot region with dressin g changes and he has amputation of the second and third toe. The first, fourth, and fifth toes have good capillary refill. Plan: From the surgical standpoint, he is not ready for below-knee amputation. He wants to give it a try to the foot to see if it heels. In that case, we might probably have to arrange for him for a long-term antibiotics treatment and wound care. GAB/JAMES Voice ID: [id number] Report ID: [id number]
[2024-01-08 07:25] VITALS: BMI 35.8
[2024-01-08 08:34] VITALS: BP 140/84
--- NOTE | 2024-01-08 09:38 | P.PN ---
Subjective Date of Service: 01/08/24 Chief Complaint: Osteomyelitis Subjective: Improving (No new complaints patient has no pain awaiting discharge disposition) Review of Systems Unremarkable General: Weakness Physical Examination - Vital Signs Temperature: 97.4 F Blood Pressure: 140/84 Pulse: 73 Respirations: 12 Pulse Ox (%): 98 - Physical Exam General: Alert, In no apparent distress, Oriented x3 Respiratory: Clear to auscultation bilaterally Cardiovascular: No edema, Regular rate/rhythm, Normal S1 S2 Assessment And Plan - Current Problems (Diagnosis) (1) Osteomyelitis Current Visit: Yes Status: Acute Plan: Patient is doing well denies any pain awaiting discharge disposition renal function is improving white count is now normalized Qualifiers: Osteomyelitis type: other acute Osteomyelitis location: foot Laterality: left Qualified Code(s): M86.172 - Other acute osteomyelitis, left ankle and foot (2) Hypertension Current Visit: Yes Status: Acute Plan: Blood pressure is better controlled Qualifiers: Hypertension type: primary hypertension Qualified Code(s): I10 - Essential (primary) hypertension
--- NOTE | 2024-01-08 12:05 | P.PN ---
Nephrology S/p surgery and amputation of 3rd digit, seen sitting up in bed, reports no further difficulty with urination. Some mild dyspnea at times, not currently Vitals, medications, blood work and imaging reviewed in the chart General: In no apparent distress, Oriented x3, Cooperative HEENT: Atraumatic, NC present Neck: Supple Respiratory: Normal air movement, b/l air entry Cardiovascular: No edema, Regular rate/rhythm Gastrointestinal: Soft and benign, Non-distended Musculoskeletal: No contractures Integumentary: Lt foot dressed extensively, 3rd toe ampuation Neurological: Normal speech, awake, alert Blood work reviewed in the chart. Imagings Data: [id number] EXAM DESCRIPTION: [facility] Single View12/28/2023 5:34 pm CLINICAL HISTORY: Chest pain COMPARISON: none FINDINGS: The lungs appear clear of acute infiltrate. The heart is mildly to moderately enlarged IMPRESSION: No acute abnormalities displayed Conclusions/Impression: Stage II DUANE in the setting of hypovolemia had resolved but this week with recurrent Stage 1 DUANE with Cr level rising > 0.3 mg/dl -Cr level upward rise may related to BP lowering, resumption of ARB or other although level has peaked, cont to monitor. R/o retention of urine, check bladder scan/PVR HTN -Labile, accelerated, now on several agents, BP better over past 1-2 days DM II with Hyperglycemia & Peripheral Angiopathy -Management per IM DM II with Left Foot Ulcer -s/p surgery, debridement, amputation, f/u cultures, monitor Vanc levels
--- NOTE | 2024-01-08 13:03 | P.DS ---
Admission Date: 12/28/23 Discharge Date: 01/08/24 Disposition: TRANSFER TO INPATIENT REHAB Reason for Admission: Osteomyelitis - Problems (1) Osteomyelitis Current Visit: Yes Status: Acute Qualifiers: Osteomyelitis type: other acute Osteomyelitis location: foot Laterality: left Qualified Code(s): M86.172 - Other acute osteomyelitis, left ankle and foot (2) Hypertension Current Visit: Yes Status: Acute Qualifiers: Hypertension type: primary hypertension Qualified Code(s): I10 - Essential (primary) hypertension Brief History of Present Illness: Pt admitted wiht osteomyelitis of left foot Hospital Course: Amutation o ftoes X2 by Dr. Oates. CRnal failure S/B nephrology and ID/ Tx with Vanc and Amox. Good response. WBC Normal. Anemia of CRD/ Stable and transferred to IP rehab Continue with Ab until end january/ BP controlled with clonidionepatch Vital Signs/Physical Exam: Temp Pulse Resp BP Pulse Ox 97.4 F 73 12 140/84 98 01/08/24 09:38 01/08/24 09:38 01/08/24 09:38 01/08/24 09:38 01/08/24 09:38 Laboratory Data at Discharge: WBC 10.70 thou/uL (4.3-10.9) 01/04/24 02:58 Hgb 8.6 g/dL (13.6-17.9) L 01/04/24 02:58 Hct 27.0 % (39.6-49.0) L 01/04/24 02:58 Plt Count 330 thou/uL (152-406) 01/04/24 02:58 Sodium 139 mEq/L (136-145) 01/08/24 03:17 Potassium 4.0 mEq/L (3.5-5.1) 01/08/24 03:17 BUN 31 mg/dL (7-18) H 01/08/24 03:17 Creatinine 1.61 mg/dL (0.70-1.30) H 01/08/24 03:17 Glucose 104 mg/dL (74-106) 01/08/24 03:17 Uric Acid 4.5 mg/dL (3.5-7.2) 12/30/23 04:01 Phosphorus 2.8 mg/dL (2.5-4.9) 01/01/24 04:30 Phosphorus Cancelled 01/01/24 04:30 Magnesium 2.3 mg/dL (1.6-2.4) 01/05/24 03:08 Total Bilirubin 0.6 mg/dL (0.2-1.0) 12/30/23 04:01 AST 16 U/L (15-37) 12/30/23 04:01 ALT 17 U/L (16-61) 12/30/23 04:01 Alkaline Phosphatase 109 U/L (45-117) 12/30/23 04:01 Triglycerides 157 mg/dL (<150) H 12/29/23 08:36 Cholesterol 89 mg/dL (<200) 12/29/23 08:36 HDL Cholesterol 9 mg/dL (40-60) L 12/29/23 08:36 Cholesterol/HDL Ratio 9.89 12/29/23 08:36 Home Medications: Pioglitazone HCl 30 mg PO DAILY 07/07/13 Amlodipine [Norvasc*] 10 mg PO DAILY 10/29/23 Aspirin [Aspirin EC 81 MG] 81 tab PO DAILY 10/29/23 Dulaglutide [Trulicity] 4.5 mg SQ SEECOM 10/29/23 Empagliflozin [Jardiance] 25 mg PO DAILY 10/29/23 Fenofibrate,Micronized [Fenofibrate] 134 mg PO DAILY 10/29/23 Losartan Potassium 100 mg PO DAILY 10/29/23 Rosuvastatin Calcium 40 tab PO BEDTIME 10/29/23 Spironolactone 25 tab PO DAILY 10/29/23 Tamsulosin [Flomax*] 0.4 cap PO DAILY 10/29/23 Furosemide [Lasix] 20 mg PO M,W,F #15 tab 11/03/23 Hydrocodone 7.5/APAP 325 [[place] 7.5/325 mg*] 1 tab PO Q6H PRN #20 tab 11/03/23 Insulin Glargine,Hum.rec.anlog [Toujeo Solostar] 30 unit SQ DAILY #2 syr 11/03/23 Mupirocin Calcium [Bactroban Nasal*] 1 appl MENDOZA BID #1 tube 11/03/23 Naph,Mb-Db/K pH,Mbdb [Neutra-Phos Packet] 1 each PO BID #6 packet 11/03/23 Nut.tx.gluc Intol,Lf,Soy/Fiber [Glucerna 1.5 Mariusz Liquid] 237 ml PO BIDAC #60 can 11/03/23 Potassium Chloride 10 meq PO M,W,F #15 tab 11/03/23 atenoloL [Tenormin*] 50 mg PO DAILY #30 tab 11/03/23 levoFLOXacin [Levaquin*] 500 mg PO DAILY #3 tab 11/03/23 Amoxicillin [Amoxil Cap*] 500 mg PO TID 15 Days #45 cap 01/08/24 Clonidine Patch [Catapres-Tts 1*] 0.1 mg TD EVERY 7TH DAY 30 Days #4 pat 01/08/24 Vancomycin/Water For Inj (Peg) [Vancomycin 1.25 gm/250 ml Bag] 1.25 gm IV DAILY 30 Days piggyback 01/08/24 New Medications: Amoxicillin [Amoxil Cap*] 500 mg PO TID 15 Days #45 cap Clonidine Patch [Catapres-Tts 1*] 0.1 mg TD EVERY 7TH DAY 30 Days #4 pat Vancomycin/Water For Inj (Peg) [Vancomycin 1.25 gm/250 ml Bag] 1.25 gm IV DAILY 30 Days piggyback Physician Discharge Instructions: Tx with Vanc and Amox until 02/07/2024 Diet: Regular Activity: Ad samy Followup: LE LUJAN [Primary Care Provider] -
[2024-01-08] MEDS: HYDRALAZINE HCL 10 MG TABLET PO SCH (14:36)
--- NOTE | 2024-01-08 15:13 | PN ---
Date of Progress Note: 01/08/2024 Diagnosis: Foot cellulitis, gangrenous changes, severe osteomyelitis. Subjective: Patient doing better. He is starting to ambulate. No fever. No shortness of breath. No chest pain. Objective: Chest: Clear. Abdomen: Soft and depressible. Extremities: Good capillary filling. Dressing changes done daily. Plan: From the surgical standpoint, we will like [facility]. If he goes to rehab, then we will see the patient out there, although we encouraged them to continue the same dressing changes. When he gets discharged, we will like to see him at the [facility]. GAB/JAMES Voice ID: [id number] Report ID: [id number]
[2024-01-08 15:26] VITALS: TEMP 97.2
--- NOTE | 2024-02-03 20:25 | OP ---
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 Procedures: 1.Amputation of left third toe. 2.Excisional debridement of left foot down to bone, 20 x 15 x 2 cm. 3.Pulse lavage of all that area. Estimated Blood Loss: Less than 10 mL. Specimens: Necrotic tissue and bone pieces. Anesthesia: General plus local. Packing: Wet-to-dry Silvadene. 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 He is not ready to go for a foot amputation yet. He wants to give it a try. We see that he has gangrene in the second toe before, now the third toe with also a severe big wound over the foot a vidal, and area is about 20 x 15 cm. After we debrided today, this goes all the way down to bone that include calcaneus. The benefits, alternatives, and risks of excisional debridement and amputation of left third toe fully explained, which include, but not limited to infection, bleeding, damage to adj acent structures, anesthesia complication, nonhealing wound, NC, and even . He also understands this may not relieve symptoms. He might need more than one surgical intervention. He understood, s igned a consent. Procedure In Detail: The patient was brought to the operating room and placed in supine position. A nesthesia was done without complication. Left foot was prepped and draped in sterile fashion. The s kin is necrotic in some areas that we were able to debride that region. We debrided that to an area of about 20 x 15 x 2 cm, the entire foot region. This goes all the way down to bone and fascia inclu ding calcaneus bone. At that moment, we have exposed the left third toe down to metatarsal region wi th destructive osteomyelitis present. The area was amputated. Bone was removed including the left t hird toe and area was left to close by secondary intention. Pulse lavage was done before that with s everal liters of fluid. The patient tolerated the procedure well. Hemostasis was obtained. Packed with Silvadene wet-to-dry. The patient was sent to recovery in stable condition. We will discuss wi th the patient once again the findings and we still have recommendations of below-knee amputation, al though we are going to follow his wishes. GAB/JAMES Voice ID: [id number] Report ID: [id number]
== END 2024-01-08 15:04 | DRG 253 ==
LOC: ER 15:30 → ERHOLD 19:31 → 3RD-ICU 12-30 12:35 → 2ND 01-01 15:01
PROVIDERS: ADMIT Hospitalist; ATTEND Internal Medicine Sleep Medicine
PROC: 047L3DZ Dilation of Left Femoral Artery with Intraluminal Device, Percutaneous Approach (ICD-10-PCS; 2023-12-30)
PROC: B41G1ZZ Fluoroscopy of Left Lower Extremity Arteries using Low Osmolar Contrast (ICD-10-PCS; 2023-12-30)
PROC: B4101ZZ Fluoroscopy of Abdominal Aorta using Low Osmolar Contrast (ICD-10-PCS; 2023-12-30)
PROC: B41C1ZZ Fluoroscopy of Pelvic Arteries using Low Osmolar Contrast (ICD-10-PCS; 2023-12-30)
PROC: 0QBP0ZZ Excision of Left Metatarsal, Open Approach (ICD-10-PCS; 2023-12-31)
PROC: 0JDR0ZZ Extraction of Left Foot Subcutaneous Tissue and Fascia, Open Approach (ICD-10-PCS; 2023-12-31)
PROC: 0QBP0ZZ Excision of Left Metatarsal, Open Approach (ICD-10-PCS; 2024-01-01)
PROC: 0QDP0ZZ Extraction of Left Metatarsal, Open Approach (ICD-10-PCS; 2024-01-01)
PROC: 0Y6U0Z0 Detachment at Left 3rd Toe, Complete, Open Approach (ICD-10-PCS; 2024-01-02)
PROC: 0QBM0ZZ Excision of Left Tarsal, Open Approach (ICD-10-PCS; 2024-01-02)
PROC: 0Y6U0Z0 Detachment at Left 3rd Toe, Complete, Open Approach (ICD-10-PCS; principal; 2024-01-06 12:45)
DX: E11.52 Type 2 diabetes mellitus with diabetic peripheral angiopathy with gangrene (principal); E87.1 Hypo-osmolality and hyponatremia; N17.9 Acute kidney failure, unspecified; L02.612 Cutaneous abscess of left foot; M86.172 Other acute osteomyelitis, left ankle and foot; E11.10 Type 2 diabetes mellitus with ketoacidosis without coma; E11.69 Type 2 diabetes mellitus with other specified complication; E11.40 Type 2 diabetes mellitus with diabetic neuropathy, unspecified; E11.621 Type 2 diabetes mellitus with foot ulcer; L97.529 Non-pressure chronic ulcer of other part of left foot with unspecified severity; I10 Essential (primary) hypertension; E87.6 Hypokalemia; E83.39 Other disorders of phosphorus metabolism; M25.562 Pain in left knee; M25.561 Pain in right knee; M25.551 Pain in right hip; D63.8 Anemia in other chronic diseases classified elsewhere; F32.A Depression, unspecified; E88.09 Other disorders of plasma-protein metabolism, not elsewhere classified; F17.210 Nicotine dependence, cigarettes, uncomplicated; B95.2 Enterococcus as the cause of diseases classified elsewhere; Z79.4 Long term (current) use of insulin; Z91.81 History of falling; Z79.82 Long term (current) use of aspirin; Z86.73 Personal history of transient ischemic attack (TIA), and cerebral infarction without residual deficits; Z89.422 Acquired absence of other left toe(s); Z79.899 Other long term (current) drug therapy
CPT/HCPCS: 36200; 36245; 36415; 37224; 71045; 72170; 76937; 80048; 80053; 80061; 80202; 81001; 82010; 82310; 82550; 82805; 82947; 83036; 83605; 83735; 83930; 84100; 84550; 85025; 87040; 87070; 87075; 87077; 87186; 87205; 88304; 88305; 88307; 88311; 93005; 94010; 97116; 97161; 97530; 99152; 99153; 99285; C1725; C1769; C1893; J0360; J0461; J0878; J1644; J2001; J2250; J2270; J2405; J2543; J2704; J3010; J3480; J7030; J7040; J7042; J7050; J7120; J7799

== ENCOUNTER 2024-01-08 13:16 | Inpatient (IN) | payer OTHER ==
[2024-01-08] MEDS ORDERED: INSULIN REGULAR (HUMAN) 100 UNIT/ML SQ SCH (16:30)
[2024-01-08 17:05] LABS: Sqamous Epithelial None Seen /HPF (None Seen); Urine Bacteria <20 /HPF (<20); Urine Bilirubin NEGATIVE (Negative); Urine Blood Negative (Negative); Urine Clarity Clear (Clear); Urine Color Colorless (Yellow); Urine Culture Reflex Order NOT NEEDED; Urine Glucose 4+ (Over) (Negative); Urine Ketones TRACE (Negative); Urine Micro Reflex YN NO BILL MICROSCOPIC; Urine Mucus Slight /HPF (None Seen); Urine Nitrite NEGATIVE (Negative); Urine Protein 1+ (Negative); Urine RBC <5 /HPF (None Seen); Urine Urobilinogen Normal (Normal); Urine WBC <5 /HPF (<5); Urine Yeast (Budding) Few /HPF (None Seen); Urine pH 5.5 (5.0-7.0)
[2024-01-08] MEDS: INSULIN REGULAR (HUMAN) 100 UNIT/ML SQ SCH (17:37)
[2024-01-08] MEDS ORDERED: HEPARIN 5000 UNIT/ML 1 ML VIAL SQ SCH (20:00)
[2024-01-08] MEDS: Mupirocin NASAL 2 APPL/1 GM TUBE NAS SCH (20:00)
[2024-01-08] MEDS: GLUCERNA SHAKE 237 ML CAN PO SCH (20:00)
[2024-01-08] MEDS ORDERED: atenoloL 25 MG TAB ONE (20:54)
[2024-01-08] MEDS ORDERED: TOUJEO 30 UNIT SQ SCH (21:00)
[2024-01-08] MEDS: ROSUVASTATIN 10 MG TAB PO SCH (21:00)
[2024-01-08] MEDS ORDERED: INSULIN GLARGINE 100 UNIT/ML SQ SCH (21:00)
[2024-01-08] MEDS: APIXABAN 2.5 MG TABLET PO SCH (21:01)
[2024-01-08] MEDS: atenoloL 50 MG TAB PO SCH (23:26)
[2024-01-08] MEDS: AMOXICILLIN TRIHYDR 250 MG CAP PO SCH (23:26)
[2024-01-08] MEDS: INSULIN GLARGINE 100 UNIT/ML SQ SCH (23:27)
[2024-01-09 03:56] LABS: Absolute Basophils 0.1 K/uL (0-0.5); Absolute Eosinophils 0.3 K/uL (0-0.5); Absolute Lymphocytes (CBC) 1.2 K/uL (0.7-4.9); Absolute Monocytes 0.9 K/uL (0.1-1.3); Absolute Neutrophil 4.7 K/uL (1.8-8.0); Basophils % 1.3 % (0-1.3); Eosinophils % 3.6 % (0-4.4); Hematocrit 23.1 % (39.6-49.0); Hemoglobin 7.7 g/dL (13.6-17.9); Lymphocytes % 17.2 % (15.3-44.8); MCH 28.3 pg (27.0-35.0); MCHC 33.1 g/dL (32.0-36.0); MCV 85.5 fL (80-100); MPV 7.9 fL (7.6-11.3); Monocytes % 12.3 % (3.3-12.3); Neutrophils % 65.6 % (41.7-73.7); Platelets 405 thou/uL (152-406); RBC Red Blood Cell Count 2.71 M/uL (4.33-5.43); Red Cell Distribution Width 16.6 % (12.1-15.2)
[2024-01-09 04:30] LABS: Albumin 1.6 g/dL (3.4-5.0); Anion Gap 6.9 mEq/L (5.0-15.0); Magnesium 2.2 mg/dL (1.6-2.4); Potassium 3.9 mEq/L (3.5-5.1); Prealbumin 11.6 mg/dL (20-40)
[2024-01-09] MEDS: FENOFIBRATE 160 MG TAB PO SCH (07:25)
[2024-01-09] MEDS: ASPIRIN EC 81 MG TAB PO SCH (07:25)
[2024-01-09] MEDS: PIOGLITAZONE 15 MG TAB PO SCH (07:26)
[2024-01-09] MEDS: LOSARTAN POTASSIUM 50 MG TABLET PO SCH (07:27)
[2024-01-09] MEDS: TAMSULOSIN 0.4 MG SR CAP PO SCH (07:27)
[2024-01-09] MEDS: SPIRONOLACTONE 25 MG TABLET PO SCH (07:27)
[2024-01-09] MEDS: JARDIANCE 25 MG PO SCH (07:31)
[2024-01-09] MEDS ORDERED: POTASSIUM CL SA 10 MEQ TAB PO SCH (08:00)
[2024-01-09] MEDS ORDERED: FUROSEMIDE 20 MG TABLET PO SCH (08:00)
[2024-01-09] MEDS: VANCOMYCIN 1 GM in NA CHLORIDE 0.9% 250 ML IVPB SCH (08:41)
[2024-01-09] MEDS: AMLODIPINE 10 MG TAB PO SCH (08:41)
[2024-01-09] MEDS ORDERED: VANCOMYCIN 1.25 GM in NA CHLORIDE 0.9% 250 ML IVPB SCH (09:00)
[2024-01-09] MEDS ORDERED: DOCUSATE NA/SENNA CONC 1 TAB PO PRN (12:58)
[2024-01-09] MEDS: HYDROCODONE/APAP 5/325 MG TAB PO PRN (15:03)
[2024-01-09] MEDS: cloNIDine HCL 0.1 MG TAB PO PRN (16:53)
[2024-01-10] MEDS: ENSURE HIGH PROTEIN 237 ML CAN PO SCH (08:05)
[2024-01-10] MEDS: FE SULF/FA/VIT B COMP & C TAB PO SCH (08:08)
[2024-01-10] MEDS: FERROUS SULFATE 325 MG TAB PO SCH (08:08)
[2024-01-10] MEDS: SILVER SULFADIAZINE 1% 25 GM TOP SCH (09:13)
--- NOTE | 2024-01-10 14:10 | RAD REPORT ---
EXAM DESCRIPTION: RAD - Chest Single View - 01/10/2024 1:47 pm CLINICAL HISTORY: Device placement PICC line placement IMPRESSION: PICC line with its tip 1 centimeter into the right atrium
[2024-01-10] MEDS ORDERED: INSULIN REGULAR (HUMAN) 100 UNIT/ML ONE (16:30)
--- NOTE | 2024-01-10 17:22 | RAD REPORT ---
EXAM DESCRIPTION: RAD - Chest Single View - 01/10/2024 5:07 pm CLINICAL HISTORY: Device placement PICC line placement IMPRESSION: PICC line has been retracted with its tip in proximal to mid SVC
[2024-01-10] MEDS: SODIUM CHLORIDE 0.9% 10ML INJ IV SCH (19:40)
[2024-01-10] MEDS ORDERED: Mupirocin NASAL 2 APPL/1 GM TUBE NAS SCH (20:00)
[2024-01-11] MEDS: SODIUM CHLORIDE 0.9% 10ML INJ IV SCH (08:13)
[2024-01-11] MEDS: LOPERAMIDE HCL 2 MG CAPSULE PO PRN (09:13)
--- NOTE | 2024-01-11 09:53 | HP ---
Date of Admission: 01/08/2024 Time Of Service: 5 p.m. Chief Complaint: "I fell at home and I lost my toe in surgery for an infection." History Of Present Illness: Mr. Yap is a 68-year-old right-handed patient with poorly controlled diabetes mellitus, hypertension, osteomyelitis of the left lower extremity, who guy s a recent second toe amputation and was at home when he fell. Reportedly hit his head, but was not unconscious. He was previously treated with a wound VAC with and was monitored by home he alth. When he was evaluated in the hospital again, uncontrolled diabetes mellitus with diabetic keto acidosis, left foot infection with leukocytosis in addition to the left second toe amputation. He al so had some pain in the right hip, but no injuries identified in terms of imaging. Found to have leila al insufficiency, hyponatremia, depression. In addition, he had significant obesity, BMI of 35.6. H e did receive intravenous antibiotics, now vancomycin and amoxicillin. He did receive Levaquin at on e point. He also because of osteomyelitis in the left third toe that was amputated. In h is postoperative course, required IV antibiotics along with significant monitoring for his white bloo d cell count, electrolytes that were abnormal, and pain management, also for acute wound care. Due t o his recent amputation and fall, he is functioning well below his baseline level, where he requires min assist with transfers with contact guard with mobilization and performance of activities of daily living. As a result of his need for medical management and recovery with therapy and IV antibiotics , he is admitted to the inpatient rehabilitation unit for physical and occupational therapy as admiss ion to a lower level of facility would likely result in worsening complications. Past Medical History: As noted, insulin-dependent diabetes mellitus, osteomyelitis of the left secon d toe, recent left third toe amputation, fall, knee surgery, and hypertension. Allergies: NO KNOWN DRUG ALLERGIES. Medications: Washington 5/325 for moderate pain 5 to 7 every 6 hours; Norvasc 10 mg daily; amoxicillin 50 0 mg 3 times daily; Eliquis 2.5 mg twice daily; aspirin 81 mg daily; atenolol 50 mg at bedtime; cloni dine 0.1 mg every seventh day patch; Glucerna 237 mL twice daily; Tricor 160 mg daily; Lasix 20 mg Mo nday, Thursday, Thursday; Semglee insulin 20 units at bedtime, he is on a moderate insulin sliding sca le; Cozaar 10 mg daily; Actos 30 mg at breakfast; mupirocin apply nasally twice daily spray; rosuvast atin 40 mg at bedtime; potassium 10 mEq Thursday, Thursday, Thursday; Aldactone 25 mg daily; Flomax 0.4 mg daily; vancomycin 1.25 every 24 hours. Family History: Noncontributory. Social History: No recent alcohol, tobacco, or drug use. Laboratory Studies: White blood cell count 10.7, hemoglobin 8.6, hematocrit 27, platelets 330. Sodi um 137, potassium 3.8. His BUN is 27, creatinine 1.71, calcium 8.9. More recent glucose of 288. He is 255 pounds, height 71 inches, BMI 35.561. Current Level Of Functioning: Supervision for eating, oral hygiene. Moderate assist for toileting, bathing. Contact guard assistance for upper body dressing. Moderate assistance for lower body dress ing and donning and doffing footwear. For rolling from [id number]-co-pdqfb and acuwf-hr-lxar, contact guar d. From going on sitting to standing, contact guard. From chair to bed, bed to chair, moderate assi stance. For toilet transfer, moderate assistance. For ambulation with a rolling walker, moderate as sistance, covering 15 feet. Physical Examination: Vital Signs: Blood pressure 134/62, pulse of 82, respiratory rate 18, temperature 97.1, oxygen satur ation 92%. General: Mr. Yap is sitting in a chair eating his dinner. HEENT: He is normocephalic atraumatic. Sclerae anicteric. Oropharynx moist. Neck: Supple. Chest: Clear. Extremities: Has good hemostasis of the left foot surgical site. No cyanosis, but mild hemostasis c hanges noted. He has diffuse weakness in the lower and upper extremities, but no asymmetric findings to suggest stroke. Rehab And Medical Assessment And Plan: Mr. Yap is admitted to the inpatient rehabilitation unit with impairment category 20, miscellaneous. His impairment group code is 13, other disabling impair ments. Etiologic diagnoses: Osteomyelitis of the left foot ; renal insufficiency; decreas ed mobility; decreased physical functioning; diabetes mellitus, insulin-dependent; hypertension; leuk ocytosis; pain. He recently had a pseudohyponatremia, ketoacidosis from diabetes, decreased hemoglob in and hematocrit, and the amputation of the left third toe on 01/06/2024. Plan: We will have physical and occupational therapy 3 hours a day, 5 of 7 days. We will continue w ith the vancomycin and amoxicillin for his osteomyelitis. We will continue with Eliquis for his DVT prophylaxis. Continue with potassium and aldactone for fluid management and replacement of electroly nikia. Continue with atenolol for blood pressure and heart rate control along with clonidine. He has [place] and Tylenol for pain. May consider gabapentin as well. Continue with Actos at breakfast, Barry tor for dyslipidemia, Flomax for prostate hypertrophy. Comorbidities That Are Impacting Rehabilitation: He is at significant risk of worsening given his ad mission with diabetic ketoacidosis. Blood sugars will be monitored very carefully and adjustments of his insulin regimen as appropriate. In addition, high fall risk because of recent amputation. Fall precautions adhered to at all times. Gait belt and walker to be used with all transfers. In additi on, elevated BMI, risk of pneumonia and skin breakdown. He will be offloaded as appropria te. Chest x-ray will be done to follow the lungs and nebulizers to be used along with pulmonary serv ice being consulted as needed. Mr. Yap will have a specific plan, which will include physical and therapy for him to be able to transfer from bed to chair to toilet and shower, to be able to perform showering and toileting, to p erform activities of daily living, also to improve those to a modified independent level. He will be able to ambulate with a rolling walker 250 feet and mobilize wheelchair 250 feet and go up and down 10 steps with bilateral hand rails. Also continue to perform cognitive functioning independently. He will have 24 hours a day, 7 days a week assisted evaluation and management for addressing i ssues such as need for more imaging, blood draws, address his pain, bowel movements, sleep, risk for deep vein thrombosis and to mitigate against that. He will have protective services social worker evaluation and manag ement for discharge planning, home equipment, and to continue therapy as appropriate. He will have grace roldan physician evaluation and management to integrate his treatment and manage his comorbid condition s. Mr. Yap has good understanding of the process of admission to the inpatient rehabilitation [facility] and how he will benefit from physical, occupational, and speech therapy. Again as needed, additio nal services from the pulmonary service, infectious disease service, and general surgery service will be consulted as appropriate. Barriers To Discharge: He does require IV antibiotics. We will have to determine the length of time the vancomycin is needed. If he has to go home with antibiotics, it will be arranged with home heal th and pharmacy that will be delivering the antibiotics and the patient's family will also have train ing as appropriate. He will also have wound care management while in hospital. We will work on offl oading in potential areas for skin breakdown. Length Of Stay: About 10 days. Disposition: Home with home health and family. Prognosis: Good. Rehab Specific Goals: 1.Become independent with upper and lower body dressing and donning and doffing of footwear. Also, independent with toileting, showering, and activities of daily living. 2.Independent with ambulation 250 feet with a rolling walker. 3.Independently propel a wheelchair 250 feet. 4.Independently go up and down 10 steps with bilateral handrails. 5.Independently perform all cognitive functioning. The above goals were reviewed with Mr. Yap and he is in agreement. By signing this document, I acknowledge I personally performed a full physical examination on Mr. Elia baker no later than 24 hours after his admission to the inpatient rehabilitation facility and determi benigno that he is able to tolerate the above course of treatment at an intensive level for a reasonable period of time. A detailed individualized plan of care for him will be completed by hospital day 4 based on the pre-admission screen, history and ph ysical and therapy evaluations. MOLLY/JAMES Voice ID: [id number]
[2024-01-11] MEDS: POTASSIUM CL SA 10 MEQ TAB PO SCH (16:55)
[2024-01-11] MEDS: FUROSEMIDE 20 MG TABLET PO SCH (16:55)
[2024-01-11] MEDS: INSULIN REGULAR (HUMAN) 100 UNIT/ML SQ SCH (16:56)
[2024-01-11] MEDS: DULOXETINE 30 MG CAP PO SCH (21:17)
[2024-01-11] MEDS: INSULIN GLARGINE 100 UNIT/ML SQ SCH (21:25)
--- NOTE | 2024-01-11 23:01 | PN ---
Date of Progress Note: 01/11/2024 Time Of Service: 1:10 p.m. Subjective: Mr. Yap is sitting in his room between therapy sessions, did have 3 to 4 loose stoo ls earlier today, possibly attributed to his amoxacillin and protein supplementation. He is on amoxi cillin and vancomycin for his osteomyelitis. The areas of osteomyelitis appears somewhat worse and Royer Oates will be reconsulted to take a look. He did have toe amputation and he will be able to ma ke a determination if additional surgical intervention is required. At this point, amoxicillin was d iscontinued. Vancomycin continued and he is on Imodium to help with his diarrhea. Objective: Again, some diarrhea and loose stools. No significant pain in the left lower extremity w here he has the toe amputations and has not had any other complaints except some fatigue with his exe rcise. Physical Examination: Vital Signs: Blood pressure 167/74, pulse 62, respiratory rate of 16, temperature 97.6, oxygen satur ation 95%. General: Mr. Yap is sitting in a chair in his room. HEENT: He appears normocephalic, atraumatic. Sclerae anicteric. Oropharynx moist. Neck: Supple. Extremities: Left foot is well bandaged with good hemostasis. He is a class 2 obesity patient. Laboratory Studies: White blood cell count on the first is 7.2, hemoglobin 7.7. Today, blood sugars did range from 149 to 243. His insulin regimen was adjusted such that at night, the Semglee insulin was increased from 20 units at bedtime to 23 units. His insulin sliding scale for glucose was adjus ailyn from mild to moderate scale. He also has Actos 30 mg daily with breakfast. Current Medications: Cornell 5/325 every 6 hours as needed, Norvasc 10 mg daily, Eliquis 2.5 mg twice daily, aspirin 81 mg daily, atenolol 50 mg at bedtime, Catapres 0.1 mg every 4 hours as needed for sy stolic blood pressure greater than 170. He also has a 1 mg per day clonidine patch every seventh day removed, duloxetine 30 mg at bedtime for depression, Tricor 160 mg daily, ferrous sulfate 325 mg yomi ly, Lasix 20 mg Thursday, Thursday, Thursday, Semglee insulin 23 units at night, Imodium 2 mg every 4 ho urs as needed, Cozaar 100 mg daily, melatonin 3 mg at bedtime, Hemocyte Plus 1 tablet daily, Bactroba n nasal spray 1 spray twice daily, Actos 30 mg daily with breakfast, potassium 10 mEq Thursday, , Thursday, Crestor 40 mg at bedtime, Senokot-S 2 at bedtime that is held for diarrhea, Silvadene 1% cream topically to wounds on the foot daily, Aldactone 25 mg daily, Flomax 0.4 mg at bedtime, and van comycin 1.75 g every 48 hours. The patient does have large-bore Align placed in the left arm. X-ray/imaging: He did have chest x-ray done to assess placement of the line from the left arm. The PICC line was retracted with its tip now proximal to the mid superior vena cava. Progress Made With Physical And Occupational Therapy: With physical therapy, did toilet transfers 3 times and zac-ik-dptrr transfers with contact guard assistance, vgmug-nl-nhpae transfers done with co ntact guard assistance. Mobilized with a rolling walker 300 feet and 210 feet with contact guard ass istance. Additional 175 feet and 310 feet were done with contact guard assistance using a rolling wa lker. He was able to go up and down 15 steps with contact guard assistance. He completed 250 feet i n terms of wheelchair mobilization with contact guard standby assistance without rest breaks. With h is occupational therapy, supervision for toilet transfers twice and completed toilet hygiene supervis ion x2. Did have diarrhea and will have a shower in the morning. With speech, long-term goals were to improve memory, executive functioning from moderate assist to min assist, improve safety awareness , independence, and to prevent rehospitalization. Mr. Yap is making good progress with his physical and occupational therapy, beginning speech the rapy as well. He does have of course challenges with requiring long-term antibiotics for osteomyelit is of the left foot and there is perhaps slight worsening of the wound and Dr. Oates will be recon sulted for further evaluation. Assessment: Mr. Yap is a 68-year-old patient in the rehabilitation unit with left foot osteomye litis, status post toe amputations. He has renal insufficiency, decreased mobility, decreased physic al functioning, diabetes mellitus, hypertension, recent diarrhea with ketoacidosis. Again, amputatio n of the left third toe done. Plan: 1.Continue with physical, occupational, and speech therapy for 3.5 hours, 5 of 7 days. 2.Amoxicillin is discontinued. Continue with vancomycin. 3.Use Imodium on board. 4.Eliquis for DVT prophylaxis. 5.Aggressive management of his hypertension with multiple antihypertensive modalities. 6.His blood sugar was somewhat elevated and Semglee insulin increased at nighttime. He is on a mode rate sliding scale. May consider getting to 25 units of Semglee at night if his blood sugar is still poorly controlled. 7.Crestor for dyslipidemia. 8.Flomax for prostate hypertrophy and will be considering adding gabapentin. 9.For his depression, he is on Cymbalta. Comorbidities That Are Impacting Rehabilitation: He does have potential worsening of the left foot i nfection. We will have Dr. Oates take a look to make sure the appropriate course of action is justo ng done. Of course, antibiotics will be continued. He does have a potential source for his skin kaushik akdown and will be really important for him to offload, especially with the diabetic loss of peripher al sensation, he is at high risk of worsening injury and infection in the foot, so he will be offload ing as much as possible as well as exercising regularly with dorsi and plantar flexion exercises whil e sitting and in bed. LB/JAMES Voice ID: [id number] Report ID: [id number]
[2024-01-12] MEDS: VANCOMYCIN 1.75 GM in NA CHLORIDE 0.9% 500 ML IVPB SCH (07:37)
[2024-01-12] MEDS: FUROSEMIDE 20 MG TABLET PO ONE (15:36)
[2024-01-12] MEDS: INSULIN REGULAR (HUMAN) 100 UNIT/ML SQ SCH (16:49)
--- NOTE | 2024-01-13 01:38 | PN ---
Date of Progress Note: 01/12/2024 Time Of Service: 1:15 p.m. Subjective: Mr. Yap is sitting in his room, looking out the window in between therapy sessions. He is doing very well. No loose stools today. He is on the vancomycin. Amoxicillin has been disc ontinued. There was discussion that he will of course continue for the osteomyelitis his vancomycin longer than his current hospital stay. He has had some elevated troughs and medication frequencies b eing adjusted with the help of pharmacy. Dr. Oates was asked to take a look at his toe again, how ever, the consult is pending. Objective: Denies additional diarrhea and no significant pain in his left lower extremity where he h as had the amputations. There is good hemostasis. There are bandages in place and he is doing trevor r with his exercise. Still has some fatigue. Physical Examination: Vital Signs: Blood pressure 168/74, pulse of 63, respiratory rate 16, temperature 97.2, oxygen satur ation 95%. General: Mr. Yap is resting comfortably in between therapy sessions. His occupational therapis t is in the room. He then turned and is sitting in a wheelchair which is next to the bed. HEENT: He is normocephalic, atraumatic. Sclerae anicteric. Oropharynx pink and moist. Abdomen: Obese. Extremities: Left has good hemostasis with bandages in place for the amputated toe. Otherwise, no f ocal or new deficits. Laboratory Studies: Blood sugars ranged from 70 to 258. Vancomycin trough is 14.6 today, yesterday was 21.0. X-ray/imaging: No new x-rays or imaging. Medications: The vancomycin is again adjusted by the pharmacy to 175 mg every 48 hours. He continue s all other medications. The clonidine patch is 1 every week at 0.1 mg daily dose. He did have also some slight lowering of blood sugars while on a moderate sliding scale that is now put to a mild sli ding scale and the Semglee insulin of 23 units at night is continued. It was increased from 20 to 23 as needed for blood sugars in 200s to 300s. Progress Made With Physical, Occupational, And Speech Therapy: He today ambulated 350 feet, another 100 feet and 175 feet with standby assistance using a rolling walker. He is able to go up and down 2 0 steps with bilateral handrails and standby assistance. Zbb-et-qibcj transfers done with standby as sistance. Fvvfx-sy-agnew transfers done with standby assistance. With occupational therapy, did The ra-Band exercises 4 sets of 10 in the upper extremities. With speech, able to unscramble sentences a ccurately in 8/10 opportunities. He did show difficulty recalling 3 words after 3 minutes requiring semantic cues, but was able to free recall on the second attempt. His problem solving improved throu gh sequencing related words at 6/10 repetitions. Mr. Yap is making good progress with physical, occupational, and speech therapy. Assessment: Mr. Yap is a 68-year-old patient in the rehabilitation unit with left lower extremi ty osteomyelitis, status post amputation of the left third toe. He has long-term antibiotics. He guy s renal insufficiency, decreased mobility, decreased physical functioning, diabetes mellitus, hyperte nsion, recent resolved diarrhea. Plan: 1.Continue with physical, occupational, and speech therapy for 3.5 hours, 5 of 7 days. 2.Continue with vancomycin. 3.Continue his multiple comorbid medications including Imodium for constipation, Eliquis for DVT pro phylaxis, Flomax for prostate hypertrophy, Crestor for dyslipidemia. He is on Cymbalta for depressio n and neuropathic pain. Again for his blood sugars, Semglee 23 units at night and mild sliding scale use. Comorbidities That Are Impacting Rehabilitation: His blood sugars did go down significantly more aft er moderate sliding scale. He now is again on mild sliding scale. In addition, he is continued on long-term antibiotics and is going to f ollow up with Dr. Oates. MOLLY/JAMES Voice ID: [id number] Report ID: [id number]
[2024-01-13 06:11] LABS: Absolute Basophils 0.1 K/uL (0-0.5); Absolute Eosinophils 0.2 K/uL (0-0.5); Absolute Lymphocytes (CBC) 1.2 K/uL (0.7-4.9); Absolute Monocytes 0.7 K/uL (0.1-1.3); Absolute Neutrophil 4.4 K/uL (1.8-8.0); Basophils % 1.4 % (0-1.3); Eosinophils % 2.6 % (0-4.4); Hemoglobin 7.1 g/dL (13.6-17.9); Lymphocytes % 18.2 % (15.3-44.8); MCH 27.6 pg (27.0-35.0); MCHC 32.1 g/dL (32.0-36.0); MCV 85.9 fL (80-100); MPV 8.4 fL (7.6-11.3); Monocytes % 10.2 % (3.3-12.3); Neutrophils % 67.6 % (41.7-73.7); Platelets 345 thou/uL (152-406); RBC Red Blood Cell Count 2.56 M/uL (4.33-5.43); Red Cell Distribution Width 16.7 % (12.1-15.2)
[2024-01-13 06:23] LABS: Anion Gap 6.3 mEq/L (5.0-15.0); Potassium 4.3 mEq/L (3.5-5.1)
[2024-01-13] MEDS: FUROSEMIDE 20 MG TABLET PO SCH (08:40)
[2024-01-13] MEDS: POTASSIUM CL SA 10 MEQ TAB PO SCH (08:40)
[2024-01-13] MEDS: CLONIDINE 0.1 MG/PATCH TD SCH (11:08)
[2024-01-13] MEDS: LOSARTAN POTASSIUM 50 MG TABLET PO SCH (11:08)
--- NOTE | 2024-01-13 14:05 | CON ---
Date of Consultation: 01/13/2024 History Of Present Illness: This is a 68-year-old male with the poorly controlled diabetes mellitus, hypertension, peripheral vascular disease, lower extremities edema, coming in with osteomyelitis of left foot with the diabetic foot ulcer. Patient refusing surgical intervention, currently getting vancomycin for Enterococcus faecalis growing of the wound culture from 12/28 and 12/30. Patient also has a PICC line placement for 6 weeks of IV antibiotics. Past Medical History: As per HPI. Social History: Nonsmoker. Nondrinker. Family History: Noncontributory. Medications: Vancomycin. See MARs for other medications. Allergies: AMPICILLIN CAUSED DIARRHEA. Review of Systems: 10-point review was performed. Physical Examination: General: This is a 68-year-old male, sitting in wheelchair, not in any acute cardiopulmonary distress. Vital Signs: Temperature 97, pulse 58, respirations 18, blood pressure 148/65. HEENT: Unremarkable. Neck: Supple. Lungs: Basal crackles. Heart: S1, S2. Regular. Abdomen: Soft. Bowel sounds present, obese. Extremity: 2+ edema, left lower extremity, with the diabetic foot ulcer and wound. Laboratory Data: Shows WBC 6.6, hemoglobin 7.1, platelets 345. Chemistry shows a BUN of 35, creatinine 1.9, increased from before 1.6. Assessment And Plan: Poorly controlled diabetes mellitus with left foot osteomyelitis, especially involving the second metatarsal, third metatarsal, and the third digit with destructive changes. Extensive area of soft tissue 68-year-old male with poorly controlled diabetes mellitus with the osteomyelitis of second and third metatarsal and destructive changes in the third digit, questionable gas presentation. Patient does not look septic at this point. We will recommend to keep legs elevated. Consider long-term acute care for hyperbaric and IV antibiotic as patient has poor renal function. Concerned about renal failure, if the patient is sent home. Also recommend to get hemoglobin A1c, if not performed. Hemoglobin A1c is 11. We will repeat another hemoglobin A1c in 3 months. Continue supportive care and wound care. We will follow the patient as needed. Thank you, Dr. Art, for consult. NF/MODL Voice ID: [id number] Report ID: [id number] [facility]ITALRoyer
[2024-01-13] MEDS ORDERED: NA CHLORIDE 0.9% 250 ML ONE ×2 (17:32→22:39)
--- NOTE | 2024-01-13 18:05 | PN ---
Date of Progress Note: 01/13/2024 Status post amputation and wound care and abscess debridement. The patient is doing well. He is in rehab, at this moment. We changed the dressings today. He is improving. We still need some Santyl for chemical debridement, but unfortunately they are in back order. In the meantime, we are using Si lvadene. No smell is coming from that area. He is trying to continue this jesus, although we once again discussed with him options of the amputation of the foot, but at this moment, he is not ready f or that. So, in the meantime, we are going to continue with dressing changes. [facility] [place] [facility] Thursday afternoon when he gets discharged on Thursday. GAB/JAMES Voice ID: [id number] Report ID: [id number]
[2024-01-13] MEDS: MELATONIN 3 MG TABLET PO PRN (21:03)
[2024-01-13] MEDS ORDERED: FUROSEMIDE 20 MG/ 2ML VIAL ONE (21:58)
[2024-01-13] MEDS: FUROSEMIDE 20 MG/ 2ML VIAL IV ONE (22:02)
[2024-01-14] MEDS: FUROSEMIDE 20 MG/ 2ML VIAL IV ONE (03:08)
[2024-01-14 07:14] LABS: Hematocrit 26.3 % (39.6-49.0); Hemoglobin 8.9 g/dL (13.6-17.9)
--- NOTE | 2024-01-14 07:45 | RAD REPORT ---
EXAM DESCRIPTION: USExtrem Venous W Compress Bil01/13/2024 11:45 pm CLINICAL HISTORY: Leg swelling COMPARISON: none FINDINGS: The common femoral, superficial femoral, greater saphenous, popliteal and posterior tibial veins bilaterally are compressible and demonstrate augmentation. Doppler demonstrates good flow. Grayscale, color and spectral analysis performed on all vessels IMPRESSION: No evidence of deep venous thrombosis involving either lower extremity.
[2024-01-14] MEDS ORDERED: VANCOMYCIN 1.5 GM in NA CHLORIDE 0.9% 500 ML IVPB SCH (09:00)
[2024-01-14] MEDS ORDERED: COLLAGENASE 30 GM OINTMENT TOP SCH (13:00)
--- NOTE | 2024-01-14 13:38 | PN ---
Subjective: Patient lying in bed. No new acute event. Chart reviewed. Objective: Vital Signs: Temperature 97, pulse 55, respirations 18, blood pressure 166/74. Lungs: Basal crackles. Heart: S1, S2. Regular. Abdomen: Soft, nontender. Bowel sounds present. Extremity: 1+ edema. Laboratory Data: Shows WBC 6.6, hemoglobin 8.9, platelets are 345. Chemistry shows BUN of 35, creat inine 1.9. Urine cultures, mixed bethany. Assessment And Plan: Left foot osteomyelitis with large wound and status post debridement. Patient' s tendons and deep tissue is showing multiple area of destructive changes. Recommend to have IV vanc omycin and cefepime for 6 weeks. Consider long-term acute care for hyperbaric and IV antibiotics. M onitor blood sugar with hemoglobin A1c of 11. Continue supportive care and wound care on daily basis . NF/MODL Voice ID: [id number] Report ID: [id number]
[2024-01-14] MEDS: MEDIHONEY 44 ML TOPICAL TUBE TOP SCH (15:17)
--- NOTE | 2024-01-14 17:15 | RAD REPORT ---
EXAM DESCRIPTION: RADChest Single View01/14/2024 4:12 pm CLINICAL HISTORY: PICC line placement COMPARISON: Chest Single View dated 01/10/2024; Chest Single View dated 01/10/2024; Chest Single View da ailyn 12/28/2023 TECHNIQUE: Portable AP view of the chest. FINDINGS: Mild patchy opacities with prominent interstitium centrally, progressive since the prior e xam. Decreased inspiratory effort limits evaluation. Right arm PICC has been placed, with tip project ing over the right atrium. No pneumothorax or effusion. Moderate cardiomegaly, more pronounced than on prior exam. Mediastinal contours are otherwise unremarkable. IMPRESSION: Findings suggestive of pulmonary edema possibly of cardiogenic origin, progressive since the prior exam. Right arm PICC has been placed, tip projects over the right atrium.
[2024-01-14] MEDS: VANCOMYCIN 1.5 GM in NA CHLORIDE 0.9% 500 ML IVPB SCH (19:00)
[2024-01-14] MEDS: Mupirocin NASAL 2 APPL/1 GM TUBE NAS SCH (20:00)
--- NOTE | 2024-01-14 21:55 | RAD REPORT ---
EXAM DESCRIPTION: RADChest Single View01/14/2024 9:29 pm CLINICAL HISTORY: verify picc line placement COMPARISON: Chest Single View dated 01/14/2024; Chest Single View dated 01/10/2024; Chest Single View da ailyn 01/10/2024; Chest Single View dated 12/28/2023 TECHNIQUE: Portable AP view of the chest. FINDINGS: Right arm PICC in place, with catheter tip at proximal aspect of the right atrium. Stable perihilar mild opacities, may reflect congestion or edema. No pneumothorax or effusion. The cardiome diastinal contours are unremarkable. IMPRESSION: Stable findings as above.
--- NOTE | 2024-01-15 00:07 | PN ---
Date of Progress Note: 01/14/2024 Time Of Service: 1:15 p.m. Subjective: Mr. Taylor is sitting in a chair and eating lunch. He denies any pain in the left lower extremity. There was a discussion about the left leg properly being treated with amputation, but the patient is reticent to do that. There is discussion with Dr. Oates and Dr. Kemp and they are a ll on board that he requires really an amputation for him to be able to do well as it is highly unlik venus that the significant loss of tissue integrity in the left lower extremity can result in him maint aining the foot given the advanced diabetic neuropathy. Review of Systems: He denies any fevers or chills. No significant myalgias or arthralgias. No weight change. No rash. No other complaints. Physical Examination: Vital Signs: Blood pressure 179/88, pulse 73, respiratory rate 18, temperature 96.8, and oxygen satu ration 92%. Weight 250 pounds, height 5 feet 11 inches, and BMI 35.1. General: Mr. Yap again is sitting in a chair, looking out the window, finishing his lunch. HEENT: He is normocephalic, atraumatic. Sclerae anicteric. Oropharynx is moist. Neck: Supple. Chest: Clear. Musculoskeletal: He has bandaging up the left foot, where extensive debridement was done, but the pa tient has had very much an infected foot on the left foot. Medications: Medications have been reviewed and are adjusted to include new antibiotic along with va ncomycin, which is 1.5 [address] Kemp started cefepime 1 g daily. Continue with [place] [employer] 5/325 every 6 hours as needed, Norvasc 10 mg daily, Eliquis 2.5 mg twice daily, aspirin 81 mg daily, Tenormin 50 mg at bedtime, clonidine 0.1 mg as needed for systolic blood pressure over 70 every 4 ho urs plus the 1 mg patch daily, Cymbalta 30 mg at bedtime, Medihoney to the wound. He has TriCor, shun sebastian sulfate, Lasix as well on board for some edema. Cozaar, melatonin, Hemocyte Plus, Bactroban jannie ly to the wound daily. Vitamin replacement, Crestor, Senokot for constipation, has Silvadene also ap plied to his wound, and Aldactone along with Flomax. Progress Made With Physical And Occupational Therapy Along With Speech Therapy: Today, ambulated 600 feet and another 100 feet independently and was able to abduct 15 steps with bilateral handrails. S cidvl-zv-vnp transfers independently, [id number]-tx-[id number] transfers done independently, stand pivot transfer s done independently. With occupational therapy, independent with wheelchair mobilization. He actua lly independently was able to wash and dry 10/10 body parts with an assistive device. Lower body morris ssing independent, independent upper body dressing. With his speech, recall 3 of 3 unrelated words a fter 5 and 10 minutes. He did come back confabulated in new set of words in 15 minute gabriela. He accu rately sequenced 4 units of information in 2 of 5 attempts. While Mr. Yap has made excellent progress with his physical, occupational, and speech therapy, h is significant left foot wound makes it very difficult for him to be able to go home because he is li kevyn to be unable to address the wound properly and will end up with potential gangrene, sepsis, and run into many issues. There was an extensive discussion with Dr. Kemp and Dr. Oates and the allyn n is for him to go to long-term acute care where he will receive 2 IV antibiotics and daily wound man agement. Assessment: Mr. Yap is a 68-year-old patient with diabetes mellitus, advanced diabetic neuropat hy. He has had gangrene of left foot. His multiple toes were amputated and he has large open wounds with infection, which is treated with multiple antibiotics. He is followed by Dr. Kemp and Dr. Symone mansfield. He has hypertension, renal insufficiency, decreased physical functioning, decreased mobility , depression, and diabetic neuropathy. Plan: 1.Continue physical, occupational, and speech therapy for 3.5 hours, 5 of 7 days. 2.Continue with vancomycin and cefepime. 3.Continue all medications, which are listed above. Comorbidities That Are Impacting Rehabilitation: At this point, he is doing physically very well. H owever, because of the medical reasons and that includes the left foot, which can be significantly wo rse, become gangrenous, and can lead to sepsis, he is recommended for long-term acute care with multi ple antibiotics that is being worked out at this point. LB/MODL Voice ID: [id number] Report ID: [id number]
[2024-01-15 07:53] LABS: Absolute Basophils 0.1 K/uL (0-0.5); Absolute Eosinophils 0.1 K/uL (0-0.5); Absolute Lymphocytes (CBC) 1.1 K/uL (0.7-4.9); Absolute Monocytes 0.6 K/uL (0.1-1.3); Basophils % 1.1 % (0-1.3); Eosinophils % 1.5 % (0-4.4); Hematocrit 28.6 % (39.6-49.0); Hemoglobin 9.3 g/dL (13.6-17.9); Lymphocytes % 13.5 % (15.3-44.8); MCH 27.7 pg (27.0-35.0); MCHC 32.5 g/dL (32.0-36.0); MCV 85.4 fL (80-100); MPV 8.6 fL (7.6-11.3); Monocytes % 7.6 % (3.3-12.3); Neutrophils % 76.3 % (41.7-73.7); Platelets 318 thou/uL (152-406); RBC Red Blood Cell Count 3.35 M/uL (4.33-5.43); Red Cell Distribution Width 17.8 % (12.1-15.2)
[2024-01-15 08:09] LABS: Albumin 2.1 g/dL (3.4-5.0); Anion Gap 8.6 mEq/L (5.0-15.0); Magnesium 2.5 mg/dL (1.6-2.4); Potassium 4.6 mEq/L (3.5-5.1)
[2024-01-15 08:32] LABS: Prealbumin 14.5 mg/dL (20-40)
[2024-01-15] MEDS: CEFEPIME 1 GM in NA CHLORIDE 0.9% 100 ML IV SCH (10:18)
--- NOTE | 2024-01-15 11:16 | P.PN ---
Nephrology (S) See recent consultation note from Dr. Jacobs from admission last mo for full details, pt sent to rehab for PT. Here his renal function tests and peripheral edema have worsened over the past week. He denies any difficulty emptying his bladder. He endorses mild dyspnea. Vitals, medications, blood work and imaging reviewed in the chart General: In no apparent distress, Cooperative HEENT: Atraumatic, off NC Neck: Supple Respiratory: Normal air movement, b/l air entry Cardiovascular: 3+ tight edema extending to thighs, Regular rate/rhythm Gastrointestinal: Soft, obese, some SC edema Musculoskeletal: No contractures Integumentary: Lt foot dressed extensively, compression sock Neurological: Normal speech, awake, alert, sitting in wheel chair Blood work reviewed in the chart. Conclusions/Impression: Prior Stage II DUANE in the setting of hypovolemia had resolved but last week with recurrent Stage 1 DUANE with Cr level rising > 0.5 mg/dl -Cr level upward rise may have been related to BP lowering, resumption of ARB or other although level has trended back up some but also coinciding with addition of aldosterone antagonist, SGLT2i agent, other. R/o retention of urine, check bladder scan/PVR HTN -Labile, now on several agents, suspend the dihydropyridine CCB as it may be contributory to the massive edema he has and will substitute with alternative vasodilator, Hydralazine Peripheral edema -Multifactorial, chronic, has low albumin state from recent severe illness. However recommend stopping agents contributory to edema and/or fluid retention. Stop TZD agent currently. Stop CCB as mentioned above. Will hold off on diuretic escalation for now, cont compression socks, raise feet where possible. DM II with Hyperglycemia & Peripheral Angiopathy -Management per IM DM II with Left Foot Ulcer -s/p surgery, debridement, amputation, cont wound care
[2024-01-15] MEDS: SPIRONOLACTONE 25 MG TABLET PO SCH (11:37)
--- NOTE | 2024-01-15 13:17 | P.RH.PN ---
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: Mobility, Transfers, Self Care Vital Signs: Last Vital Signs Temp 96.9 F 01/15/24 08:00 Pulse 60 01/15/24 09:35 Resp 20 01/15/24 08:00 BP 151/68 H 01/15/24 09:35 Pulse Ox 94 01/15/24 08:00 Laboratory: Laboratory Last Values WBC 7.90 thou/uL (4.3-10.9) 01/15/24 07:30 RBC 3.35 M/uL (4.33-5.43) L 01/15/24 07:30 Hgb 9.3 g/dL (13.6-17.9) L 01/15/24 07:30 Hct 28.6 % (39.6-49.0) L 01/15/24 07:30 MCV 85.4 fL (80-100) 01/15/24 07:30 MCH 27.7 pg (27.0-35.0) 01/15/24 07:30 MCHC 32.5 g/dL (32.0-36.0) 01/15/24 07:30 RDW 17.8 % (12.1-15.2) H 01/15/24 07:30 Plt Count 318 thou/uL (152-406) 01/15/24 07:30 MPV 8.6 fL (7.6-11.3) 01/15/24 07:30 Neutrophils % 76.3 % (41.7-73.7) H 01/15/24 07:30 Lymphocytes % 13.5 % (15.3-44.8) L 01/15/24 07:30 Monocytes % 7.6 % (3.3-12.3) 01/15/24 07:30 Eosinophils % 1.5 % (0-4.4) 01/15/24 07:30 Basophils % 1.1 % (0-1.3) 01/15/24 07:30 Absolute Neutrophils 6.0 K/uL (1.8-8.0) 01/15/24 07:30 Absolute Lymphocytes 1.1 K/uL (0.7-4.9) 01/15/24 07:30 Absolute Monocytes 0.6 K/uL (0.1-1.3) 01/15/24 07:30 Absolute Eosinophils 0.1 K/uL (0-0.5) 01/15/24 07:30 Absolute Basophils 0.1 K/uL (0-0.5) 01/15/24 07:30 Sodium 134 mEq/L (136-145) L 01/15/24 07:30 Potassium 4.6 mEq/L (3.5-5.1) 01/15/24 07:30 Chloride 104 mEq/L (98-107) 01/15/24 07:30 Carbon Dioxide 26 mEq/L (21-32) 01/15/24 07:30 Anion Gap 8.6 mEq/L (5.0-15.0) 01/15/24 07:30 BUN 41 mg/dL (7-18) H 01/15/24 07:30 Creatinine 2.30 mg/dL (0.70-1.30) H 01/15/24 07:30 Est GFR (CKD-EPI) 31 ml/min (=/>90) L 01/15/24 07:30 Glucose 140 mg/dL (74-106) H 01/15/24 07:30 POC Glucose 180 mg/dL (65-120) H 01/15/24 11:33 Calcium 8.9 mg/dL (8.5-10.1) 01/15/24 07:30 Magnesium 2.5 mg/dL (1.6-2.4) H 01/15/24 07:30 Albumin 2.1 g/dL (3.4-5.0) L 01/15/24 07:30 Prealbumin 14.5 mg/dL (20-40) L 01/15/24 07:30 Urine Color Colorless (Yellow) 01/08/24 16:00 Urine Clarity Clear (Clear) 01/08/24 16:00 Urine pH 5.5 (5.0-7.0) 01/08/24 16:00 Ur Specific Temple 1.010 (1.005-1.030) 01/08/24 16:00 Glucose (UA)(Auto) 4+ (over) (Negative) H 01/08/24 16:00 Urine Ketones Trace (Negative) H 01/08/24 16:00 Urine Blood Negative (Negative) 01/08/24 16:00 Urine Nitrite Negative (Negative) 01/08/24 16:00 Urine Bilirubin Negative (Negative) 01/08/24 16:00 Urine Urobilinogen Normal (Normal) 01/08/24 16:00 Ur Leukocyte Esterase Negative Cecil/uL (Negative) 01/08/24 16:00 Urine RBC <5 /HPF (None Seen) 01/08/24 16:00 Urine WBC <5 /HPF (<5) 01/08/24 16:00 Ur Squamous Epith Cells None seen /HPF (None Seen) 01/08/24 16:00 Urine Bacteria <20 /HPF (<20) 01/08/24 16:00 Urine Mucus Slight /HPF (None Seen) 01/08/24 16:00 Urine Yeast (Budding) Few /HPF (None Seen) H 01/08/24 16:00 Urine Culture Reflexed Not needed 01/08/24 16:00 Urine Total Protein 1+ (Negative) H 01/08/24 16:00 Vancomycin Trough 19.5 mcg/mL (5.0-20.0) 01/14/24 05:32 ABO/Rh B POSITIVE 01/13/24 15:25 Solid Phase Ab Screen Negative 01/13/24 15:22 Crossmatch See Detail 01/13/24 15:22 Weight: 254 lb Wound Present: Yes Closed Surgical Incision Present: Yes Negative Pressure Wound Therapy Present: No Physician Update: Labs reviewed and BUN and Development Chemist is elevated. He agrees to have the left amputated. SLUMS 22, he is worried about halfway. Met all short and detention goals. Independent with all self care. Summary: Patient's care plan and detention goals have been reviewed and revised as necessary. Please see the Rehabilitation Signature page for all necessary signatures.
--- NOTE | 2024-01-15 13:28 | RAD REPORT ---
EXAM DESCRIPTION: RAD - Chest Single View - 01/15/2024 1:08 pm CLINICAL HISTORY: to check picc line placed COMPARISON: Chest Single View dated 01/14/2024; Chest Single View dated 01/14/2024; Chest Single View da ailyn 01/10/2024; Chest Single View dated 01/10/2024 FINDINGS: Lines: Right subclavian approach PICC with tip overlying the distal SVC. Lungs: Bilateral interstitial and airspace disease. Pleural: Small pleural effusions. Cardiac: Cardiomegaly. Mediastinum: Within normal limits. Bones: No acute fractures. Other: None IMPRESSION: Widespread interstitial airspace disease likely reflecting edema. The PICC tip overlies the distal SVC and is in satisfactory position .
[2024-01-15] MEDS ORDERED: VANCOMYCIN 1.5 GM in NA CHLORIDE 0.9% 500 ML IVPB SCH (19:00)
[2024-01-15] MEDS: HYDRALAZINE HCL 25 MG TABLET PO SCH (21:34)
[2024-01-15] MEDS: VANCOMYCIN 1.75 GM in NA CHLORIDE 0.9% 500 ML IVPB SCH (21:36)
[2024-01-16 03:52] LABS: Absolute Basophils 0.1 K/uL (0-0.5); Absolute Eosinophils 0.1 K/uL (0-0.5); Absolute Lymphocytes (CBC) 0.9 K/uL (0.7-4.9); Absolute Monocytes 0.7 K/uL (0.1-1.3); Absolute Neutrophil 5.3 K/uL (1.8-8.0); Basophils % 1.3 % (0-1.3); Eosinophils % 1.3 % (0-4.4); Hematocrit 25.3 % (39.6-49.0); Hemoglobin 8.5 g/dL (13.6-17.9); Lymphocytes % 13.1 % (15.3-44.8); MCH 28.7 pg (27.0-35.0); MCHC 33.5 g/dL (32.0-36.0); MCV 85.6 fL (80-100); MPV 8.5 fL (7.6-11.3); Monocytes % 9.5 % (3.3-12.3); Neutrophils % 74.8 % (41.7-73.7); Nucleated Red Blood Cells % 0.2 % (0-0); Platelets 254 thou/uL (152-406); RBC Red Blood Cell Count 2.96 M/uL (4.33-5.43); Red Cell Distribution Width 17.5 % (12.1-15.2)
[2024-01-16 04:03] LABS: Anion Gap 5.5 mEq/L (5.0-15.0); Potassium 4.5 mEq/L (3.5-5.1)
[2024-01-16 05:36] VITALS: BMI 35.4
[2024-01-16 07:25] VITALS: BP 133/65; TEMP 97.9
[2024-01-16 09:15] VITALS: O2SAT 96
[2024-01-16] MEDS ORDERED: VANCOMYCIN 1.5 GM in NA CHLORIDE 0.9% 500 ML IVPB SCH (19:00)
== END 2024-01-16 12:00 | disposition short-term general hospital (02) | DRG 560 ==
LOC: 5TH 15:05
PROVIDERS: ADMIT Psychiatry & Neurology Neurology with Special Qualifications in Child Neurology; ATTEND Psychiatry & Neurology Neurology with Special Qualifications in Child Neurology
DX: Z47.81 Encounter for orthopedic aftercare following surgical amputation (principal); M86.9 Osteomyelitis, unspecified; N17.9 Acute kidney failure, unspecified; Z89.422 Acquired absence of other left toe(s); I10 Essential (primary) hypertension; N28.9 Disorder of kidney and ureter, unspecified; E11.51 Type 2 diabetes mellitus with diabetic peripheral angiopathy without gangrene; E11.65 Type 2 diabetes mellitus with hyperglycemia; E11.69 Type 2 diabetes mellitus with other specified complication; B95.2 Enterococcus as the cause of diseases classified elsewhere; F32.A Depression, unspecified; E86.1 Hypovolemia; E11.621 Type 2 diabetes mellitus with foot ulcer
CPT/HCPCS: 36415; 71045; 80048; 80202; 81001; 82040; 82565; 82947; 83735; 84134; 85014; 85018; 85025; 86850; 86900; 86901; 86920; 87086; 87088; 92523; 93970; 97110; 97116; 97129; 97162; 97165; 97530; 97542; A4216; J0692; J1940; J7040; J7050; P9016

== ENCOUNTER 2024-01-16 12:11 | Inpatient (IN) | payer OTHER ==
[2024-01-16] MEDS ORDERED: ONDANSETRON 4 MG/2 ML VIAL IV PRN (13:05)
--- NOTE | 2024-01-16 13:43 | P.HP ---
Certification for Inpatient Patient admitted to: Inpatient With expected LOS: >2 Midnights Patient will require the following post-hospital care: None Practitioner: I am a practitioner with admitting privileges, knowledge of patient current condition, hospital course, and medical plan of care. Services: Services provided to patient in accordance with Admission requirements found in Title 42 Section 412.3 of the Code of Federal Regulations Patient History Date of Service: 01/16/24 Reason for admission: Nonhealing left foot wound History of Present Illness: Patient with recent admission to hospital for left foot osteomyelitis, he had amputation of his third left toe at that time as well as extensive I&D and debridement. It was recommended he receive a amputation of the left foot at the time but he was not amendable to this. His foot has continued to get worse despite intervention with vascular surgery and antibiotics and at this time he is amendable for amputation. He was in inpatient rehab after his previous admission but the condition of his left foot limited his ability to participate in given that he is now amendable for amputation he has been admitted to the acute care floor in preparation for this amputation of his left foot. Allergies No Known Allergies Allergy (Unverified 01/12/24 16:39) Home Medications: Pioglitazone HCl 30 mg PO DAILY 07/07/13 Amlodipine [Norvasc*] 10 mg PO DAILY 10/29/23 Aspirin [Aspirin EC 81 MG] 81 tab PO DAILY 10/29/23 Empagliflozin [Jardiance] 25 mg PO DAILY 10/29/23 Fenofibrate,Micronized [Fenofibrate] 134 mg PO DAILY 10/29/23 Losartan Potassium 100 mg PO DAILY 10/29/23 Rosuvastatin Calcium 40 tab PO BEDTIME 10/29/23 Spironolactone 25 tab PO DAILY 10/29/23 Tamsulosin [Flomax*] 0.4 cap PO DAILY 10/29/23 Furosemide [Lasix] 20 mg PO M,W,F #15 tab 11/03/23 Mupirocin Calcium [Bactroban Nasal*] 1 appl MENDOZA BID #1 tube 11/03/23 Nut.tx.gluc Intol,Lf,Soy/Fiber [Glucerna 1.5 Mariusz Liquid] 237 ml PO BIDAC #60 can 11/03/23 Potassium Chloride 10 meq PO M,W,F #15 tab 11/03/23 atenoloL [Tenormin*] 50 mg PO DAILY #30 tab 11/03/23 Amoxicillin [Amoxil Cap*] 500 mg PO TID 15 Days #45 cap 01/08/24 Clonidine Patch [Catapres-Tts 1*] 0.1 mg TD EVERY 7TH DAY 30 Days #4 pat 01/08/24 Hydrocodone Bit/Acetaminophen [Hydrocodon-Acetaminophen 5-325] 1 tab PO Q6HP PRN 01/08/24 Insulin Glargine,Hum.rec.anlog [Toyefri Sollisa] 20 unit SQ BEDTIME 01/08/24 Vancomycin/Water For Inj (Peg) [Vancomycin 1.25 gm/250 ml Bag] 1.25 gm IV DAILY 30 Days piggyback 01/08/24 - Past Medical/Surgical History Has patient received pneumonia vaccine in the past: Yes Diabetic: Yes -: DM-IDDM -: HTN -: Osteomyelitis left foot -: Left second toe amputation -: Fall -: left knee surgery 42 yrs ago - Social History Smoking Status: Current some day smoker Alcohol use: No CD- Drugs: No Caffeine use: No Place of Residence: Home Review of Systems 10-point ROS is otherwise unremarkable Musculoskeletal: Foot Pain Physical Examination - Vital Signs Temperature: 96.8 F Blood Pressure: 169/76 Pulse: 59 Respirations: 16 Pulse Ox (%): 95 - Physical Exam General: Alert, In no apparent distress, Oriented x3 HEENT: Atraumatic, PERRLA Neck: Supple, 2+ carotid pulse no bruit Respiratory: Clear to auscultation bilaterally, Normal air movement Cardiovascular: Regular rate/rhythm, Normal S1 S2, Edema (1-2+ pitting edema bilateral lower extremities) Gastrointestinal: Normal bowel sounds, No tenderness Musculoskeletal: No tenderness, Other (Dressing present to left foot) Integumentary: No rashes, Other (Dressing present to left foot clean dry and intact) Neurological: Normal speech, Normal strength at 5/5 x4 extr, Normal tone Assessment and Plan - Plan Problem List: Osteomyelitis / nonhealing gangrenous left foot wound s/p extensive I&D (12/30) and Left third toe amputation along with extensive debridement 01/05 Severe PAD s/p angioplasty and stenting of left SFA (12/29) Recent history of lower left extremity osteomyelitis s/p left second toe amputation (11/02/23) IDDM2 Hypertension DUANE Bilateral knee pain / right hip pain post fall Depression Osteomyelitis / nonhealing gangrenous left foot wound s/p extensive I&D (12/30) and Left third toe amputation along with extensive debridement 01/05 Severe PAD s/p angioplasty and stenting of left SFA (12/29) recent history of lower left extremity osteomyelitis s/p left second toe amputation (11/02/23) Was in inpatient rehab, left foot continue to get worse and patient is now amendable to left foot amputation Readmitted to acute care preparation for amputation of left foot MRI left foot (12/28): osteomyelitis: 2nd, 3rd metatarsal, 3rd and 4th digit with destructive changes of proximal phalanx Extensive areas of soft tissue gas underneath the presumed wound, extending along the sole of the foot anteriorly Dr. Vegas - consulted 12/28 s/p angiogram - found to have critical stenosis of the left proximal superficial femoral artery (~90%) s/p angioplasty and stenting of left SFA (12/29) continue plavix; started post-operatively (12/31) General surgery - Dr. Oates consulted s/p extensive I&D of left gangrenous necrotic wound (12/30). Found to have necrotic tissue and multiple bone fracture fragments of 2/3rd metatarsal head during surgery Amputation of left 3rd toe and extensive debridement (01/05) Continued worsening of left foot wound, will need amputation with general surgery Planned amputation of left foot 01/17 Discussed aspirin/Plavix with general surgery and vascular surgery-hold Plavix, resume after surgery Continue daily aspirin Wound cx (12/28): Enterococcus Faecalis Blood cx (12/27): No growth ID following On vancomycin/cefepime Will need 6 weeks total of antibiotics (12/27-02/07) IDDM2 Continue long-acting insulin 23 units at bedtime ACHS Accu-Chek, sliding scale insulin Hypertension Continue home medications Titrating given kidney function with nephrology DUANE, resolved Nephrology consulted and following Bilateral knee pain / right hip pain post fall xray knee/pelvis negative for any acute fractures or dislocations. Did note 14mm lucency with septations within left medial tibial plateau - likely benign. f/u xray in 3 months recommended to re-eval PRN analgesics Depression duloxetine at bedtime VTE: heparin sq Code: Full Dispo: pending amputation Discharge Plan: Home Plan to discharge in: Greater than 2 days - Advance Directives Does patient have a Living Will: No Does patient have a Durable POA for Healthcare: No - Code Status/Comfort Care Code Status Assessed: Yes (Full code) Time Spent Managing Pts Care (In Minutes): 70
[2024-01-16] MEDS: INSULIN REGULAR (HUMAN) 100 UNIT/ML SQ SCH (16:30)
--- NOTE | 2024-01-16 19:50 | RAD REPORT ---
EXAM DESCRIPTION: US - Lower Extremity Artery Uni Ltd - 01/16/2024 7:16 pm CLINICAL HISTORY: Left lower extremity PAD . COMPARISON: None FINDINGS: Color Doppler, grayscale, and spectral analysis was performed. Monophasic flow but with elevated velocities in the left common femoral artery. SFA has elevated [place] cities with monophasic flow. The popliteal artery has monophasic flow with normal velocities. The ant erior tibial artery and dorsalis pedis arteries have monophasic but adequate flow. IMPRESSION: Monophasic flow throughout the left lower extremity may reflect a high grade stenosis or occlusion more proximally within the pelvis. There does appear to be adequate collateral flow presen t.
--- NOTE | 2024-01-16 20:06 | P.CNS ---
Date of Consult: 01/16/24 Reason for Consult: DUANE Requesting Physician: Wicho Traore Chief Complaint: Nonhealing left foot wound History of Present Illness: Patient with recent admission to hospital for left foot osteomyelitis, he had amputation of his third left toe at that time as well as extensive I&D and debridement. It was recommended he receive a amputation of the left foot at the time but he was not amendable to this. His foot has continued to get worse despite intervention with vascular surgery and antibiotics and at this time he is amendable for amputation. He was in inpatient rehab after his previous admission but the condition of his left foot limited his ability to participate in given that he is now amendable for amputation he has been admitted to the acute care floor in preparation for this amputation of his left foot. +BM Poor appetite. Allergies No Known Allergies Allergy (Unverified 01/12/24 16:39) Home medications list reviewed: Yes Home Medications: Pioglitazone HCl 30 mg PO DAILY 07/07/13 Amlodipine [Norvasc*] 10 mg PO DAILY 10/29/23 Aspirin [Aspirin EC 81 MG] 81 tab PO DAILY 10/29/23 Empagliflozin [Jardiance] 25 mg PO DAILY 10/29/23 Fenofibrate,Micronized [Fenofibrate] 134 mg PO DAILY 10/29/23 Losartan Potassium 100 mg PO DAILY 10/29/23 Rosuvastatin Calcium 40 tab PO BEDTIME 10/29/23 Spironolactone 25 tab PO DAILY 10/29/23 Tamsulosin [Flomax*] 0.4 cap PO DAILY 10/29/23 Furosemide [Lasix] 20 mg PO M,W,F #15 tab 11/03/23 Mupirocin Calcium [Bactroban Nasal*] 1 appl MENDOZA BID #1 tube 11/03/23 Nut.tx.gluc Intol,Lf,Soy/Fiber [Glucerna 1.5 Mariusz Liquid] 237 ml PO BIDAC #60 can 11/03/23 Potassium Chloride 10 meq PO M,W,F #15 tab 11/03/23 atenoloL [Tenormin*] 50 mg PO DAILY #30 tab 11/03/23 Amoxicillin [Amoxil Cap*] 500 mg PO TID 15 Days #45 cap 01/08/24 Clonidine Patch [Catapres-Tts 1*] 0.1 mg TD EVERY 7TH DAY 30 Days #4 pat 01/08/24 Hydrocodone Bit/Acetaminophen [Hydrocodon-Acetaminophen 5-325] 1 tab PO Q6HP PRN 01/08/24 Insulin Glargine,Hum.rec.anlog [Nathanielanaismark Hintonlisa] 20 unit SQ BEDTIME 01/08/24 Vancomycin/Water For Inj (Peg) [Vancomycin 1.25 gm/250 ml Bag] 1.25 gm IV DAILY 30 Days piggyback 01/08/24 - Past Medical/Surgical History Diabetic: Yes -: DM-IDDM -: HTN -: Osteomyelitis left foot -: Left second toe amputation -: Fall -: Hx DUANE (Dr. Jacobs/ [place]) -: left knee surgery 42 yrs ago - Social History Smoking Status: Current some day smoker Alcohol use: No CD- Drugs: No Caffeine use: No Place of Residence: Home Review of Systems 10-point ROS is otherwise unremarkable General: Malaise Cardiovascular: Edema Physical Examination Temp Pulse Resp BP Pulse Ox 98.3 F 61 16 141/63 H 92 01/16/24 16:00 01/16/24 16:00 01/16/24 16:00 01/16/24 16:00 01/16/24 16:00 General: In no apparent distress, Cooperative HEENT: Atraumatic Neck: Supple Respiratory: Normal air movement Cardiovascular: Regular rate/rhythm, Edema Gastrointestinal: Soft and benign, Non-distended Musculoskeletal: No clubbing, No contractures Integumentary: No rashes, No cyanosis Neurological: Normal speech Blood work reviewed in the chart. Imagings Data: [id number] EXAM DESCRIPTION: US - Lower Extremity Artery [facility] - 01/16/2024 7:16 pm CLINICAL HISTORY: Left lower extremity PAD . COMPARISON: None FINDINGS: Color Doppler, grayscale, and spectral analysis was performed. Monophasic flow but with elevated velocities in the left common femoral artery. SFA has elevated velocities with monophasic flow. The popliteal artery has monophasic flow with normal velocities. The anterior tibial artery and dorsalis pedis arteries have monophasic but adequate flow. IMPRESSION: Monophasic flow throughout the left lower extremity may reflect a high grade stenosis or occlusion more proximally within the pelvis. There does appear to be adequate collateral flow present. [id number] EXAM DESCRIPTION: RAD - Chest Single View - 01/15/2024 1:08 pm CLINICAL HISTORY: to check picc line placed COMPARISON: Chest Single View dated 01/14/2024; Chest Single View dated 01/14/2024; Chest Single View dated 01/10/2024; Chest Single View dated 01/10/2024 FINDINGS: Lines: Right subclavian approach PICC with tip overlying the distal SVC. Lungs: Bilateral interstitial and airspace disease. Pleural: Small pleural effusions. Cardiac: Cardiomegaly. Mediastinum: Within normal limits. Bones: No acute fractures. Other: None IMPRESSION: Widespread interstitial airspace disease likely reflecting edema. The PICC tip overlies the distal SVC and is in satisfactory position . Conclusions/Impression: Stage III DUANE likely multifactorial -No NSAIDs -Check urine studies Hyponatremia, improved HTN -Continue Atenolol Peripheral Edema -Continue Lasix and Spironolactone DM II with Hyperglycemia & Peripheral Angiopathy -Continue Lantus -RISS DM II with Left Foot Ulcer -Continue abx -Wound care as ordered -Follow up with surgery Hypoalbuminemia -Recommend protein supplementation Anemia in chronic illness -Monitor H&H -PRBC prn BPH with LUTS -Continue tamsulosin Cigarette Smoker -Recommend cessation Thank you kindly for the consultation
[2024-01-16] MEDS ORDERED: HOME MED 1 EA UNK (Rosuvastatin Calcium [Rosuvastatin Calcium] 40 MG Tablet) PO SCH (21:00)
[2024-01-16] MEDS: HYDRALAZINE HCL 25 MG TABLET PO SCH (22:00)
[2024-01-16] MEDS: INSULIN GLARGINE 100 UNIT/ML SQ SCH (22:00)
[2024-01-16] MEDS: TAMSULOSIN 0.4 MG SR CAP PO SCH (22:01)
[2024-01-16] MEDS: ROSUVASTATIN 10 MG TAB PO SCH (22:01)
[2024-01-16] MEDS: HEPARIN 5000 UNIT/ML 1 ML VIAL SQ SCH (22:02)
[2024-01-17 03:42] LABS: Specific Gravity 1.014 (1.005-1.030); Sqamous Epithelial <5 /HPF (None Seen); Urine Bacteria <20 /HPF (<20); Urine Bilirubin NEGATIVE (Negative); Urine Blood Negative (Negative); Urine Clarity Turbid (Clear); Urine Color Yellow (Yellow); Urine Culture Reflex Order REFLEXED; Urine Glucose NEGATIVE (Negative); Urine Ketones NEGATIVE (Negative); Urine Microscopic Reflex YN ORDER UMIC; Urine Nitrite NEGATIVE (Negative); Urine Protein TRACE (Negative); Urine RBC <5 /HPF (None Seen); Urine Urobilinogen Normal (Normal); Urine WBC Clump Occasional /HPF (None Seen); Urine Yeast (Budding) Many /HPF (None Seen)
[2024-01-17] MEDS: IPRATROPIUM BROM 0.5MG/2.5ML NEB SCH (03:51)
[2024-01-17] MEDS: ALBUTEROL 2.5 MG/3 ML NEB SOL NEB SCH (03:51)
[2024-01-17 04:03] LABS: MA/CREAT RATIO 60.8 (< 30.0); UR MICROALBUMIN 5.9 mg/dL (< 1.9); UR PROTEIN 25.1 mg/dL (<11.9); Urine Protein/Creatinine Ratio 0.26 ratio (<0.15)
[2024-01-17 04:24] LABS: Hemoglobin 8.8 g/dL (13.6-17.9); MCH 28.1 pg (27.0-35.0); MCHC 32.6 g/dL (32.0-36.0); MCV 86.4 fL (80-100); MPV 8.9 fL (7.6-11.3); Platelets 247 thou/uL (152-406); RBC Red Blood Cell Count 3.13 M/uL (4.33-5.43)
[2024-01-17 04:38] LABS: Albumin 2.1 g/dL (3.4-5.0); Albumin/Globulin Ratio 0.4 (1.1-1.8); Anion Gap 5.1 mEq/L (5.0-15.0); Bilirubin Total 0.3 mg/dL (0.2-1.0); Potassium 4.1 mEq/L (3.5-5.1); Protein, Total 7.1 g/dL (6.4-8.2); Uric Acid 5.1 mg/dL (3.5-7.2)
--- NOTE | 2024-01-17 04:47 | P.PN ---
Date of Service: 01/17/24 Patient woke up short of breath and wheezing. Chest x-ray shows mild pulmonary edema with small pleural effusions, will start IV Lasix. Also on DuoNebs now as needed. Obtain proBNP
[2024-01-17] MEDS: FUROSEMIDE 40 MG/4 ML VIAL IV SCH ×2 (05:16→18:29)
[2024-01-17] MEDS ORDERED: ASPIRIN EC 81 MG TAB PO SCH (09:00)
[2024-01-17] MEDS ORDERED: SPIRONOLACTONE 25 MG TABLET PO SCH (09:00)
[2024-01-17] MEDS ORDERED: TAMSULOSIN 0.4 MG SR CAP PO SCH ×2 (09:00)
[2024-01-17] MEDS: HOME MED 1 EA UNK (Fenofibrate,Micronized [Fenofibrate] 134 MG Capsule) PO SCH (09:00)
[2024-01-17] MEDS ORDERED: AMLODIPINE 10 MG TAB PO SCH (09:00)
[2024-01-17] MEDS: CEFEPIME 1 GM in NA CHLORIDE 0.9% 100 ML IV SCH (09:19)
[2024-01-17] MEDS: LOSARTAN POTASSIUM 50 MG TABLET PO SCH ×2 (09:20→20:21)
[2024-01-17] MEDS: ASPIRIN EC 81 MG TAB PO SCH (09:20)
[2024-01-17] MEDS: atenoloL 50 MG TAB PO SCH (09:20)
[2024-01-17] MEDS: SPIRONOLACTONE 25 MG TABLET PO SCH (09:21)
--- NOTE | 2024-01-17 10:31 | P.PN ---
Date of Service: 01/17/24 Vital Signs Temp Pulse Resp BP Pulse Ox 97 F 60 16 158/77 H 99 01/17/24 08:00 01/17/24 09:21 01/17/24 08:00 01/17/24 09:21 01/17/24 08:00 Medications Hydrocodone Bitart/Acetaminophen (Hydrocodone/Apap 5/325 Mg Tab) 1 tab PO Q6H PRN PRN Reason: Pain scale 5-7 (Moderate) Albuterol Sulfate (Albuterol 2.5 Mg/3 Ml Neb Mary Jane) 2.5 mg NEB [id number] [facility] Last Admin: 01/17/24 08:26 Dose: 2.5 mg Aspirin (Aspirin Ec 81 Mg Tab) 81 mg PO DAILY [facility] Last Admin: 01/17/24 09:20 Dose: 81 mg Atenolol (Atenolol 50 Mg Tab) 50 mg PO DAILY [facility] Last Admin: 01/17/24 09:20 Dose: 50 mg Clonidine HCl (Clonidine 0.1 Mg/Patch) 0.1 mg TD EVERY 7TH DAY [facility] Furosemide (Furosemide 40 Mg/4 Ml Vial) 40 mg IV Q12H [facility] Last Admin: 01/17/24 05:16 Dose: 40 mg Heparin Sodium (Porcine) (Heparin 5000 Unit/Ml 1 Ml Vial) 5,000 unit SQ Q12HR [facility] Last Admin: 01/17/24 09:22 Dose: 5,000 unit Home Med (Fenofibrate,Micronized [Fenofibrate]) 134 mg PO DAILY [facility] Last Admin: 01/17/24 09:00 Dose: Not Given Hydralazine HCl (Hydralazine Hcl 25 Mg Tablet) 25 mg PO BID [facility] Last Admin: 01/17/24 09:19 Dose: 25 mg Cefepime HCl 1 gm/ Sodium (Chloride) 100 mls @ 200 mls/hr IV DAILY [facility]; Protocol Last Admin: 01/17/24 09:19 Dose: 100 mls Vancomycin HCl 1.75 gm/ Sodium (Chloride) 500 mls @ 250 mls/hr IVPB Q72H [facility]; Protocol Insulin Glargine (Insulin Glargine 100 Unit/Ml) 23 unit SQ BEDTIME [facility] Last Admin: 01/16/24 22:00 Dose: 23 unit Insulin Human Regular (Insulin Regular (Human) 100 Unit/Ml) 0 unit SQ ACHS [facility]; Protocol Last Admin: 01/17/24 07:30 Dose: Not Given Ipratropium [place] (Ipratropium Brom 0.5mg/2.5ml) 0.5 mg NEB [id number] [facility] Last Admin: 01/17/24 08:26 Dose: 0.5 mg Losartan Potassium (Losartan Potassium 50 Mg Tablet) 50 mg PO DAILY [facility] Last Admin: 01/17/24 09:20 Dose: 50 mg Ondansetron HCl (Ondansetron 4 Mg/2 Ml Vial) 4 mg IV Q6HP PRN PRN Reason: NAUSEA / VOMITING Rosuvastatin Calcium (Rosuvastatin 10 Mg Tab) 40 mg PO BEDTIME [facility] Last Admin: 01/16/24 22:01 Dose: 40 mg Spironolactone (Spironolactone 25 Mg Tablet) 25 mg PO DAILY [facility] Last Admin: 01/17/24 09:21 Dose: 25 mg Tamsulosin HCl (Tamsulosin 0.4 Mg Sr Cap) 0.4 mg PO BID [facility] Last Admin: 01/17/24 09:21 Dose: 0.4 mg Lab Results (last 24 hrs) 01/17/24 07:19: POC Glucose 103 01/17/24 04:48: NT-Pro-B Natriuret Pep Cancelled 01/17/24 03:55: WBC 7.00, RBC 3.13 L, Hgb 8.8 L, Hct 27.0 L, MCV 86.4, MCH 28.1, MCHC 32.6, RDW 18.0 H, Plt Count 247, MPV 8.9 01/17/24 03:55: Sodium 136, Potassium 4.1, Chloride 105, Carbon Dioxide 30, Anion Gap 5.1, BUN 40 H, Creatinine 2.05 H, Est GFR (CKD-EPI) 35 L, Glucose 142 H, Uric Acid 5.1, Calcium 8.9, Total Bilirubin 0.3, AST 29, ALT 34, Alkaline Phosphatase 226 H, Creatine Kinase 16 L, NT-Pro-B Natriuret Pep 1605 H, Serum Total Protein 7.1, Albumin 2.1 L, Globulin 5.0 H, Albumin/Globulin Ratio 0.4 L 01/16/24 23:05: Urine Color Yellow, Urine Clarity Turbid H, Urine pH 5.0, Ur Specific [place] 1.014, Glucose (UA)(Auto) Negative, Urine Ketones Negative, Urine Blood Negative, Urine Nitrite Negative, Urine Bilirubin Negative, Urine Urobilinogen Normal, Ur Leukocyte Esterase 250 H, Urine RBC <5, Urine WBC 10-20 H, Urine WBC Clumps Occasional H, Ur Squamous Epith Cells <5, U Non-Squamous Epi Cells <5, Amorphous Crystals Trace, Urine Bacteria <20, Urine Yeast (Budding) Many H, Urine Culture Reflexed Reflexed, Urine Total Protein Trace H 01/16/24 23:05: Ur Random Microalbumin 5.9 H, U Random Total Protein 25.1 H, Urine Creatinine 97.0, Microalb/Creat Ratio 60.8 H, Protein/Creatinin Ratio 0.26 H 01/16/24 23:05: Ur Random Sodium 21 L, Ur Random Potassium 30.0, Ur Random Chloride 17 L 01/16/24 21:17: POC Glucose 147 H Assessment/ Plan: Nephrology Progress Note No Chest Pain Dyspnea overnight Persistent edema Vital Signs, Medications, Blood Work, and Imaging reviewed in the chart General: In no apparent distress, Cooperative HEENT: Atraumatic Neck: Supple Respiratory: Normal air movement Cardiovascular: Regular rate/rhythm, Edema Gastrointestinal: Soft and benign, Non-distended Musculoskeletal: No clubbing, No contractures Integumentary: No rashes, No cyanosis Neurological: Normal speech Blood work reviewed in the chart. Imagings Data: [id number] EXAM DESCRIPTION: US - Lower Extremity Artery [facility] - 01/16/2024 7:16 pm CLINICAL HISTORY: Left lower extremity PAD . COMPARISON: None FINDINGS: Color Doppler, grayscale, and spectral analysis was performed. Monophasic flow but with elevated velocities in the left common femoral artery. SFA has elevated [place]cities with monophasic flow. The popliteal artery has monophasic flow with normal velocities. The anterior tibial artery and dorsalis pedis arteries have monophasic but adequate flow. IMPRESSION: Monophasic flow throughout the left lower extremity may reflect a high grade stenosis or occlusion more proximally within the pelvis. There does appear to be adequate collateral flow present. [id number] EXAM DESCRIPTION: RAD - Chest Single View - 01/15/2024 1:08 pm CLINICAL HISTORY: to check picc line placed COMPARISON: Chest Single View dated 01/14/2024; Chest Single View dated 01/14/2024; Chest Single View dated 01/10/2024; Chest Single View dated 01/10/2024 FINDINGS: Lines: Right subclavian approach PICC with tip overlying the distal SVC. Lungs: Bilateral interstitial and airspace disease. Pleural: Small pleural effusions. Cardiac: Cardiomegaly. Mediastinum: Within normal limits. Bones: No acute fractures. Other: None IMPRESSION: Widespread interstitial airspace disease likely reflecting edema. The PICC tip overlies the distal SVC and is in satisfactory position. Conclusions/Impression: Stage III DUANE may be CRS -No NSAIDs -Continue diuresis Hyponatremia -Continue Lasix HTN -Continue Atenolol -Increase Losartan BID Peripheral Edema -Continue Lasix and Spironolactone -Check echocardiogram DM II with Hyperglycemia & Peripheral Angiopathy -Continue Lantus -RISS DM II with Left Foot Ulcer -Continue abx -Wound care as ordered -Follow up with surgery Hypoalbuminemia -Recommend protein supplementation Anemia in chronic illness -Monitor H&H -PRBC prn -Retacrit X1 BPH with LUTS -Continue tamsulosin Hospitalist note reviewed Case discussed with Dr. Traore
--- NOTE | 2024-01-17 11:05 | P.PN ---
Date of Service: 01/17/24 Subjective: Had dyspnea overnight Given IV lasix, feeling better this morning ROS: 10 point ROS as noted above, otherwise negative Physical exam GEN: Alert, oriented, NAD HEENT: Normal conjunctiva, sclera anicteric CV: Regular rate and rhythm, 1-2+ lower extremity edema Pulm: Nonlabored respirations on room air ABD: Soft, nontender, nondistended MSK: No joint tenderness Integumentary: No rashes, wound to left foot with dressing in place Neuro: Normal speech, normal affect Vitals reviewed Problem List: Osteomyelitis / nonhealing gangrenous left foot wound s/p extensive I&D (12/30) and Left third toe amputation along with extensive debridement 01/05 Severe PAD s/p angioplasty and stenting of left SFA (12/29) Recent history of lower left extremity osteomyelitis s/p left second toe amputation (11/02/23) Dyspnea, lower extremity edema IDDM2 Hypertension DUANE Bilateral knee pain / right hip pain post fall Depression Osteomyelitis / nonhealing gangrenous left foot wound s/p extensive I&D (12/30) and Left third toe amputation along with extensive debridement 01/05 Severe PAD s/p angioplasty and stenting of left SFA (12/29) recent history of lower left extremity osteomyelitis s/p left second toe amputation (11/02/23) Was in inpatient rehab, left foot continue to get worse and patient is now amendable to left foot amputation Readmitted to acute care preparation for amputation of left foot MRI left foot (12/28): osteomyelitis: 2nd, 3rd metatarsal, 3rd and 4th digit with destructive changes of proximal phalanx Extensive areas of soft tissue gas underneath the presumed wound, extending along the sole of the foot anteriorly Dr. Vegas - consulted 12/28 s/p angiogram - found to have critical stenosis of the left proximal superficial femoral artery (~90%) s/p angioplasty and stenting of left SFA (12/29) continue plavix; started post-operatively (12/31) General surgery - Dr. Oates consulted s/p extensive I&D of left gangrenous necrotic wound (12/30). Found to have necrotic tissue and multiple bone fracture fragments of 2/3rd metatarsal head d uring surgery Amputation of left 3rd toe and extensive debridement (01/05) Continued worsening of left foot wound, will need amputation with general surgery Planned amputation of left foot 01/17 Discussed aspirin/Plavix with general surgery and vascular surgery-hold Plavix, resume after surgery Continue daily aspirin Wound cx (12/28): Enterococcus Faecalis Blood cx (12/27): No growth ID following On vancomycin/cefepime Will need 6 weeks total of antibiotics (12/27-02/07) Dyspnea, lower extremity edema Continue lasix, echo ordered IDDM2 Continue long-acting insulin 23 units at bedtime ACHS Accu-Chek, sliding scale insulin Hypertension Continue home medications Titrating given kidney function with nephrology DUANE, resolved Nephrology consulted and following Started on IV lasix 01/16 for dyspnea, edema Bilateral knee pain / right hip pain post fall xray knee/pelvis negative for any acute fractures or dislocations. Did note 14mm lucency with septations within left medial tibial plateau - likely benign. f/u xray in 3 months recommended to re-eval PRN analgesics Depression duloxetine at bedtime VTE: heparin sq Code: Full Dispo: pending amputation Time Spent Managing Pts Care (In Minutes): 35
[2024-01-17] MEDS: METOLAZONE 5 MG TABLET PO ONE (11:16)
[2024-01-17] MEDS: POTASSIUM CL SA 10 MEQ TAB PO ONE (11:16)
[2024-01-17] MEDS: EPOETIN ALFA-EPBX 10,000 UNIT/ML VIAL SQ ONE (11:20)
--- NOTE | 2024-01-17 18:58 | PN ---
Subjective: The patient lying in bed, somnolent, not in any acute distress. Objective: Vital Signs: Reviewed. Temperature 96, pulse 61, respirations 16, blood pressure 161/74 , Lungs: Basal crackles. Heart: S1, S2. Regular. Abdomen: Soft, nontender. Bowel sounds present. Extremities: Trace edema. Laboratory Data: WBC 7, hemoglobin 8.8, platelets are 247, BUN of 40, creatinine 2. Assessment And Plan: The patient currently on vancomycin and cefepime. Left foot and ankle osteomye litis, status post amputation of second toe, severe peripheral arterial disease. The patient has ext ensive damage from the wound involving different areas of the tissue on his left foot. Insulin-depen dent diabetes mellitus, end-stage renal disease, renal insufficiency. Continue antibiotic and suppor tive care for 6 weeks long-term acute care evaluation. We will follow the patient as needed. NF/MODL Voice ID: [id number] Report ID: [id number]
[2024-01-17] MEDS: ALPRAZOLAM 1 MG TABLET PO ONE (20:20)
[2024-01-17] MEDS: HYDRALAZINE HCL 25 MG TABLET PO SCH (20:21)
[2024-01-17] MEDS: FUROSEMIDE 40 MG/4 ML VIAL IV ONE (21:52)
[2024-01-18 05:51] LABS: Hematocrit 25.3 % (39.6-49.0); Hemoglobin 8.3 g/dL (13.6-17.9); MCH 28.3 pg (27.0-35.0); MCHC 32.8 g/dL (32.0-36.0); MCV 86.5 fL (80-100); MPV 8.9 fL (7.6-11.3); Platelets 219 thou/uL (152-406); RBC Red Blood Cell Count 2.92 M/uL (4.33-5.43); Red Cell Distribution Width 17.9 % (12.1-15.2)
[2024-01-18 06:09] LABS: Albumin/Globulin Ratio 0.4 (1.1-1.8); Anion Gap 6.2 mEq/L (5.0-15.0); Bilirubin Total 0.3 mg/dL (0.2-1.0); Potassium 4.2 mEq/L (3.5-5.1)
[2024-01-18] MEDS: NA CHLORIDE 0.9% 1,000 ML ONE (10:10)
[2024-01-18] MEDS ORDERED: LIDOCAINE 2% MPF 5 ML VIAL ONE (10:37)
[2024-01-18] MEDS ORDERED: FENTANYL CITR 100 MCG/2 ML ONE ×2 (10:37→12:24)
[2024-01-18] MEDS ORDERED: propofoL 200 MG/20 ML VIAL IV ONE (10:37)
[2024-01-18] MEDS ORDERED: EPHEDRINE SULF 50 MG/ML VIAL ONE (11:37)
[2024-01-18] MEDS ORDERED: Phenylephrine HCl 10 MG/ML 1 ML VIAL ONE (11:44)
[2024-01-18] MEDS ORDERED: TORSEMIDE 20 MG TAB PO ONE (12:00)
--- NOTE | 2024-01-18 12:17 | RAD REPORT ---
EXAM DESCRIPTION: RAD - Chest Single View - 01/17/2024 4:06 am CLINICAL HISTORY: Shortness of breath COMPARISON: 01/15/2024. TECHNIQUE: XR CHEST 1 VIEW 01/17/2024 3:32 AM CDT FINDINGS: The heart is enlarged. There is patchy airspace disease in the mid and lower right lung. T here may be a small right pleural effusion. There is no pneumothorax. There are no acute osseous find ings. Right PICC line tip is in the lower SVC. IMPRESSION: Slightly worsening aeration of the right lung. Electronically signed by: Ralph Julio MD 01/17/2024 05:10 AM CDT RP Due to temporary technical issues with the PACS/Fluency reporting system, reports are being signed by the in house radiologist without review as a courtesy to ensure prompt reporting. The interpreting r adiologist is fully responsible for the content of the report.
[2024-01-18] MEDS ORDERED: ONDANSETRON 4 MG/2 ML VIAL ONE (13:15)
--- NOTE | 2024-01-18 13:19 | P.BOP ---
Preoperative diagnosis: Left foot gangrene, osteomyelitis, cellulitis Postoperative diagnosis: same Primary procedure: Left BKA Estimated blood loss: 200cc Specimen: leg Findings: edematous, leg, necrotic foot Anesthesia: General Drain(s): AINSLEY drain Transferred to: Recovery Room Condition: Good
[2024-01-18] MEDS: FENTANYL CITR 100 MCG/2 ML ONE (13:44)
[2024-01-18 13:53] LABS: Hematocrit 23.5 % (39.6-49.0); Hemoglobin 7.5 g/dL (13.6-17.9)
[2024-01-18] MEDS: MORPHINE 4 MG/ML SYR IV PRN (16:00)
[2024-01-18 16:44] LABS: Hematocrit 23.5 % (39.6-49.0); Hemoglobin 7.6 g/dL (13.6-17.9)
--- NOTE | 2024-01-18 16:50 | P.PN ---
Date of Service: 01/18/24 Subjective: Had dyspnea overnight Given IV lasix, feeling better this morning ROS: 10 point ROS as noted above, otherwise negative Physical exam GEN: Alert and oriented x3, NAD HEENT: Normal conjunctiva, sclera anicteric CV: RRR, S1 S2 present, 1-2+ lower extremity edema Pulm: Nonlabored respirations on room air ABD: Soft on palpation, NT/ND MSK: No joint tenderness Integumentary: No rashes, wound to left foot with dressing in place Neuro: Normal speech, normal affect Vitals reviewed Problem List: Osteomyelitis / nonhealing gangrenous left foot wound s/p extensive I&D (12/30) and Left third toe amputation along with extensive debridement 01/05 Severe PAD s/p angioplasty and stenting of left SFA (12/29) Recent history of lower left extremity osteomyelitis s/p left second toe amputation (11/02/23) Left below knee amputation 01/18/24 Dyspnea, lower extremity edema IDDM2 Hypertension DUANE Bilateral knee pain / right hip pain post fall Depression Osteomyelitis / nonhealing gangrenous left foot wound s/p extensive I&D (12/30) and Left third toe amputation along with extensive debridement 01/05 Severe PAD s/p angioplasty and stenting of left SFA (12/29) Recent history of lower left extremity osteomyelitis s/p left second toe amputation (11/02/23) Left below knee amputation 01/18/24 Blood loss anemia Was in inpatient rehab, left foot continue to get worse and patient is now amendable to left foot amputation Readmitted to acute care preparation for amputation of left foot MRI left foot (12/28): osteomyelitis: 2nd, 3rd metatarsal, 3rd and 4th digit with destructive changes of proximal phalanx -Extensive areas of soft tissue gas underneath the presumed wound, extending along the sole of the foot anteriorly Dr. Vegas - consulted 12/28 -s/p angiogram - found to have critical stenosis of the left proximal superficial femoral artery (~90%) -s/p angioplasty and stenting of left SFA (12/29) -continue plavix; started post-operatively (12/31) General surgery - Dr. Oates consulted -s/p extensive I&D of left gangrenous necrotic wound (12/30). Found to have necrotic tissue and multiple bone fracture fragments of 2/3rd metatarsal head during surgery -Amputation of left 3rd toe and extensive debridement (01/05) -Continued worsening of left foot wound, will need amputation with general surgery -Discussed aspirin/Plavix with general surgery and vascular surgery-hold Plavix, resume after surgery -Continue daily aspirin -S/p left below knee amputation 01/17 Wound cx (12/28): Enterococcus Faecalis Blood cx (12/27): No growth -ID following -On vancomycin/cefepime -Will need 6 weeks total of antibiotics (12/27-02/07) H/H 7.5/23.5, recheck at 1800 Dyspnea, lower extremity edema Continue lasix, echo ordered IDDM2 Continue long-acting insulin 23 units at bedtime ACHS Accu-Chek, sliding scale insulin Hypertension Continue home medications Titrating given kidney function with nephrology DUANE, resolved Nephrology consulted and following Started on IV lasix 01/16 for dyspnea, edema Bilateral knee pain / right hip pain post fall xray knee/pelvis negative for any acute fractures or dislocations. Did note 14mm lucency with septations within left medial tibial plateau - likely benign. f/u xray in 3 months recommended to re-eval PRN analgesics Depression duloxetine at bedtime VTE: heparin sq Code: Full Dispo: undetermined
[2024-01-18] MEDS ORDERED: FUROSEMIDE 20 MG TABLET PO SCH (17:00)
--- NOTE | 2024-01-18 17:26 | PN ---
Subjective: Patient informed for surgical amputation of his infected foot. Laboratory Data: Reviewed. Objective: Vital Signs: Reviewed. Assessment And Plan: Diabetic foot ulcer with multiple areas of necrotic tissue. I agree with amput ation. We will follow patient as needed. Continue IV antibiotic. Diabetes mellitus, diabetic neuro buddy, peripheral vascular disease. Consider long-term acute care. We will follow the patient as ne eded. NF/MODL Voice ID: [id number] Report ID: [id number]
[2024-01-18 18:32] LABS: Sqamous Epithelial None Seen /HPF (None Seen); Urine Bacteria <20 /HPF (<20); Urine Crystals Unidentified Few /HPF (None Seen); Urine Micro Reflex YN NO BILL MICROSCOPIC; Urine Mucus Slight /HPF (None Seen); Urine RBC <5 /HPF (None Seen); Urine WBC Clump Rare /HPF (None Seen); Urine Yeast (Budding) Occasional /HPF (None Seen)
[2024-01-18 18:45] LABS: Specific Gravity 1.008 (1.005-1.030); Urine Bilirubin NEGATIVE (Negative); Urine Blood Negative (Negative); Urine Clarity Turbid (Clear); Urine Color Colorless (Yellow); Urine Culture Reflex Order NOT NEEDED; Urine Glucose NEGATIVE (Negative); Urine Ketones NEGATIVE (Negative); Urine Nitrite NEGATIVE (Negative); Urine Protein NEGATIVE (Negative); Urine Urobilinogen Normal (Normal); Urine WBC None Seen /HPF (<5)
[2024-01-18] MEDS: HYDROCODONE/APAP 5/325 MG TAB PO PRN (18:49)
[2024-01-18] MEDS: VANCOMYCIN 1.75 GM in NA CHLORIDE 0.9% 500 ML IVPB SCH (18:58)
[2024-01-18 19:05] LABS: MA/CREAT RATIO 52.8 (< 30.0); UR MICROALBUMIN 1.9 mg/dL (< 1.9)
--- NOTE | 2024-01-18 21:16 | P.PN ---
Date of Service: 01/18/24 Vital Signs Temp Pulse Resp BP Pulse Ox 96.9 F 64 17 121/66 100 01/18/24 20:00 01/18/24 20:00 01/18/24 20:00 01/18/24 20:00 01/18/24 20:00 Medications Hydrocodone Bitart/Acetaminophen (Hydrocodone/Apap 5/325 Mg Tab) 1 tab PO Q6H PRN PRN Reason: Pain scale 5-7 (Moderate) Last Admin: 01/18/24 18:49 Dose: 1 tab Albuterol Sulfate (Albuterol 2.5 Mg/3 Ml Neb Mary Jane) 2.5 mg NEB [id number] [facility] Last Admin: 01/18/24 20:24 Dose: 2.5 mg Aspirin (Aspirin Ec 81 Mg Tab) 81 mg PO DAILY [facility] Last Admin: 01/18/24 09:00 Dose: 81 mg Atenolol (Atenolol 50 Mg Tab) 50 mg PO DAILY [facility] Last Admin: 01/18/24 09:00 Dose: 50 mg Clonidine HCl (Clonidine 0.1 Mg/Patch) 0.1 mg TD EVERY 7TH DAY [facility] Furosemide (Furosemide 40 Mg/4 Ml Vial) 40 mg IV BIDAC [facility] Last Admin: 01/18/24 16:30 Dose: 40 mg Heparin Sodium (Porcine) (Heparin 5000 Unit/Ml 1 Ml Vial) 5,000 unit SQ Q12HR [facility] Last Admin: 01/18/24 08:58 Dose: Not Given Home Med (Fenofibrate,Micronized [Fenofibrate]) 134 mg PO DAILY [facility] Last Admin: 01/18/24 08:57 Dose: Not Given Hydralazine HCl (Hydralazine Hcl 25 Mg Tablet) 25 mg PO BID [facility] Last Admin: 01/18/24 09:00 Dose: 25 mg Cefepime HCl 1 gm/ Sodium (Chloride) 100 mls @ 200 mls/hr IV DAILY [facility]; Protocol Last Admin: 01/18/24 08:11 Dose: 100 mls Vancomycin HCl 1.75 gm/ Sodium (Chloride) 500 mls @ 250 mls/hr IVPB Q72H [facility]; Protocol Last Admin: 01/18/24 18:58 Dose: 500 mls Sodium Chloride (Sodium Chloride) 250 mls @ 0 mls/hr IV .Q0M [facility] Insulin Glargine (Insulin Glargine 100 Unit/Ml) 23 unit SQ BEDTIME [facility] Last Admin: 01/17/24 20:22 Dose: 23 unit Insulin Human Regular (Insulin Regular (Human) 100 Unit/Ml) 0 unit SQ [facility]; Protocol Last Admin: 01/18/24 16:30 Dose: Not Given Ipratropium [place] (Ipratropium Brom 0.5mg/2.5ml) 0.5 mg NEB [id number] [facility] Last Admin: 01/18/24 20:25 Dose: 0.5 mg Losartan Potassium (Losartan Potassium 50 Mg Tablet) 50 mg PO BID [facility] Last Admin: 01/18/24 09:00 Dose: 50 mg Morphine Sulfate (Morphine 4 Mg/Ml Syr) 4 mg IV Q2H PRN PRN Reason: Pain scale 8-10 (Severe) Last Admin: 01/18/24 16:00 Dose: 4 mg Ondansetron HCl (Ondansetron 4 Mg/2 Ml Vial) 4 mg IV Q6HP PRN PRN Reason: NAUSEA / VOMITING Rosuvastatin Calcium (Rosuvastatin 10 Mg Tab) 40 mg PO BEDTIME [facility] Last Admin: 01/17/24 20:21 Dose: 40 mg Spironolactone (Spironolactone 25 Mg Tablet) 25 mg PO DAILY [facility] Last Admin: 01/18/24 09:00 Dose: 25 mg Tamsulosin HCl (Tamsulosin 0.4 Mg Sr Cap) 0.4 mg PO BID [facility] Last Admin: 01/18/24 09:00 Dose: 0.4 mg Lab Results (last 24 hrs) 01/18/24 19:39: POC Glucose 166 H 01/18/24 17:59: Vancomycin Trough 14.7 01/18/24 17:42: ABO/Rh Cancelled, Solid Phase Ab Screen Cancelled, Crossmatch See Detail 01/18/24 17:34: Urine Color Colorless, Urine Clarity Turbid H, Urine pH 5.0, Ur Specific [place] 1.008, Glucose (UA)(Auto) Negative, Urine Ketones Negative, Urine Blood Negative, Urine Nitrite Negative, Urine Bilirubin Negative, Urine Urobilinogen Normal, Ur Leukocyte Esterase 75 H, Urine RBC <5, Urine WBC None seen, Urine WBC Clumps Rare, Ur Squamous Epith Cells None seen, U Non-Squamous Epi Cells <5, Unidentified Crystals Few, Urine Bacteria <20, Hyaline Casts 0-5, Urine Mucus Slight, Urine Yeast (Budding) Occasional H, Urine Culture Reflexed Not needed, Urine Total Protein Negative 01/18/24 17:34: Ur Random Microalbumin 1.9, Urine Creatinine 36.0, Microalb/Creat Ratio 52.8 H 01/18/24 17:34: Ur Random Sodium 94, Ur Random Potassium 20.0, Ur Random Chloride 113 H 01/18/24 16:15: Hgb 7.6 L, Hct 23.5 L 01/18/24 15:35: POC Glucose 105 01/18/24 13:42: Hgb 7.5 L D, Hct 23.5 L 01/18/24 13:42: ABO/Rh B POSITIVE, Solid Phase Ab Screen Negative, Crossmatch See Detail 01/18/24 13:32: POC Glucose 107 01/18/24 07:35: POC Glucose 106 01/18/24 05:30: WBC 6.90, RBC 2.92 L, Hgb 8.3 L, Hct 25.3 L, MCV 86.5, MCH 28.3, MCHC 32.8, RDW 17.9 H, Plt Count 219, MPV 8.9 01/18/24 05:30: Sodium 138, Potassium 4.2, Chloride 107, Carbon Dioxide 29, Anion Gap 6.2, BUN 48 H, Creatinine 2.41 H, Est GFR (CKD-EPI) 29 L, Glucose 108 H, Calcium 8.7, Total Bilirubin 0.3, AST 18, ALT 28, Alkaline Phosphatase 204 H, Serum Total Protein 7.0, Albumin 2.0 L, Globulin 5.0 H, Albumin/Globulin Ratio 0.4 L Microbiology Results 01/16/24 23:05 Clean Catch Urine [place] Count - Preliminary No growth. 01/16/24 23:05 Clean Catch Urine - Preliminary No growth. Assessment/ Plan: Nephrology Progress Note No Chest Pain Dyspnea overnight No acute events overnight Seen and examined in PreOp Vital Signs, Medications, Blood Work, and Imaging reviewed in the chart General: In no apparent distress, Cooperative HEENT: Atraumatic Neck: Supple Respiratory: Normal air movement Cardiovascular: Regular rate/rhythm, Edema Gastrointestinal: Soft and benign, Non-distended Musculoskeletal: No clubbing, No contractures Integumentary: No rashes, No cyanosis Neurological: Normal speech Blood work reviewed in the chart. Imagings Data: [id number] EXAM DESCRIPTION: US - Lower Extremity Artery Uni Ltd - 01/16/2024 7:16 pm CLINICAL HISTORY: Left lower extremity PAD . COMPARISON: None FINDINGS: Color Doppler, grayscale, and spectral analysis was performed. Monophasic flow but with elevated velocities in the left common femoral artery. SFA has elevated [place]cities with monophasic flow. The popliteal artery has monophasic flow with normal velocities. The anterior tibial artery and dorsalis pedis arteries have monophasic but adequate flow. IMPRESSION: Monophasic flow throughout the left lower extremity may reflect a high grade stenosis or occlusion more proximally within the pelvis. There does appear to be adequate collateral flow present. [id number] EXAM DESCRIPTION: RAD - Chest Single View - 01/15/2024 1:08 pm CLINICAL HISTORY: to check picc line placed COMPARISON: Chest Single View dated 01/14/2024; Chest Single View dated 01/14/2024; Chest Single View dated 01/10/2024; Chest Single View dated 01/10/2024 FINDINGS: Lines: Right subclavian approach PICC with tip overlying the distal SVC. Lungs: Bilateral interstitial and airspace disease. Pleural: Small pleural effusions. Cardiac: Cardiomegaly. Mediastinum: Within normal limits. Bones: No acute fractures. Other: None IMPRESSION: Widespread interstitial airspace disease likely reflecting edema. The PICC tip overlies the distal SVC and is in satisfactory position. Conclusions/Impression: Stage III DUANE may be CRS -No NSAIDs -Continue diuresis Hyponatremia -Continue Lasix HTN -Continue Atenolol -Continue Losartan BID Peripheral Edema -Continue Lasix and Spironolactone -Check echocardiogram DM II with Hyperglycemia & Peripheral Angiopathy -Continue Lantus -RISS DM II with Left Foot Ulcer -Continue abx -Wound care as ordered -Plan for surgery today Hypoalbuminemia -Recommend protein supplementation Anemia in chronic illness -Monitor H&H -PRBC prn -Retacrit X1 BPH with LUTS -Continue tamsulosin Hospitalist note reviewed Case discussed with Dr. Traore
[2024-01-18] MEDS: NA CHLORIDE 0.9% 250 ML ONE (22:04)
[2024-01-18] MEDS: NA CHLORIDE 0.9% 250 ML IV SCH (22:10)
[2024-01-19] MEDS: FUROSEMIDE 20 MG/ 2ML VIAL ONE (01:29)
[2024-01-19] MEDS: FUROSEMIDE 20 MG/ 2ML VIAL IV SCH (01:53)
[2024-01-19 05:24] LABS: Hematocrit 23.6 % (39.6-49.0); Hemoglobin 7.8 g/dL (13.6-17.9); MCH 28.6 pg (27.0-35.0); MCHC 33.2 g/dL (32.0-36.0); MCV 86.1 fL (80-100); MPV 9.3 fL (7.6-11.3); Platelets 188 thou/uL (152-406); RBC Red Blood Cell Count 2.74 M/uL (4.33-5.43); Red Cell Distribution Width 17.2 % (12.1-15.2)
[2024-01-19 05:33] LABS: Albumin 1.9 g/dL (3.4-5.0); Albumin/Globulin Ratio 0.4 (1.1-1.8); Anion Gap 5.5 mEq/L (5.0-15.0); Bilirubin Total 0.2 mg/dL (0.2-1.0); Globulin 4.5 g/dL (2.3-3.5); Potassium 4.5 mEq/L (3.5-5.1); Protein, Total 6.4 g/dL (6.4-8.2)
--- NOTE | 2024-01-19 05:35 | OP ---
Date of Procedure: 01/18/2024 Surgeon: Sergo Oates MD Preoperative Diagnoses: Left foot gangrene, destructive osteomyelitis, nonhealing wounds, cellulitis of the left foot. Postoperative Diagnoses: Left foot gangrene, destructive osteomyelitis, nonhealing wounds, celluliti s of the left foot. Procedures: Left below-knee amputation. Estimated Blood Loss: Less than 20 mL. Specimens: Leg. Findings: Edematous leg with necrotic foot. Anesthesia: General plus local. Drains: AINSLEY #10. Indications: This is the case of a 68-year-old patient with left foot gangrenous changes. He did al l he can. He went to surgery 3 times for debridements. He has good vascular incision in that area. Unfortunately, we have not able to reverse this unfortunate event of necrosis and nonhealing wounds. He went to rehab, noticed not improving, so he made the decision with his family to go ahead and am putate the foot, so they called me and we explained to him the options of left below-knee amputation with benefits, alternatives, and risks including, but not limited to infection, bleeding, damage to a djacent structures, anesthesia complication, nonhealing wound, SD, and even . He also understan ds this may not relieve any symptoms, he might need more than one surgical intervention. He understo od, signed a consent. Description Of Procedure: The patient was brought to the operating room, placed in supine position. Anesthesia was done without complication. Left leg was prepped and draped in sterile fashion. A ti me-out was called. Anterior and posterior skin incisions were outlined with the help of a marking pe n. The anterior incision was made about 12 cm below the tibial tuberosity and extended medially and laterally toward the edges of the gastrocnemius muscle. The skin incision was extended distally on e ither side about 15 cm down on the tibia. This created a posterior flap. The skin and subcutaneous tissue were carefully incised with the help of a knife and Bovie cauterizer all the way down to the f ascia. The greater saphenous veins medium posterior were carefully ligated. The fascia and the musc les were then divided with Bovie cauterizer at the level of the anterior skin incision. The muscles in the anterior and lateral compartments were divided, exposing the anterior tibial vessels, which we re ligated with the help of 0 silk. The interosseous membrane was then excised. The tibial perioste um was incised circumferentially. The periosteal elevator was used and then the tibial periosteum wa s stripped proximally to about 2 cm. The approximately 2 cm proximal to the skin and then with an anterior bevel. The fibula was then exposed, dissected circumferentially and transected wit h a bone cutter. This was done about 2 cm proximal to the tibial division. The amputation was compl eted with an amputation knife transecting the soleus muscle obliquely and then the gastrocnemius musc le at the level of the posterior flap. Veins bleeding was carefully controlled with the help of 0 si lk. The sharp bony edges were filed. The fascial edges of the anterior and posterior muscle flaps w ere approximated with the help of #1 Vicryl. The skin was approximated, subcutaneous tissue first wi th chromic and then after that, the skin with emre. I have to mention that before that we left a AINSLEY drain over that region and used profuse irrigation of the area and the AINSLEY drain was secured in allyn ce with 3-0 nylon. Sponge count instrument counts correct, patient tolerated the procedure well. Th e patient was sent to the recovery in stable condition. GAB/JAMES Voice ID: [id number] Report ID: [id number]
[2024-01-19] MEDS ORDERED: ALBUTEROL 2.5 MG/3 ML NEB SOL NEB PRN (10:37)
[2024-01-19 11:17] LABS: Hematocrit 23.6 % (39.6-49.0); Hemoglobin 7.7 g/dL (13.6-17.9)
--- NOTE | 2024-01-19 11:29 | P.PN ---
Date of Service: 01/19/24 Subjective: Eating breakfast, doing very well c/o some pain from amputation one unit PRBC yesterday and another unit today ROS: 10 point ROS as noted above, otherwise negative Physical exam GEN: AAOx3, no acute distress, conversing well HEENT: Normal conjunctiva, sclera anicteric CV: Regular rate and rhythm, S1 S2 present, Edema present Pulm: Nonlabored respirations on room air ABD: Soft on palpation, NT/ND MSK: No joint tenderness, Left BKA dressing CDI, AINSLEY drain present Integumentary: No rashes, wound to left foot with dressing in place Neuro: Normal speech, normal affect Vitals reviewed Problem List: Osteomyelitis / nonhealing gangrenous left foot wound s/p extensive I&D (12/30) and Left third toe amputation along with extensive debridement 01/05 Severe PAD s/p angioplasty and stenting of left SFA (12/29) Recent history of lower left extremity osteomyelitis s/p left second toe am putation (11/02/23) Left below knee amputation 01/18/24 Dyspnea, lower extremity edema Moderate pulmonary hypertension IDDM2 Hypertension DUANE Bilateral knee pain / right hip pain post fall Depression Osteomyelitis / nonhealing gangrenous left foot wound s/p extensive I&D (12/30) and Left third toe amputation along with extensive debridement 01/05 Severe PAD s/p angioplasty and stenting of left SFA (12/29) Recent history of lower left extremity osteomyelitis s/p left second toe amputation (11/02/23) Left below knee amputation 01/18/24 Blood loss anemia Was in inpatient rehab, left foot continue to get worse and patient is now amendable to left foot amputation Readmitted to acute care preparation for amputation of left foot MRI left foot (12/28): osteomyelitis: 2nd, 3rd metatarsal, 3rd and 4th digit with destructive changes of proximal phalanx -Extensive areas of soft tissue gas underneath the presumed wound, extending along the sole of the foot anteriorly Dr. Vegas - consulted 12/28 -s/p angiogram - found to have critical stenosis of the left proximal superficial femoral artery (~90%) -s/p angioplasty and stenting of left SFA (12/29) -continue plavix; started post-operatively (12/31) General surgery - Dr. Oates consulted -s/p extensive I&D of left gangrenous necrotic wound (12/30). Found to have necrotic tissue and multiple bone fracture fragments of 2/3rd metatarsal head during surgery -Amputation of left 3rd toe and extensive debridement (01/05) -Continued worsening of left foot wound, will need amputation with general surgery -Discussed aspirin/Plavix with general surgery and vascular surgery-hold Plavix, resume after surgery -Continue daily aspirin -S/p left below knee amputation 01/17 Wound cx (12/28): Enterococcus Faecalis Blood cx (12/27): No growth -ID following -On vancomycin/cefepime -Will need 6 weeks total of antibiotics (12/27-02/07) H/H 7.03/01.6- one unit PRBC 01/18 Dyspnea, lower extremity edema Moderate pulmonary hypertension Continue lasix Echo reports " moderate pulmonary hypertension, ejection fraction 60%, moderate diastolic dysfunction, left atrial enlargement." IDDM2 Continue long-acting insulin 23 units at bedtime ACHS Accu-Chek, sliding scale insulin Hypertension Continue home medications Titrating given kidney function with nephrology DUANE, resolved Nephrology consulted and following Started on IV lasix 01/16 for dyspnea, edema Bilateral knee pain / right hip pain post fall xray knee/pelvis negative for any acute fractures or dislocations. Did note 14mm lucency with septations within left medial tibial plateau - likely benign. f/u xray in 3 months recommended to re-eval PRN analgesics Depression duloxetine at bedtime VTE: heparin sq Code: Full Dispo: undetermined
[2024-01-19] MEDS ORDERED: NA CHLORIDE 0.9% 250 ML IV SCH (12:00)
--- NOTE | 2024-01-19 12:04 | P.PN ---
Subjective Date of Service: 01/19/24 Chief Complaint: s/p LBKA Subjective: Tolerating diet, Improving Review of Systems Respiratory: Unremarkable Cardiovascular: Unremarkable Genitourinary: Unremarkable Integumentary: As per HPI Physical Examination - Vital Signs Temperature: 97.2 F Blood Pressure: 130/63 Pulse: 66 Respirations: 17 Pulse Ox (%): 99 - Physical Exam General: Alert, In no apparent distress, Oriented x3 HEENT: Atraumatic, PERRLA Neck: Supple Respiratory: Normal air movement Gastrointestinal: Soft and benign, No rebound, No guarding Musculoskeletal: No warmth Integumentary: No rashes, Other (intact surgical site. AINSLEY minimal. Right no calf tenderness) - Studies Laboratory Data (last 24 hrs) 01/19/24 01/19/24 01/19/24 11:07 04:57 04:57 WBC 7.80 Hgb 7.7 L 7.8 L Hct 23.6 L 23.6 L Plt Count 188 Sodium 136 Potassium 4.5 BUN 46 H Creatinine 2.43 H Glucose 155 H Total Bilirubin 0.2 AST 13 L ALT 20 Alkaline Phosphatase 155 H D 01/18/24 01/18/24 16:15 13:42 WBC Hgb 7.6 L 7.5 L D Hct 23.5 L 23.5 L Plt Count Sodium Potassium BUN Creatinine Glucose Total Bilirubin AST ALT Alkaline Phosphatase Assessment And Plan - Plan May transfer to rehab when medically ready Ainsley to suction cont abx leave dressing intact.
[2024-01-19] MEDS: NA CHLORIDE 0.9% 100 ML ONE (12:27)
--- NOTE | 2024-01-19 14:24 | ECHO ---
HEIGHT: 5 ft 11 in WEIGHT: 178 lb 14.4 oz DATE OF STUDY: 01/19/[address]: Arie Jacobs DO 2-DIMENSIONAL: YES M.MODE: YES DOPPLER: YES COLOR FLOW: YES TDS: PORTABLE: YES DEFINITY: BUBBLE STUDY: DIAGNOSIS: DYSPNEA ON EXERCTION WITH PERIPHERAL EDEMA, EVALUATE FOR CONGESTIVE HEART FAILURE CARDIAC HISTORY: CATHERIZATION: NO SURGERY: NO PROSTHETIC VALVE: NO PACEMAKER: NO MEASUREMENTS (cm) DIASTOLIC (NORMALS) SYSTOLIC (NORMALS) IVSd 1.3 (0.6-1.2) LA Diam 3.9 (1.9-4.0) LVEF 60-65% LVIDd 4.4 (3.5-5.7) LVIDs 2.5 (2.0-3.5) %FS 43% LVPWd 1.3 (0.6-1.2) Ao Diam 2.9 (2.0-3.7) 2 DIMENSIONAL ASSESSMENT: RIGHT ATRIUM: NORMAL LEFT ATRIUM: ENLARGED RIGHT VENTRICLE: NORMAL LEFT VENTRICLE: NORMAL TRICUSPID VALVE: MILD TRICUSPID REGURGITATION MITRAL VALVE: MILD MITRAL REGURGITATION PULMONIC VALVE: NORMAL AORTIC VALVE: NORMAL PERICARDIAL EFFUSION: NONE AORTIC ROOT: NORMAL LEFT VENTRICULAR WALL MOTION: NORMAL DOPPLER/COLOR FLOW: SEE BELOW COMMENTS: 1. NORMAL LEFT VENTRICULAR EJECTION FRACTION 60-65% WITH NORMAL WALL MOTION 2. DIASTOLIC DYSFUNCTION (MODERATE) 3. LEFT ATRIAL ENLARGEMENT 4. MODERATE PULMONARY HYPERTENSION WITH RIGHT VENTRICULAR SYSTOLIC PRESSURE OF 55-60 mmHg TECHNOLOGIST: CONRAD MATHIS
[2024-01-19 19:19] LABS: Hematocrit 26.9 % (39.6-49.0)
[2024-01-19] MEDS: ALBUTEROL 2.5 MG/3 ML NEB SOL NEB SCH (19:51)
[2024-01-19] MEDS: IPRATROPIUM BROM 0.5MG/2.5ML NEB SCH (19:52)
--- NOTE | 2024-01-19 20:52 | P.PN ---
Date of Service: 01/19/24 Vital Signs Temp Pulse Resp BP Pulse Ox 97.2 F 61 18 160/71 H 98 01/19/24 20:00 01/19/24 20:00 01/19/24 20:00 01/19/24 20:00 01/19/24 20:00 Medications Hydrocodone Bitart/Acetaminophen (Hydrocodone/Apap 5/325 Mg Tab) 1 tab PO Q6H PRN PRN Reason: Pain scale 5-7 (Moderate) Last Admin: 01/19/24 06:23 Dose: 1 tab Albuterol Sulfate (Albuterol 2.5 Mg/3 Ml Neb [place]) 2.5 mg NEB [id number] [facility] Last Admin: 01/19/24 19:51 Dose: 2.5 mg Aspirin (Aspirin Ec 81 Mg Tab) 81 mg PO DAILY [facility] Last Admin: 01/19/24 08:47 Dose: 81 mg Atenolol (Atenolol 50 Mg Tab) 50 mg PO DAILY [facility] Last Admin: 01/19/24 08:47 Dose: 50 mg Clonidine HCl (Clonidine 0.1 Mg/Patch) 0.1 mg TD EVERY 7TH DAY [facility] Furosemide (Furosemide 40 Mg/4 Ml Vial) 40 mg IV BIDAC [facility] Last Admin: 01/19/24 16:36 Dose: 40 mg Heparin Sodium (Porcine) (Heparin 5000 Unit/Ml 1 Ml Vial) 5,000 unit SQ Q12HR [facility] Last Admin: 01/19/24 08:49 Dose: Not Given Home Med (Fenofibrate,Micronized [Fenofibrate]) 134 mg PO DAILY [facility] Last Admin: 01/19/24 08:49 Dose: Not Given Hydralazine HCl (Hydralazine Hcl 25 Mg Tablet) 25 mg PO BID [facility] Last Admin: 01/19/24 08:49 Dose: 25 mg Cefepime HCl 1 gm/ Sodium (Chloride) 100 mls @ 200 mls/hr IV DAILY [facility]; Protocol Last Admin: 01/19/24 08:47 Dose: 100 mls Vancomycin HCl 1.75 gm/ Sodium (Chloride) 500 mls @ 250 mls/hr IVPB Q72H [facility]; Protocol Last Admin: 01/18/24 18:58 Dose: 500 mls Sodium Chloride (Sodium Chloride) 250 mls @ 0 mls/hr IV .Q0M [facility] Insulin Glargine (Insulin Glargine 100 Unit/Ml) 23 unit SQ BEDTIME [facility] Last Admin: 01/18/24 22:10 Dose: 23 unit Insulin Human Regular (Insulin Regular (Human) 100 Unit/Ml) 0 unit SQ [facility]; Protocol Last Admin: 01/19/24 17:27 Dose: 3 unit Ipratropium [place] (Ipratropium Brom 0.5mg/2.5ml) 0.5 mg NEB [id number] [facility] Last Admin: 01/19/24 19:52 Dose: 0.5 mg Losartan Potassium (Losartan Potassium 50 Mg Tablet) 50 mg PO BID [facility] Last Admin: 01/19/24 08:48 Dose: 50 mg Morphine Sulfate (Morphine 4 Mg/Ml Syr) 4 mg IV Q2H PRN PRN Reason: Pain scale 8-10 (Severe) Last Admin: 01/19/24 16:36 Dose: 4 mg Ondansetron HCl (Ondansetron 4 Mg/2 Ml Vial) 4 mg IV Q6HP PRN PRN Reason: NAUSEA / VOMITING Rosuvastatin Calcium (Rosuvastatin 10 Mg Tab) 40 mg PO BEDTIME [facility] Last Admin: 01/18/24 22:11 Dose: 40 mg Spironolactone (Spironolactone 25 Mg Tablet) 25 mg PO DAILY [facility] Last Admin: 01/19/24 08:48 Dose: 25 mg Tamsulosin HCl (Tamsulosin 0.4 Mg Sr Cap) 0.4 mg PO BID [facility] Last Admin: 01/19/24 08:49 Dose: 0.4 mg Lab Results (last 24 hrs) 01/19/24 19:22: POC Glucose 146 H 01/19/24 18:45: Hgb 9.0 L D, Hct 26.9 L 01/19/24 15:47: POC Glucose 184 H 01/19/24 11:27: ABO/Rh Cancelled, Solid Phase Ab Screen Cancelled, Crossmatch See Detail 01/19/24 11:07: Hgb 7.7 L, Hct 23.6 L 01/19/24 11:03: POC Glucose 178 H 01/19/24 07:43: POC Glucose 141 H 01/19/24 04:57: WBC 7.80, RBC 2.74 L, Hgb 7.8 L, Hct 23.6 L, MCV 86.1, MCH 28.6, MCHC 33.2, RDW 17.2 H, Plt Count 188, MPV 9.3 01/19/24 04:57: Sodium 136, Potassium 4.5, Chloride 105, Carbon Dioxide 30, Anion Gap 5.5, BUN 46 H, Creatinine 2.43 H, Est GFR (CKD-EPI) 29 L, Glucose 155 H, Calcium 8.4 L, Total Bilirubin 0.2, AST 13 L, ALT 20, Alkaline Phosphatase 155 H D, Serum Total Protein 6.4, Albumin 1.9 L, Globulin 4.5 H, Albumin/Globulin Ratio 0.4 L 01/18/24 13:42: ABO/Rh B POSITIVE, Solid Phase Ab Screen Negative, Crossmatch See Detail Microbiology Results 01/16/24 23:05 Clean Catch Urine [place] Count - Preliminary >100,000 CFU/ML. 01/16/24 23:05 Clean Catch Urine - Preliminary Assessment/ Plan: Nephrology Progress Note No Chest Pain Dyspnea overnight No acute events overnight Vital Signs, Medications, Blood Work, and Imaging reviewed in the chart General: In no apparent distress, Cooperative HEENT: Atraumatic Neck: Supple Respiratory: Normal air movement Cardiovascular: Regular rate/rhythm, Edema Gastrointestinal: Soft and benign, Non-distended Musculoskeletal: No clubbing, No contractures. Left BKA. Integumentary: No rashes, No cyanosis Neurological: Normal speech Blood work reviewed in the chart. Imagings Data: [id number] EXAM DESCRIPTION: US - Lower Extremity Artery Uni Ltd - 01/16/2024 7:16 pm CLINICAL HISTORY: Left lower extremity PAD . COMPARISON: None FINDINGS: Color Doppler, grayscale, and spectral analysis was performed. Monophasic flow but with elevated velocities in the left common femoral artery. SFA has elevated [place]cities with monophasic flow. The popliteal artery has monophasic flow with normal velocities. The anterior tibial artery and dorsalis pedis arteries have monophasic but adequate flow. IMPRESSION: Monophasic flow throughout the left lower extremity may reflect a high grade stenosis or occlusion more proximally within the pelvis. There does appear to be adequate collateral flow present. [id number] EXAM DESCRIPTION: RAD - Chest Single View - 01/15/2024 1:08 pm CLINICAL HISTORY: to check picc line placed COMPARISON: Chest Single View dated 01/14/2024; Chest Single View dated 01/14/2024; Chest Single View dated 01/10/2024; Chest Single View dated 01/10/2024 FINDINGS: Lines: Right subclavian approach PICC with tip overlying the distal SVC. Lungs: Bilateral interstitial and airspace disease. Pleural: Small pleural effusions. Cardiac: Cardiomegaly. Mediastinum: Within normal limits. Bones: No acute fractures. Other: None IMPRESSION: Widespread interstitial airspace disease likely reflecting edema. The PICC tip overlies the distal SVC and is in satisfactory position. LEFT VENTRICULAR WALL MOTION: NORMAL DOPPLER/COLOR FLOW: SEE BELOW COMMENTS: 1. NORMAL LEFT VENTRICULAR EJECTION FRACTION 60-65% WITH NORMAL WALL MOTION 2. DIASTOLIC DYSFUNCTION (MODERATE) 3. LEFT ATRIAL ENLARGEMENT 4. 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
[2024-01-20 06:45] LABS: Hematocrit 27.6 % (39.6-49.0); Hemoglobin 9.2 g/dL (13.6-17.9); MCH 28.9 pg (27.0-35.0); MCHC 33.5 g/dL (32.0-36.0); MCV 86.3 fL (80-100); MPV 8.3 fL (7.6-11.3); Platelets 179 thou/uL (152-406); Red Cell Distribution Width 17.3 % (12.1-15.2)
[2024-01-20 07:21] LABS: Potassium 4.4 mEq/L (3.5-5.1)
[2024-01-20 07:22] LABS: Albumin 1.9 g/dL (3.4-5.0); Albumin/Globulin Ratio 0.4 (1.1-1.8); Anion Gap 6.4 mEq/L (5.0-15.0); Bilirubin Total 0.3 mg/dL (0.2-1.0); Globulin 4.9 g/dL (2.3-3.5); Protein, Total 6.8 g/dL (6.4-8.2)
[2024-01-20] MEDS: METOLAZONE 5 MG TABLET PO ONE (10:31)
--- NOTE | 2024-01-20 14:38 | PN ---
Date of Progress Note: 01/20/2024 Reason For Service: Status post left below-knee amputation. Subjective: The patient is doing well. No complaint. No nausea, no vomiting. No fever. Objective: Chest: Clear. Abdomen: Soft and depressible. Extremities: Intact surgical site. AINSLEY minimum. Laboratory Data: Blood work shows a hemoglobin of 9.2. Plan: From the surgical standpoint, he can be transferred to a rehab center whenever medically indic ated. Continue leaving dressing intact, AINSLEY drain, and knee immobilizer. DVT prophylaxis. Once he g oes to rehab, then we will start the process of a prosthetic. GAB/JAMES Voice ID: [id number] Report ID: [id number]
[2024-01-20 14:47] VITALS: BMI 38.3
--- NOTE | 2024-01-20 14:50 | P.PN ---
Date of Service: 01/20/24 Subjective: Complaining about not sleeping last night, plans to take a nap this morning Otherwise no new complaints AINSLEY drain with minimal drainage present ROS: 10 point ROS as noted above, otherwise negative Physical exam GEN: Alert and orientedx3, no acute distress, conversing well HEENT: Normal conjunctiva, sclera anicteric CV: NSR, S1 S2 present, Edema present Pulm: Nonlabored respirations on room air ABD: Soft and benign on palpation, NT, distended (Obese) MSK: No joint tenderness, Left BKA dressing (CDI), AINSLEY drain present Integumentary: No rashes, wound to left foot with dressing in place Neuro: Normal speech, normal affect Vitals reviewed Problem List: Osteomyelitis / nonhealing gangrenous left foot wound s/p extensive I&D (12/30) and Left third toe amputation along with extensive debridement 01/05 Severe PAD s/p angioplasty and stenting of left SFA (12/29) Recent history of lower left extremity osteomyelitis s/p left second toe amputation (11/02/23) Left below knee amputation 01/18/24 Dyspnea, lower extremity edema Moderate pulmonary hypertension IDDM2 Hypertension DUANE Bilateral knee pain / right hip pain post fall Depression Osteomyelitis / nonhealing gangrenous left foot wound s/p extensive I&D (12/30) and Left third toe amputation along with extensive debridement 01/05 Severe PAD s/p angioplasty and stenting of left SFA (12/29) Recent history of lower left extremity osteomyelitis s/p left second toe amputation (11/02/23) Left below knee amputation 01/18/24 Blood loss anemia Was in inpatient rehab, left foot continue to get worse and patient is now amendable to left foot amputation Readmitted to acute care preparation for amputation of left foot MRI left foot (12/28): osteomyelitis: 2nd, 3rd metatarsal, 3rd and 4th digit with destructive changes of proximal phalanx -Extensive areas of soft tissue gas underneath the presumed wound, extending along the sole of the foot anteriorly Dr. Vegas - consulted 12/28 -s/p angiogram - found to have critical stenosis of the left proximal superficial femoral artery (~90%) -s/p angioplasty and stenting of left SFA (12/29) -continue plavix; started post-operatively (12/31) General surgery - Dr. Oates consulted -s/p extensive I&D of left gangrenous necrotic wound (12/30). Found to have necrotic tissue and multiple bone fracture fragments of 2/3rd metatarsal head during surgery -Amputation of left 3rd toe and extensive debridement (01/05) -Continued worsening of left foot wound, will need amputation with general surgery -Discussed aspirin/Plavix with general surgery and vascular surgery-restart Plavix in the AM 01/20 -Continue daily aspirin -S/p left below knee amputation 01/17 Wound cx (12/28): Enterococcus Faecalis Blood cx (12/27): No growth -ID following -On vancomycin/cefepime -Will need 6 weeks total of antibiotics (12/27-02/07) H/H 7.03/01.6- one unit PRBC 01/18 Wound care Dyspnea, lower extremity edema Moderate pulmonary hypertension Continue lasix Echo reports " moderate pulmonary hypertension, ejection fraction 60%, moderate diastolic dysfunction, left atrial enlargement." IDDM2 Continue long-acting insulin 23 units at bedtime ACHS Accu-Chek, sliding scale insulin Hypertension Continue home medications Titrating given kidney function with nephrology DUANE, resolved Nephrology consulted and following Started on IV lasix 01/16 for dyspnea, edema Bilateral knee pain / right hip pain post fall xray knee/pelvis negative for any acute fractures or dislocations. Did note 14mm lucency with septations within left medial tibial plateau - likely benign. f/u xray in 3 months recommended to re-eval PRN analgesics Depression duloxetine at bedtime VTE: heparin sq Code: Full Dispo: undetermined
[2024-01-20] MEDS: HYDRALAZINE HCL 20 MG/ML VIAL IV PRN (17:35)
--- NOTE | 2024-01-20 20:34 | PN ---
Subjective: Patient lying in bed, status post amputation of left foot with BKA. Patient under surgi severiano wound dressing. No new acute event. No fevers. Denies any other problems. Blood sugar is 90. Objective: Vital Signs: Reviewed. Lungs: Basal crackles. Heart: S1, S2. Regular. Abdomen: Soft, nontender. Bowel sounds present. Extremity: Trace edema. Laboratory Data: Reviewed. Assessment And Plan: Status post left foot amputation. Patient is tolerating pain well. Continue a ntibiotic and wound care. We will follow the patient as needed. No new acute event. Chart reviewed . Vital signs reviewed. NF/MODL Voice ID: [id number] Report ID: [id number]
--- NOTE | 2024-01-20 20:57 | P.PN ---
Date of Service: 01/20/24 Vital Signs Temp Pulse Resp BP Pulse Ox 97 F 62 18 164/70 H 95 01/20/24 20:00 01/20/24 20:00 01/20/24 20:00 01/20/24 20:00 01/20/24 20:00 Medications Hydrocodone Bitart/Acetaminophen (Hydrocodone/Apap 5/325 Mg Tab) 1 tab PO Q6H PRN PRN Reason: Pain scale 5-7 (Moderate) Last Admin: 01/19/24 06:23 Dose: 1 tab Albuterol Sulfate (Albuterol 2.5 Mg/3 Ml Neb Mary Jane) 2.5 mg NEB [id number] [facility] Last Admin: 01/20/24 20:22 Dose: 2.5 mg Aspirin (Aspirin Ec 81 Mg Tab) 81 mg PO DAILY [facility] Last Admin: 01/20/24 08:46 Dose: 81 mg Atenolol (Atenolol 50 Mg Tab) 50 mg PO DAILY [facility] Last Admin: 01/20/24 08:46 Dose: 50 mg Clonidine HCl (Clonidine 0.1 Mg/Patch) 0.1 mg TD EVERY 7TH DAY [facility] Clopidogrel Bisulfate (Clopidogrel 75 Mg Tablet) 75 mg PO DAILY [facility] Furosemide (Furosemide 40 Mg/4 Ml Vial) 40 mg IV BIDAC [facility] Last Admin: 01/20/24 16:33 Dose: 40 mg Heparin Sodium (Porcine) (Heparin 5000 Unit/Ml 1 Ml Vial) 5,000 unit SQ Q12HR [facility] Last Admin: 01/20/24 20:15 Dose: 5,000 unit Home Med (Fenofibrate,Micronized [Fenofibrate]) 134 mg PO DAILY [facility] Last Admin: 01/20/24 09:00 Dose: Not Given Hydralazine HCl (Hydralazine Hcl 25 Mg Tablet) 25 mg PO BID [facility] Last Admin: 01/20/24 20:15 Dose: 25 mg Hydralazine HCl (Hydralazine Hcl 20 Mg/Ml Vial) 10 mg IV Q4HP PRN PRN Reason: FOR SBP>160 OR DBP>100 [facility] Last Admin: 01/20/24 17:35 Dose: 10 mg Sodium Chloride (Sodium Chloride) 250 mls @ 0 mls/hr IV .Q0M [facility] Insulin Glargine (Insulin Glargine 100 Unit/Ml) 23 unit SQ BEDTIME [facility] Last Admin: 01/20/24 20:14 Dose: 23 unit Insulin Human Regular (Insulin Regular (Human) 100 Unit/Ml) 0 unit SQ ACHS [facility]; Protocol Last Admin: 01/20/24 20:14 Dose: 5 unit Ipratropium [place] (Ipratropium Brom 0.5mg/2.5ml) 0.5 mg NEB [id number] [facility] Last Admin: 01/20/24 20:22 Dose: 0.5 mg Losartan Potassium (Losartan Potassium 50 Mg Tablet) 50 mg PO BID [facility] Last Admin: 01/20/24 20:15 Dose: 50 mg Morphine Sulfate (Morphine 4 Mg/Ml Syr) 4 mg IV Q2H PRN PRN Reason: Pain scale 8-10 (Severe) Last Admin: 01/20/24 07:51 Dose: 4 mg Ondansetron HCl (Ondansetron 4 Mg/2 Ml Vial) 4 mg IV Q6HP PRN PRN Reason: NAUSEA / VOMITING Rosuvastatin Calcium (Rosuvastatin 10 Mg Tab) 40 mg PO BEDTIME [facility] Last Admin: 01/20/24 20:15 Dose: 40 mg Spironolactone (Spironolactone 25 Mg Tablet) 25 mg PO DAILY [facility] Last Admin: 01/20/24 08:46 Dose: 25 mg Tamsulosin HCl (Tamsulosin 0.4 Mg Sr Cap) 0.4 mg PO BID [facility] Last Admin: 01/20/24 20:14 Dose: 0.4 mg Lab Results (last 24 hrs) 01/20/24 19:13: POC Glucose 207 H 01/20/24 17:18: POC Glucose 190 H 01/20/24 12:02: POC Glucose 124 H 01/20/24 08:27: POC Glucose 91 01/20/24 06:30: WBC 8.20, RBC 3.20 L, Hgb 9.2 L, Hct 27.6 L, MCV 86.3, MCH 28.9, MCHC 33.5, RDW 17.3 H, Plt Count 179, MPV 8.3 01/20/24 06:30: Sodium 138, Potassium 4.4, Chloride 105, Carbon Dioxide 31, Anion Gap 6.4, BUN 45 H, Creatinine 2.23 H, Est GFR (CKD-EPI) 32 L, Glucose 103, Calcium 8.8, Total Bilirubin 0.3, AST 11 L, ALT 19, Alkaline Phosphatase 162 H, Serum Total Protein 6.8, Albumin 1.9 L, Globulin 4.9 H, Albumin/Globulin Ratio 0.4 L 01/18/24 13:42: ABO/Rh B POSITIVE, Solid Phase Ab Screen Negative, Crossmatch See Detail Microbiology Results 01/16/24 23:05 Clean Catch Urine [place] Count - Preliminary >100,000 CFU/ML. 01/16/24 23:05 Clean Catch Urine - Preliminary Assessment/ Plan: Nephrology Progress Note No Chest Pain No Dyspnea No acute events overnight Vital Signs, Medications, Blood Work, and Imaging reviewed in the chart General: In no apparent distress, Cooperative HEENT: Atraumatic Neck: Supple Respiratory: Normal air movement Cardiovascular: Regular rate/rhythm, Edema Gastrointestinal: Soft and benign, Non-distended Musculoskeletal: No clubbing, No contractures. Left BKA. Integumentary: No rashes, No cyanosis Neurological: Normal speech Blood work reviewed in the chart. Imagings Data: [id number] EXAM DESCRIPTION: US - Lower Extremity Artery Uni Ltd - 01/16/2024 7:16 pm CLINICAL HISTORY: Left lower extremity PAD . COMPARISON: None FINDINGS: Color Doppler, grayscale, and spectral analysis was performed. Monophasic flow but with elevated velocities in the left common femoral artery. SFA has elevated [place]cities with monophasic flow. The popliteal artery has monophasic flow with normal velocities. The anterior tibial artery and dorsalis pedis arteries have monophasic but adequate flow. IMPRESSION: Monophasic flow throughout the left lower extremity may reflect a high grade stenosis or occlusion more proximally within the pelvis. There does appear to be adequate collateral flow present. [id number] EXAM DESCRIPTION: RAD - Chest Single View - 01/15/2024 1:08 pm CLINICAL HISTORY: to check picc line placed COMPARISON: Chest Single View dated 01/14/2024; Chest Single View dated 01/14/2024; Chest Single View dated 01/10/2024; Chest Single View dated 01/10/2024 FINDINGS: Lines: Right subclavian approach PICC with tip overlying the distal SVC. Lungs: Bilateral interstitial and airspace disease. Pleural: Small pleural effusions. Cardiac: Cardiomegaly. Mediastinum: Within normal limits. Bones: No acute fractures. Other: None IMPRESSION: Widespread interstitial airspace disease likely reflecting edema. The PICC tip overlies the distal SVC and is in satisfactory position. LEFT VENTRICULAR WALL MOTION: NORMAL DOPPLER/COLOR FLOW: SEE BELOW COMMENTS: 1. NORMAL LEFT VENTRICULAR EJECTION FRACTION 60-65% WITH NORMAL WALL MOTION 2. DIASTOLIC DYSFUNCTION (MODERATE) 3. LEFT ATRIAL ENLARGEMENT 4. 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
[2024-01-21 05:23] LABS: Hematocrit 26.2 % (39.6-49.0); Hemoglobin 8.7 g/dL (13.6-17.9); MCH 28.6 pg (27.0-35.0); MCHC 33.4 g/dL (32.0-36.0); MCV 85.7 fL (80-100); MPV 8.6 fL (7.6-11.3); Platelets 183 thou/uL (152-406); RBC Red Blood Cell Count 3.05 M/uL (4.33-5.43); Red Cell Distribution Width 16.9 % (12.1-15.2)
[2024-01-21 05:36] LABS: Albumin 1.9 g/dL (3.4-5.0); Albumin/Globulin Ratio 0.4 (1.1-1.8); Anion Gap 6.5 mEq/L (5.0-15.0); Bilirubin Total 0.3 mg/dL (0.2-1.0); Globulin 4.8 g/dL (2.3-3.5); Potassium 4.5 mEq/L (3.5-5.1); Protein, Total 6.7 g/dL (6.4-8.2)
[2024-01-21] MEDS: CLOPIDOGREL 75 MG TABLET PO SCH (08:19)
[2024-01-21] MEDS: METOLAZONE 5 MG TABLET PO ONE (11:11)
--- NOTE | 2024-01-21 18:56 | P.PN ---
Date of Service: 01/21/24 Subjective: Continues to do well Working with therapy Incentive spirometer at 500, encourage continued use ROS: 10 point ROS as noted above, otherwise negative Physical exam GEN: AAO x3, NAD, conversing well HEENT: Normal conjunctiva, sclera anicteric CV: RRR, normal S1 S2 present, Edema present Pulm: Symmetrical chest wall movement, nonlabored respirations on 2 L nasal cannula ABD: Soft and benign on palpation, NT, distended (Obese) MSK: No joint tenderness, Left BKA dressing (CDI), AINSLEY drain present Integumentary: No rashes, wound to left foot with dressing in place Neuro: Normal speech, normal affect Vitals reviewed Problem List: Osteomyelitis / nonhealing gangrenous left foot wound s/p extensive I&D (12/30) and Left third toe amputation along with extensive debridement 01/05 Severe PAD s/p angioplasty and stenting of left SFA (12/29) Recent history of lower left extremity osteomyelitis s/p left second toe amputation (11/02/23) Left below knee amputation 01/18/24 Dyspnea, lower extremity edema Moderate pulmonary hypertension IDDM2 Hypertension DUANE Bilateral knee pain / right hip pain post fall Depression Osteomyelitis / nonhealing gangrenous left foot wound s/p extensive I&D (12/30) and Left third toe amputation along with extensive debridement 01/05 Severe PAD s/p angioplasty and stenting of left SFA (12/29) Recent history of lower left extremity osteomyelitis s/p left second toe amputation (11/02/23) Left below knee amputation 01/18/24 Blood loss anemia Was in inpatient rehab, left foot continue to get worse and patient is now amendable to left foot amputation Readmitted to acute care preparation for amputation of left foot MRI left foot (12/28): osteomyelitis: 2nd, 3rd metatarsal, 3rd and 4th digit with destructive changes of proximal phalanx -Extensive areas of soft tissue gas underneath the presumed wound, extending along the sole of the foot anteriorly Dr. Vegas - consulted 12/28 -s/p angiogram - found to have critical stenosis of the left proximal superficial femoral artery (~90%) -s/p angioplasty and stenting of left SFA (12/29) -continue plavix; started post-operatively (12/31) General surgery - Dr. Oates consulted -s/p extensive I&D of left gangrenous necrotic wound (12/30). Found to have necrotic tissue and multiple bone fracture fragments of 2/3rd metatarsal head during surgery -Amputation of left 3rd toe and extensive debridement (01/05) -Continued worsening of left foot wound, will need amputation with general surgery -Discussed aspirin/Plavix with general surgery and vascular surgery-restart Plavix in the AM 01/20 -Continue daily aspirin -S/p left below knee amputation 01/17 Wound cx (12/28): Enterococcus Faecalis Blood cx (12/27): No growth -ID following -On vancomycin/cefepime -Will need 6 weeks total of antibiotics (12/27-02/07) H/H 7.03/01.6- one unit PRBC 01/18 Wound care Dyspnea, lower extremity edema Moderate pulmonary hypertension Continue lasix Echo reports " moderate pulmonary hypertension, ejection fraction 60%, moderate diastolic dysfunction, left atrial enlargement." IDDM2 Continue long-acting insulin 23 units at bedtime ACHS Accu-Chek, sliding scale insulin Hypertension Continue home medications Titrating given kidney function with nephrology DUANE, resolved Nephrology consulted and following Continue on IV lasix for dyspnea, edema Bilateral knee pain / right hip pain post fall xray knee/pelvis negative for any acute fractures or dislocations. Did note 14mm lucency with septations within left medial tibial plateau - likely benign. f/u xray in 3 months recommended to re-eval PRN analgesics Depression duloxetine at bedtime VTE: heparin sq Code: Full Dispo: undetermined, wean O2
--- NOTE | 2024-01-21 20:59 | P.PN ---
Date of Service: 01/21/24 Vital Signs Temp Pulse Resp BP Pulse Ox 97.1 F 65 17 184/81 H 100 01/21/24 20:00 01/21/24 20:00 01/21/24 20:00 01/21/24 20:00 01/21/24 20:00 Medications Hydrocodone Bitart/Acetaminophen (Hydrocodone/Apap 5/325 Mg Tab) 1 tab PO Q6H PRN PRN Reason: Pain scale 5-7 (Moderate) Last Admin: 01/21/24 16:48 Dose: 1 tab Albuterol Sulfate (Albuterol 2.5 Mg/3 Ml Neb Mary Jane) 2.5 mg NEB [id number] [facility] Last Admin: 01/21/24 19:07 Dose: 2.5 mg Aspirin (Aspirin Ec 81 Mg Tab) 81 mg PO DAILY [facility] Last Admin: 01/21/24 08:19 Dose: 81 mg Atenolol (Atenolol 50 Mg Tab) 50 mg PO DAILY [facility] Last Admin: 01/21/24 08:19 Dose: 50 mg Clonidine HCl (Clonidine 0.1 Mg/Patch) 0.1 mg TD EVERY 7TH DAY [facility] Clopidogrel Bisulfate (Clopidogrel 75 Mg Tablet) 75 mg PO DAILY [facility] Last Admin: 01/21/24 08:19 Dose: 75 mg Furosemide (Furosemide 40 Mg/4 Ml Vial) 40 mg IV BIDAC [facility] Last Admin: 01/21/24 16:30 Dose: 40 mg Heparin Sodium (Porcine) (Heparin 5000 Unit/Ml 1 Ml Vial) 5,000 unit SQ Q12HR [facility] Last Admin: 01/21/24 08:20 Dose: 5,000 unit Home Med (Fenofibrate,Micronized [Fenofibrate]) 134 mg PO DAILY [facility] Last Admin: 01/21/24 09:00 Dose: Not Given Hydralazine HCl (Hydralazine Hcl 20 Mg/Ml Vial) 10 mg IV Q4HP PRN PRN Reason: FOR SBP>160 OR DBP>100 [facility] Last Admin: 01/20/24 17:35 Dose: 10 mg Hydralazine HCl (Hydralazine Hcl 25 Mg Tablet) 50 mg PO BID [facility] Sodium Chloride (Sodium Chloride) 250 mls @ 0 mls/hr IV .Q0M [facility] Cefepime HCl 1 gm/ Sodium (Chloride) 100 mls @ 200 mls/hr IV DAILY [facility]; Protocol Insulin Glargine (Insulin Glargine 100 Unit/Ml) 23 unit SQ BEDTIME [facility] Last Admin: 01/20/24 20:14 Dose: 23 unit Insulin Human Regular (Insulin Regular (Human) 100 Unit/Ml) 0 unit SQ ACHS [facility]; Protocol Last Admin: 01/21/24 16:49 Dose: 3 unit Ipratropium Sarah (Ipratropium Brom 0.5mg/2.5ml) 0.5 mg NEB [id number] [facility] Last Admin: 01/21/24 19:07 Dose: 0.5 mg Losartan Potassium (Losartan Potassium 50 Mg Tablet) 50 mg PO BID [facility] Last Admin: 01/21/24 08:19 Dose: 50 mg Morphine Sulfate (Morphine 4 Mg/Ml Syr) 4 mg IV Q2H PRN PRN Reason: Pain scale 8-10 (Severe) Last Admin: 01/21/24 01:11 Dose: 4 mg Ondansetron HCl (Ondansetron 4 Mg/2 Ml Vial) 4 mg IV Q6HP PRN PRN Reason: NAUSEA / VOMITING Rosuvastatin Calcium (Rosuvastatin 10 Mg Tab) 40 mg PO BEDTIME [facility] Last Admin: 01/20/24 20:15 Dose: 40 mg Spironolactone (Spironolactone 25 Mg Tablet) 25 mg PO DAILY [facility] Last Admin: 01/21/24 08:20 Dose: 25 mg Tamsulosin HCl (Tamsulosin 0.4 Mg Sr Cap) 0.4 mg PO BID [facility] Last Admin: 01/21/24 08:19 Dose: 0.4 mg Lab Results (last 24 hrs) 01/21/24 19:21: POC Glucose 195 H 01/21/24 16:27: POC Glucose 202 H 01/21/24 11:33: POC Glucose 196 H 01/21/24 07:46: POC Glucose 133 H 01/21/24 05:02: WBC 7.30, RBC 3.05 L, Hgb 8.7 L, Hct 26.2 L, MCV 85.7, MCH 28.6, MCHC 33.4, RDW 16.9 H, Plt Count 183, MPV 8.6 01/21/24 05:02: Sodium 137, Potassium 4.5, Chloride 103, Carbon Dioxide 32, Anion Gap 6.5, BUN 47 H, Creatinine 2.15 H, Est GFR (CKD-EPI) 33 L, Glucose 156 H, Calcium 9.0, Total Bilirubin 0.3, AST 13 L, ALT 18, Alkaline Phosphatase 151 H, Serum Total Protein 6.7, Albumin 1.9 L, Globulin 4.8 H, Albumin/Globulin Ratio 0.4 L Microbiology Results 01/16/24 23:05 Clean Catch Urine Murphy Count - Final >100,000 CFU/ML. 01/16/24 23:05 Clean Catch Urine - Final Assessment/ Plan: Nephrology Progress Note No Chest Pain No Dyspnea No acute events overnight Vital Signs, Medications, Blood Work, and Imaging reviewed in the chart General: In no apparent distress, Cooperative HEENT: Atraumatic Neck: Supple Respiratory: Normal air movement Cardiovascular: Regular rate/rhythm, Edema Gastrointestinal: Soft and benign, Non-distended Musculoskeletal: No clubbing, No contractures. Left BKA. Integumentary: No rashes, No cyanosis Neurological: Normal speech Blood work reviewed in the chart. Imagings Data: [id number] EXAM DESCRIPTION: US - Lower Extremity Artery Uni Ltd - 01/16/2024 7:16 pm CLINICAL HISTORY: Left lower extremity PAD . COMPARISON: None FINDINGS: Color Doppler, grayscale, and spectral analysis was performed. Monophasic flow but with elevated velocities in the left common femoral artery. SFA has elevated [place]cities with monophasic flow. The popliteal artery has monophasic flow with normal velocities. The anterior tibial artery and dorsalis pedis arteries have monophasic but adequate flow. IMPRESSION: Monophasic flow throughout the left lower extremity may reflect a high grade stenosis or occlusion more proximally within the pelvis. There does appear to be adequate collateral flow present. [id number] EXAM DESCRIPTION: RAD - Chest Single View - 01/15/2024 1:08 pm CLINICAL HISTORY: to check picc line placed COMPARISON: Chest Single View dated 01/14/2024; Chest Single View dated 01/14/2024; Chest Single View dated 01/10/2024; Chest Single View dated 01/10/2024 FINDINGS: Lines: Right subclavian approach PICC with tip overlying the distal SVC. Lungs: Bilateral interstitial and airspace disease. Pleural: Small pleural effusions. Cardiac: Cardiomegaly. Mediastinum: Within normal limits. Bones: No acute fractures. Other: None IMPRESSION: Widespread interstitial airspace disease likely reflecting edema. The PICC tip overlies the distal SVC and is in satisfactory position. LEFT VENTRICULAR WALL MOTION: NORMAL DOPPLER/COLOR FLOW: SEE BELOW COMMENTS: 1. NORMAL LEFT VENTRICULAR EJECTION FRACTION 60-65% WITH NORMAL WALL MOTION 2. DIASTOLIC DYSFUNCTION (MODERATE) 3. LEFT ATRIAL ENLARGEMENT 4. 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
[2024-01-21] MEDS: CEFEPIME 1 GM in NA CHLORIDE 0.9% 100 ML IV SCH (21:34)
[2024-01-21] MEDS: HYDRALAZINE HCL 25 MG TABLET PO SCH (21:36)
[2024-01-22 06:36] LABS: Albumin 1.8 g/dL (3.4-5.0); Magnesium 2.5 mg/dL (1.6-2.4); Phosphorus 2.9 mg/dL (2.5-4.9); Uric Acid 5.3 mg/dL (3.5-7.2)
--- NOTE | 2024-01-22 07:16 | P.PN ---
Date of Service: 01/22/24 Subjective: Awake and feeling well, working with therapy AINSLEY drain removed Attempt to wean off of oxygen supplementation ROS: 10 point ROS as noted above, otherwise negative Physical exam GEN: AAO x3, no acute distress, conversing well HEENT: Normal conjunctiva, sclera anicteric CV: Normal sinus rhythm, S1 S2 present, Edema present Pulm: nonlabored respirations, clear breath sounds, on 1 L nasal cannula ABD: Soft and benign on palpation, NT, distended (Obese) MSK: No joint tenderness, Left BKA dressing (CDI) Integumentary: No rashes, wound to left foot with dressing in place Neuro: Normal speech, normal affect Vitals reviewed Problem List: Osteomyelitis / nonhealing gangrenous left foot wound s/p extensive I&D (12/30) and Left third toe amputation along with extensive debridement 01/05 Severe PAD s/p angioplasty and stenting of left SFA (12/29) Recent history of lower left extremity osteomyelitis s/p left second toe amputation (11/02/23) Left below knee amputation 01/18/24 Blood loss anemia Dyspnea, lower extremity edema Moderate pulmonary hypertension IDDM2 Hypertension DUANE Bilateral knee pain / right hip pain post fall Depression Osteomyelitis / nonhealing gangrenous left foot wound s/p extensive I&D (12/30) and Left third toe amputation along with extensive debridement 01/05 Severe PAD s/p angioplasty and stenting of left SFA (12/29) Recent history of lower left extremity osteomyelitis s/p left second toe amputation (11/02/23) Left below knee amputation 01/18/24 Blood loss anemia Was in inpatient rehab, left foot continue to get worse and patient is now amendable to left foot amputation Readmitted to acute care preparation for amputation of left foot MRI left foot (12/28): osteomyelitis: 2nd, 3rd metatarsal, 3rd and 4th digit with destructive changes of proximal phalanx -Extensive areas of soft tissue gas underneath the presumed wound, extending along the sole of the foot anteriorly Dr. Vegas - consulted 12/28 -s/p angiogram - found to have critical stenosis of the left proximal superficial femoral artery (~90%) -s/p angioplasty and stenting of left SFA (12/29) -continue plavix; started post-operatively (12/31) General surgery - Dr. Oates consulted -s/p extensive I&D of left gangrenous necrotic wound (12/30). Found to have necrotic tissue and multiple bone fracture fragments of 2/3rd metatarsal head during surgery -Amputation of left 3rd toe and extensive debridement (01/05) -Continued worsening of left foot wound, will need amputation with general surgery -Discussed aspirin/Plavix with general surgery and vascular surgery-restart Plavix in the AM 01/20 -Continue daily aspirin -S/p left below knee amputation 01/17 Wound cx (12/28): Enterococcus Faecalis Blood cx (12/27): No growth -ID following -On vancomycin/cefepime -Will need 6 weeks total of antibiotics (12/27-02/07) H/H 7.7/23.6- one unit PRBC 01/18, H/H 8.7/.2 stable 01/21 Wound care Dyspnea, lower extremity edema Moderate pulmonary hypertension Continue lasix Echo reports " moderate pulmonary hypertension, ejection fraction 60%, moderate diastolic dysfunction, left atrial enlargement." IDDM2 Continue long-acting insulin 23 units at bedtime ACHS Accu-Chek, sliding scale insulin Hypertension Continue home medications Titrating given kidney function with nephrology DUANE, resolved Nephrology consulted and following Continue on IV lasix for dyspnea, edema Bilateral knee pain / right hip pain post fall xray knee/pelvis negative for any acute fractures or dislocations. Did note 14mm lucency with septations within left medial tibial plateau - likely benign. f/u xray in 3 months recommended to re-eval PRN analgesics Depression duloxetine at bedtime VTE: heparin sq Code: Full Dispo: Inpatient rehab in the a.m., wean O2
--- NOTE | 2024-01-22 09:32 | PN ---
Date of Progress Note: 01/22/2024 Diagnosis: Status post below-knee amputation. Subjective: The patient is doing great. No complaint. Physical Examination: Flaps were intact. Lisa intact. No cyanosis. Flaps are 100% thick. AINSLEY was removed today. Mini mal fluid. Plan: From the surgical standpoint, continue the knee immobilizer until he gets rehab. Once he is t here, then they may continue the treatment. From the surgical standpoint, just dressing changes p.r. n. He is ready to move to the next step from the surgical standpoint. If he gets discharged home, jam betancurlow up in my office in a week. If he goes to rehab, then we will remove the lisa in about a wee k or 2 from now. GAB/JAMES Voice ID: [id number] Report ID: [id number]
--- NOTE | 2024-01-22 11:04 | P.PN ---
Nephrology (S) Has been diuresing well over the past 48h, peripheral edema improved, dyspnea stable, lying back in bed without orthopnea or distress (O) Vitals, medications, blood work and imaging reviewed in the chart General: In no apparent distress, Cooperative HEENT: Atraumatic, on LFNC Neck: Supple Respiratory: Normal air movement, b/l air entry Cardiovascular: Improved LE edema, Regular rate/rhythm Gastrointestinal: Soft, obese, NT Musculoskeletal: No contractures, Lt BKA Integumentary:Rt leg compression sock Neurological: Normal speech, awake, alert, no tremors Blood work reviewed in the chart. Conclusions/Impression: Prior Stage II DUANE in the setting of hypovolemia had resolved but earlier this mo with recurrent Stage 1 DUANE with Cr level rising > 0.5 mg/dl -Cr level upward rise may have been related to BP lowering, resumption of ARB or other although level had trended back up some but also coinciding with addition of aldosterone antagonist, SGLT2i agent, other. Cr level had trended > 2 mg/dl but peaked and marginally lower since, cont to monitor closely HTN -Labile, now on several agents, suspended last week the dihydropyridine CCB as it may be contributory to the massive edema he has and did substitute with alternative vasodilator, Hydralazine. Will titrate as needed Peripheral edema -Multifactorial, chronic, has low albumin state from recent severe illness. However recommended stopping agents contributory to edema and/or fluid retention. Stopped TZD agent currently. Stopped CCB as mentioned above. Escalated diuretics and edema improving DM II with Hyperglycemia -Management per IM DM II with Left Foot Ulcer -s/p surgery, debridement, amputation, cont wound care
[2024-01-22] MEDS: GUAIFENESIN 600 MG SA TAB PO SCH (14:25)
--- NOTE | 2024-01-23 08:44 | RAD REPORT ---
EXAM DESCRIPTION: Tony Single View01/23/2024 8:31 am CLINICAL HISTORY: Shortness breath COMPARISON: January 17, 2024 FINDINGS: Moderate right and mild left pulmonary opacities Cardiomegaly PICC line in place IMPRESSION: Bilateral pulmonary opacities right greater than left probably pulmonary edema. Pneumoni a is another consideration
[2024-01-23 09:00] LABS: Absolute Basophils 0.1 K/uL (0-0.5); Absolute Eosinophils 0.2 K/uL (0-0.5); Absolute Lymphocytes (CBC) 0.7 K/uL (0.7-4.9); Absolute Monocytes 0.5 K/uL (0.1-1.3); Absolute Neutrophil 5.9 K/uL (1.8-8.0); Basophils % 1.5 % (0-1.3); Eosinophils % 2.2 % (0-4.4); Hematocrit 27.2 % (39.6-49.0); Hemoglobin 9.1 g/dL (13.6-17.9); Lymphocytes % 9.2 % (15.3-44.8); MCH 28.6 pg (27.0-35.0); MCHC 33.3 g/dL (32.0-36.0); MPV 8.3 fL (7.6-11.3); Neutrophils % 80.1 % (41.7-73.7); Nucleated Red Blood Cells % 0.1 % (0-0); Platelets 218 thou/uL (152-406); RBC Red Blood Cell Count 3.17 M/uL (4.33-5.43); Red Cell Distribution Width 16.7 % (12.1-15.2)
[2024-01-23 09:13] LABS: Anion Gap 7.1 mEq/L (5.0-15.0); Magnesium 2.3 mg/dL (1.6-2.4); Phosphorus 2.8 mg/dL (2.5-4.9); Potassium 4.1 mEq/L (3.5-5.1)
[2024-01-23] MEDS: VANCOMYCIN 2 GM in NA CHLORIDE 0.9% 500 ML IVPB SCH (10:10)
[2024-01-23] MEDS: CLONIDINE 0.1 MG/PATCH TD SCH (10:10)
[2024-01-23] MEDS: FUROSEMIDE 20 MG/ 2ML VIAL IV ONE (12:07)
--- NOTE | 2024-01-23 15:05 | P.PN ---
Nephrology (S) Has been diuresing well with renal function mostly stable but noted generalized weakness, reports fatigue with sitting up in bed. Denies any increase in dyspnea (O) Vitals, medications, blood work and imaging reviewed in the chart General: In no apparent distress, Cooperative HEENT: Atraumatic, on LFNC Neck: Supple Respiratory: Normal air movement, b/l air entry Cardiovascular: Improved LE edema, Regular rate/rhythm Gastrointestinal: Soft, obese, NT Musculoskeletal: No contractures, Lt BKA Integumentary:Rt leg compression sock Neurological: Normal speech, awake, alert, no tremors Blood work reviewed in the chart. Conclusions/Impression: Prior Stage II DUANE in the setting of hypovolemia had resolved but earlier this mo with recurrent Stage 1 DUANE with Cr level rising > 0.5 mg/dl -Cr level upward rise may have been related to BP lowering, resumption of ARB or other although level had trended back up some but also coinciding with addition of aldosterone antagonist, SGLT2i agent, other. Cr level had trended > 2 mg/dl but peaked and marginally lower since, cont to monitor closely HTN -Labile, now on several agents, suspended week before last the dihydropyridine CCB as it may be contributory to the massive edema he has and did substitute with alternative vasodilator, Hydralazine. Will titrate as needed Peripheral edema. CHF unspecified -Multifactorial, chronic, has low albumin state from recent severe illness. However recommended stopping agents contributory to edema and/or fluid rete ntion. Stopped TZD agent currently. Stopped CCB as mentioned above. Escalated diuretics and edema improved so will cut back on Lasix to 20 mg BID DM II with Hyperglycemia -Management per IM DM II with Left Foot Ulcer -s/p surgery, debridement, amputation, cont wound care
--- NOTE | 2024-01-23 18:35 | P.PN ---
Date of Service: 01/23/24 Subjective: Complaining of shortness of breath, increased need for oxygenation Chest x-ray repeated showing pulmonary edema Additional IV Lasix given ROS: 10 point ROS as noted above, otherwise negative Physical exam GEN: AAO x3, no acute distress, conversing well HEENT: Normal conjunctiva, sclera anicteric CV: Regular rate and rhythm, normal S1 S2 present, Edema present Pulm: Increased work of breathing, audible wheezing, on 5 L nasal cannula ABD: Soft and benign on palpation, NT, distended (Obese) MSK: No joint tenderness, Left BKA dressing (CDI) Integumentary: No rashes, wound to left foot with dressing in place Neuro: Normal speech, normal affect Vitals reviewed Problem List: Osteomyelitis / nonhealing gangrenous left foot wound s/p extensive I&D (12/30) and Left third toe amputation along with extensive debridement 01/05 Severe PAD s/p angioplasty and stenting of left SFA (12/29) Recent history of lower left extremity osteomyelitis s/p left second toe amputation (11/02/23) Left below knee amputation 01/18/24 Blood loss anemia Dyspnea, lower extremity edema Moderate pulmonary hypertension IDDM2 Hypertension DUANE Bilateral knee pain / right hip pain post fall Depression Osteomyelitis / nonhealing gangrenous left foot wound s/p extensive I&D (12/30) and Left third toe amputation along with extensive debridement 01/05 Severe PAD s/p angioplasty and stenting of left SFA (12/29) Recent history of lower left extremity osteomyelitis s/p left second toe amputation (11/02/23) Left below knee amputation 01/18/24 Blood loss anemia- resolved Was in inpatient rehab, left foot continue to get worse and patient is now amendable to left foot amputation Readmitted to acute care preparation for amputation of left foot MRI left foot (12/28): osteomyelitis: 2nd, 3rd metatarsal, 3rd and 4th digit with destructive changes of proximal phalanx -Extensive areas of soft tissue gas underneath the presumed wound, extending along the sole of the foot anteriorly Dr. Vegas - consulted 12/28 -s/p angiogram - found to have critical stenosis of the left proximal superficial femoral artery (~90%) -s/p angioplasty and stenting of left SFA (12/29) -continue plavix; started post-operatively (12/31) General surgery - Dr. Oates consulted -s/p extensive I&D of left gangrenous necrotic wound (12/30). Found to have necrotic tissue and multiple bone fracture fragments of 2/3rd metatarsal head during surgery -Amputation of left 3rd toe and extensive debridement (01/05) -Continued worsening of left foot wound, will need amputation with general surgery -Discussed aspirin/Plavix with general surgery and vascular surgery-restart Plavix in the AM 01/20 -Continue daily aspirin -S/p left below knee amputation 01/17 Wound cx (12/28): Enterococcus Faecalis Blood cx (12/27): No growth -ID following -Continue vancomycin/cefepime through 02/07 -Will need 6 weeks total of antibiotics (12/27-02/07) H/H 7.7/.6- one unit PRBC 01/18, H/H 9.1/.2 stable 01/22 Wound care Dyspnea, lower extremity edema Moderate pulmonary hypertension Continue lasix Echo reports " moderate pulmonary hypertension, ejection fraction 60%, moderate diastolic dysfunction, left atrial enlargement." Diabetes Mellitus- IDDM2 Continue long-acting insulin 23 units at bedtime ACHS Accu-Chek, sliding scale insulin Hypertension Continue home medications Titrating given kidney function with nephrology DUANE, resolved Nephrology consulted and following Continue on IV lasix for dyspnea, edema Bilateral knee pain / right hip pain post fall xray knee/pelvis negative for any acute fractures or dislocations. Did note 14mm lucency with septations within left medial tibial plateau - likely benign. f/u xray in 3 months recommended to re-eval PRN analgesics Depression duloxetine at bedtime VTE: heparin sq Code: Full Dispo: Inpatient rehab in the a.m., wean O2
[2024-01-23] MEDS: FUROSEMIDE 40 MG/4 ML VIAL IV SCH (19:01)
[2024-01-23] MEDS: HEPARIN 5000 UNIT/ML 1 ML VIAL SQ SCH (21:40)
[2024-01-24] MEDS: DOCUSATE NA 100 MG CAP PO SCH (00:55)
--- NOTE | 2024-01-24 10:03 | P.DS ---
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 s/p extensive I&D (12/30) and Left third toe amputation along with extensive debridement 01/05 Severe PAD s/p angioplasty and stenting of left SFA (12/29) Recent history of lower left extremity osteomyelitis s/p left second toe amputation (11/02/23) Left below knee amputation 01/18/24 Blood loss anemia Dyspnea, lower extremity edema Moderate pulmonary hypertension IDDM2 Hypertension DUANE Bilateral knee pain / right hip pain post fall Depression HPI 01/16/2024 Brandon Yap is a 68 year old male with recent admission to hospital for left foot osteomyelitis, he had amputation of his third left toe at that time as well as extensive I&D and debridement. It was recommended he receive a amputation of the left foot at the time but he was not amendable to this. His foot has continued to get worse despite intervention with vascular surgery and antibiotics and at this time he is amendable for amputation. He was in inpatient rehab after his previous admission but the condition of his left foot limited his ability to participate in given that he is now amendable for amputation he has been admitted to the acute care floor in preparation for this amputation of his left foot. Hospital Course: Brandon Yap is a pleasant 68 year old male with a past medical history significant for depression, DUANE, diabetes mellitusIDDM, and hypertension who was admitted to the [facility] on 01/16/24 for increased left foot deterioration. Brandon Yap readmitted to the hospital from inpatient rehab due to deterioration of his left foot. During this admission received below-knee amputation. Dr. Kemp consulted recommending cefepine and vancomycin. Discharge to Inpatient rehab. Will need to follow up with Dr. Oates for wound check and management. IV antibiotics started during this admission and will continue in inpatient rehab. He is tolerating p.o. diet, weaned his oxygen to 2 L nasal cannula, transferred to the chair, working with therapy, and hemodynamically stable for discharge. On 01/24/24, Brandon was seen on morning rounds and deemed medically stable for discharge. Brandon was discharged with instructions to schedule follow-up appointments with PCP and DrDorothea Taylor was provided prescriptions for Lasix. The patient and family members were given the opportunity to ask questions and reported no further questions. Furthermore, all questions were answered to the best of my ability. A copy of this discharge summary will be sent to the above providers to facil itate continuity of care. Physical exam GEN: Awake, alert, and oriented x3, conversing well HEENT: Normal conjunctiva, sclera anicteric CV: RRR, S1 S2 present, Edema present Pulm: Symmetrical chest wall movement, audible wheezing, on 2 L nasal cannula ABD: Soft and benign on palpation, NT, distended (Obese) MSK: No joint tenderness, Left BKA dressing CDI Integumentary: No rashes, wound to left foot with dressing in place Neuro: Normal speech, normal affect Vital Signs/Physical Exam: Temp Pulse Resp BP Pulse Ox 96.9 F 66 21 H 148/79 H 98 01/24/24 08:00 01/24/24 08:00 01/24/24 08:00 01/24/24 08:00 01/24/24 08:00 Laboratory Data at Discharge: WBC 7.30 thou/uL (4.3-10.9) 01/23/24 08:49 Hgb 9.1 g/dL (13.6-17.9) L 01/23/24 08:49 Hct 27.2 % (39.6-49.0) L 01/23/24 08:49 Plt Count 218 thou/uL (152-406) 01/23/24 08:49 Sodium 139 mEq/L (136-145) 01/23/24 08:49 Potassium 4.1 mEq/L (3.5-5.1) 01/23/24 08:49 BUN 43 mg/dL (7-18) H 01/23/24 08:49 Creatinine 2.02 mg/dL (0.70-1.30) H 01/23/24 08:49 Glucose 174 mg/dL (74-106) H 01/23/24 08:49 Uric Acid 5.3 mg/dL (3.5-7.2) 01/22/24 06:10 Phosphorus 2.8 mg/dL (2.5-4.9) 01/23/24 08:49 Magnesium 2.3 mg/dL (1.6-2.4) 01/23/24 08:49 Total Bilirubin 0.3 mg/dL (0.2-1.0) 01/21/24 05:02 AST 13 U/L (15-37) L 01/21/24 05:02 ALT 18 U/L (16-61) 01/21/24 05:02 Alkaline Phosphatase 151 U/L (45-117) H 01/21/24 05:02 Home Medications: Pioglitazone HCl 30 mg PO DAILY 07/07/13 Aspirin [Aspirin EC 81 MG] 81 tab PO DAILY 10/29/23 Empagliflozin [Jardiance] 25 mg PO DAILY 10/29/23 Fenofibrate,Micronized [Fenofibrate] 134 mg PO DAILY 10/29/23 Rosuvastatin Calcium 40 tab PO BEDTIME 10/29/23 Spironolactone 25 tab PO DAILY 10/29/23 Tamsulosin [Flomax*] 0.4 cap PO DAILY 10/29/23 Nut.tx.gluc Intol,Lf,Soy/Fiber [Glucerna 1.5 Mariusz Liquid] 237 ml PO BIDAC #60 can 11/03/23 Potassium Chloride 10 meq PO M,W,F #15 tab 11/03/23 atenoloL [Tenormin*] 50 mg PO DAILY #30 tab 11/03/23 Clonidine Patch [Catapres-Tts 1*] 0.1 mg TD EVERY 7TH DAY 30 Days #4 pat 01/08/24 Hydrocodone Bit/Acetaminophen [Hydrocodon-Acetaminophen 5-325] 1 tab PO Q6HP PRN 01/08/24 Insulin Glargine,Hum.rec.anlog [Jermaine Helton] 20 unit SQ BEDTIME 01/08/24 Clopidogrel Bisulfate [Plavix*] 75 mg PO DAILY 01/24/24 Furosemide [Lasix] 20 mg PO BIDL 30 Days #60 tab 01/24/24 Hydralazine [Apresoline*] 50 mg PO BID tab 01/24/24 Insulin Glargine,Hum.rec.anlog [Semglee] 23 unit SQ BEDTIME ml 01/24/24 Ipratropium Neb [Atrovent*] 0.5 mg NEB [id number] amp 01/24/24 Losartan Potassium [Cozaar*] 50 mg PO BID 01/24/24 New Medications: Furosemide [Lasix] 20 mg PO BIDL 30 Days #60 tab Physician Discharge Instructions: Brandon Yap readmitted to the hospital from inpatient rehab due to deterioration of his left foot. During this admission received below-knee amputation. Dr. Kemp consulted recommending cefepine and vancomycin. Discharge to Inpatient rehab. Will need to follow up with Dr. Oates for wound check and management. 1. Please call and schedule a follow-up appointment with your PCP in 3-5 days - Please follow-up with your PCP for medication refills/adjustments 2. Please call and schedule a follow-up appointment with Dr. Oates in one week -Wound check and management, leave dressing intact 3. continue to wean oxygen requirement, continue lasix 4. Continue renal diet 5. activity restrictions fall precaution 6. Return to the ED if symptoms worsen IV antibiotic instructions: -Cefepime 1 gram every 24 hours and Vancomycin 2 g Q24h IVPB via PICC. -Flush PICC with 10 mil normal saline before and after medication administration. -CBC and BMP weekly, Vancomycin trough prior to third dose and renal dose vancomycin. -Next vancomycin trough scheduled for 01/25/2024. -Dr. Kemp will follow his labs -Both antibiotic end 02/08/24. -Remove PICC after course of antibiotics complete. New medications IV cefepime 1 g daily end date February 07 IV Vancomycin 2 g daily end date February 07-renally dosed Diet: Renal Activity: Fall precautions Followup: Sergo Oates MD [ACTIVE - CAN ADMIT] -
[2024-01-24 10:22] VITALS: O2SAT 98
[2024-01-24 10:41] LABS: Anion Gap 5.7 mEq/L (5.0-15.0); Potassium 3.7 mEq/L (3.5-5.1)
[2024-01-24] MEDS: MINERAL OIL 30 ML UCUP PO ONE (11:57)
--- NOTE | 2024-01-24 13:08 | P.PN ---
Nephrology (S) Seen sitting up in recliner chair eating lunch, dyspnea improved/stable, on LFNC, peripheral edema better (O) Vitals, medications, blood work and imaging reviewed in the chart General: In no apparent distress, Cooperative HEENT: Atraumatic, on LFNC Neck: Supple Respiratory: Normal air movement, b/l air entry Cardiovascular: Improved LE edema, Regular rate/rhythm Gastrointestinal: Soft, obese, NT Musculoskeletal: No contractures, Lt BKA Integumentary:Rt leg compression sock Neurological: Normal speech, awake, alert, no tremors Blood work reviewed in the chart. Conclusions/Impression: Prior Stage II DUANE in the setting of hypovolemia had resolved but earlier this mo with recurrent Stage 1 DUANE with Cr level rising > 0.5 mg/dl -Cr level upward rise may have been related to BP lowering, resumption of ARB or other although level had trended back up some but also coinciding with addition of aldosterone antagonist, SGLT2i agent, other. Cr level had trended > 2 mg/dl but peaked and marginally lower since, cont to monitor closely HTN -Labile, now on several agents, suspended week before last the dihydropyridine CCB as it may be contributory to the massive edema he has and did substitute with alternative vasodilator, Hydralazine. Will titrate as needed Peripheral edema. Acute on chronic diastolic CHF -Multifactorial, chronic, has low albumin state from recent severe illness. However recommended stopping agents contributory to edema and/or fluid retention. Stopped TZD agent currently. Stopped CCB as mentioned above. Escalated diuretics and edema improved so did cut back on Lasix to 20 mg BID and will switch to PO now Metab alkalosis 2nd to some contraction of volume with diuretic use, other DM II with Hyperglycemia -Management per IM DM II with Left Foot Ulcer -s/p surgery, debridement, amputation, cont wound care
[2024-01-24] MEDS: MAGNESIUM CITRATE 300 ML BOT PO SCH (14:23)
[2024-01-24] MEDS: FUROSEMIDE 20 MG TABLET PO SCH (16:48)
[2024-01-24 17:05] VITALS: BP 150/91
[2024-01-24 18:16] VITALS: TEMP 97
[2024-01-25] MEDS ORDERED: FUROSEMIDE 20 MG TABLET PO SCH (08:00)
== END 2024-01-24 18:30 | DRG 239 ==
LOC: 4TH 12:11
PROVIDERS: ADMIT Hospitalist; ATTEND Internal Medicine
PROC: 30233N1 Transfusion of Nonautologous Red Blood Cells into Peripheral Vein, Percutaneous Approach (ICD-10-PCS; 2024-01-18)
PROC: 0Y6J0Z1 Detachment at Left Lower Leg, High, Open Approach (ICD-10-PCS; principal; 2024-01-18 11:45)
DX: E11.52 Type 2 diabetes mellitus with diabetic peripheral angiopathy with gangrene (principal); I50.33 Acute on chronic diastolic (congestive) heart failure; N18.6 End stage renal disease; N17.9 Acute kidney failure, unspecified; E87.1 Hypo-osmolality and hyponatremia; L03.116 Cellulitis of left lower limb; I13.2 Hypertensive heart and chronic kidney disease with heart failure and with stage 5 chronic kidney disease, or end stage renal disease; E87.3 Alkalosis; M86.172 Other acute osteomyelitis, left ankle and foot; E11.22 Type 2 diabetes mellitus with diabetic chronic kidney disease; E11.69 Type 2 diabetes mellitus with other specified complication; E11.65 Type 2 diabetes mellitus with hyperglycemia; E11.621 Type 2 diabetes mellitus with foot ulcer; L97.529 Non-pressure chronic ulcer of other part of left foot with unspecified severity; F32.A Depression, unspecified; E63.8 Other specified nutritional deficiencies; D50.0 Iron deficiency anemia secondary to blood loss (chronic); D63.1 Anemia in chronic kidney disease; I27.20 Pulmonary hypertension, unspecified; N40.1 Benign prostatic hyperplasia with lower urinary tract symptoms; E88.09 Other disorders of plasma-protein metabolism, not elsewhere classified; M25.562 Pain in left knee; M25.561 Pain in right knee; F17.210 Nicotine dependence, cigarettes, uncomplicated; B95.2 Enterococcus as the cause of diseases classified elsewhere; Z79.4 Long term (current) use of insulin; Z79.82 Long term (current) use of aspirin; Z79.02 Long term (current) use of antithrombotics/antiplatelets; Z89.422 Acquired absence of other left toe(s); Z79.899 Other long term (current) drug therapy
CPT/HCPCS: 36415; 36430; 36569; 71045; 80048; 80053; 80069; 80202; 81001; 82043; 82435; 82550; 82570; 82947; 83735; 83880; 84100; 84132; 84156; 84300; 84550; 85014; 85018; 85025; 85027; 86850; 86900; 86901; 86920; 87040; 87086; 87088; 88307; 88311; 93306; 93926; 94010; 94640; 97110; 97161; 97530; J0360; J0692; J1644; J1940; J2001; J2371; J2405; J2704; J3010; J7030; J7040; J7050; J7613; J7644; P9016; Q5106